=== PATIENT | male | born 1960 | race Caucasian/White ===

== ENCOUNTER 2023-03-14 01:44 | Day surgery (SDC) | payer MEDICARE, SELFPAY ==
[2023-02-28 13:25] VITALS: BMI 32.5
[2023-03-14 09:54] VITALS: BP 132/74; PULSE 73; RESP 17; TEMP 35.9; O2SAT 98; BMI 30.9
[2023-03-14] MEDS: LACTATED RINGERS 1,000 ML 150 ML IV CONT ×2 (10:03→11:18)
[2023-03-14 10:05] LABS: Glucose Point of Care 127 mg/dl (65-105)
--- NOTE | 2023-03-14 10:39 | PM.HPGS ---
History of Present Illness History of Present Illness Consent: Risks, benefits, and alternatives have been discussed and questions answered. Patient agrees to proceed with procedure. Chief complaint: positive cologuard test Narrative: Vincenzo Bonilla is a 63 year old male presents for colonoscopy because of positive Cologuard test. Patient reports his current weight appetite and bowel movements are normal. Patient denies abdominal pain. In the past he has had occasional discomfort with bleeding but none recently. Bleeding with wiping attributed to hemorrhoids. Family history noncontributory. Review of Systems Review of Systems: Review of systems noncontributory. [facility] Family History Family History (Updated 06/08/16 @ 23:19 by DOCTOR UNKNOWN) Sibling Family history of obesity Hypertension Family history of alcoholism Family history of diabetes mellitus in first degree relative Patient's brother is Mother Depression Father Hypertension Family history of diabetes mellitus in first degree relative Social History Social History Smoking packs per day: 2 Smoking cigarettes per day: 40.0 Years smoked: 30 Smoking pack-years: 60.00 Smoking status: Former smoker Tobacco type: cigarettes Alcohol intake: current Substance use type: marijuana Living arrangements: with family Spiritual care concerns: No Meds Home Medications and Allergies Home Medications Medication Instructions Recorded Confirmed Type lisinopril 20 20 tablet PO DAILY 02/28/23 03/14/23 History mg-hydrochlorothiazide 12.5 mg tablet metformin 500 mg tablet 1,000 mg PO BID 02/28/23 03/14/23 History pravastatin 40 mg tablet 40 mg PO DAILY 02/28/23 03/14/23 History Allergies Allergy/AdvReac Type Severity Reaction Status Date / Time No Known Allergies Allergy Verified 03/14/23 09:52 Vital Signs Vital Signs - 24 hr 03/14/23 09:54 Temperature 96.6 F L Pulse Rate 73 Respiratory Rate 17 Blood Pressure 132/74 Pulse Oximetry 98 Oxygen Delivery Room Air Exam Narrative: Physical exam reveals patient to be alert. Vital signs stable. HEENT exam is unremarkable. Patient is anicteric. Lungs are clear to auscultation and percussion. Heart is without murmur or extra sounds. Abdomen bowel sounds are present soft nontender with no organomegaly. Digital external rectal exam is normal. Assessment and Plan Assessment and plan (1) Positive colorectal cancer screening using Cologuard test: Code(s): R19.5 - Other fecal abnormalities Status: Acute Assessment and Plan: Patient found to have positive Cologuard test for this reason colonoscopy will be performed today. Further recommendations may be given after endoscopy.
--- NOTE | 2023-03-14 11:23 | P.PNAN_ITS ---
Anes - Initial Pre Proc Eval Procedure: Operation Date: 03/14/23 11:00 Proposed Procedures p Colonoscopy - Brian Rothman MD Date/Time: 03/14/23 11:23 Surgeon: Brian Rothman MD Pre Op Diagnosis: positive cologuard test Patient Data Age: 63 Gender: M Height: 1.83 m Weight: 103.6 kg Last Vital Signs Temp 96.6 F L 03/14/23 09:54 Pulse 73 03/14/23 09:54 Resp 17 03/14/23 09:54 BP 132/74 03/14/23 09:54 Pulse Ox 98 03/14/23 09:54 O2 Del Method Room Air 03/14/23 09:54 Allergies Allergy/AdvReac Type Severity Reaction Status Date / Time No Known Allergies Allergy Verified 03/14/23 09:52 Home Medications Medication Instructions Recorded Confirmed Type lisinopril 20 20 tablet PO DAILY 02/28/23 03/14/23 History mg-hydrochlorothiazide 12.5 mg tablet metformin 500 mg tablet 1,000 mg PO BID 02/28/23 03/14/23 History pravastatin 40 mg tablet 40 mg PO DAILY 02/28/23 03/14/23 History Laboratory Tests 03/14/23 09:59 POC Capillary Glucose 127 H mg/dl (65-105) Patient hx anesthesia problems: none Family hx anesthesia problems: none Results Review: All pre-operative results and documents have been reviewed as part of the pre- operative evaluation. [facility] Family History Family History (Updated 06/08/16 @ 23:19 by DOCTOR UNKNOWN) Sibling Family history of obesity Hypertension Family history of alcoholism Family history of diabetes mellitus in first degree relative Patient's brother is Mother Depression Father Hypertension Family history of diabetes mellitus in first degree relative Social History Social History Smoking packs per day: 2 Smoking cigarettes per day: 40.0 Years smoked: 30 Smoking pack-years: 60.00 Smoking status: Former smoker Tobacco type: cigarettes Alcohol intake: current Substance use type: marijuana Living arrangements: with family Spiritual care concerns: No Anes - Eval Final PreProcedure Day of Procedure 03/14/23 11:23 Patient weight: obese Heart: regular rate and rhythm Lungs: clear to auscultation Airway: Mallampati scale class III Neurological: alert and oriented Last oral intake: >/= 8 hours ASA classification: III Emergent: no Anesthetic plan: proceed Anesthesia type and monitoring: general GIVS and standard monitoring Results Review: All pre-operative results and documents have been reviewed as part of the pre- operative evaluation. Informed Consent: The patient's anesthetic plan and its attendant risks and benefits were discussed with the patient/family/POA. Questions were solicited and answers provided to the satisfaction of the patient/family/POA.
[2023-03-14 11:42] VITALS: BP 120/75; PULSE 68; RESP 22; O2SAT 97
[2023-03-14 11:52] VITALS: BP 127/84; PULSE 61; RESP 15; O2SAT 98
[2023-03-14 12:02] VITALS: BP 129/85; PULSE 58; RESP 14; O2SAT 98
== END 2023-03-14 12:06 | disposition home or self-care (01) ==
PROVIDERS: PCP Internal Medicine; Visit Provider Internal Medicine Gastroenterology
PROC: 0DJD8ZZ Inspection of Lower Intestinal Tract, Via Natural or Artificial Opening Endoscopic (ICD-10-PCS; CPT 45378; principal; 2023-03-14 11:00)
DX: R19.5 Other fecal abnormalities (principal); K64.8 Other hemorrhoids; Z79.84 Long term (current) use of oral hypoglycemic drugs; Z87.891 Personal history of nicotine dependence; F12.90 Cannabis use, unspecified, uncomplicated; E66.9 Obesity, unspecified; Z68.31 Body mass index [BMI] 31.0-31.9, adult
CPT/HCPCS: 45378; 82948; J2704; J7120

== ENCOUNTER 2024-07-02 17:26 | Emergency (ER) | payer MEDICARE, SELFPAY ==
[2024-07-02] VITALS (12 sets, daily range): BP systolic 109–140; BP diastolic 68–85; PULSE 83–100; RESP 13–20; TEMP 36.3–36.9; O2SAT 90–99
--- NOTE | ~2024-07-02 | CT_ITS ---
EXAMINATION: CT abdomen pelvis w con DATE: 07/02/2024 20:59 INDICATION: upper abdominal pain, hypercalcemia, abl LFTs TECHNIQUE: Computed tomography (CT) of the abdomen and pelvis was performed with 100 mL Omnipaque-350 intravenous contrast. Automated exposure control and iterative reconstruction technique were employe d. The dose-length product was 834.10 mGy-cm. COMPARISON: None. FINDINGS: Lower thorax: Innumerable bilateral pulmonary nodules, measuring up to 6 cm along the left major fiss ure. Aortic valve and coronary artery calcification. Small hiatal hernia. Patulous distal esophagus, with nodular appearing wall thickening. Enlarged periesophageal lymph node. Liver: Innumerable hypoenhancing masses measuring up to 5.8 cm in the right liver lobe. Biliary/Gallbladder: Gallbladder is normal. No bile duct dilation. Pancreas: No mass or duct dilation. Spleen: Normal. Adrenals:No mass. Kidneys: No suspicious mass, obstructing stone, or hydronephrosis. Multiple right renal cysts. Multip le subcentimeter hypodensities, too small to characterize but likely represent cysts. Irregular 11 x 14 mm calcification in the left renal pelvis with minimal pelviectasis and caliectasis. No significan t hydronephrosis. No suspicious mass. GI tract: No small or large bowel dilation. Normal appendix. Diverticulosis without diverticulitis. Mesentery/Peritoneum: Enlarged, necrotic appearing angel hepatic lymph nodes. No ascites, mass, or fr ee air. Retroperitoneum: Enlarged, necrotic appearing periaortic lymph nodes.. Atherosclerotic abdominal aort ic and/or arterial calcifications. Pelvis: Pelvic organs are within normal limits. Soft Tissues: Soft tissues and body wall unremarkable. Bones: No acute osseous finding. IMPRESSION: Multiple pulmonary nodules, measuring up to 6 mm in the left upper lobe along the major fissure. Patulous distal esophagus with nodular wall thickening. Esophageal carcinoma should be considered in the differential. Periesophageal, angel hepatic, and periaortic lymphadenopathy. Innumerable hyperenhancing hepatic masses measuring up to 5.8 cm in the right liver lobe concerning f or metastatic disease. Irregular 11 x 14 mm calcification in the left renal pelvis with minimal pelviectasis and caliectasis . Reviewed, dictated and finalized at location K. IMPRESSION: Multiple pulmonary nodules, measuring up to 6 mm in the left upper lobe along t he major fissure. Patulous distal esophagus with nodular wall thickening. Esophageal carcinoma sh ould be considered in the differential. Periesophageal, angel hepatic, and periaortic lymphadenopathy. Innumerable hyperenhancing hepatic masses measuring up to 5.8 cm in the right l iver lobe concerning for metastatic disease. Irregular 11 x 14 mm calcification in the left renal pelvis with minimal pelvie ctasis and caliectasis.
--- NOTE | ~2024-07-02 | XR_ITS ---
EXAMINATION: XR chest 2V Exam Date/Time: 07/02/2024 20:42 CDT HISTORY: SOB, hypercalcemia Comparison: None. RESULT: Lines, tubes, and devices: None. Lungs and pleura: Minimal streaky bibasilar opacities, likely representing atelectasis. Otherwise cl ear. Cardiomediastinal silhouette: Stable. Other: No acute osseous or upper abdominal finding. IMPRESSION: No acute cardiopulmonary process. Reviewed, dictated and finalized at location K.
[2024-07-02 17:49] LABS: Basophils Percent Auto 0.3 % (0.2-1.2); Eosinophils Percent Auto 0.1 % (0-4.4); Hematocrit 49.5 % (42.0-52.0); Hemoglobin 17.1 g/dL (14.0-18.0); Immature Granulocyte Absolute 0.04 K/mm3 (0.00-0.031); Immature Granulocyte Percent A 0.3 % (0-0.5); Lymphocytes Absolute Auto 2.47 K/mm3 (0.9-3.2); Lymphocytes Percent Auto 18.1 % (18.3-44.2); Mean Corpuscular HGB Conc 34.5 g/dl (32-36); Mean Corpuscular Volume 89.8 fl (80-100); Mean Platelet Volume 8.9 fl (7.4-10.4); Monocytes Absolute Auto 1.5 K/mm3 (0.1-0.6); Monocytes Percent Auto 10.8 % (2.6-8.5); Neutrophils Absolute Auto 9.6 K/mm3 (1.3-6.7); Neutrophils Percent Auto 70.4 % (45.5-73.1); Platelet Count Result 371 k/mm3 (150-375); Red Blood Count 5.51 M/mm3 (4.6-6.20); Red Cell Distribution Width 12.5 % (11.5-14.5); White Blood Count 13.6 K/mm3 (4.5-10.0)
[2024-07-02 18:35] LABS: Alanine Aminotransferase 102 U/L (6-50); Albumin Level 4.5 g/dL (3.5-5.1); Alkaline Phosphatase 135 U/L (38-126); Anion Gap 9 mmol/L (4-12); Aspartate Amino Transferase 155 U/L (17-59); Bilirubin,Total 0.6 mg/dL (0.2-1.3); Blood Urea Nitrogen 34 mg/dL (9-20); Carbon Dioxide 31 mmol/L (22-30); Chloride 91 mmol/L (98-107); Estimated CRCL calculation 59 ml/min; Estimated Glomerular Filt Rate > 60; Glucose 125 mg/dL (65-110); Lipase 49 U/L (23-300); Potassium 3.9 mmol/L (3.4-5.0); Sodium 131 mmol/L (137-145)
[2024-07-02 18:38] LABS: Calcium > 14.0 mg/dL (8.4-10.2)
--- NOTE | 2024-07-02 19:39 | ED.ABDPAIN ---
HPI - Abdominal Pain General Chief Complaint: Abdominal Pain Stated Complaint: abd pain, abnormal labs Time Seen by Provider: 07/02/24 19:34 History of Present Illness HPI narrative: 64-year-old male with a history of hypertension, hyperlipidemia presenting with abnormal outpatient labs hand abdominal pain. Patient states that he has been feeling generally weak and unwell for the last week or so. States that he has been intermittently nauseated and unable to eat because of this. Complains of persistent discomfort in his upper abdomen. He went to see his PCP today who obtained outpatient labs and his calcium came back greater than 15. He was then advised to come here for evaluation. Currently, he complains of fatigue, generalized weakness, and persistent discomfort in his upper abdomen. No chest pain or shortness of breath. No cough, fevers, chills. States he vomited several times last week but has not since though he still feels nauseous. No diarrhea or constipation. No dysuria. Related Data Home Medications Medication Instructions Recorded Confirmed lisinopril 20 20 tablet PO DAILY 02/28/23 07/08/23 mg-hydrochlorothiazide 12.5 mg tablet metformin 500 mg tablet 1,000 mg PO BID 02/28/23 07/08/23 mecobalamin (vitamin B12) 500 mcg mcg PO 06/17/23 07/08/23 chewable tablet multivitamin with minerals-folic tablet PO 06/17/23 07/08/23 acid 400 mcg-lycopene 370 mcg tablet (One-A-Day Men's 50 Plus) rosuvastatin 10 mg tablet 10 mg PO DAILY 06/17/23 07/08/23 sildenafil (pulm.hypertension) 20 See Rx Instructions PO DAILY PRN 06/17/23 07/08/23 mg tablet Allergies Allergy/AdvReac Type Severity Reaction Status Date / Time No Known Allergies Allergy Verified 07/02/24 17:30 Review of Systems Review of Systems: All systems reviewed & are unremarkable except as noted in HPI and below PMFSH Past Medical History Medical History Diabetes Hypertension Family History Family History Sibling Family history of obesity Hypertension Family history of alcoholism Family history of diabetes mellitus in first degree relative Patient's brother is Mother Depression Father Hypertension Family history of diabetes mellitus in first degree relative Social History Social History Smoking packs per day: 2 Smoking cigarettes per day: 40.0 Years smoked: 30 Smoking pack-years: 60.00 Smoking status: Former smoker Tobacco type: cigarettes Alcohol intake: current Substance use type: marijuana Lack of Transportation: No Lack of Food: Never True Current Housing: I Have Housing Concerned About Future Housing: No Difficulty Paying Gas/Electric Bills: No Difficulty Paying for Meds: No Currently Unemployed: No Education: High School Diploma/GED Difficulty w/ Childcare or Family Care: No Living arrangements: with family Spiritual care concerns: No Exam Narrative: GENERAL: Nontoxic but does appear generally weak and fatigued, very pleasant and cooperative HEAD: Normocephalic, atraumatic. EYES: PERRLA and EOMI. ENT: Mucous membranes moist. NECK: Supple. CHEST: Clear to auscultation. No respiratory distress. HEART: Regular rate and rhythm ABDOMEN: Soft, mild tenderness upper abdomen, no guarding or rebound EXTREMITIES: Normal range of motion. No edema. SKIN: Warm, dry, no rash. NEURO: No focal deficits. Alert and oriented x3. PSYCH: Normal mood and affect. Course Vital Signs Vital signs: Vital Signs Temperature 97.4 F L 07/02/24 17:28 Pulse Rate 100 07/02/24 17:28 Respiratory Rate 16 07/02/24 17:28 Blood Pressure 109/68 07/02/24 17:28 Pulse Oximetry 97 07/02/24 17:28 Oxygen Delivery Room Air 07/02/24 17:28 Temperature 98.4 F 07/02/24 23:45 Pul
--- NOTE | 2024-07-02 19:50 | ECG_ITS ---
Test Date: 2024-07-02 20:10:44 Measurements Intervals [place] Rate: 86 P: 43 MD: 164 QRS: -26 QRSD: 105 T: 31 QT: 330 QTc: 395 Interpretive Statements SINUS RHYTHM WITH OCCASIONAL VENTRICULAR PREMATURE COMPLEXES INDETERMINATE AXIS INFERIOR MYOCARDIAL INFARCTION , OLD ABNORMAL ECG No previous ECG available for comparison Electronically Signed On 07-03-2024 12:46:40 CDT by Paul Pulido M.D.
[2024-07-02] MEDS: SODIUM CHLORIDE 0.9% IV 1,000 ML 999 ML IV CONT ×2 (20:00)
[2024-07-02] MEDS: ONDANSETRON INJ 4 MG/2 ML VIAL IV PUSH (20:00)
[2024-07-02 20:05] LABS: Magnesium 2.1 mg/dL (1.6-2.3); Phosphorus 3.9 mg/dL (2.5-4.5)
[2024-07-02 20:45] LABS: Influenza A QL RT-PCR Negative (Negative); Influenza B QL RT-PCR Negative (Negative); RSV RNA, RT-PCR Negative (Negative); SARS-CoV-2 RNA PCR Negative (Negative)
[2024-07-02 20:49] LABS: Add Urine Microscopic? YES; Appearance Urine Clear (Clear); Bacteria Urine None Seen /hpf; Bilirubin Urine Negative (Negative); Blood Urine Negative (Negative); Color Urine Yellow (Yellow); Glucose Urine UA Negative (Negative); Hyaline Casts Urine Present /lpf; Ketones Urine Negative (Negative); Leukocyte Esterase Ur Negative LEU/UL (Negative); Mucus Urine Present /lpf; Need Manual Microscopic Reviewed; Nitrate Urine Negative (Negative); Non Pathogenic Casts >20; Protein Urine Trace mg/dL (Negative); RBC Urine 0-2 /hpf (0-2); Specific Grav Ur 1.019 (1.001-1.035); Squamous Epithelial Cell Urine Occasional /hpf (Few); WBC Urine 0-5 /hpf (0-3)
[2024-07-02] MEDS: SODIUM CHLORIDE 0.9% IV 1,000 ML 200 ML IV CONT (22:42)
== END 2024-07-03 00:25 | disposition short-term general hospital (02) ==
PROVIDERS: Emergency Provider Emergency Medicine; PCP Internal Medicine
DX: E83.52 Hypercalcemia (principal); C79.9 Secondary malignant neoplasm of unspecified site; Z20.822 Contact with and (suspected) exposure to COVID-19; I10 Essential (primary) hypertension; E11.9 Type 2 diabetes mellitus without complications; Z87.891 Personal history of nicotine dependence; Z79.899 Other long term (current) drug therapy; Z79.84 Long term (current) use of oral hypoglycemic drugs; R91.8 Other nonspecific abnormal finding of lung field; R93.3 Abnormal findings on diagnostic imaging of other parts of digestive tract; R16.0 Hepatomegaly, not elsewhere classified; R93.422 Abnormal radiologic findings on diagnostic imaging of left kidney; I49.3 Ventricular premature depolarization; R94.31 Abnormal electrocardiogram [ECG] [EKG]
CPT/HCPCS: 36415; 71046; 74177; 80053; 81001; 82330; 83690; 83735; 84100; 85025; 87637; 93005; 96361; 96374; 99285; J2405; J7030; Q9967

== ENCOUNTER 2024-07-23 14:08 | Outpatient (CLI) | payer MEDICARE, SELFPAY ==
[2024-07-23 14:23] LABS: Basophils Percent Auto 0.3 % (0.2-1.2); Eosinophils Percent Auto 0.1 % (0-4.4); Hematocrit 44.3 % (42.0-52.0); Hemoglobin 14.5 g/dL (14.0-18.0); Immature Granulocyte Absolute 0.09 K/mm3 (0.00-0.031); Immature Granulocyte Percent A 0.7 % (0-0.5); Lymphocytes Absolute Auto 0.99 K/mm3 (0.9-3.2); Lymphocytes Percent Auto 7.6 % (18.3-44.2); Mean Corpuscular HGB Conc 32.7 g/dl (32-36); Mean Corpuscular Hemoglobin 28.8 pg (26-34); Mean Corpuscular Volume 88.1 fl (80-100); Monocytes Absolute Auto 1.1 K/mm3 (0.1-0.6); Monocytes Percent Auto 8.7 % (2.6-8.5); Neutrophils Absolute Auto 10.8 K/mm3 (1.3-6.7); Neutrophils Percent Auto 82.6 % (45.5-73.1); Platelet Count Result 409 k/mm3 (150-375); Red Blood Count 5.03 M/mm3 (4.6-6.20); Red Cell Distribution Width 14.2 % (11.5-14.5); White Blood Count 13.1 K/mm3 (4.5-10.0)
[2024-07-23 16:36] LABS: Iron 36 ug/dL (49-181)
[2024-07-23 16:52] LABS: Percent Iron Saturation 11 % (20-50)
[2024-07-23 17:08] LABS: Alanine Aminotransferase 212 U/L (6-50); Albumin Level 4.2 g/dL (3.5-5.1); Alkaline Phosphatase 610 U/L (38-126); Anion Gap 14 mmol/L (4-12); Aspartate Amino Transferase 312 U/L (17-59); Bilirubin,Total 1.8 mg/dL (0.2-1.3); Blood Urea Nitrogen 33 mg/dL (9-20); Carbon Dioxide 26 mmol/L (22-30); Chloride 88 mmol/L (98-107); Estimated Glomerular Filt Rate > 60; Glucose 141 mg/dL (65-110); Potassium 4.5 mmol/L (3.4-5.0); Sodium 128 mmol/L (137-145)
[2024-07-23 17:39] LABS: Folic Acid 11.9 ng/mL (2.76->20); Vitamin B12 > 1000.0 pg/mL (239-931)
[2024-07-23 17:40] LABS: Calcium 16.8 mg/dL (8.4-10.2)
== END 2024-07-23 14:09 | disposition home or self-care (01) ==
LOC: ANHLAB 14:09
PROVIDERS: Visit Provider Internal Medicine Hematology & Oncology
DX: C15.5 Malignant neoplasm of lower third of esophagus (principal)
CPT/HCPCS: 36415; 80053; 82607; 82728; 82746; 83540; 83550; 85025

== ENCOUNTER 2024-07-23 17:51 | Inpatient (IN) | payer MEDICARE, SELFPAY ==
--- NOTE | ~2024-07-23 | XR_ITS ---
XR chest 2V Ordering provider: Deep Rivera MD History: 64 years Male with . weakness hx current esophagus cancer . Comparison: July 02, 2024 FINDINGS: MEDIASTINUM: The cardiac silhouette is not enlarged. LUNGS: No infiltrates, effusions or pneumothorax. Slightly prominent bronchovascular markings in the lower lobes. Minimal opacification is seen in the right and left posterior CP angle. Focal atelectasis or pneumonia is not excluded. OTHER: No free air under the diaphragm. IMPRESSION: Prominent markings in the lower lobes. Opacification the right and left posterior CP angle which may indicate atelectasis versus focal pneum onia. Clinical evaluation advised. Reviewed, dictated and finalized at location A. IMPRESSION: Prominent markings in the lower lobes. Opacification the right and left posterior CP angle which may indicate atelecta sis versus focal pneumonia. Clinical evaluation advised.
--- NOTE | ~2024-07-23 | CT_ITS ---
CT abdomen pelvis w con Ordering provider: Joseluis Perez PA-C History: 64 years Male with . epigastric tenderness . Comparison: July 02, 2024 Technique: CT abdomen and pelvis with IV and without oral contrast. Automated exposure control and it erative reconstruction technique were employed. The dose-length product was 755.91 mGy-cm. 100 mL Omn ipaque 350 was given IV. Findings: VISUALIZED LOWER CHEST: Right pleural effusion with adjacent atelectasis. 8 mm nodule is seen in the right middle lobe. Tiny nodules are seen adjacent to the right cardiac bor diana. Nodule seen in the right lower lobe measuring 8 mm. Nodule seen in the left lower lobe measuring 6 mm. Nodule seen in the lingula measuring 7 mm. Nodule is seen in the left lower lobe measuring 1.5 cm. Thickening of the wall of the distal esophagus is noted. UPPER ABDOMINAL ORGANS: Liver: Hepatomegaly. Multiple lesions in the liver which are increased compared to the previous stud y. Attenuated hepatic veins are noted. Gallbladder: Normal. Spleen: Normal. Stomach/duodenum: Normal. Pancreas: Normal. Adrenals: Lobulated LEFT ADRENAL GLAND WHICH MAY BE METASTATIC UNCHANGED FROM PREVIOUS EXAMINATION. Kidneys: Right renal cysts with the largest measuring 2.6 cm. Calcifications in the left renal pelvis most likely stone. Tiny stone in the left kidney lower pole.. PELVIC ORGANS: The bladder is underfilled with slightly thickened wall. Calcification the prostate. BOWEL AND MESENTERY: Colon: No evidence of diverticulitis.. Normal appendix. Small Bowel: Normal. No obstruction. Peritoneum/mesentery: No free air or free fluid. .. esophageal, lesser sac and angel hepatis lymphad enopathy. RETROPERITONEUM: Mild atheromatous disease of the abdominal aorta. Enlarged retroperitoneal lymphad enopathy with the largest measuring 2.1 cm.. MUSCULOSKELETAL: Superficial soft tissues: The superficial soft tissues are normal. Bones: Age appropriate degenerative changes of the spine. IMPRESSION: 1. Multiple masses in the liver which increased in size compared to previous study. 2. Thickening of the wall of the distal esophagus. 3. Right pleural effusion with adjacent atelectasis. 4. Multiple nodules in the lower lobes of the lungs. 5. Periesophageal, angel hepatis, and para-aortic lymphadenopathy. 6. Calcification in the left renal pelvis most likely a stone. Reviewed, dictated and finalized at location A. IMPRESSION: 1. Multiple masses in the liver which increased in size compared to previous s tudy. 2. Thickening of the wall of the distal esophagus. 3. Right pleural effusion with adjacent atelectasis. 4. Multiple nodules in the lower lobes of the lungs. 5. Periesophageal, angel hepatis, and para-aortic lymphadenopathy. 6. Calcification in the left renal pelvis most likely a stone.
--- NOTE | ~2024-07-23 | XR_ITS ---
EXAMINATION: XR abdomen/kub 1V DATE: 08/01/2024 13:27 INDICATION: High gastric residual volume. TECHNIQUE: A supine view of the abdomen on 2 radiographs was obtained. COMPARISON: Chest CT 07/29/2024 FINDINGS: There are no dilated loops of bowel. There is a small volume of stool in the colon. IMPRESSION: 1. Normal bowel gas pattern. Reviewed, dictated and finalized at location A.
--- NOTE | ~2024-07-23 | NM_ITS ---
EXAMINATION: NM bone scan whole body DATE: 07/30/2024 13:45 INDICATION: Hypercalcemia. TECHNIQUE: 27.0 mCi Tc-99m HDP was administered intravenously. Delayed whole-body scintigrams were o btained. COMPARISON: Chest CT 07/29/2024 FINDINGS: There is joint-centered increased activity in the sternoclavicular joints, glenohumeral destini nts, acromioclavicular joints, hip joints, and left knee, likely osteoarthritis. There is increased a ctivity in the skull. IMPRESSION: 1. No specific evidence of metastatic disease. 2. Increased activity in the skull without radiographic comparison, most likely a normal variant or P aget disease as an isolated finding. Reviewed, dictated and finalized at location A. IMPRESSION: 1. No specific evidence of metastatic disease. 2. 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
--- NOTE | ~2024-07-23 | XR_ITS ---
EXAMINATION: XR chest port-a-cath/central DATE: 07/29/2024 16:05 INDICATION: Port placement. TECHNIQUE: A single frontal view of the chest was obtained. COMPARISON: Chest 2 views 07/23/2024, CT abdomen and pelvis 07/23/2024 FINDINGS: There are airspace opacities in the lower lung zones. There are scattered small nodules in the lungs. There is a small right pleural effusion. No pneumothorax. The heart size is normal. There is a left subclavian port with tip at superior cavoatrial junction. There is deviation of the cathete r between the clavicle and first rib. IMPRESSION: 1. Port tip at superior cavoatrial junction. 2. Airspace opacities in the lower lung zones, likely atelectasis. 3. Pulmonary nodules, consistent with metastatic disease. 4. Small right pleural effusion. Reviewed, dictated and finalized at location A.
--- NOTE | ~2024-07-23 | XR_ITS ---
EXAMINATION: XR fl guide central line place DATE: 07/29/2024 14:18 INDICATION: Left-sided port catheter insertion TECHNIQUE: Single fluoroscopic image of the central chest was obtained during procedure performed by Dr. Lynn. Radiologist was not present for the imaging or procedure. The amount of fluoroscopy time us ed during this procedure was 0.9 minutes. Total DAP was 1.989 Gycm^2 COMPARISON: None. FINDINGS/IMPRESSION: Distal tip of a subclavian central venous catheter extends caudally in the super ior vena cava to the level of the superior cavoatrial junction. See procedure note for further detail . Reviewed, dictated and finalized at location B.
--- NOTE | ~2024-07-23 | CT_ITS ---
CTA chest PE protocol Ordering provider: Kandice Arce PA-C History: 64 years Male with . tachycardia . Comparison: None. Technique: CT angiogram chest was performed following timed intravenous injection of contrast. Thin s lice axial images and reformatted coronal images were obtained. Three dimensional reformatted images of the chest were also obtained using a [employer] workstation. . Automated exposure control and iterati ve reconstruction technique were employed. The dose-length product was 935.47 mGy-cm. 100 mL Omnipaqu e 350 was given IV. Findings: PULMONARY ARTERIES: No pulmonary embolus. VISUALIZED THORACIC INLET: Normal. MEDIASTINUM: Aorta/coronary arteries: Mild atheromatous disease. Heart/other: The heart is not enlarged. Lymph nodes: No mediastinal or hilar adenopathy. LUNGS: Right pleural effusion. Right basal pneumonia. Atelectasis versus pneumonia in the left lung base. No dule in the right upper lobe measuring 8 mm. Nodule in the right upper lobe medially measuring 9 mm. Small nodules in the middle lobe. The largest measures 1 cm. Nodule in the left lower lobe measuring 1.5 cm. Small nodules in the left upper lobe No pulmonary masses. No pneumothorax. VISUALIZED UPPER ABDOMEN: Minimal ascites. Multiple hypodensities in the liver suggestive of masses. Further evaluation advised. Hepatomegaly. Prominent left adrenal gland. Otherwise, the visualized upp er abdomen is normal. MUSCULOSKELETAL: Soft tissues: The superficial soft tissues are normal. Bones: Age appropriate degenerative changes of the spine. Fracture of the right radius and 12th ribs. IMPRESSION: 1. No pulmonary embolism. 2. Right pleural effusion with adjacent pneumonia. Atelectasis is not excluded. Left basilar atelect asis versus pneumonia. 3. Multiple metastatic lesions in both lungs clinical correlation advised. 4. Multiple hypodensities in the liver suggestive of masses. Further evaluation advised. 5. Hepatomegaly. 6. Minimal ascites. 7. Fracture in the right 12th rib with highly suggestive fracture in the 11th rib. Reviewed, dictated and finalized at location A. IMPRESSION: 1. No pulmonary embolism. 2. Right pleural effusion with adjacent pneumonia. Atelectasis is not excluded . Left basilar atelectasis versus pneumonia. 3. Multiple metastatic lesions in both lungs clinical correlation advised. 4. Multiple hypodensities in the liver suggestive of masses. Further evaluatio n advised. 5. Hepatomegaly. 6. Minimal ascites. 7. Fracture in the right 12th rib with highly suggestive fracture in the 11th rib.
[2024-07-23 18:00] VITALS: BP 77/52; PULSE 115; RESP 15; TEMP 36.3; O2SAT 97
--- NOTE | 2024-07-23 18:14 | ECG_ITS ---
Test Date: 2024-07-23 18:15:37 Measurements Intervals [place] Rate: 108 P: 31 VT: 161 QRS: -52 QRSD: 96 T: 20 QT: 304 QTc: 408 Interpretive Statements SINUS TACHYCARDIA WITH OCCASIONAL VENTRICULAR PREMATURE COMPLEXES DELAYED PRECORDIAL R/S TRANSITION INFERIOR INFARCT, AGE INDETERMINATE BASELINE ARTIFACT- II, III ABNORMAL ECG Compared to ECG 07/02/2024 20:10:44 HEART RATE HAS INCREASED Electronically Signed On 07-23-2024 19:23:43 CDT by Janes Segovia D.O.
--- NOTE | 2024-07-23 18:22 | ED.RECABL ---
HPI - Recheck/Abnormal Lab/Rx General Chief Complaint: Recheck/Abnormal Lab/Rx Stated Complaint: elevated calcium level Time Seen by Provider: 07/23/24 18:15 Source: patient Mode of arrival: ambulatory Limitations: no limitations History of Present Illness HPI narrative: This is a 64-year-old male with PMH of stage IV esophageal cancer who presents to the ED for evaluation of elevated serum calcium level and low blood pressure today. States that he was at his oncologist, Dr. Pelaez are who ordered the labs today. They are going to start chemo next week but no radiation. Patient reports that he has felt extremely weak and has had no appetite over the past couple of weeks. Reports that he has been able to drink a little water but not been able to the eat food. Endorses some nausea but no vomiting. He denies chest pain, shortness breath, recent fevers, chills, diarrhea, urinary symptoms, cough, back pain. Related Data Home Medications Medication Instructions Recorded Confirmed mecobalamin (vitamin B12) 500 mcg 500 mcg PO DAILY 06/17/23 07/24/24 chewable tablet hydrocodone 7.5 mg-acetaminophen 1 tablet PO TID 07/24/24 07/24/24 325 mg tablet lisinopril 20 mg tablet 20 mg PO DAILY 07/24/24 07/24/24 pantoprazole 40 mg tablet,delayed 40 mg PO DAILY 07/24/24 07/24/24 release Allergies Allergy/AdvReac Type Severity Reaction Status Date / Time No Known Allergies Allergy Verified 07/23/24 18:15 [facility] Past Medical History Medical History Diabetes Hypertension Family History Family History Sibling Family history of obesity Hypertension Family history of alcoholism Family history of diabetes mellitus in first degree relative Patient's brother is Mother Depression Father Hypertension Family history of diabetes mellitus in first degree relative Social History Social History Smoking packs per day: 2 Smoking cigarettes per day: 40.0 Years smoked: 30 Smoking pack-years: 60.00 Smoking status: Former smoker Tobacco type: cigarettes Alcohol intake: current Substance use type: marijuana Lack of Transportation: No Lack of Food: Never True Current Housing: I Have Housing Concerned About Future Housing: No Difficulty Paying Gas/Electric Bills: No Difficulty Paying for Meds: No Currently Unemployed: No Education: High School Diploma/GED Difficulty w/ Childcare or Family Care: No Living arrangements: with family Spiritual care concerns: No Exam Narrative: GENERAL: Appears chronically ill HEAD: Normocephalic, atraumatic. EYES: PERRLA and EOMI. ENT: Nares clear, no rhinorrhea or epistaxis. Mucous membranes moist. Oropharynx without tonsillar hypertrophy exudate or other lesions. NECK: Supple. No adenopathy or masses. CHEST: No respiratory distress. Clear to auscultation. No wheezes rales or rhonchi HEART: Regular rate and rhythm. No murmur heard. Normal peripheral pulses. ABDOMEN: Mild epigastric tenderness. Soft, otherwise nontender, nondistended, normal active bowel sounds. MSK: Normal range of motion. No edema. SKIN: Warm, dry, no rash. NEURO: Alert and oriented x4. No focal deficits. PSYCH: Normal mood and affect. Course Vital Signs Vital signs: Vital Signs Temperature 97.4 F L 07/23/24 18:00 Pulse Rate 115 H 07/23/24 18:00 Respiratory Rate 15 07/23/24 18:00 Blood Pressure 77/52 L 07/23/24 18:00 Pulse Oximetry 97 07/23/24 18:00 Oxygen Delivery Room Air 07/23/24 18:00 Temperature 97.4 F L 07/23/24 18:00 Pulse Rate 95 07/23/24 23:03 Respiratory Rate 14 07/23/24 23:03 Blood Pressure 102/65 07/23/24 23:03 Pulse Oximetry 93 07/23/24 23:03 Oxygen Delivery Room Air 07/23/24 18:00 MDM - Recheck/Abnormal Lab/Rx MDM Narrative Medical decision making narrative: This is a 64-year-old male who presents to the ED for chief complaint generalized weakness and nausea. Was told by oncologist that he had elevated calcium level and to come to the ER. Vitals initially show blood pressure of 77/52 with mild tachycardia. Afebrile. Exam remarkable for the above. No focal weakness or neural deficit. Mild epigastric tenderness. Lab work shows slightly elevated white count of 14.1 on CBC. CMP shows sodium of 126 and chloride of 88. Markedly high calcium of 17.0, also with an elevated lactic acid of 2.8. LFTs are elevated. EKG showing nonspecific findings but no concerning changes with the hypercalcemia. Chest x-ray: IMPRESSION: Prominent markings in the lower lobes. Opacification the right and left posterior CP angle which may indicate atelectasis versus focal pneumonia. Clinical evaluation advised.. CT abdomen pelvis with IV contrast: IMPRESSION: 1. Multiple masses in the liver which increased in size compared to previous study. 2. Thickening of the wall of the distal esophagus. 3. Right pleural effusion with adjacent atelectasis. 4. Multiple nodules in the lower lobes of the lungs. 5. Periesophageal, angel hepatis, and para-aortic lymphadenopathy. 6. Calcification in the left renal pelvis most likely a stone.. Overall symptoms and presentation consistent with hypercalcemia of malignancy with esophageal cancer. He was started on 2 L of bolus LR and continued on maintenance fluids. X-ray showing possible pneumonia which is certainly a possible complication of his presentation today, given the elevated white count, lactic acid and initial low blood pressure. His pressure and tachycardia both improved with fluid boluses. Discussed the case with Dr. Pelaez who will consult on the patient. Discussed with Dr. Og, who recommends admission to the IMU and starting on bisphosphonate therapy. I discussed the plan of admission with the patient and he is understanding and agreeable. He will be admitted in stable condition Lab Data 07/23/24 18:16 07/23/24 18:16 Labs: Lab Results 07/23/24 07/23/24 07/23/24 Range/Units 18:16 19:08 19:44 WBC 14.1 H (4.5-10.0) K/mm3 RBC 5.06 (4.6-6.20) M/mm3 Hgb 14.7 (14.0-18.0) g/dL Hct 45.0 (42.0-52.0) % MCV 88.9 (80-100) fl MCH 29.1 (26-34) pg MCHC 32.7 (32-36) g/dl RDW 14.3 (11.5-14.5) % Plt Count 394 H (150-375) k/mm3 MPV 9.1 (7.4-10.4) fl Immature Gran % (Auto) 0.5 (0-0.5) % Neut % (Auto) 84.0 H (45.5-73.1) % Lymph % (Auto) 6.8 L (18.3-44.2) % [place] % (Auto) 8.3 (2.6-8.5) % Eos % (Auto) 0.1 (0-4.4) % Baso % (Auto) 0.3 (0.2-1.2) % Lymph # (Auto) 0.96 (0.9-3.2) K/mm3 [place] # (Auto) 1.2 H (0.1-0.6) K/mm3 Eos # (Auto) 0.0 (0-0.3) K/mm3 Baso # (Auto) 0.0 (0.0-0.1) K/mm3 Abs Immat Gran (auto) 0.07 H (0.00-0.031) K/mm3 Absolute Neuts (auto) 11.9 H (1.3-6.7) K/mm3 Absolute Nucleated RBC 0.000 (0.0-0.012) K/mm3 Nucleated RBC % 0.0 (0.0-0.2) % Sodium 126 L (137-145) mmol/L Potassium 4.6 (3.4-5.0) mmol/L Chloride 88 L (98-107) mmol/L Carbon Dioxide 27 (22-30) mmol/L Anion Gap 11 (4-12) mmol/L BUN 37 H (9-20) mg/dL Creatinine 1.30 (0.7-1.3) mg/dL Estim Creat Clear Calc 55 ml/min Estimated GFR 55 L (59 - ) Glucose 137 H (65-110) mg/dL Lactic Acid (0.7-2.0) mmol/L Calcium 17.0 H* (8.4-10.2) mg/dL Ionized Calcium Rebeca Pending Magnesium 2.3 (1.6-2.3) mg/dL Total Bilirubin 2.1 H (0.2-1.3) mg/dL AST 341 H (17-59) U/L ALT 199 H (6-50) U/L Alkaline Phosphatase 612 H (38-126) U/L Total Protein 8.0 (6.3-8.2) g/dL Albumin 4.1 (3.5-5.1) g/dL Lipase 150 (23-300) U/L Urine Color Dark yellow (Yellow) Urine Appearance Cloudy H (Clear) Urine pH 6.0 (5.0-9.0) Ur Specific [place] 1.014 (1.001-1.035) Urine Protein 2+ H (Negative) mg/dL Urine Glucose (UA) Negative (Negative) mg/dL Urine Ketones Negative (Negative) mg/dL Ur Blood (Man) Negative (Negative) Urine Nitrate Negative (Negative) Urine Bilirubin 1+ H (Negative) Urine Urobilinogen 2.0 H (<2.0) mg/dL Add Ur Microanalysis Reviewed Leukocyte Esterase Rfl Trace H (Negative) LAUREN/UL Urine RBC 6-10 H (0-2) /hpf Urine WBC 0-5 (0-3) /hpf Ur Squamous Epith Cells Few (Few) /hpf Urine Bacteria None seen /hpf Urine Casts >20 /11/03 Range/Units 20:09 WBC (4.5-10.0) K/mm3 RBC (4.6-6.20) M/mm3 Hgb (14.0-18.0) g/dL Hct (42.0-52.0) % MCV (80-100) fl MCH (26-34) pg MCHC (32-36) g/dl RDW (11.5-14.5) % Plt Count (150-375) k/mm3 MPV (7.4-10.4) fl Immature Gran % (Auto) (0-0.5) % Neut % (Auto) (45.5-73.1) % Lymph % (Auto) (18.3-44.2) % [place] % (Auto) (2.6-8.5) % Eos % (Auto) (0-4.4) % Baso % (Auto) (0.2-1.2) % Lymph # (Auto) (0.9-3.2) K/mm3 [place] # (Auto) (0.1-0.6) K/mm3 Eos # (Auto) (0-0.3) K/mm3 Baso # (Auto) (0.0-0.1) K/mm3 Abs Immat Gran (auto) (0.00-0.031) K/mm3 Absolute Neuts (auto) (1.3-6.7) K/mm3 Absolute Nucleated RBC (0.0-0.012) K/mm3 Nucleated RBC % (0.0-0.2) % Sodium (137-145) mmol/L Potassium (3.4-5.0) mmol/L Chloride (98-107) mmol/L Carbon Dioxide (22-30) mmol/L Anion Gap (4-12) mmol/L BUN (9-20) mg/dL Creatinine (0.7-1.3) mg/dL Estim Creat Clear Calc ml/min Estimated GFR (59 - ) Glucose (65-110) mg/dL Lactic Acid 2.8 H (0.7-2.0) mmol/L Calcium (8.4-10.2) mg/dL Ionized Calcium Rebeca Magnesium (1.6-2.3) mg/dL Total Bilirubin (0.2-1.3) mg/dL AST (17-59) U/L ALT (6-50) U/L Alkaline Phosphatase (38-126) U/L Total Protein (6.3-8.2) g/dL Albumin (3.5-5.1) g/dL Lipase (23-300) U/L Urine Color (Yellow) Urine Appearance (Clear) Urine pH (5.0-9.0) Ur Specific [place] (1.001-1.035) Urine Protein (Negative) mg/dL Urine Glucose (UA) (Negative) mg/dL Urine Ketones (Negative) mg/dL Ur Blood (Man) (Negative) Urine Nitrate (Negative) Urine Bilirubin (Negative) Urine Urobilinogen (<2.0) mg/dL Add Ur Microanalysis Leukocyte Esterase Rfl (Negative) LAUREN/UL Urine RBC (0-2) /hpf Urine WBC (0-3) /hpf Ur Squamous Epith Cells (Few) /hpf Urine Bacteria /hpf Urine Casts ECG Data EKG #1: ECG completion date: 07/23/24 ECG completion time: 18:15 Prior ECG tracings: available for review Interpretation: Sinus tachycardia with occasional PVCs Rate 108 Normal QTC Normal QRS No acute ischemic findings No significant changes compared ECG of 07/02/2024 Discharge Plan Discharge Clinical Impression: Esophageal cancer, stage IV, Hypercalcemia, Pneumonia Patient Disposition: Still a Patient Condition: Stable
[2024-07-23 18:24] LABS: Basophils Percent Auto 0.3 % (0.2-1.2); Eosinophils Percent Auto 0.1 % (0-4.4); Hemoglobin 14.7 g/dL (14.0-18.0); Immature Granulocyte Absolute 0.07 K/mm3 (0.00-0.031); Immature Granulocyte Percent A 0.5 % (0-0.5); Lymphocytes Absolute Auto 0.96 K/mm3 (0.9-3.2); Lymphocytes Percent Auto 6.8 % (18.3-44.2); Mean Corpuscular HGB Conc 32.7 g/dl (32-36); Mean Corpuscular Hemoglobin 29.1 pg (26-34); Mean Corpuscular Volume 88.9 fl (80-100); Mean Platelet Volume 9.1 fl (7.4-10.4); Monocytes Absolute Auto 1.2 K/mm3 (0.1-0.6); Monocytes Percent Auto 8.3 % (2.6-8.5); Neutrophils Absolute Auto 11.9 K/mm3 (1.3-6.7); Platelet Count Result 394 k/mm3 (150-375); Red Blood Count 5.06 M/mm3 (4.6-6.20); Red Cell Distribution Width 14.3 % (11.5-14.5); White Blood Count 14.1 K/mm3 (4.5-10.0)
[2024-07-23] MEDS: LACTATED RINGERS 1,000 ML 999 ML IV CONT ×2 (18:32)
[2024-07-23 18:34] VITALS: BP 96/65; PULSE 96; RESP 15; O2SAT 94
[2024-07-23 18:43] LABS: Alanine Aminotransferase 199 U/L (6-50); Albumin Level 4.1 g/dL (3.5-5.1); Alkaline Phosphatase 612 U/L (38-126); Anion Gap 11 mmol/L (4-12); Aspartate Amino Transferase 341 U/L (17-59); Bilirubin,Total 2.1 mg/dL (0.2-1.3); Blood Urea Nitrogen 37 mg/dL (9-20); Carbon Dioxide 27 mmol/L (22-30); Chloride 88 mmol/L (98-107); Estimated CRCL calculation 55 ml/min; Estimated Glomerular Filt Rate 55; Glucose 137 mg/dL (65-110); Potassium 4.6 mmol/L (3.4-5.0); Sodium 126 mmol/L (137-145)
[2024-07-23 18:51] VITALS: BP 114/66; PULSE 93; RESP 16; O2SAT 94
[2024-07-23 18:52] LABS: Lipase 150 U/L (23-300); Magnesium 2.3 mg/dL (1.6-2.3)
[2024-07-23 19:05] VITALS: BP 126/67; PULSE 94; RESP 17; O2SAT 92
[2024-07-23] MEDS: HYDROmorphone HCL INJ (*CRX) 1 MG/ML SYR 0.5 MG IV PUSH (19:14)
[2024-07-23 19:41] LABS: Add Urine Microscopic? YES; Appearance Urine Cloudy (Clear); Bacteria Urine None Seen /hpf; Bilirubin Urine 1+ (Negative); Blood Urine Negative (Negative); Color Urine Dark Yellow (Yellow); Glucose Urine UA Negative (Negative); Ketones Urine Negative (Negative); Leukocyte Esterase Ur Trace LEU/UL (Negative); Need Manual Microscopic Reviewed; Nitrate Urine Negative (Negative); Non Pathogenic Casts >20; Protein Urine 2+ mg/dL (Negative); Specific Grav Ur 1.014 (1.001-1.035); Squamous Epithelial Cell Urine Few /hpf (Few); WBC Urine 0-5 /hpf (0-3)
[2024-07-23 20:34] LABS: Lactic Acid Reflex 2.8 mmol/L (0.7-2.0)
[2024-07-23 21:23] VITALS: BP 104/66; PULSE 106; RESP 15; O2SAT 92
[2024-07-23] MEDS: AZITHROMYCIN 500 MG/NS 250 ML 500 MG/250 ML BAG 250 MG IVPB (21:24)
--- NOTE | 2024-07-23 21:42 | P.HP_ITS ---
H&P: HPI History of Present Illness Date/Time: 07/23/24 21:42 Chief Complaint: generalized weakness Narrative: This is a 63-year-old male with past medical history significant for recently diagnosed stage IV esophageal CA. Patient presents to the emergency room after having routine lab work drawn showed a serum calcium of 16 and was sent to the emergency room by his oncologist repeat calcium was 17. Patient has been on a liquid diet for the last 2-3 weeks has had a 30 lb weight loss unintentional feels very weak, fatigue. Patient has been admitted for further evaluation management and treatment. XR chest 2V Ordering provider: Deep Rivera MD History: 64 years Male with . weakness hx current esophagus cancer . Comparison: July 02, 2024 FINDINGS: MEDIASTINUM: The cardiac silhouette is not enlarged. LUNGS: No infiltrates, effusions or pneumothorax. Slightly prominent bronchovascular markings in the lower lobes. Minimal opacification is seen in the right and left posterior CP angle. Focal atelectasis or pneumonia is not excluded. OTHER: No free air under the diaphragm. IMPRESSION: Prominent markings in the lower lobes. Opacification the right and left posterior CP angle which may indicate atelectasis versus focal pneumonia. Clinical evaluation advised. CT abdomen pelvis w con Ordering provider: Joseluis Perez PA-C History: 64 years Male with . epigastric tenderness . Comparison: July 02, 2024 Technique: CT abdomen and pelvis with IV and without oral contrast. Automated exposure control and iterative reconstruction technique were employed. The dose- length product was 755.91 mGy-cm. 100 mL Omnipaque 350 was given IV. Findings: VISUALIZED LOWER CHEST: Right pleural effusion with adjacent atelectasis. 8 mm nodule is seen in the right middle lobe. Tiny nodules are seen adjacent to the right cardiac border. Nodule seen in the right lower lobe measuring 8 mm. Nodule seen in the left lower lobe measuring 6 mm. Nodule seen in the lingula me asuring 7 mm. Nodule is seen in the left lower lobe measuring 1.5 cm. Thickening of the wall of the distal esophagus is noted. UPPER ABDOMINAL ORGANS: Liver: Hepatomegaly. Multiple lesions in the liver which are increased compared to the previous study. Attenuated hepatic veins are noted. Gallbladder: Normal. Spleen: Normal. Stomach/duodenum: Normal. Pancreas: Normal. Adrenals: Lobulated LEFT ADRENAL GLAND WHICH MAY BE METASTATIC UNCHANGED FROM PREVIOUS EXAMINATION. Kidneys: Right renal cysts with the largest measuring 2.6 cm. Calcifications in the left renal pelvis most likely stone. Tiny stone in the left kidney lower pole.. PELVIC ORGANS: The bladder is underfilled with slightly thickened wall. Calcification the prostate. BOWEL AND MESENTERY: Colon: No evidence of diverticulitis.. Normal appendix. Small Bowel: Normal. No obstruction. Peritoneum/mesentery: No free air or free fluid. .. esophageal, lesser sac and angel hepatis lymphadenopathy. RETROPERITONEUM: Mild atheromatous disease of the abdominal aorta. Enlarged retroperitoneal lymphadenopathy with the largest measuring 2.1 cm.. MUSCULOSKELETAL: Superficial soft tissues: The superficial soft tissues are normal. Bones: Age appropriate degenerative changes of the spine. IMPRESSION: 1. Multiple masses in the liver which increased in size compared to previous study. 2. Thickening of the wall of the distal esophagus. 3. Right pleural effusion with adjacent atelectasis. 4. Multiple nodules in the lower lobes of the lungs. 5. Periesophageal, angel hepatis, and para-aortic lymphadenopathy. 6. Calcification in the left renal pelvis most likely a stone. Review of Systems Review of Systems: weight loss, fatigue PMFSH Past Medical History Medical History Diabetes Hypertension Family History Family History (Updated 07/24/24 @ 00:41 by Jack Nguyen RN) Sibling Family history of diabetes mellitus in first degree relative Patient's brother is Family history of obesity Family history of alcoholism Hypertension Mother Depression Father Family history of diabetes mellitus in first degree relative Hypertension Cardiovascular disease Social History Social History Smoking packs per day: 2 Smoking cigarettes per day: 40.0 Years smoked: 20 Smoking pack-years: 40.00 Smoking status: Former smoker Tobacco type: cigarettes Second hand tobacco smoke exposure: No Smoking end date: 11/11/03 Alcohol intake: never Substance use: former Substance use type: marijuana Do You Feel Safe in your Home?: Yes Lack of Transportation: No Lack of Food: Never True Current Housing: I Have Housing Concerned About Future Housing: No Difficulty Paying Gas/Electric Bills: No Difficulty Paying for Meds: No Currently Unemployed: No Education: Decline to Answer Difficulty w/ Childcare or Family Care: No Living arrangements: with family Spiritual care concerns: Yes Meds Home Medications and Allergies Home Medications Medication Instructions Recorded Confirmed Type mecobalamin (vitamin B12) 500 mcg 500 mcg PO DAILY 06/17/23 07/24/24 History chewable tablet hydrocodone 7.5 mg-acetaminophen 1 tablet PO TID 07/24/24 07/24/24 History 325 mg tablet lisinopril 20 mg tablet 20 mg PO DAILY 07/24/24 07/24/24 History pantoprazole 40 mg tablet,delayed 40 mg PO DAILY 07/24/24 07/24/24 History release Allergies Allergy/AdvReac Type Severity Reaction Status Date / Time No Known Allergies Allergy Verified 07/23/24 18:15 Vital Signs Vital Signs - 24 hr 07/23/24 18:00 07/23/24 18:34 07/23/24 18:51 Temperature 97.4 F L Pulse Rate 115 H 96 93 Respiratory Rate 15 15 16 Blood Pressure 77/52 L 96/65 L 114/66 Pulse Oximetry 97 94 94 Oxygen Delivery Room Air 07/23/24 19:05 07/23/24 21:23 Temperature Pulse Rate 94 106 H Respiratory Rate 17 15 Blood Pressure 126/67 104/66 Pulse Oximetry 92 92 Oxygen Delivery Exam Narrative: lying in stretcher Const: General: no acute distress, well developed, alert, awake, ill appearing and average body habitus Nutritional Appearance: average body habitus Orientation/consciousness: patient oriented x3 HENMT: Head: normal to inspection, normocephalic and atraumatic Ears: hearing grossly normal bilaterally Face/Nose/Sinus: normal facial exam Face and sinus: normal facial exam Eyes: General: appearance normal, both eyes and all related structures Pupils: Equal, round and reactive pupils present EOM: EOMs intact bilaterally Neck: Neck: full ROM, no lymphadenopathy and no JVD Thyroid: thyroid normal Lymphatic: no lymphadenopathy noted Resp: Effort & Inspection: normal respiratory effort and able to speak in complete sentences Auscultation: clear to auscultation bilaterally Cardio: Jugular venous distension: no JVD Rate: regular rate Rhythm: regular rhythm Heart sounds: S1 normal heart sound present and S2 normal heart sound present GI: GI Palp: Yes Soft to palpation and Yes No hepatosplenomegaly present : General: Yes deferred Skin: Rashes: no rashes Wounds: no wounds Neuro: General: patient oriented x3 and CN's II-XI intact bilaterally Cranial nerves: Yes CN's II-XII intact bilaterally and Yes Equal, round and reactive pupils present Cognition (Neuro): normal cognition Speech: normal speech Gait exam (Neuro): Normal gait present Motor exam (neuro): 5/5 motor strength present throughout Extrem: General: normal to inspection, full ROM, no joint enlargement and no pedal edema H&P: Results Labs Labs: Short CBC 07/23/24 Range/Units 18:16 WBC 14.1 H (4.5-10.0) K/mm3 Hgb 14.7 (14.0-18.0) g/dL Hct 45.0 (42.0-52.0) % Plt Count 394 H (150-375) k/mm3 BMP 07/23/24 18:16 Sodium 126 L Potassium 4.6 Chloride 88 L Carbon Dioxide 27 BUN 37 H Creatinine 1.30 Glucose 137 H Calcium 17.0 H* Liver Function 07/23/24 Range/Units 18:16 Total Bilirubin 2.1 H (0.2-1.3) mg/dL AST 341 H (17-59) U/L ALT 199 H (6-50) U/L Alkaline Phosphatase 612 H (38-126) U/L Albumin 4.1 (3.5-5.1) g/dL Urine 07/23/24 Range/Units 19:08 Urine Color Dark yellow (Yellow) Urine Appearance Cloudy H (Clear) Urine pH 6.0 (5.0-9.0) Ur Specific [place] 1.014 (1.001-1.035) Urine Protein 2+ H (Negative) mg/dL Urine Glucose (UA) Negative (Negative) mg/dL Assessment and Plan Assessment and plan (1) Hypercalcemia: Code(s): E83.52 - Hypercalcemia Status: Acute (2) Pneumonia: Code(s): J18.9 - Pneumonia, unspecified organism Status: Acute (3) Esophageal cancer, stage IV: Code(s): C15.9 - Malignant neoplasm of esophagus, unspecified Status: Acute (4) Hyponatremia syndrome: Code(s): E87.1 - Hypo-osmolality and hyponatremia Status: Acute (5) UTI (urinary tract infection): Code(s): N39.0 - Urinary tract infection, site not specified Status: Acute Hospitalist MIPS Advance Care Plan I have confirmed that the patient's Advanced Care Plan is present, code status is documented, or surrogate decision maker is listed in patient medical record.: Yes Medication Reconciliation I have utilized all available resources to obtain, update and review the patients current medications (includes all prescriptions, OTC, herbals, cannabis, and nutritional supplements).: Yes
[2024-07-23] MEDS: SODIUM CHLORIDE 0.9% IV 1,000 ML 125 ML IV CONT (22:59)
[2024-07-23] MEDS: WATER IVPB (23:01)
[2024-07-23] MEDS: DEXTROSE 5% IVPB (23:01)
[2024-07-23] MEDS: LACTATED RINGERS 1,000 ML 200 ML IV CONT (23:01)
[2024-07-23] MEDS: PAMIDRONATE DISODIUM IVPB (23:01)
[2024-07-23 23:03] VITALS: BP 102/65; PULSE 95; RESP 14; O2SAT 93
[2024-07-23 23:16] LABS: Reflex Lactic Acid Yes or No Add Lactic
[2024-07-24] VITALS (16 sets, daily range): BP systolic 102–117; BP diastolic 54–64; PULSE 78–97; RESP 16–22; TEMP 36.1–36.7; O2SAT 93–96; BMI 27.2
--- NOTE | 2024-07-24 | ADMGEN ---
This patient, Vincenzo Bonilla, was admitted to IMU Room 200-01. Patient/family oriented to hospital policies and general routines including ID bracelet, bed and alarms, visiting hours, pain management, procedures, bathroom and other care routines, personal items, smoking policy, room service/diet, and visiting hours. Information on how to activate the Rapid Response Team has been discussed. Patient/Family are encouraged to report perceived risks to care and to ask questions if they do not understand what they are told or what they should do.
[2024-07-24 01:03] LABS: Lactic Acid 2.4 mmol/L (0.7-2.0)
[2024-07-24 06:26] LABS: Basophils Percent Auto 0.4 % (0.2-1.2); Eosinophils Percent Auto 0.1 % (0-4.4); Hematocrit 36.7 % (42.0-52.0); Hemoglobin 12.3 g/dL (14.0-18.0); Immature Granulocyte Absolute 0.07 K/mm3 (0.00-0.031); Immature Granulocyte Percent A 0.7 % (0-0.5); Lymphocytes Absolute Auto 1.25 K/mm3 (0.9-3.2); Lymphocytes Percent Auto 12.2 % (18.3-44.2); Mean Corpuscular HGB Conc 33.5 g/dl (32-36); Mean Corpuscular Hemoglobin 29.6 pg (26-34); Mean Corpuscular Volume 88.4 fl (80-100); Mean Platelet Volume 9.8 fl (7.4-10.4); Monocytes Absolute Auto 1.2 K/mm3 (0.1-0.6); Monocytes Percent Auto 11.3 % (2.6-8.5); Neutrophils Absolute Auto 7.7 K/mm3 (1.3-6.7); Neutrophils Percent Auto 75.3 % (45.5-73.1); Platelet Count Result 268 k/mm3 (150-375); Red Blood Count 4.15 M/mm3 (4.6-6.20); Red Cell Distribution Width 14.4 % (11.5-14.5); White Blood Count 10.2 K/mm3 (4.5-10.0)
[2024-07-24 06:58] LABS: Alanine Aminotransferase 167 U/L (6-50); Albumin Level 3.2 g/dL (3.5-5.1); Alkaline Phosphatase 470 U/L (38-126); Anion Gap 7 mmol/L (4-12); Aspartate Amino Transferase 365 U/L (17-59); Bilirubin,Total 1.7 mg/dL (0.2-1.3); Blood Urea Nitrogen 28 mg/dL (9-20); Calcium 13.6 mg/dL (8.4-10.2); Carbon Dioxide 27 mmol/L (22-30); Chloride 94 mmol/L (98-107); Estimated CRCL calculation 87 ml/min; Estimated Glomerular Filt Rate > 60; Glucose 92 mg/dL (65-110); Magnesium 1.8 mg/dL (1.6-2.3); Potassium 3.7 mmol/L (3.4-5.0); Sodium 128 mmol/L (137-145)
[2024-07-24] MEDS: SODIUM CHLORIDE 0.9% IV 1,000 ML 125 ML IV CONT ×2 (11:00→19:45)
--- NOTE | 2024-07-24 15:37 | P.PNIM_ITS ---
Progress Note: A&P Assessment and Plan (1) Hypercalcemia: Code(s): E83.52 - Hypercalcemia Status: Acute Assessment and Plan: Calcium elevated as outpatient and was 17 here. [place] related to his malignancy. No obvious bony lesions noted by imaging. Has hx of hypercalcemia with Ca >14 last month. EKG showing sinus tachycardia with occasional PVCs, delayed transition and age- indeterminate inferior infarct. Patient was given IV fluids and pamidronate. Repeat calcium is improved. Continue IV fluids and monitor calcium levels. Continue telemetry. (2) Pneumonia: Code(s): J18.9 - Pneumonia, unspecified organism Status: Acute Assessment and Plan: Chest x-ray showed prominent markings in the lower lobes. CT of the abdomen showed right pleural effusion with adjacent atelectasis and multiple lung nodules. White count elevated to 14 K. Blood cultures collected and patient was given azithromycin and Rocephin. Fell imaging studies showing or chronic findings related to his cancer than acute pneumonia. Hold on further antibiotics and monitor. (3) Hyponatremia syndrome: Code(s): E87.1 - Hypo-osmolality and hyponatremia Status: Acute Assessment and Plan: Sodium low on admission 126. Probably related to dehydration given his poor oral intake. Sodium better to 128 with IV fluids. Continue to follow. (4) Esophageal cancer, stage IV: Code(s): C15.9 - Malignant neoplasm of esophagus, unspecified Status: Acute Assessment and Plan: Patient with metastatic esophageal cancer with extensive liver involvement. LFTs are elevated related to this. Plan is for chemotherapy after port placement. Surgery recommending checking PT/PTT which will order. Will advance him to a regular diet to allow patient to choose what he thinks he can tolerate. Start PT OT. Add Colace but no overt constipation findings on imaging. Continue supplements. Schedule antiemetics to try to improve his nausea and thus oral intake. Encouraged him to be out of bed to the chair and walk in the room and in the halls. (5) UTI (urinary tract infection): Code(s): N39.0 - Urinary tract infection, site not specified Status: Acute Assessment and Plan: UA is abnormal but did not probably urine culture. Not felt to have UTI. Plan DVT prophylaxis - Lovenox Code status - full Subjective Date/time seen: 07/24/24 15:37 Interval history: 64yo male with esophageal cancer, DM and HTN here for elevated calcium levels. He feesl better. Still with chronic nausea. He does not have trouble with solid foods but states that he has nausea/vomiting with whatever he eats. He has Zofran at home but it does not help. He has cash tolerating Ensure regularly. Last BM was 'weeks ago'. Exam Narrative: AF 97.2 107/57 93 22 96% ra Gen - NARD Chest - CTA bilaterally, nml RR CV - RRR S1/S2. Tele showing occasional PVCs Abd - Soft, ND, mild lower abd tenderness. +BS Ext - No pedal edema Neuro - Alert and appropriate Psych - Nml mood and affect Skin - Warm and dry Objective Data Vital Signs Vital Signs: Vital Signs - 24 hr 07/23/24 18:00 07/23/24 18:34 07/23/24 18:51 Temperature 97.4 F L Pulse Rate 115 H 96 93 Respiratory Rate 15 15 16 Blood Pressure 77/52 L 96/65 L 114/66 Pulse Oximetry 97 94 94 Oxygen Delivery Room Air 07/23/24 19:05 07/23/24 21:23 07/23/24 23:03 Temperature Pulse Rate 94 106 H 95 Respiratory Rate 17 15 14 Blood Pressure 126/67 104/66 102/65 Pulse Oximetry 92 92 93 Oxygen Delivery 07/24/24 00:00 07/24/24 00:00 07/24/24 00:16 Temperature 97.8 F Pulse Rate 83 86 Respiratory Rate 18 Blood Pressure 110/62 Pulse Oximetry 95 Oxygen Delivery Room Air 07/24/24 04:00 07/24/24 02:00 07/24/24 04:00 Temperature 97.8 F Pulse Rate 78 81 78 Respiratory Rate 18 Blood Pressure 117/64 Pulse Oximetry 95 Oxygen Delivery 07/24/24 04:00 07/24/24 06:00 07/24/24 08:13 Temperature 97.5 F L Pulse Rate 82 90 Respiratory Rate 18 Blood Pressure 102/56 L Pulse Oximetry 95 Oxygen Delivery Room Air 07/24/24 08:00 07/24/24 08:00 07/24/24 10:00 Temperature Pulse Rate 92 91 Respiratory Rate Blood Pressure Pulse Oximetry Oxygen Delivery Room Air 07/24/24 12:00 07/24/24 11:46 07/24/24 12:00 Temperature 98.1 F Pulse Rate 82 78 Respiratory Rate 17 Blood Pressure 109/54 L Pulse Oximetry 93 Oxygen Delivery Room Air 07/24/24 14:00 07/24/24 15:21 Temperature 97.2 F L Pulse Rate 97 93 Respiratory Rate 22 H Blood Pressure 107/57 L Pulse Oximetry 96 Oxygen Delivery Intake/Output Intake/Output: Intake & Output 07/21/24 07/22/24 07/23/24 07/24/24 23:59 23:59 23:59 23:59 Intake Total 2300 3150.0 Output Total 1200 Balance 2300 1950.0 Meds/Results Medications: Active Medications Generic Name Dose Route Start Last Admin Trade Name Freq PRN Reason Stop Dose Admin Hydrocodone Bitart/Acetaminophen 1 tab 07/24/24 09:00 07/24/24 12:48 Hydrocodone/Acetaminophen (*Crx) 7.5-325 Mg Tablet PO Not Given TID CATINA Hydromorphone HCl 0.5 mg 07/23/24 21:47 Hydromorphone Hcl Inj (*Crx) 1 Mg/Ml Syr IV PUSH Q4H PRN Pain Rated 7-10 Sodium Chloride 1,000 mls @ 125 mls/hr 07/23/24 21:50 07/24/24 11:00 Normal Saline Iv IV CONT 125 mls/hr .Q8H CATINA Administration Ondansetron HCl 4 mg 07/23/24 21:47 Ondansetron Inj 4 Mg/2 Ml Vial IV PUSH Q4H PRN Nausea Radiology Results: ITS Impressions Chest X-Ray 07/23/24 19:39 IMPRESSION: Prominent markings in the lower lobes. Opacification the right and left posterior CP angle which may indicate atelectasis versus focal pneumonia. Clinical evaluation advised. Abdomen/Pelvis CT 07/23/24 20:45 IMPRESSION: 1. Multiple masses in the liver which increased in size compared to previous study. 2. Thickening of the wall of the distal esophagus. 3. Right pleural effusion with adjacent atelectasis. 4. Multiple nodules in the lower lobes of the lungs. 5. Periesophageal, nagel hepatis, and para-aortic lymphadenopathy. 6. Calcification in the left renal pelvis most likely a stone. Labs Labs: Laboratory Results - last 24 hr 07/23/24 07/23/24 07/23/24 18:16 19:08 20:09 WBC 14.1 H RBC 5.06 Hgb 14.7 Hct 45.0 MCV 88.9 MCH 29.1 MCHC 32.7 RDW 14.3 Plt Count 394 H MPV 9.1 Immature Gran % (Auto) 0.5 Neut % (Auto) 84.0 H Lymph % (Auto) 6.8 L [place] % (Auto) 8.3 Eos % (Auto) 0.1 Baso % (Auto) 0.3 Lymph # (Auto) 0.96 [place] # (Auto) 1.2 H Eos # (Auto) 0.0 Baso # (Auto) 0.0 Abs Immat Gran (auto) 0.07 H Absolute Neuts (auto) 11.9 H Absolute Nucleated RBC 0.000 Nucleated RBC % 0.0 Sodium 126 L Potassium 4.6 Chloride 88 L Carbon Dioxide 27 Anion Gap 11 BUN 37 H Creatinine 1.30 Estim Creat Clear Calc 55 Estimated GFR 55 L Glucose 137 H Lactic Acid 2.8 H Calcium 17.0 H* Magnesium 2.3 Total Bilirubin 2.1 H AST 341 H ALT 199 H Alkaline Phosphatase 612 H Total Protein 8.0 Albumin 4.1 Lipase 150 Urine Color Dark yellow Urine Appearance Cloudy H Urine pH 6.0 Ur Specific [place] 1.014 Urine Protein 2+ H Urine Glucose (UA) Negative Urine Ketones Negative Ur Blood (Man) Negative Urine Nitrate Negative Urine Bilirubin 1+ H Urine Urobilinogen 2.0 H Add Ur Microanalysis Reviewed Leukocyte Esterase Rfl Trace H Urine RBC 6-10 H Urine WBC 0-5 Ur Squamous Epith Cells Few Urine Bacteria None seen Urine Casts >20 07/24/24 07/24/24 00:33 05:22 WBC 10.2 H RBC 4.15 L Hgb 12.3 L Hct 36.7 L MCV 88.4 MCH 29.6 MCHC 33.5 RDW 14.4 Plt Count 268 MPV 9.8 Immature Gran % (Auto) 0.7 H Neut % (Auto) 75.3 H Lymph % (Auto) 12.2 L [place] % (Auto) 11.3 H Eos % (Auto) 0.1 Baso % (Auto) 0.4 Lymph # (Auto) 1.25 [place] # (Auto) 1.2 H Eos # (Auto) 0.0 Baso # (Auto) 0.0 Abs Immat Gran (auto) 0.07 H Absolute Neuts (auto) 7.7 H Absolute Nucleated RBC 0.000 Nucleated RBC % 0.0 Sodium 128 L Potassium 3.7 Chloride 94 L Carbon Dioxide 27 Anion Gap 7 BUN 28 H Creatinine 0.80 Estim Creat Clear Calc 87 Estimated GFR > 60 Glucose 92 Lactic Acid 2.4 H Calcium 13.6 H* Magnesium 1.8 Total Bilirubin 1.7 H AST 365 H ALT 167 H Alkaline Phosphatase 470 H Total Protein 7.0 Albumin 3.2 L Lipase Urine Color Urine Appearance Urine pH Ur Specific [place] Urine Protein Urine Glucose (UA) Urine Ketones Ur Blood (Man) Urine Nitrate Urine Bilirubin Urine Urobilinogen Add Ur Microanalysis Leukocyte Esterase Rfl Urine RBC Urine WBC Ur Squamous Epith Cells Urine Bacteria Urine Casts
--- NOTE | 2024-07-24 16:55 | PDONCCN ---
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 Patient CT scan showed pulmonary nodules along with lymphadenopathy and liver masses. He was seen in the office yesterday and labs showed calcium of more than 16. He was instructed to come to the ER for admission. His calcium level has come down with pamidronate and IV hydration. He remains quite tired and fatigue and not able to eat much other than and showed. He has been losing weight. Denies any other complaints. Chest x-ray showed possible pneumonia. He was started on Rocephin and azithromycin. Sodium was found to be low but improved with the IV hydration. Review of Systems - Review of Systems All systems reviewed & are unremarkable except as noted in [facility] and [facility] Medical History: Medical History (Last Reviewed 07/02/24 @ 19:41 by Loreta Isaac MD) Diabetes Hypertension Family History: Family History (Last Updated 07/24/24 @ 00:41 by Jack Nguyen RN) Sibling Family history of diabetes mellitus in first degree relative Patient's brother is Family history of obesity Family history of alcoholism Hypertension Mother Depression Father Family history of diabetes mellitus in first degree relative Hypertension Cardiovascular disease - Social History Social History: Social History (Last Reviewed 07/02/24 @ 19:41 by Loreta Isaac MD) Alcohol Use: Alcohol intake: never Substance Use: Substance use: former Substance use type: marijuana Others: Spiritual care concerns: No Living Arrangements: Living arrangements: with family Smoking Status: Smoking status: Former smoker Tobacco type: cigarettes Second hand tobacco smoke exposure: No Smoking end date: 11/11/03 Smoking Pack-years: Smoking packs per day: 2 Smoking cigarettes per day: 40.0 Years smoked: 20 Smoking pack-years: 40.00 Social Determinants of Health: Do You Feel Safe in your Home?: Yes Has the Lack of Transportation Kept You From Medical Appointments or From Getting Medications?: No Within the Past 12 Months, Were You Worried Whether Your Food Would Run Out Before You Got Money to Buy More?: Never True What is Your Housing Situation Today?: I Have Housing Are You Worried That in the Next 2 Months, You May Not Have Your Own Housing to Live In?: No Do You Have Trouble Paying Your Heating Or Electricity Bill?: No Do You Have Trouble Paying For Medicines?: No Are You Currently Unemployed and Looking for Work?: No Highest Level of Education Completed: Decline to Answer Do You Have Trouble With Childcare or the Care of a Family Member?: No Exam - Vital Signs Vital Signs - 24 hr 07/23/24 18:00 07/23/24 18:34 07/23/24 18:51 Temperature 36.3 C L Pulse Rate 115 H 96 93 Respiratory Rate 15 15 16 Blood Pressure 77/52 L 96/65 L 114/66 Pulse Oximetry 97 94 94 Oxygen Delivery Room Air 07/23/24 19:05 07/23/24 21:23 07/23/24 23:03 Temperature Pulse Rate 94 106 H 95 Respiratory Rate 17 15 14 Blood Pressure 126/67 104/66 102/65 Pulse Oximetry 92 92 93 Oxygen Delivery 07/24/24 00:00 07/24/24 00:00 07/24/24 00:16 Temperature 36.6 C Pulse Rate 83 86 Respiratory Rate 18 Blood Pressure 110/62 Pulse Oximetry 95 Oxygen Delivery Room Air 07/24/24 04:00 07/24/24 02:00 07/24/24 04:00 Temperature 36.6 C Pulse Rate 78 81 78 Respiratory Rate 18 Blood Pressure 117/64 Pulse Oximetry 95 Oxygen Delivery 07/24/24 04:00 07/24/24 06:00 07/24/24 08:13 Temperature 36.4 C L Pulse Rate 82 90 Respiratory Rate 18 Blood Pressure 102/56 L Pulse Oximetry 95 Oxygen Delivery Room Air 07/24/24 08:00 07/24/24 08:00 07/24/24 10:00 Temperature Pulse Rate 92 91 Respiratory Rate Blood Pressure Pulse Oximetry Oxygen Delivery Room Air 07/24/24 12:00 07/24/24 11:46 07/24/24 12:00 Temperature 36.7 C Pulse Rate 82 78 Respiratory Rate 17 Blood Pressure 109/54 L Pulse Oximetry 93 Oxygen Delivery Room Air 07/24/24 14:00 07/24/24 15:21 Temperature 36.2 C L Pulse Rate 97 93 Respiratory Rate 22 H Blood Pressure 107/57 L Pulse Oximetry 96 Oxygen Delivery - Exam HEENT: EOMI, PERRLA, mucous membranes moist and pink Neck: supple Lungs: clear to auscultation, normal air movement Heart: no murmurs, gallops, or rubs, regular rhythm, regular rate Abdomen: abdomen soft, non-distended, normal bowel sounds Extremities: normal pulses Integumentary: no abnormalities Neurological: normal speech Psychological: mental status NL, mood NL - Lab Results Laboratory Last Values WBC 10.2 K/mm3 (4.5-10.0) H 07/24/24 05:22 RBC 4.15 M/mm3 (4.6-6.20) L 07/24/24 05:22 Hgb 12.3 g/dL (14.0-18.0) L 07/24/24 05:22 Hct 36.7 % (42.0-52.0) L 07/24/24 05:22 MCV 88.4 fl (80-100) 07/24/24 05:22 MCH 29.6 pg (26-34) 07/24/24 05:22 MCHC 33.5 g/dl (32-36) 07/24/24 05:22 RDW 14.4 % (11.5-14.5) 07/24/24 05:22 Plt Count 268 k/mm3 (150-375) 07/24/24 05:22 MPV 9.8 fl (7.4-10.4) 07/24/24 05:22 Immature Gran % (Auto) 0.7 % (0-0.5) H 07/24/24 05:22 Neut % (Auto) 75.3 % (45.5-73.1) H 07/24/24 05:22 Lymph % (Auto) 12.2 % (18.3-44.2) L 07/24/24 05:22 [place] % (Auto) 11.3 % (2.6-8.5) H 07/24/24 05:22 Eos % (Auto) 0.1 % (0-4.4) 07/24/24 05:22 Baso % (Auto) 0.4 % (0.2-1.2) 07/24/24 05:22 Lymph # (Auto) 1.25 K/mm3 (0.9-3.2) 07/24/24 05:22 [place] # (Auto) 1.2 K/mm3 (0.1-0.6) H 07/24/24 05:22 Eos # (Auto) 0.0 K/mm3 (0-0.3) 07/24/24 05:22 Baso # (Auto) 0.0 K/mm3 (0.0-0.1) 07/24/24 05:22 Abs Immat Gran (auto) 0.07 K/mm3 (0.00-0.031) H 07/24/24 05:22 Absolute Neuts (auto) 7.7 K/mm3 (1.3-6.7) H 07/24/24 05:22 Absolute Nucleated RBC 0.000 K/mm3 (0.0-0.012) 07/24/24 05:22 Nucleated RBC % 0.0 % (0.0-0.2) 07/24/24 05:22 Sodium 128 mmol/L (137-145) L 07/24/24 05:22 Potassium 3.7 mmol/L (3.4-5.0) 07/24/24 05:22 Chloride 94 mmol/L (98-107) L 07/24/24 05:22 Carbon Dioxide 27 mmol/L (22-30) 07/24/24 05:22 Anion Gap 7 mmol/L (4-12) 07/24/24 05:22 BUN 28 mg/dL (9-20) H 07/24/24 05:22 Creatinine 0.80 mg/dL (0.7-1.3) 07/24/24 05:22 Estim Creat Clear Calc 87 ml/min 07/24/24 05:22 Estimated GFR > 60 (59-) 07/24/24 05:22 Glucose 92 mg/dL (65-110) 07/24/24 05:22 Lactic Acid 2.4 mmol/L (0.7-2.0) H 07/24/24 00:33 Calcium 13.6 mg/dL (8.4-10.2) H* 07/24/24 05:22 Magnesium 1.8 mg/dL (1.6-2.3) 07/24/24 05:22 Total Bilirubin 1.7 mg/dL (0.2-1.3) H 07/24/24 05:22 AST 365 U/L (17-59) H 07/24/24 05:22 ALT 167 U/L (6-50) H 07/24/24 05:22 Alkaline Phosphatase 470 U/L (38-126) H 07/24/24 05:22 Total Protein 7.0 g/dL (6.3-8.2) 07/24/24 05:22 Albumin 3.2 g/dL (3.5-5.1) L 07/24/24 05:22 Lipase 150 U/L (23-300) 07/23/24 18:16 Urine Color Dark yellow (Yellow) 07/23/24 19:08 Urine Appearance Cloudy (Clear) H 07/23/24 19:08 Urine pH 6.0 (5.0-9.0) 07/23/24 19:08 Ur Specific [place] 1.014 (1.001-1.035) 07/23/24 19:08 Urine Protein 2+ mg/dL (Negative) H 07/23/24 19:08 Urine Glucose (UA) Negative mg/dL (Negative) 07/23/24 19:08 Urine Ketones Negative mg/dL (Negative) 07/23/24 19:08 Ur Blood (Man) Negative (Negative) 07/23/24 19:08 Urine Nitrate Negative (Negative) 07/23/24 19:08 Urine Bilirubin 1+ (Negative) H 07/23/24 19:08 Urine Urobilinogen 2.0 mg/dL (<2.0) H 07/23/24 19:08 Add Ur Microanalysis Reviewed 07/23/24 19:08 Leukocyte Esterase Rfl Trace LAUREN/UL (Negative) H 07/23/24 19:08 Urine RBC 6-10 /hpf (0-2) H 07/23/24 19:08 Urine WBC 0-5 /hpf (0-3) 07/23/24 19:08 Ur Squamous Epith Cells Few /hpf (Few) 07/23/24 19:08 Urine Bacteria None seen /hpf 07/23/24 19:08 Urine Casts >20 07/23/24 19:08 Meds Home Medications Medication Instructions Recorded Confirmed Type mecobalamin (vitamin B12) 500 mcg 500 mcg PO DAILY 06/17/23 07/24/24 History chewable tablet hydrocodone 7.5 mg-acetaminophen 1 tablet PO HS 07/24/24 07/24/24 History 325 mg tablet pantoprazole 40 mg tablet,delayed 40 mg PO DAILY 07/24/24 07/24/24 History release Allergies Allergy/AdvReac Type Severity Reaction Status Date / Time No Known Allergies Allergy Verified 07/23/24 18:15 Results - Labs CBC & Chem 7: 07/24/24 05:22 07/24/24 05:22 Labs: Short CBC 07/23/24 07/24/24 Range/Units 18:16 05:22 WBC 14.1 H 10.2 H (4.5-10.0) K/mm3 Hgb 14.7 12.3 L (14.0-18.0) g/dL Hct 45.0 36.7 L (42.0-52.0) % Plt Count 394 H 268 (150-375) k/mm3 BMP 07/23/24 07/24/24 18:16 05:22 Sodium 126 L 128 L Potassium 4.6 3.7 Chloride 88 L 94 L Carbon Dioxide 27 27 BUN 37 H 28 H Creatinine 1.30 0.80 Glucose 137 H 92 Calcium 17.0 H* 13.6 H* Liver Function 07/23/24 07/24/24 Range/Units 18:16 05:22 Total Bilirubin 2.1 H 1.7 H (0.2-1.3) mg/dL AST 341 H 365 H (17-59) U/L ALT 199 H 167 H (6-50) U/L Alkaline Phosphatase 612 H 470 H (38-126) U/L Albumin 4.1 3.2 L (3.5-5.1) g/dL Urine 07/23/24 Range/Units 19:08 Urine Color Dark yellow (Yellow) Urine Appearance Cloudy H (Clear) Urine pH 6.0 (5.0-9.0) Ur Specific [place] 1.014 (1.001-1.035) Urine Protein 2+ H (Negative) mg/dL Urine Glucose (UA) Negative (Negative) mg/dL Assessment and Plan - Additional Plan Metastatic adenocarcinoma of esophagus status post EGD and biopsy done on July 06. HER2/liz negative. PET scan previously showed who pulmonary and hepatic metastasis. Plan is to start palliative chemotherapy with FOLFOX nivolumab as an outpatient. Patient is scheduled to have MediPort placement next week but will try to get it done while he is in the hospital. Dysphagia and weight loss. Patient is not able to eat much other than Ensure. We will ask GI consultation for PEG tube placement while he is in the hospital. Pneumonia. He is on Rocephin and azithromycin. Hypercalcemia and hyponatremia. Patient is on IV hydration and has received pamidronate. Calcium level has come down. Calcitonin can be used if calcium level remains elevated. He will follow-up in the office to initiate chemotherapy.
[2024-07-24] MEDS: PROCHLORPERAZINE MALEATE 5 MG TABLET PO (16:58)
[2024-07-24] MEDS: ACETAMINOPHEN 325 MG TABLET 650 MG PO (16:58)
[2024-07-24] MEDS: ENOXAPARIN 40 MG/0.4 ML SYRINGE SUB-Q (16:58)
[2024-07-24] MEDS: HYDROcodone/acetaminophen (*CRX) 7.5-325 MG TABLET 1 TAB PO (19:45)
[2024-07-25] VITALS (14 sets, daily range): BP systolic 111–133; BP diastolic 59–79; PULSE 85–106; RESP 16–20; TEMP 36.1–37.3; O2SAT 94–97
[2024-07-25 01:40] LABS: Vitamin D 25 Hydroxy 33.9 ng/mL
[2024-07-25] MEDS: SODIUM CHLORIDE 0.9% IV 1,000 ML 125 ML IV CONT ×3 (03:15→19:46)
[2024-07-25 04:54] LABS: Basophils Percent Auto 0.4 % (0.2-1.2); Eosinophils Absolute Auto 0.1 K/mm3 (0-0.3); Eosinophils Percent Auto 0.5 % (0-4.4); Hematocrit 37.1 % (42.0-52.0); Immature Granulocyte Absolute 0.06 K/mm3 (0.00-0.031); Immature Granulocyte Percent A 0.7 % (0-0.5); Lymphocytes Absolute Auto 0.94 K/mm3 (0.9-3.2); Lymphocytes Percent Auto 10.3 % (18.3-44.2); Mean Corpuscular HGB Conc 32.3 g/dl (32-36); Mean Corpuscular Hemoglobin 28.7 pg (26-34); Mean Corpuscular Volume 88.8 fl (80-100); Monocytes Percent Auto 10.4 % (2.6-8.5); Neutrophils Absolute Auto 7.1 K/mm3 (1.3-6.7); Neutrophils Percent Auto 77.7 % (45.5-73.1); Platelet Count Result 259 k/mm3 (150-375); Red Blood Count 4.18 M/mm3 (4.6-6.20); Red Cell Distribution Width 14.3 % (11.5-14.5); White Blood Count 9.2 K/mm3 (4.5-10.0)
[2024-07-25 05:03] LABS: INR 1.1; Prothrombin Time 15.2 Seconds (11.1-14.7)
[2024-07-25 05:04] LABS: Partial Thromboplastin Time 32.8 Seconds (22.3-36.8)
[2024-07-25 05:16] LABS: Alanine Aminotransferase 179 U/L (6-50); Albumin Level 3.2 g/dL (3.5-5.1); Alkaline Phosphatase 564 U/L (38-126); Anion Gap 8 mmol/L (4-12); Aspartate Amino Transferase 344 U/L (17-59); Bilirubin,Total 1.8 mg/dL (0.2-1.3); Blood Urea Nitrogen 15 mg/dL (9-20); Calcium 12.4 mg/dL (8.4-10.2); Carbon Dioxide 24 mmol/L (22-30); Chloride 99 mmol/L (98-107); Estimated CRCL calculation 113 ml/min; Estimated Glomerular Filt Rate > 60; Glucose 88 mg/dL (65-110); Magnesium 1.7 mg/dL (1.6-2.3); Phosphorus 1.3 mg/dL (2.5-4.5); Potassium 3.3 mmol/L (3.4-5.0); Sodium 131 mmol/L (137-145)
[2024-07-25 05:46] LABS: Parathyroid Intact < 14.5 pg/mL (14.5-75.2)
[2024-07-25] MEDS: POTASSIUM CHLORIDE 20 MEQ ER TABLET 40 MEQ PO (08:51)
[2024-07-25] MEDS: CYANOCOBALAMIN 500 MCG TABLET PO (08:52)
[2024-07-25] MEDS: POTASSIUM/PHOSPHORUS/SODIUM 1.5 GM PACKET 1 PACKET PO (08:52)
[2024-07-25] MEDS: PROCHLORPERAZINE MALEATE 5 MG TABLET PO ×3 (08:53→17:04)
[2024-07-25] MEDS: ENOXAPARIN 40 MG/0.4 ML SYRINGE SUB-Q (08:53)
[2024-07-25] MEDS: ACETAMINOPHEN 325 MG TABLET 650 MG PO ×2 (08:53→17:03)
[2024-07-25] MEDS: PANTOPRAZOLE 40 MG TABLET PO (08:54)
[2024-07-25] MEDS: MAGNESIUM SULF 2 GM/WATER 50ML 2 GM/50 ML BAG IVPB (09:49)
[2024-07-25 10:34] LABS: Ionized Calcium 8.1 mg/dL (4.7-5.5)
--- NOTE | 2024-07-25 12:09 | PC.NURSE ---
ionized calcium critical lab 8.1 called from ammunition assembly laborer, dr trejo notified at bedside. will continue to monitor at this time.
--- NOTE | 2024-07-25 13:40 | P.PNIM_ITS ---
Progress Note: A&P Assessment and Plan (1) Hypercalcemia: Code(s): E83.52 - Hypercalcemia Status: Acute Assessment and Plan: Calcium elevated as outpatient and was 17 here. [place] related to his malignancy. No obvious bony lesions noted by imaging. Has hx of hypercalcemia with Ca >14 last month. EKG showing sinus tachycardia with occasional PVCs, delayed transition and age- indeterminate inferior infarct. Patient was given IV fluids and pamidronate. Repeat calcium is improved. Continue IV fluids and monitor calcium levels. Calcitonin once. Continue telemetry. (2) Pneumonia: Code(s): J18.9 - Pneumonia, unspecified organism Status: Acute Assessment and Plan: Chest x-ray showed prominent markings in the lower lobes. CT of the abdomen showed right pleural effusion with adjacent atelectasis and multiple lung nodules. White count elevated to 14 K. Blood cultures collected and patient was given azithromycin and Rocephin. Prior imaging studies noted. [place] imaging findings related to his cancer rather than acute pneumonia. No fevers and WBC normal. Hold on further antibiotics and monitor. (3) Hyponatremia syndrome: Code(s): E87.1 - Hypo-osmolality and hyponatremia Status: Acute Assessment and Plan: Sodium low on admission 126. Probably related to dehydration given his poor oral intake. Sodium better to 131 with IV fluids. Continue to follow. (4) Esophageal cancer, stage IV: Code(s): C15.9 - Malignant neoplasm of esophagus, unspecified Status: Acute Assessment and Plan: Patient with metastatic esophageal cancer with extensive liver involvement. LFTs are elevated related to this. Plan is for paliative chemotherapy after port placement. Nausea better. Contnue scheduled compazine for now. Continue regular diet and supplements. Continue PT OT. He is up walking in the room. (5) UTI (urinary tract infection): Code(s): N39.0 - Urinary tract infection, site not specified Status: Acute Assessment and Plan: UA is abnormal but did not probably urine culture. Not felt to have UTI. No UCx collected Plan DVT prophylaxis - Lovenox Code status - full Subjective Date/time seen: 07/25/24 13:40 Interval history: 64yo male with esophageal cancer, DM and HTN here for elevated calcium levels. Nausea better. Tolerating apple sauce. Walking in the room. Feels better Exam Narrative: AF 99.2 120/63 87 20 95% ra Gen - NARD Chest - CTA bilaterally, nml RR CV - RRR S1/S2. Tele showing occasional PVCs Abd - Soft, ND, epigastric mass noted Ext - No pedal edema Psych - Nml mood and affect Skin - Warm and dry Objective Data Vital Signs Vital Signs: Vital Signs - 24 hr 07/24/24 14:00 07/24/24 15:21 07/24/24 16:00 Temperature 97.2 F L Pulse Rate 97 93 89 Respiratory Rate 22 H Blood Pressure 107/57 L Pulse Oximetry 96 Oxygen Delivery 07/24/24 16:00 07/24/24 18:00 07/24/24 20:00 Temperature 97 F L Pulse Rate 94 90 Respiratory Rate 16 Blood Pressure 107/62 Pulse Oximetry 93 Oxygen Delivery Room Air 07/24/24 20:00 07/24/24 20:00 07/24/24 22:00 Temperature Pulse Rate 91 87 Respiratory Rate Blood Pressure Pulse Oximetry Oxygen Delivery Room Air 07/24/24 23:50 07/25/24 00:00 07/25/24 00:00 Temperature 97 F L Pulse Rate 86 88 Respiratory Rate 16 Blood Pressure 111/59 L Pulse Oximetry 97 Oxygen Delivery Room Air 07/25/24 02:00 07/25/24 04:00 07/25/24 04:00 Temperature Pulse Rate 92 94 Respiratory Rate Blood Pressure Pulse Oximetry Oxygen Delivery Room Air 07/25/24 04:00 07/25/24 06:00 07/25/24 07:58 Temperature 96.9 F L 97.7 F Pulse Rate 90 89 101 H Respiratory Rate 16 Blood Pressure 122/65 122/68 Pulse Oximetry 94 94 Oxygen Delivery 07/25/24 08:00 07/25/24 08:00 07/25/24 10:00 Temperature Pulse Rate 103 H 101 H 93 Respiratory Rate 16 Blood Pressure Pulse Oximetry 94 Oxygen Delivery Room Air 07/25/24 12:01 07/25/24 12:00 07/25/24 12:00 Temperature 99.2 F Pulse Rate 101 H 106 H Respiratory Rate 20 Blood Pressure 120/63 Pulse Oximetry 95 Oxygen Delivery Room Air 07/25/24 12:00 07/25/24 13:37 Temperature Pulse Rate 106 H 87 Respiratory Rate 20 Blood Pressure Pulse Oximetry 95 Oxygen Delivery Room Air Intake/Output Intake/Output: Intake & Output 07/22/24 07/23/24 07/24/24 07/25/24 23:59 23:59 23:59 23:59 Intake Total 2300 5085.0 2474.5 Output Total 2200 2700 Balance 2300 2885.0 -225.5 Meds/Results Medications: Active Medications Generic Name Dose Route Start Last Admin Trade Name Freq PRN Reason Stop Dose Admin Acetaminophen 650 mg 07/24/24 16:38 07/25/24 08:53 Acetaminophen 325 Mg Tablet PO 650 mg Q6H PRN Administration Mild Pain (1-3) or Fever Hydrocodone Bitart/Acetaminophen 1 tab 07/24/24 21:00 07/24/24 19:45 Hydrocodone/Acetaminophen (*Crx) 7.5-325 Mg Tablet PO 1 tab HS [facility] Administration Cyanocobalamin 500 mcg 07/25/24 09:00 07/25/24 08:52 Cyanocobalamin 500 Mcg Tablet PO 500 mcg QAM [facility] Administration Docusate Sodium 100 mg 07/24/24 21:00 07/25/24 09:01 Docusate Sodium 100 Mg Capsule PO Not Given Q12HR [facility] Enoxaparin Sodium 40 mg 07/25/24 09:00 07/25/24 08:53 Enoxaparin 40 Mg/0.4 Ml Syringe SUB-Q 40 mg DAILY [facility] Administration Hydromorphone HCl 0.5 mg 07/23/24 21:47 Hydromorphone Hcl Inj (*Crx) 1 Mg/Ml Syr IV PUSH Q4H PRN Pain Rated 7-10 Sodium Chloride 1,000 mls @ 125 mls/hr 07/23/24 21:50 07/25/24 12:35 Normal Saline Iv IV CONT 125 mls/hr .Q8H [facility] Administration Ondansetron HCl 4 mg 07/23/24 21:47 Ondansetron Inj 4 Mg/2 Ml Vial IV PUSH Q4H PRN Nausea Pantoprazole Sodium 40 mg 07/25/24 09:00 07/25/24 08:54 Pantoprazole 40 Mg Tablet PO 40 mg DAILY [facility] Administration Prochlorperazine Maleate 5 mg 07/24/24 17:00 07/25/24 12:35 Prochlorperazine Maleate 5 Mg Tablet PO 5 mg TID [facility] Administration Radiology Results: ITS Impressions Chest X-Ray 07/23/24 19:39 IMPRESSION: Prominent markings in the lower lobes. Opacification the right and left posterior CP angle which may indicate atelect asis versus focal pneumonia. Clinical evaluation advised. Abdomen/Pelvis CT 07/23/24 20:45 IMPRESSION: 1. Multiple masses in the liver which increased in size compared to previous study. 2. Thickening of the wall of the distal esophagus. 3. Right pleural effusion with adjacent atelectasis. 4. Multiple nodules in the lower lobes of the lungs. 5. Periesophageal, angel hepatis, and para-aortic lymphadenopathy. 6. Calcification in the left renal pelvis most likely a stone. Labs Labs: Laboratory Results - last 24 hr 07/23/24 07/24/24 07/25/24 19:44 00:30 04:45 WBC 9.2 RBC 4.18 L Hgb 12.0 L Hct 37.1 L MCV 88.8 MCH 28.7 MCHC 32.3 RDW 14.3 Plt Count 259 MPV 9.0 Immature Gran % (Auto) 0.7 H Neut % (Auto) 77.7 H Lymph % (Auto) 10.3 L [place] % (Auto) 10.4 H Eos % (Auto) 0.5 Baso % (Auto) 0.4 Lymph # (Auto) 0.94 [place] # (Auto) 1.0 H Eos # (Auto) 0.1 Baso # (Auto) 0.0 Abs Immat Gran (auto) 0.06 H Absolute Neuts (auto) 7.1 H Absolute Nucleated RBC 0.000 Nucleated RBC % 0.0 PT 15.2 H INR 1.1 APTT 32.8 Sodium 131 L Potassium 3.3 L Chloride 99 Carbon Dioxide 24 Anion Gap 8 BUN 15 D Creatinine 0.60 L Estim Creat Clear Calc 113 Estimated GFR > 60 Glucose 88 Calcium 12.4 H* Ionized Calcium Rebeca 8.1 H* Phosphorus 1.3 L Magnesium 1.7 Total Bilirubin 1.8 H AST 344 H ALT 179 H Alkaline Phosphatase 564 H Total Protein 7.0 Albumin 3.2 L Vitamin D 25-Hydroxy 33.9 TSH (Reflex) 2.590 PTH Intact < 14.5 L
--- NOTE | 2024-07-25 13:50 | PC.NURSE ---
reviewed and approved documentation Emilia Wade [facility]
--- NOTE | 2024-07-25 14:52 | P.CONGI_ITS ---
Assessment and Plan Assessment and plan (1) Esophageal cancer, stage IV: Code(s): C15.9 - Malignant neoplasm of esophagus, unspecified Status: Acute Assessment and Plan: advanced esophageal cancer with partial obstruction PEG placement Saturday he also will get port-a-cath soon then chemotherapy as outpatient oncology on board (2) Dysphagia: Code(s): R13.10 - Dysphagia, unspecified Status: Acute Assessment and Plan: due to cancer peg saturday (3) Hypercalcemia: Code(s): E83.52 - Hypercalcemia Status: Acute Assessment and Plan: on treatment (4) Malnutrition: Code(s): E46 - Unspecified protein-calorie malnutrition Status: Acute Assessment and Plan: needs more nutrition, peg soon (5) Weight loss: Code(s): R63.4 - Abnormal weight loss Status: Acute GI Consult Note Consult date/time: 07/25/24 14:52 Reason for consult: dysphagia, weight loss, esophageal cancer HPI: Vincenzo Bonilla is a 64 year old male with 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 Patient CT scan showed pulmonary nodules along with lymphadenopathy and liver masses. He was seen by oncologist and labs revealed hypercalcemia, also has been hard time eating for 3-4 weeks with nausea and emesis, also losing weight. He was admitted, started on treatment with pamidronate and IV hydration then calcium improved. He still is fatigue and oncologist recommending PEG tube placement, he has not started c hemotherapy yet. Review of Systems Constitutional: Constitutional: Reports fatigue, Reports weakness and Reports weight loss Eyes: Eyes: Denies blurry vision ENT: Reports Normal hearing present Cardiovascular: Cardiovascular: Denies chest pain Respiratory: Respiratory: Denies cough Gastrointestinal: Gastrointestinal: Reports nausea and Reports vomiting Genitourinary: Genitourinary: Denies urinary frequency Musculoskeletal: Musculoskeletal: Denies stiffness Integumentary/Breasts: Skin/Breast: Denies rash Neurologic: Denies confusion Psychiatric: Psychiatric: Denies behavioral changes [facility] Past Medical History Medical History (Updated 07/25/24 @ 14:54 by Miguel Diaz MD) Diabetes Dysphagia Hypertension Malnutrition Weight loss Family History Family History (Updated 07/24/24 @ 00:41 by Jack Nguyen RN) Sibling Family history of diabetes mellitus in first degree relative Patient's brother is Family history of obesity Family history of alcoholism Hypertension Mother Depression Father Family history of diabetes mellitus in first degree relative Hypertension Cardiovascular disease Social History Social History Smoking packs per day: 2 Smoking cigarettes per day: 40.0 Years smoked: 20 Smoking pack-years: 40.00 Smoking status: Former smoker Tobacco type: cigarettes Second hand tobacco smoke exposure: No Smoking end date: 11/11/03 Alcohol intake: never Substance use: former Substance use type: marijuana Do You Feel Safe in your Home?: Yes Lack of Transportation: No Lack of Food: Never True Current Housing: I Have Housing Concerned About Future Housing: No Difficulty Paying Gas/Electric Bills: No Difficulty Paying for Meds: No Currently Unemployed: No Education: Decline to Answer Difficulty w/ Childcare or Family Care: No Living arrangements: with family Spiritual care concerns: No Meds Home Medications and Allergies Home Medications Medication Instructions Recorded Confirmed Type mecobalamin (vitamin B12) 500 mcg 500 mcg PO DAILY 06/17/23 07/24/24 History chewable tablet hydrocodone 7.5 mg-acetaminophen 1 tablet PO HS 07/24/24 07/24/24 History 325 mg tablet pantoprazole 40 mg tablet,delayed 40 mg PO DAILY 07/24/24 07/24/24 History release Allergies Allergy/AdvReac Type Severity Reaction Status Date / Time No Known Allergies Allergy Verified 07/23/24 18:15 Vital Signs Vital Signs - 24 hr 07/24/24 15:21 07/24/24 16:00 07/24/24 16:00 Temperature 97.2 F L Pulse Rate 93 89 Respiratory Rate 22 H Blood Pressure 107/57 L Pulse Oximetry 96 Oxygen Delivery Room Air 07/24/24 18:00 07/24/24 20:00 07/24/24 20:00 Temperature 97 F L Pulse Rate 94 90 Respiratory Rate 16 Blood Pressure 107/62 Pulse Oximetry 93 Oxygen Delivery Room Air 07/24/24 20:00 07/24/24 22:00 07/24/24 23:50 Temperature Pulse Rate 91 87 Respiratory Rate Blood Pressure Pulse Oximetry Oxygen Delivery Room Air 07/25/24 00:00 07/25/24 00:00 07/25/24 02:00 Temperature 97 F L Pulse Rate 86 88 92 Respiratory Rate 16 Blood Pressure 111/59 L Pulse Oximetry 97 Oxygen Delivery 07/25/24 04:00 07/25/24 04:00 07/25/24 04:00 Temperature 96.9 F L Pulse Rate 94 90 Respiratory Rate 16 Blood Pressure 122/65 Pulse Oximetry 94 Oxygen Delivery Room Air 07/25/24 06:00 07/25/24 07:58 07/25/24 08:00 Temperature 97.7 F Pulse Rate 89 101 H 103 H Respiratory Rate Blood Pressure 122/68 Pulse Oximetry 94 Oxygen Delivery 07/25/24 08:00 07/25/24 10:00 07/25/24 12:01 Temperature Pulse Rate 101 H 93 Respiratory Rate 16 Blood Pressure Pulse Oximetry 94 Oxygen Delivery Room Air Room Air 07/25/24 12:00 07/25/24 12:00 07/25/24 12:00 Temperature 99.2 F Pulse Rate 101 H 106 H 106 H Respiratory Rate 20 20 Blood Pressure 120/63 Pulse Oximetry 95 95 Oxygen Delivery Room Air 07/25/24 13:37 Temperature Pulse Rate 87 Respiratory Rate Blood Pressure Pulse Oximetry Oxygen Delivery Exam Const: General: comfortable and no acute distress HENMT: Face/Nose/Sinus: Normal nares present Eyes: General: appearance normal, both eyes and all related structures Neck: Neck: supple Resp: Auscultation: clear to auscultation bilaterally Cardio: Rate: regular rate Rhythm: regular rhythm GI: Inspection: non-distended GI Palp: Yes Soft to palpation and No Tenderness to palpation present (GI) Auscultation: normal bowel sounds Skin: General skin exam: normal color Neuro: Speech: normal speech Motor exam (neuro): 5/5 motor strength present throughout Extrem: General: normal to inspection Psych: Mental Status: mental status grossly normal Results Labs 07/25/24 04:45 07/25/24 04:45 Labs: Short CBC 07/25/24 Range/Units 04:45 WBC 9.2 (4.5-10.0) K/mm3 Hgb 12.0 L (14.0-18.0) g/dL Hct 37.1 L (42.0-52.0) % Plt Count 259 (150-375) k/mm3 BMP 07/25/24 04:45 Sodium 131 L Potassium 3.3 L Chloride 99 Carbon Dioxide 24 BUN 15 D Creatinine 0.60 L Glucose 88 Calcium 12.4 H* Liver Function 07/25/24 Range/Units 04:45 Total Bilirubin 1.8 H (0.2-1.3) mg/dL AST 344 H (17-59) U/L ALT 179 H (6-50) U/L Alkaline Phosphatase 564 H (38-126) U/L Albumin 3.2 L (3.5-5.1) g/dL
[2024-07-25] MEDS: CALCITONIN SALMON INJ 400 UNITS/2 ML VIAL 100 UNITS SUB-Q (14:58)
[2024-07-25] MEDS: HYDROcodone/acetaminophen (*CRX) 7.5-325 MG TABLET 1 TAB PO (19:46)
[2024-07-25 23:40] LABS: Glucose Point of Care 105 mg/dl (65-105)
[2024-07-26] MEDS: HYDROmorphone HCL INJ (*CRX) 1 MG/ML SYR 0.5 MG IV PUSH ×4 (02:57→19:59)
[2024-07-26 04:00] VITALS: BP 128/80; PULSE 82; RESP 18; TEMP 36.9; O2SAT 95
[2024-07-26] MEDS: SODIUM CHLORIDE 0.9% IV 1,000 ML 125 ML IV CONT (05:39)
[2024-07-26 05:46] LABS: Glucose Point of Care 83 mg/dl (65-105)
[2024-07-26 05:47] LABS: Basophils Percent Auto 0.4 % (0.2-1.2); Eosinophils Absolute Auto 0.1 K/mm3 (0-0.3); Hematocrit 36.9 % (42.0-52.0); Hemoglobin 11.9 g/dL (14.0-18.0); Immature Granulocyte Absolute 0.06 K/mm3 (0.00-0.031); Immature Granulocyte Percent A 0.7 % (0-0.5); Lymphocytes Absolute Auto 1.09 K/mm3 (0.9-3.2); Mean Corpuscular HGB Conc 32.2 g/dl (32-36); Mean Corpuscular Hemoglobin 29.4 pg (26-34); Mean Corpuscular Volume 91.1 fl (80-100); Mean Platelet Volume 9.1 fl (7.4-10.4); Monocytes Absolute Auto 0.9 K/mm3 (0.1-0.6); Monocytes Percent Auto 9.8 % (2.6-8.5); Neutrophils Absolute Auto 6.9 K/mm3 (1.3-6.7); Neutrophils Percent Auto 76.1 % (45.5-73.1); Platelet Count Result 237 k/mm3 (150-375); Red Blood Count 4.05 M/mm3 (4.6-6.20); Red Cell Distribution Width 14.7 % (11.5-14.5); White Blood Count 9.1 K/mm3 (4.5-10.0)
[2024-07-26 05:59] LABS: Alanine Aminotransferase 171 U/L (6-50); Albumin Level 3.1 g/dL (3.5-5.1); Alkaline Phosphatase 510 U/L (38-126); Anion Gap 9 mmol/L (4-12); Aspartate Amino Transferase 243 U/L (17-59); Bilirubin,Total 1.7 mg/dL (0.2-1.3); Blood Urea Nitrogen 10 mg/dL (9-20); Calcium 10.6 mg/dL (8.4-10.2); Carbon Dioxide 19 mmol/L (22-30); Chloride 102 mmol/L (98-107); Estimated CRCL calculation 133 ml/min; Estimated Glomerular Filt Rate > 60; Glucose 84 mg/dL (65-110); Phosphorus 1.4 mg/dL (2.5-4.5); Potassium 3.7 mmol/L (3.4-5.0); Sodium 130 mmol/L (137-145)
[2024-07-26 08:00] VITALS: BP 128/76; PULSE 100; RESP 20; TEMP 36.5; O2SAT 93
[2024-07-26] MEDS: DOCUSATE SODIUM 100 MG CAPSULE PO (08:13)
[2024-07-26] MEDS: POTASSIUM/PHOSPHORUS/SODIUM 1.5 GM PACKET 1 PACKET PO ×3 (08:13→15:37)
[2024-07-26] MEDS: CYANOCOBALAMIN 500 MCG TABLET PO (08:13)
[2024-07-26] MEDS: PROCHLORPERAZINE MALEATE 5 MG TABLET PO ×3 (08:13→17:23)
[2024-07-26] MEDS: PANTOPRAZOLE 40 MG TABLET PO (08:13)
[2024-07-26] MEDS: ENOXAPARIN 40 MG/0.4 ML SYRINGE SUB-Q (08:13)
--- NOTE | 2024-07-26 11:23 | PM.CNGS ---
Assessment and Plan Assessment and plan (1) Esophageal cancer, stage IV: Code(s): C15.9 - Malignant neoplasm of esophagus, unspecified Status: Acute Assessment and Plan: Patient needs Portacath placement to start palliative chemotherapy. He is already scheduled for this Saturday. There will be no time to move procedure up any sooner, and he doesn't need to stay in hospital just to have this done. OK to discharge from surgical standpoint and can return for elective outpatient procedure on Saturday. If he remains here for other medical reasons, will proceed with Port placement as scheduled Saturday if medically stable. History of Present Illness Consult details Consult date: 07/26/24 Reason for consult: other (Portacath placement) Requesting physician: Cruz Rawls MD Narrative: Patient not seen, but chart reviewed. No formal consult necessary. [facility] Past Medical History Medical History (Updated 07/25/24 @ 14:54 by Miguel Diaz MD) Diabetes Dysphagia Hypertension Malnutrition Weight loss Family History Family History (Updated 07/24/24 @ 00:41 by Jack Nguyen RN) Sibling Family history of diabetes mellitus in first degree relative Patient's brother is Family history of obesity Family history of alcoholism Hypertension Mother Depression Father Family history of diabetes mellitus in first degree relative Hypertension Cardiovascular disease Social History Social History Smoking packs per day: 2 Smoking cigarettes per day: 40.0 Years smoked: 20 Smoking pack-years: 40.00 Smoking status: Former smoker Tobacco type: cigarettes Second hand tobacco smoke exposure: No Smoking end date: 11/11/03 Alcohol intake: never Substance use: former Substance use type: marijuana Do You Feel Safe in your Home?: Yes Lack of Transportation: No Lack of Food: Never True Current Housing: I Have Housing Concerned About Future Housing: No Difficulty Paying Gas/Electric Bills: No Difficulty Paying for Meds: No Currently Unemployed: No Education: Decline to Answer Difficulty w/ Childcare or Family Care: No Living arrangements: with family Spiritual care concerns: No Meds Home Medications and Allergies Home Medications Medication Instructions Recorded Confirmed Type mecobalamin (vitamin B12) 500 mcg 500 mcg PO DAILY 06/17/23 07/24/24 History chewable tablet hydrocodone 7.5 mg-acetaminophen 1 tablet PO HS 07/24/24 07/24/24 History 325 mg tablet pantoprazole 40 mg tablet,delayed 40 mg PO DAILY 07/24/24 07/24/24 History release Allergies Allergy/AdvReac Type Severity Reaction Status Date / Time No Known Allergies Allergy Verified 07/23/24 18:15 Vital Signs Vital Signs - 24 hr 07/25/24 12:01 07/25/24 12:00 07/25/24 12:00 Temperature 99.2 F Pulse Rate 101 H 106 H Respiratory Rate 20 Blood Pressure 120/63 Pulse Oximetry 95 Oxygen Delivery Room Air 07/25/24 12:00 07/25/24 13:37 07/25/24 15:23 Temperature Pulse Rate 106 H 87 Respiratory Rate 20 Blood Pressure Pulse Oximetry 95 Oxygen Delivery Room Air Room Air 07/25/24 15:40 07/25/24 16:00 07/25/24 16:00 Temperature 97.9 F Pulse Rate 102 H 103 H 102 H Respiratory Rate 16 16 Blood Pressure 133/76 Pulse Oximetry 95 95 Oxygen Delivery Room Air 07/25/24 18:00 07/25/24 17:55 07/25/24 20:00 Temperature 99.1 F Pulse Rate 102 H 102 H Respiratory Rate 20 Blood Pressure 123/79 Pulse Oximetry 95 Oxygen Delivery Room Air 07/25/24 20:00 07/25/24 23:49 07/26/24 04:00 Temperature 98.2 F 98.4 F Pulse Rate 85 82 Respiratory Rate 18 18 Blood Pressure 112/74 128/80 Pulse Oximetry 96 95 Oxygen Delivery Room Air 07/26/24 08:00 Temperature 97.7 F Pulse Rate 100 Respiratory Rate 20 Blood Pressure 128/76 Pulse Oximetry 93 Oxygen Delivery Results Labs 07/26/24 05:18 07/26/24 05:18 Labs: Abnormal lab results 07/23/24 07/26/24 Range/Units 19:44 05:18 RBC 4.05 L (4.6-6.20) M/mm3 Hgb 11.9 L (14.0-18.0) g/dL Hct 36.9 L (42.0-52.0) % RDW 14.7 H (11.5-14.5) % Immature Gran % (Auto) 0.7 H (0-0.5) % Neut % (Auto) 76.1 H (45.5-73.1) % Lymph % (Auto) 12.0 L (18.3-44.2) % [place]pherson % (Auto) 9.8 H (2.6-8.5) % [place] # (Auto) 0.9 H (0.1-0.6) K/mm3 Abs Immat Gran (auto) 0.06 H (0.00-0.031) K/mm3 Absolute Neuts (auto) 6.9 H (1.3-6.7) K/mm3 Sodium 130 L (137-145) mmol/L Carbon Dioxide 19 L (22-30) mmol/L Creatinine 0.50 L (0.7-1.3) mg/dL Calcium 10.6 H (8.4-10.2) mg/dL Ionized Calcium Rebeca 8.1 H* (4.7-5.5) mg/dL Phosphorus 1.4 L (2.5-4.5) mg/dL Total Bilirubin 1.7 H (0.2-1.3) mg/dL AST 243 H (17-59) U/L ALT 171 H (6-50) U/L Alkaline Phosphatase 510 H (38-126) U/L Albumin 3.1 L (3.5-5.1) g/dL Diabetes panel 07/26/24 Range/Units 05:18 Sodium 130 L (137-145) mmol/L Potassium 3.7 (3.4-5.0) mmol/L Chloride 102 (98-107) mmol/L Carbon Dioxide 19 L (22-30) mmol/L BUN 10 D (9-20) mg/dL Creatinine 0.50 L (0.7-1.3) mg/dL Glucose 84 (65-110) mg/dL Calcium 10.6 H (8.4-10.2) mg/dL AST 243 H (17-59) U/L ALT 171 H (6-50) U/L Alkaline Phosphatase 510 H (38-126) U/L Total Protein 7.0 (6.3-8.2) g/dL Albumin 3.1 L (3.5-5.1) g/dL Calcium panel 07/23/24 07/26/24 Range/Units 19:44 05:18 Calcium 10.6 H (8.4-10.2) mg/dL Ionized Calcium Rebeca 8.1 H* (4.7-5.5) mg/dL Phosphorus 1.4 L (2.5-4.5) mg/dL Albumin 3.1 L (3.5-5.1) g/dL Pituitary panel 07/26/24 Range/Units 05:18 Sodium 130 L (137-145) mmol/L Potassium 3.7 (3.4-5.0) mmol/L Chloride 102 (98-107) mmol/L Carbon Dioxide 19 L (22-30) mmol/L BUN 10 D (9-20) mg/dL Creatinine 0.50 L (0.7-1.3) mg/dL Glucose 84 (65-110) mg/dL Calcium 10.6 H (8.4-10.2) mg/dL Adrenal panel 07/26/24 Range/Units 05:18 Sodium 130 L (137-145) mmol/L Potassium 3.7 (3.4-5.0) mmol/L Chloride 102 (98-107) mmol/L Carbon Dioxide 19 L (22-30) mmol/L BUN 10 D (9-20) mg/dL Creatinine 0.50 L (0.7-1.3) mg/dL Glucose 84 (65-110) mg/dL Calcium 10.6 H (8.4-10.2) mg/dL Total Bilirubin 1.7 H (0.2-1.3) mg/dL AST 243 H (17-59) U/L ALT 171 H (6-50) U/L Alkaline Phosphatase 510 H (38-126) U/L Total Protein 7.0 (6.3-8.2) g/dL Albumin 3.1 L (3.5-5.1) g/dL All other labs normal.
--- NOTE | 2024-07-26 11:34 | PM.IMPN ---
Progress Note: A&P Assessment and Plan (1) Hypercalcemia: Code(s): E83.52 - Hypercalcemia Status: Acute Assessment and Plan: Calcium elevated as outpatient and was 17 here. [place] related to his malignancy. No obvious bony lesions noted by imaging. Has hx of hypercalcemia with Ca >14 last month. EKG showing sinus tachycardia with occasional PVCs, delayed transition and age-indeterminate inferior infarct. Patient was given IV fluids and pamidronate. Calcitonin once. Repeat calcium is improved. Monitor calcium levels. Stop IV fluids. (2) Pneumonia: Code(s): J18.9 - Pneumonia, unspecified organism Status: Acute Assessment and Plan: Chest x-ray showed prominent markings in the lower lobes. CT of the abdomen showed right pleural effusion with adjacent atelectasis and multiple lung nodules. White count elevated to 14 K. Blood cultures collected and patient was given azithromycin and Rocephin. Prior imaging studies noted. [place] imaging findings related to his cancer rather than acute pneumonia. No fevers and WBC normal. [place] PNA unlikely. Hold on further antibiotics and monitor. (3) Hyponatremia syndrome: Code(s): E87.1 - Hypo-osmolality and hyponatremia Status: Acute Assessment and Plan: Sodium low on admission 126. Probably related to dehydration given his poor oral intake. Sodium better to 130 with IV fluids. Continue to follow. (4) Esophageal cancer, stage IV: Code(s): C15.9 - Malignant neoplasm of esophagus, unspecified Status: Acute Assessment and Plan: Patient with metastatic esophageal cancer with extensive liver involvement. LFTs are elevated related to this. Plan is for palliative chemotherapy after port placement. Nausea better. Continue scheduled compazine for now. Continue regular diet and supplements. Plan for GTube tomorrow. Not able to have Port placed tomorrow but scheduled for later this week. Continue PT OT. He is up walking in the room. (5) UTI (urinary tract infection): Code(s): N39.0 - Urinary tract infection, site not specified Status: Acute Assessment and Plan: UA is abnormal but did not probably urine culture. Not felt to have UTI. No UCx collected UTI ruled out Plan DVT prophylaxis - Lovenox Code status - full Subjective Date/time seen: 07/26/24 11:34 Interval history: 64yo male with esophageal cancer, DM and HTN here for elevated calcium levels. Complains of right flank pain this morning. Nausea better. Tolerating some semi-solid foods but has taste disturbance. Likes apple sauce. Exam Narrative: AF 97.7 28/ 100 20 93% ra Gen - NARD Chest - CTA bilaterally, nml RR CV - RRR S1/S2 Abd - Soft, mild right flank pain. +BS. no guarding Ext - No pedal edema Psych - Nml mood and affect Skin - Warm and dry Objective Data Vital Signs Vital Signs: Vital Signs - 24 hr 07/25/24 12:01 07/25/24 12:00 07/25/24 12:00 Temperature 99.2 F Pulse Rate 101 H 106 H Respiratory Rate 20 Blood Pressure 120/63 Pulse Oximetry 95 Oxygen Delivery Room Air 07/25/24 12:00 07/25/24 13:37 07/25/24 15:23 Temperature Pulse Rate 106 H 87 Respiratory Rate 20 Blood Pressure Pulse Oximetry 95 Oxygen Delivery Room Air Room Air 07/25/24 15:40 07/25/24 16:00 07/25/24 16:00 Temperature 97.9 F Pulse Rate 102 H 103 H 102 H Respiratory Rate 16 16 Blood Pressure 133/76 Pulse Oximetry 95 95 Oxygen Delivery Room Air 07/25/24 18:00 07/25/24 17:55 07/25/24 20:00 Temperature 99.1 F Pulse Rate 102 H 102 H Respiratory Rate 20 Blood Pressure 123/79 Pulse Oximetry 95 Oxygen Delivery Room Air 07/25/24 20:00 07/25/24 23:49 07/26/24 04:00 Temperature 98.2 F 98.4 F Pulse Rate 85 82 Respiratory Rate 18 18 Blood Pressure 112/74 128/80 Pulse Oximetry 96 95 Oxygen Delivery Room Air 07/26/24 08:00 Temperature 97.7 F Pulse Rate 100 Respiratory Rate 20 Blood Pressure 128/76 Pulse Oximetry 93 Oxygen Delivery Intake/Output Intake/Output: Intake & Output 07/23/24 07/24/24 07/25/24 07/26/24 23:59 23:59 23:59 23:59 Intake Total 2300 5085.0 3612.4 1540 Output Total 2200 4650 1700 Balance 2300 2885.0 -1037.6 -160 Meds/Results Medications: Active Medications Generic Name Dose Route Start Last Admin Trade Name Freq PRN Reason Stop Dose Admin Acetaminophen 650 mg 07/24/24 16:38 07/25/24 17:03 Acetaminophen 325 Mg Tablet PO 650 mg Q6H PRN Administration Mild Pain (1-3) or Fever Hydrocodone Bitart/Acetaminophen 1 tab 07/24/24 21:00 07/25/24 19:46 Hydrocodone/Acetaminophen (*Crx) 7.5-325 Mg Tablet PO 1 tab HS CATINA Administration Cyanocobalamin 500 mcg 07/25/24 09:00 07/26/24 08:13 Cyanocobalamin 500 Mcg Tablet PO 500 mcg QAM CATINA Administration Docusate Sodium 100 mg 07/24/24 21:00 07/26/24 08:13 Docusate Sodium 100 Mg Capsule PO 100 mg Q12HR CATINA Administration Enoxaparin Sodium 40 mg 07/25/24 09:00 07/26/24 08:13 Enoxaparin 40 Mg/0.4 Ml Syringe SUB-Q 40 mg DAILY CATINA Administration Hydromorphone HCl 0.5 mg 07/23/24 21:47 07/26/24 08:06 Hydromorphone Hcl Inj (*Crx) 1 Mg/Ml Syr IV PUSH 0.5 mg Q4H PRN Administration Pain Rated 7-10 Sodium Chloride 1,000 mls @ 125 mls/hr 07/23/24 21:50 07/26/24 05:39 Normal Saline Iv IV CONT 125 mls/hr .Q8H CATINA Administration Ondansetron HCl 4 mg 07/23/24 21:47 Ondansetron Inj 4 Mg/2 Ml Vial IV PUSH Q4H PRN Nausea Pantoprazole Sodium 40 mg 07/25/24 09:00 07/26/24 08:13 Pantoprazole 40 Mg Tablet PO 40 mg DAILY CATINA Administration Potassium Phos/Sodium Phos 1 packet 07/26/24 07:15 07/26/24 08:13 Potassium/Phosphorus/Sodium 1.5 Gm Packet PO 07/26/24 15:16 1 packet Q4H CATINA Administration Prochlorperazine Maleate 5 mg 07/24/24 17:00 07/26/24 08:13 Prochlorperazine Maleate 5 Mg Tablet PO 5 mg TID CATINA Administration Radiology Results: ITS Impressions Chest X-Ray 07/23/24 19:39 IMPRESSION: Prominent markings in the lower lobes. Opacification the right and left posterior CP angle which may indicate atelectasis versus focal pneumonia. Clinical evaluation advised. Abdomen/Pelvis CT 07/23/24 20:45 IMPRESSION: 1. Multiple masses in the liver which increased in size compared to previous study. 2. Thickening of the wall of the distal esophagus. 3. Right pleural effusion with adjacent atelectasis. 4. Multiple nodules in the lower lobes of the lungs. 5. Periesophageal, angel hepatis, and para-aortic lymphadenopathy. 6. Calcification in the left renal pelvis most likely a stone. Labs Labs: Laboratory Results - last 24 hr 07/23/24 07/25/24 07/26/24 19:44 23:36 05:18 WBC 9.1 RBC 4.05 L Hgb 11.9 L Hct 36.9 L MCV 91.1 MCH 29.4 MCHC 32.2 RDW 14.7 H Plt Count 237 MPV 9.1 Immature Gran % (Auto) 0.7 H Neut % (Auto) 76.1 H Lymph % (Auto) 12.0 L [place] % (Auto) 9.8 H Eos % (Auto) 1.0 Baso % (Auto) 0.4 Lymph # (Auto) 1.09 [place] # (Auto) 0.9 H Eos # (Auto) 0.1 Baso # (Auto) 0.0 Abs Immat Gran (auto) 0.06 H Absolute Neuts (auto) 6.9 H Absolute Nucleated RBC 0.000 Nucleated RBC % 0.0 Sodium 130 L Potassium 3.7 Chloride 102 Carbon Dioxide 19 L Anion Gap 9 BUN 10 D Creatinine 0.50 L Estim Creat Clear Calc 133 Estimated GFR > 60 Glucose 84 POC Capillary Glucose 105 Calcium 10.6 H Ionized Calcium Rebeca 8.1 H* Phosphorus 1.4 L Magnesium 2.0 Total Bilirubin 1.7 H AST 243 H ALT 171 H Alkaline Phosphatase 510 H Total Protein 7.0 Albumin 3.1 L 07/26/24 05:44 WBC RBC Hgb Hct MCV MCH MCHC RDW Plt Count MPV Immature Gran % (Auto) Neut % (Auto) Lymph % (Auto) [place] % (Auto) Eos % (Auto) Baso % (Auto) Lymph # (Auto) [place] # (Auto) Eos # (Auto) Baso # (Auto) Abs Immat Gran (auto) Absolute Neuts (auto) Absolute Nucleated RBC Nucleated RBC % Sodium Potassium Chloride Carbon Dioxide Anion Gap BUN Creatinine Estim Creat Clear Calc Estimated GFR Glucose POC Capillary Glucose 83 Calcium Ionized Calcium Rebeca Phosphorus Magnesium Total Bilirubin AST ALT Alkaline Phosphatase Total Protein Albumin
--- NOTE | 2024-07-26 11:39 | WPDGIPROGNO ---
Progress Note: A&P Assessment and Plan (1) Dysphagia: Code(s): R13.10 - Dysphagia, unspecified Status: Acute Assessment and Plan: peg placement tomorrow, he has difficulty swallowing (2) Esophageal cancer, stage IV: Code(s): C15.9 - Malignant neoplasm of esophagus, unspecified Status: Acute Assessment and Plan: oncology is planning to start palliative treatment soon (3) Metastasis to liver: Code(s): C78.7 - Secondary malignant neoplasm of liver and intrahepatic bile duct Status: Acute Assessment and Plan: metastatic esophageal cancer involving liver and lungs, this can explain also elevated liver enzymes (4) Malnutrition: Code(s): E46 - Unspecified protein-calorie malnutrition Status: Acute Assessment and Plan: will give more nutrition using peg tube (5) Weight loss: Code(s): R63.4 - Abnormal weight loss Status: Acute (6) Hypercalcemia: Code(s): E83.52 - Hypercalcemia Status: Acute Assessment and Plan: on treatment (7) Elevated liver enzymes: Code(s): R74.8 - Abnormal levels of other serum enzymes Status: Acute Subjective Date/time seen: 07/26/24 11:39 Interval history: no changes Review of Systems Review of Systems: All systems reviewed & are unremarkable except as noted in HPI and below Exam Const: General: comfortable and no acute distress HENMT: Face/Nose/Sinus: Normal nares present Eyes: General: appearance normal, both eyes and all related structures Neck: Neck: supple Resp: Auscultation: clear to auscultation bilaterally Cardio: Rate: regular rate Rhythm: regular rhythm GI: Inspection: non-distended GI Palp: Yes Soft to palpation and No Tenderness to palpation present (GI) Auscultation: normal bowel sounds Skin: General skin exam: normal color Neuro: Speech: normal speech Motor exam (neuro): 5/5 motor strength present throughout Extrem: General: normal to inspection Psych: Mental Status: mental status grossly normal Objective Data Vital Signs Vital Signs: Vital Signs - 24 hr 07/25/24 12:01 07/25/24 12:00 07/25/24 12:00 Temperature 99.2 F Pulse Rate 101 H 106 H Respiratory Rate 20 Blood Pressure 120/63 Pulse Oximetry 95 Oxygen Delivery Room Air 07/25/24 12:00 07/25/24 13:37 07/25/24 15:23 Temperature Pulse Rate 106 H 87 Respiratory Rate 20 Blood Pressure Pulse Oximetry 95 Oxygen Delivery Room Air Room Air 07/25/24 15:40 07/25/24 16:00 07/25/24 16:00 Temperature 97.9 F Pulse Rate 102 H 103 H 102 H Respiratory Rate 16 16 Blood Pressure 133/76 Pulse Oximetry 95 95 Oxygen Delivery Room Air 07/25/24 18:00 07/25/24 17:55 07/25/24 20:00 Temperature 99.1 F Pulse Rate 102 H 102 H Respiratory Rate 20 Blood Pressure 123/79 Pulse Oximetry 95 Oxygen Delivery Room Air 07/25/24 20:00 07/25/24 23:49 07/26/24 04:00 Temperature 98.2 F 98.4 F Pulse Rate 85 82 Respiratory Rate 18 18 Blood Pressure 112/74 128/80 Pulse Oximetry 96 95 Oxygen Delivery Room Air 07/26/24 08:00 07/26/24 08:15 Temperature 97.7 F Pulse Rate 100 Respiratory Rate 20 Blood Pressure 128/76 Pulse Oximetry 93 Oxygen Delivery Room Air Intake/Output Intake/Output: Intake & Output 07/23/24 07/24/24 07/25/24 07/26/24 23:59 23:59 23:59 23:59 Intake Total 2300 5085.0 3612.4 1540 Output Total 2200 4650 1700 Balance 2300 2885.0 -1037.6 -160 Meds/Results Medications: Active Medications Generic Name Dose Route Start Last Admin Trade Name Ulissesq PRN Reason Stop Dose Admin Acetaminophen 650 mg 07/24/24 16:38 07/25/24 17:03 Acetaminophen 325 Mg Tablet PO 650 mg Q6H PRN Administration Mild Pain (1-3) or Fever Hydrocodone Bitart/Acetaminophen 1 tab 07/24/24 21:00 07/25/24 19:46 Hydrocodone/Acetaminophen (*Crx) 7.5-325 Mg Tablet PO 1 tab HS CATINA Administration Cyanocobalamin 500 mcg 07/25/24 09:00 07/26/24 08:13 Cyanocobalamin 500 Mcg Tablet PO 500 mcg QAM CATINA Administration Docusate Sodium 100 mg 07/24/24 21:00 07/26/24 08:13 Docusate Sodium 100 Mg Capsule PO 100 mg Q12HR CATINA Administration Enoxaparin Sodium 40 mg 07/25/24 09:00 07/26/24 08:13 Enoxaparin 40 Mg/0.4 Ml Syringe SUB-Q 40 mg DAILY CATINA Administration Hydromorphone HCl 0.5 mg 07/23/24 21:47 07/26/24 08:06 Hydromorphone Hcl Inj (*Crx) 1 Mg/Ml Syr IV PUSH 0.5 mg Q4H PRN Administration Pain Rated 7-10 Sodium Chloride 1,000 mls @ 125 mls/hr 07/23/24 21:50 07/26/24 05:39 Normal Saline Iv IV CONT 125 mls/hr .Q8H CATINA Administration Cefazolin Sodium 1 gm in 50 mls @ 100 mls/hr 07/27/24 11:30 Ancef 1 Gm/Ns 50 Ml IVPB 07/27/24 11:59 ONCE ONE Ondansetron HCl 4 mg 07/23/24 21:47 Ondansetron Inj 4 Mg/2 Ml Vial IV PUSH Q4H PRN Nausea Pantoprazole Sodium 40 mg 07/25/24 09:00 07/26/24 08:13 Pantoprazole 40 Mg Tablet PO 40 mg DAILY CATINA Administration Potassium Phos/Sodium Phos 1 packet 07/26/24 07:15 07/26/24 08:13 Potassium/Phosphorus/Sodium 1.5 Gm Packet PO 07/26/24 15:16 1 packet Q4H CATINA Administration Prochlorperazine Maleate 5 mg 07/24/24 17:00 07/26/24 08:13 Prochlorperazine Maleate 5 Mg Tablet PO 5 mg TID CATINA Administration Radiology Results: ITS Impressions Chest X-Ray 07/23/24 19:39 IMPRESSION: Prominent markings in the lower lobes. Opacification the right and left posterior CP angle which may indicate atelectasis versus focal pneumonia. Clinical evaluation advised. Abdomen/Pelvis CT 07/23/24 20:45 IMPRESSION: 1. Multiple masses in the liver which increased in size compared to previous study. 2. Thickening of the wall of the distal esophagus. 3. Right pleural effusion with adjacent atelectasis. 4. Multiple nodules in the lower lobes of the lungs. 5. Periesophageal, angel hepatis, and para-aortic lymphadenopathy. 6. Calcification in the left renal pelvis most likely a stone. Labs Labs: Laboratory Results - last 24 hr 07/23/24 07/25/24 07/26/24 19:44 23:36 05:18 WBC 9.1 RBC 4.05 L Hgb 11.9 L Hct 36.9 L MCV 91.1 MCH 29.4 MCHC 32.2 RDW 14.7 H Plt Count 237 MPV 9.1 Immature Gran % (Auto) 0.7 H Neut % (Auto) 76.1 H Lymph % (Auto) 12.0 L [place] % (Auto) 9.8 H Eos % (Auto) 1.0 Baso % (Auto) 0.4 Lymph # (Auto) 1.09 [place] # (Auto) 0.9 H Eos # (Auto) 0.1 Baso # (Auto) 0.0 Abs Immat Gran (auto) 0.06 H Absolute Neuts (auto) 6.9 H Absolute Nucleated RBC 0.000 Nucleated RBC % 0.0 Sodium 130 L Potassium 3.7 Chloride 102 Carbon Dioxide 19 L Anion Gap 9 BUN 10 D Creatinine 0.50 L Estim Creat Clear Calc 133 Estimated GFR > 60 Glucose 84 POC Capillary Glucose 105 Calcium 10.6 H Ionized Calcium Rebeca 8.1 H* Phosphorus 1.4 L Magnesium 2.0 Total Bilirubin 1.7 H AST 243 H ALT 171 H Alkaline Phosphatase 510 H Total Protein 7.0 Albumin 3.1 L 07/26/24 05:44 WBC RBC Hgb Hct MCV MCH MCHC RDW Plt Count MPV Immature Gran % (Auto) Neut % (Auto) Lymph % (Auto) [place] % (Auto) Eos % (Auto) Baso % (Auto) Lymph # (Auto) [place] # (Auto) Eos # (Auto) Baso # (Auto) Abs Immat Gran (auto) Absolute Neuts (auto) Absolute Nucleated RBC Nucleated RBC % Sodium Potassium Chloride Carbon Dioxide Anion Gap BUN Creatinine Estim Creat Clear Calc Estimated GFR Glucose POC Capillary Glucose 83 Calcium Ionized Calcium Rebeca Phosphorus Magnesium Total Bilirubin AST ALT Alkaline Phosphatase Total Protein Albumin
[2024-07-26 12:00] VITALS: BP 126/80; PULSE 94; RESP 20; TEMP 36.7; O2SAT 97
[2024-07-26 12:09] LABS: Glucose Point of Care 96 mg/dl (65-105)
[2024-07-26 16:00] VITALS: BP 117/79; PULSE 97; RESP 18; TEMP 36.8; O2SAT 95
[2024-07-26 18:20] LABS: Glucose Point of Care 138 mg/dl (65-105)
[2024-07-26 20:00] VITALS: BP 130/79; PULSE 112; RESP 16; TEMP 36.1; O2SAT 94
[2024-07-26] MEDS: HYDROcodone/acetaminophen (*CRX) 7.5-325 MG TABLET 1 TAB PO (20:04)
[2024-07-27] VITALS (8 sets, daily range): BP systolic 106–155; BP diastolic 71–84; PULSE 91–116; RESP 15–20; TEMP 36.1–36.7; O2SAT 94–97
[2024-07-27 05:53] LABS: Albumin Level 3.3 g/dL (3.5-5.1); Anion Gap 9 mmol/L (4-12); Blood Urea Nitrogen 8 mg/dL (9-20); Calcium 11.9 mg/dL (8.4-10.2); Carbon Dioxide 20 mmol/L (22-30); Chloride 100 mmol/L (98-107); Estimated CRCL calculation 133 ml/min; Estimated Glomerular Filt Rate > 60; Glucose 106 mg/dL (65-110); Phosphorus 1.7 mg/dL (2.5-4.5); Potassium 3.6 mmol/L (3.4-5.0); Sodium 129 mmol/L (137-145)
[2024-07-27] MEDS: HYDROmorphone HCL INJ (*CRX) 1 MG/ML SYR 0.5 MG IV PUSH ×4 (06:23→20:50)
[2024-07-27 08:09] LABS: Glucose Point of Care 115 mg/dl (65-105)
[2024-07-27] MEDS: ceFAZolin 1 GM/NS 50 ML 1 GM/50 ML BAG IVPB (08:12)
--- NOTE | 2024-07-27 08:19 | PC.NURSE ---
Patient off floor by stretcher to GI for procedure at 0800.
--- NOTE | 2024-07-27 08:20 | SUR.PREOP ---
Dr. Marcos notified of patients tachycardia, HR 110's. No new orders received.
--- NOTE | 2024-07-27 08:21 | WPDANESEPPF ---
Anes - Initial Pre Proc Eval Procedure: Operation Date: 07/27/24 16:00 Proposed Procedures s Percutaneous Endoscopic Gastrostomy - Miguel Diaz MD p Esophagogastroduodenoscopy - Miguel Diaz MD Date/Time: 07/27/24 08:21 Surgeon: Zuly Og MD Pre Op Diagnosis: Hypercalcemia, Pneumonia Patient Data Age: 64 Gender: M Height: 1.83 m Weight: 91.1 kg Last Vital Signs Temp 97 F L 07/27/24 08:17 Pulse 116 H 07/27/24 08:17 Resp 18 07/27/24 08:17 BP 124/81 07/27/24 08:17 Pulse Ox 94 07/27/24 08:17 O2 Del Method Room Air 07/27/24 08:17 Allergies Allergy/AdvReac Type Severity Reaction Status Date / Time No Known Allergies Allergy Verified 07/27/24 08:15 Home Medications Medication Instructions Recorded Confirmed Type mecobalamin (vitamin B12) 500 mcg 500 mcg PO DAILY 06/17/23 07/27/24 History chewable tablet hydrocodone 7.5 mg-acetaminophen 1 tablet PO HS 07/24/24 07/27/24 History 325 mg tablet pantoprazole 40 mg tablet,delayed 40 mg PO DAILY 07/24/24 07/27/24 History release Laboratory Tests 07/26/24 07/26/24 07/27/24 12:05 18:07 05:18 Sodium 129 L mmol/L (137-145) Potassium 3.6 mmol/L (3.4-5.0) Chloride 100 mmol/L (98-107) Carbon Dioxide 20 L mmol/L (22-30) Anion Gap 9 mmol/L (4-12) BUN 8 L mg/dL (9-20) Creatinine 0.50 L mg/dL (0.7-1.3) Estim Creat Clear Calc 133 ml/min Estimated GFR > 60 (59 - ) Glucose 106 mg/dL (65-110) POC Capillary Glucose 96 mg/dl 138 H mg/dl (65-105) (65-105) Calcium 11.9 H mg/dL (8.4-10.2) Phosphorus 1.7 L mg/dL (2.5-4.5) Albumin 3.3 L g/dL (3.5-5.1) 07/27/24 08:06 Sodium Potassium Chloride Carbon Dioxide Anion Gap BUN Creatinine Estim Creat Clear Calc Estimated GFR Glucose POC Capillary Glucose 115 H mg/dl (65-105) Calcium Phosphorus Albumin Patient hx anesthesia problems: none Family hx anesthesia problems: none Results Review: All pre-operative results and documents have been reviewed as part of the pre-operative evaluation. [facility] Past Medical History Medical History Diabetes Dysphagia Elevated liver enzymes Hypertension Malnutrition Metastasis to liver Weight loss Family History Family History Sibling Family history of diabetes mellitus in first degree relative Patient's brother is Family history of obesity Family history of alcoholism Hypertension Mother Depression Father Family history of diabetes mellitus in first degree relative Hypertension Cardiovascular disease Social History Social History Smoking packs per day: 2 Smoking cigarettes per day: 40.0 Years smoked: 20 Smoking pack-years: 40.00 Smoking status: Former smoker Tobacco type: cigarettes Second hand tobacco smoke exposure: No Smoking end date: 11/11/03 Alcohol intake: never Substance use: former Substance use type: marijuana Do You Feel Safe in your Home?: Yes Lack of Transportation: No Lack of Food: Never True Current Housing: I Have Housing Concerned About Future Housing: No Difficulty Paying Gas/Electric Bills: No Difficulty Paying for Meds: No Currently Unemployed: No Education: Decline to Answer Difficulty w/ Childcare or Family Care: No Living arrangements: with family Spiritual care concerns: No Anes - Eval Final PreProcedure Day of Procedure 07/27/24 08:21 Patient weight: overweight Heart: regular rate and rhythm Lungs: clear to auscultation Airway: Mallampati scale class II and special considerations (Missing tooth on top right. ) Neurological: alert and oriented Last oral intake: >/= 8 hours ASA classification: III Emergent: no Anesthetic plan: proceed Anesthesia type and monitoring: general GIVS and standard monitoring Results Review: All pre-operative results and documents have been reviewed as part of the pre-operative evaluation. Esophageal cancer, now w mets to liver and lungs. Informed Consent: The patient's anesthetic plan and its attendant risks and benefits were discussed with the patient/family/POA. Questions were solicited and answers provided to the satisfaction of the patient/family/POA.
[2024-07-27] MEDS: LACTATED RINGERS 1,000 ML 150 ML IV CONT (08:57)
--- NOTE | 2024-07-27 09:42 | SUR.OPER ---
PEG tube placement unsuccessful
--- NOTE | 2024-07-27 10:23 | PCOTNOTE ---
Per RN, Patient just returned to the floor from having an attempted procedure that was not successful. Patient is still medicated and sleeping, try back this afternoon.
--- NOTE | 2024-07-27 10:57 | PCNFU ---
Nutrition Follow-Up Complete: Severe protein calorie malnutrition related to chronic esophageal cancer as evidenced by weight loss 13%/1 month; PO intake <75% needs >1 month. PO intake as tolerated - NPO today Meet estimated nutrition needs - Not progressing; NPO Goal: Pt current nutrition is NPO for procedure. Nutrition recommendation: PEG placement as able. Tube feeding recommendations when PEG is placed: Jevity 1.5 @(continuous) 60 ml/h OR BOLUS 330 ml QID. Total 1980 kcal, 84 g protein, 1003 ml free water. Flush 200 ml water QID/Q6 hours. Will need to obtain phosphorus and mag labs to monitor refeeding syndrome, start TF @ 30 ml/h; 200-300 ml thiamine, B complex BID to prevent refeeding syndrome/Wernickes. Last recorded weight is 91.1 kg. Bowel Motility: No BM recorded Labs Reviewed: Alb 3.3, Na 129, Cre 0.5, Ton 11.9 Meds Noted: Colace, Lovenox, diluadid, Zofran, protnix, compazine Skin: No skin issues Additional Notes: PEG was not able to be placed today as scheduled. Unsure when it will be done surgically. Discussed with RN. If not able to be done today, will need PO diet. Monitoring intakes, weights, labs, supplement tolerance, plan of care Follow up in 3 days
[2024-07-27] MEDS: POTASSIUM/PHOSPHORUS/SODIUM 1.5 GM PACKET 1 PACKET PO ×2 (11:33→20:45)
[2024-07-27] MEDS: PROCHLORPERAZINE MALEATE 5 MG TABLET PO ×2 (11:34→16:50)
[2024-07-27] MEDS: DOCUSATE SODIUM 100 MG CAPSULE PO (11:35)
[2024-07-27] MEDS: PANTOPRAZOLE 40 MG TABLET PO (11:35)
[2024-07-27] MEDS: CYANOCOBALAMIN 500 MCG TABLET PO (11:35)
[2024-07-27] MEDS: SODIUM CHLORIDE 0.9% IV 1,000 ML 100 ML IV CONT ×2 (11:53→20:45)
[2024-07-27] MEDS: CALCITONIN SALMON INJ 400 UNITS/2 ML VIAL 100 UNITS SUB-Q (11:54)
[2024-07-27 12:18] LABS: Glucose Point of Care 111 mg/dl (65-105)
--- NOTE | 2024-07-27 12:18 | PC.NURSE ---
Received patient back to room 340 at 1030 from recovery. AM medications administered at 1100.
--- NOTE | 2024-07-27 12:47 | CONS_ITS ---
This report was moved to the correct visit on 07/30/2024. The original report was signed by Elaina Sharp MD on 07/27/24 1247. Assessment and Plan Assessment and plan (1) Esophageal cancer, stage IV: Code(s): C15.9 - Malignant neoplasm of esophagus, unspecified Status: Acute Assessment and Plan: Patient is already set up to have port placement by Dr. Lynn on Saturday, after discussion with Dr. Lynn and anesthesia, the decision has been made to add open G-tube on at that time, patient okay to have clears and will be NPO at midnight on Saturday prior to procedure History of Present Illness Consult details Consult date: 07/27/24 Reason for consult: other (G tube) Requesting physician: Miguel Diaz MD Narrative: The patient is a 64-year-old male that has been recently diagnosed with metastatic esophageal cancer. The patient reports that he has severe dysphagia and is really only able to tolerate clears at this point. The patient went for a PEG tube placement today with Dr. Ruiz, however, no clear window for safe placement was noted. General surgery is now consulted for placement of open G- tube. The patient denies any upper abdominal surgery in the past and reports only a remote history of a umbilical hernia repair. Review of Systems Review of Systems: All systems reviewed & are unremarkable except as noted in HPI and below PMFSH Past Medical History Medical History Diabetes Dysphagia Elevated liver enzymes Hypertension Malnutrition Metastasis to liver Weight loss Family History Family History Sibling Family history of diabetes mellitus in first degree relative Patient's brother is Family history of obesity Family history of alcoholism Hypertension Mother Depression Father Family history of diabetes mellitus in first degree relative Hypertension Cardiovascular disease Social History Social History Smoking packs per day: 2 Smoking cigarettes per day: 40.0 Years smoked: 20 Smoking pack-years: 40.00 Smoking status: Former smoker Tobacco type: cigarettes Second hand tobacco smoke exposure: No Smoking end date: 11/11/03 Alcohol intake: never Substance use: former Substance use type: marijuana Do You Feel Safe in your Home?: Yes Lack of Transportation: No Lack of Food: Never True Current Housing: I Have Housing Concerned About Future Housing: No Difficulty Paying Gas/Electric Bills: No Difficulty Paying for Meds: No Currently Unemployed: No Education: Decline to Answer Difficulty w/ Childcare or Family Care: No Living arrangements: with family Spiritual care concerns: No Meds Home Medications and Allergies Home Medications Medication Instructions Recorded Confirmed Type mecobalamin (vitamin B12) 500 mcg 500 mcg PO DAILY 06/17/23 07/27/24 History chewable tablet hydrocodone 7.5 mg-acetaminophen 1 tablet PO HS 07/24/24 07/27/24 History 325 mg tablet pantoprazole 40 mg tablet,delayed 40 mg PO DAILY 07/24/24 07/27/24 History release Allergies Allergy/AdvReac Type Severity Reaction Status Date / Time No Known Allergies Allergy Verified 07/27/24 08:15 Exam Const: General: cooperative, comfortable, no acute distress, ill appearing and obese HENMT: Head: normal to inspection, normocephalic and atraumatic Eyes: General: appearance normal, both eyes and all related structures Neck: Neck: normal visual inspection, full ROM and no lymphadenopathy Resp: Auscultation: clear to auscultation bilaterally Cardio: Rate: regular rate Rhythm: regular rhythm GI: Inspection: normal to inspection and non-distended GI Palp: No abdominal tenderness and Yes Soft to palpation Skin: General skin exam: normal color and no rashes or lesions noted Neuro: General: patient oriented x3 and CN's II-XI intact bilaterally Extrem: General: normal to inspection and full ROM Results Labs Labs: All other labs normal. This report may have been done utilizing a voice recognition system. Attempts have been made to correct errors. However, there may be uncorrected grammatical, spelling, and recognition errors present. Report Initialized date/time: Elaina Sharp MD 07/27/24 / 1246 Electronically signed by: Elaina Sharp MD 07/27/241246 [facility]
--- NOTE | 2024-07-27 14:08 | P.CDI_ITS ---
CDI Query Clarification Request BMI: 27.2 Nutritional Diagnostic Statement: Please refer to the comprehensive nutrition assessment for further information. If you agree with diagnosis of Severe protein calorie malnutrition related to chronic esophageal cancer as evidenced by weight loss 13%/1 month; PO intake <75% needs >1 month. Please specify severity if known: * Mild * Moderate * Severe * Other/Unknown
--- NOTE | 2024-07-27 14:12 | PCOTNOTE ---
Patient declined this afternoon, I'm not up for it, I just received pain medications.
--- NOTE | 2024-07-27 16:06 | P.PNIM_ITS ---
Progress Note: A&P Assessment and Plan (1) Hypercalcemia: Code(s): E83.52 - Hypercalcemia Status: Acute Assessment and Plan: Calcium elevated as outpatient and was 17 here. [place] related to his malignancy. No obvious bony lesions noted by imaging. Has hx of hypercalcemia with Ca >14 last month. EKG showing sinus tachycardia with occasional PVCs, delayed transition and age- indeterminate inferior infarct. Patient was given IV fluids and pamidronate. Calcitonin once. Repeat calcium was improved but higher today. Repeat calcitonin and resume IV fluids. Monitor calcium levels. (2) Pneumonia: Code(s): J18.9 - Pneumonia, unspecified organism Status: Acute Assessment and Plan: Chest x-ray showed prominent markings in the lower lobes. CT of the abdomen showed right pleural effusion with adjacent atelectasis and multiple lung nodules. White count elevated to 14 K. Blood cultures collected and patient was given azithromycin and Rocephin. Prior imaging studies noted. [place] imaging findings related to his cancer rather than acute pneumonia. No fevers and WBC normal. [place] PNA unlikely. Hold on further antibiotics and monitor. (3) Hyponatremia syndrome: Code(s): E87.1 - Hypo-osmolality and hyponatremia Status: Acute Assessment and Plan: Sodium low on admission 126. Probably related to dehydration given his poor oral intake. Sodium better to 130 with IV fluids. Sodium down to 129 today of fluids. Continue to follow. (4) Esophageal cancer, stage IV: Code(s): C15.9 - Malignant neoplasm of esophagus, unspecified Status: Acute Assessment and Plan: Patient with metastatic esophageal cancer with extensive liver involvement. LFTs are elevated related to this. Plan is for palliative chemotherapy after port placement. Nausea better. Continue scheduled compazine for now. Continue regular diet and supplements. Unable to place GTube so plan is for Port placement and Surgical GTube on Saturday Continue PT OT. He is up walking in the room. (5) Severe protein-calorie malnutrition: Code(s): E43 - Unspecified severe protein-calorie malnutrition Status: Acute Assessment and Plan: Patient with severe protein calorie malnutrition related to chronic esophageal cancer as evidenced by weight loss of 13% in the past month and poor p.o. intake of less than 75% needs greater than a month. Dietitian following. Continue supplements. Plan for PEG tube for nutritional support. (6) UTI (urinary tract infection): Code(s): N39.0 - Urinary tract infection, site not specified Status: Acute Assessment and Plan: UA is abnormal but did not probably urine culture. Not felt to have UTI. No UCx collected UTI ruled out Plan DVT prophylaxis - Lovenox Code status - full Subjective Date/time seen: 07/27/24 16:06 Interval history: 64yo male with esophageal cancer, DM and HTN here for elevated calcium levels. Unable to place PEG due to size of liver. Patietn feels well. No problems overnight. Mild abdominal pain. Exam Narrative: AF 97.0 122/73 108 16 94% ra Gen - NARD Chest - CTA bilaterally, nml RR CV - RRR S1/S2 Abd - Soft, epigastric/liver mass, +BS Ext - No pedal edema Psych - Nml mood and affect Skin - Warm and dry Objective Data Vital Signs Vital Signs: Vital Signs - 24 hr 07/26/24 20:00 07/27/24 05:35 07/27/24 00:45 Temperature 97.0 F L 97.2 F L 97.3 F L Pulse Rate 112 H 94 97 Respiratory Rate 16 18 18 Blood Pressure 130/79 155/84 H 142/77 H Pulse Oximetry 94 96 96 Oxygen Delivery 07/27/24 08:17 07/27/24 09:41 07/27/24 09:51 Temperature 97 F L Pulse Rate 116 H 96 97 Respiratory Rate 18 15 16 Blood Pressure 124/81 106/71 117/72 Pulse Oximetry 94 97 96 Oxygen Delivery Room Air Room Air Room Air 07/27/24 10:01 07/27/24 12:26 Temperature 97.0 F L Pulse Rate 97 108 H Respiratory Rate 15 16 Blood Pressure 117/75 122/73 Pulse Oximetry 95 94 Oxygen Delivery Room Air Intake/Output Intake/Output: Intake & Output 07/24/24 07/25/24 07/26/24 07/27/24 23:59 23:59 23:59 23:59 Intake Total 5085.0 3612.4 1960 1000 Output Total 2200 4650 2400 2600 Balance 2885.0 -1037.6 -440 -1600 Meds/Results Medications: Active Medications Generic Name Dose Route Start Last Admin Trade Name Freq PRN Reason Stop Dose Admin Acetaminophen 650 mg 07/24/24 16:38 07/25/24 17:03 Acetaminophen 325 Mg Tablet PO 650 mg Q6H PRN Administration Mild Pain (1-3) or Fever Hydrocodone Bitart/Acetaminophen 1 tab 07/24/24 21:00 07/26/24 20:04 Hydrocodone/Acetaminophen (*Crx) 7.5-325 Mg Tablet PO 1 tab HS CATINA Administration Calcitonin [place] 100 units 07/27/24 09:00 07/27/24 11:54 Calcitonin [place] Inj 400 Units/2 Ml Vial SUB-Q 100 units DAILY CATINA Administration Cyanocobalamin 500 mcg 07/25/24 09:00 07/27/24 11:35 Cyanocobalamin 500 Mcg Tablet PO 500 mcg QAM CATINA Administration Docusate Sodium 100 mg 07/24/24 21:00 07/27/24 11:35 Docusate Sodium 100 Mg Capsule PO 100 mg Q12HR CATINA Administration Enoxaparin Sodium 40 mg 07/25/24 09:00 07/26/24 08:13 Enoxaparin 40 Mg/0.4 Ml Syringe SUB-Q 40 mg DAILY CATINA Administration Hydromorphone HCl 0.5 mg 07/23/24 21:47 07/27/24 11:36 Hydromorphone Hcl Inj (*Crx) 1 Mg/Ml Syr IV PUSH 0.5 mg Q4H PRN Administration Pain Rated 7-10 Sodium Chloride 1,000 mls @ 100 mls/hr 07/27/24 07:30 07/27/24 11:53 Normal Saline Iv IV CONT 100 mls/hr .Q10H CATINA Administration Miscellaneous Information 1 each 07/27/24 00:01 07/27/24 15:35 Na-Phos K Packet Q6hr. Should This Have A Set # Of Doses? Currently Open Ended Order XX 08/26/24 00:00 Not Given CLARIFY CATINA Ondansetron HCl 4 mg 07/23/24 21:47 Ondansetron Inj 4 Mg/2 Ml Vial IV PUSH Q4H PRN Nausea Pantoprazole Sodium 40 mg 07/25/24 09:00 07/27/24 11:35 Pantoprazole 40 Mg Tablet PO 40 mg DAILY CATINA Administration Polyethylene Glycol 17 gm 07/27/24 09:00 07/27/24 11:36 Polyethylene Glycol 3350 17 Gm Powd.Pack PO Not Given QAM CATINA Potassium Phos/Sodium Phos 1 packet 07/27/24 07:30 07/27/24 15:35 Potassium/Phosphorus/Sodium 1.5 Gm Packet PO Not Given Q6H CATINA Prochlorperazine Maleate 5 mg 07/24/24 17:00 07/27/24 15:35 Prochlorperazine Maleate 5 Mg Tablet PO Not Given TID [facility] Radiology Results: ITS Impressions Chest X-Ray 07/23/24 19:39 IMPRESSION: Prominent markings in the lower lobes. Opacification the right and left posterior CP angle which may indicate atelectasis versus focal pneumonia. Clinical evaluation advised. Abdomen/Pelvis CT 07/23/24 20:45 IMPRESSION: 1. Multiple masses in the liver which increased in size compared to previous study. 2. Thickening of the wall of the distal esophagus. 3. Right pleural effusion with adjacent atelectasis. 4. Multiple nodules in the lower lobes of the lungs. 5. Periesophageal, angel hepatis, and para-aortic lymphadenopathy. 6. Calcification in the left renal pelvis most likely a stone. Labs Labs: Laboratory Results - last 24 hr 07/26/24 07/27/24 07/27/24 18:07 05:18 08:06 Sodium 129 L Potassium 3.6 Chloride 100 Carbon Dioxide 20 L Anion Gap 9 BUN 8 L Creatinine 0.50 L Estim Creat Clear Calc 133 Estimated GFR > 60 Glucose 106 POC Capillary Glucose 138 H 115 H Calcium 11.9 H Phosphorus 1.7 L Albumin 3.3 L 07/27/24 12:13 Sodium Potassium Chloride Carbon Dioxide Anion Gap BUN Creatinine Estim Creat Clear Calc Estimated GFR Glucose POC Capillary Glucose 111 H Calcium Phosphorus Albumin
[2024-07-27] MEDS: HYDROcodone/acetaminophen (*CRX) 7.5-325 MG TABLET 1 TAB PO (20:45)
[2024-07-28] VITALS: BP 122/74; PULSE 83; RESP 16; TEMP 36.2; O2SAT 95
[2024-07-28 00:44] LABS: Glucose Point of Care 104 mg/dl (65-105)
[2024-07-28 04:38] VITALS: BP 134/72; PULSE 92; RESP 18; TEMP 36.5; O2SAT 94
[2024-07-28] MEDS: SODIUM CHLORIDE 0.9% IV 1,000 ML 100 ML IV CONT ×3 (04:46→20:10)
[2024-07-28] MEDS: HYDROmorphone HCL INJ (*CRX) 1 MG/ML SYR 0.5 MG IV PUSH ×4 (04:47→18:56)
[2024-07-28 06:08] LABS: Albumin Level 3.1 g/dL (3.5-5.1); Anion Gap 10 mmol/L (4-12); Blood Urea Nitrogen 10 mg/dL (9-20); Calcium 11.3 mg/dL (8.4-10.2); Carbon Dioxide 19 mmol/L (22-30); Chloride 100 mmol/L (98-107); Estimated CRCL calculation 133 ml/min; Estimated Glomerular Filt Rate > 60; Glucose 102 mg/dL (65-110); Phosphorus 1.4 mg/dL (2.5-4.5); Potassium 3.6 mmol/L (3.4-5.0); Sodium 129 mmol/L (137-145)
[2024-07-28] MEDS: CYANOCOBALAMIN 500 MCG TABLET PO (09:37)
[2024-07-28] MEDS: DOCUSATE SODIUM 100 MG CAPSULE PO ×2 (09:37→20:08)
[2024-07-28] MEDS: POTASSIUM/PHOSPHORUS/SODIUM 1.5 GM PACKET 1 PACKET PO ×3 (09:37→18:55)
[2024-07-28] MEDS: PANTOPRAZOLE 40 MG TABLET PO (09:37)
[2024-07-28] MEDS: PROCHLORPERAZINE MALEATE 5 MG TABLET PO ×2 (09:38→17:19)
[2024-07-28 09:40] VITALS: O2SAT 96
[2024-07-28] MEDS: polyethylene glycoL 3350 17 GM POWD.PACK PO (09:40)
[2024-07-28 13:03] LABS: Angiotensin Converting Enzyme <5 U/L (9-67)
--- NOTE | 2024-07-28 13:52 | P.PNIM_ITS ---
Progress Note: A&P Assessment and Plan (1) Hypercalcemia: Code(s): E83.52 - Hypercalcemia Status: Acute Assessment and Plan: Calcium elevated as outpatient and was 17 here. [place] related to his malignancy. No obvious bony lesions noted by imaging. Has hx of hypercalcemia with Ca >14 last month. EKG showing sinus tachycardia with occasional PVCs, delayed transition and age- indeterminate inferior infarct. Patient was given IV fluids and pamidronate. Calcitonin. Repeat calcium stable. IV fluids resumed. Check bone scan. Lasix if calcium does not improve. Phos still low. Continue to replace. Monitor calcium levels. Decreased scheduled Compazine (2) Pneumonia: Code(s): J18.9 - Pneumonia, unspecified organism Status: Acute Assessment and Plan: Chest x-ray showed prominent markings in the lower lobes. CT of the abdomen showed right pleural effusion with adjacent atelectasis and multiple lung nodules. White count was elevated to 14 K. Blood cultures collected and patient was given azithromycin and Rocephin. Prior imaging studies noted. [place] imaging findings related to his cancer rather than acute pneumonia. No fevers and WBC normal now. [place] PNA unlikely. Hold on further antibiotics and monitor. (3) Hyponatremia syndrome: Code(s): E87.1 - Hypo-osmolality and hyponatremia Status: Acute Assessment and Plan: Sodium low on admission 126. Probably related to dehydration given his poor oral intake. Sodium 129 today. Continue IV fluids Continue to follow. (4) Esophageal cancer, stage IV: Code(s): C15.9 - Malignant neoplasm of esophagus, unspecified Status: Acute Assessment and Plan: Patient with metastatic esophageal cancer with extensive liver involvement. LFTs are elevated related to this. Plan is for palliative chemotherapy after port placement. Nausea better. Continue scheduled compazine for now. Continue regular diet and supplements. Unable to place GTube so plan is for Port placement and Surgical GTube tomorrow Continue PT OT. He is up walking in the room. (5) Severe protein-calorie malnutrition: Code(s): E43 - Unspecified severe protein-calorie malnutrition Status: Acute Assessment and Plan: Patient with severe protein calorie malnutrition related to chronic esophageal cancer as evidenced by weight loss of 13% in the past month and poor p.o. intake of less than 75% needs greater than a month. Dietitian following. Continue supplements. Plan for PEG tube for nutritional support. (6) UTI (urinary tract infection): Code(s): N39.0 - Urinary tract infection, site not specified Status: Acute Assessment and Plan: UA is abnormal but did not probably urine culture. Not felt to have UTI. No UCx collected UTI ruled out Plan DVT prophylaxis - Lovenox Code status - full Subjective Date/time seen: 07/28/24 13:52 Interval history: 64yo male with esophageal cancer, DM and HTN here for elevated calcium levels. walking in room with cane with therapy. +ROBLES. No Cp or SOB. Still having abd pain. nausea better and tolerating ensure and apple sauce. no desire to try anything else. No BM. Exam Narrative: AF 97.7 134/72 92 18 94% ra Gen - NARD Chest - decreased BS in the right base o/w clear. CV - RRR S1/S2 Abd - Soft, epigastric/liver mass, +BS Ext - trace pedal edema Psych - Nml mood and affect Skin - Warm and dry Objective Data Vital Signs Vital Signs: Vital Signs - 24 hr 07/27/24 19:58 07/27/24 20:00 07/28/24 00:00 Temperature 98.1 F 97.1 F L Pulse Rate 91 83 Respiratory Rate 20 16 Blood Pressure 132/73 122/74 Pulse Oximetry 95 95 Oxygen Delivery Room Air 07/28/24 04:38 Temperature 97.7 F Pulse Rate 92 Respiratory Rate 18 Blood Pressure 134/72 Pulse Oximetry 94 Oxygen Delivery Intake/Output Intake/Output: Intake & Output 07/25/24 07/26/24 07/27/24 07/28/24 23:59 23:59 23:59 23:59 Intake Total 3612.4 1960 2666.7 1531.7 Output Total 4650 2400 4010 1500 Balance -1037.6 -440 -1343.3 31.7 Meds/Results Medications: Active Medications Generic Name Dose Route Start Last Admin Trade Name Freq PRN Reason Stop Dose Admin Acetaminophen 650 mg 07/24/24 16:38 07/25/24 17:03 Acetaminophen 325 Mg Tablet PO 650 mg Q6H PRN Administration Mild Pain (1-3) or Fever Hydrocodone Bitart/Acetaminophen 1 tab 07/24/24 21:00 07/27/24 20:45 Hydrocodone/Acetaminophen (*Crx) 7.5-325 Mg Tablet PO 1 tab HS CATINA Administration Cyanocobalamin 500 mcg 07/25/24 09:00 07/28/24 09:37 Cyanocobalamin 500 Mcg Tablet PO 500 mcg QAM CATINA Administration Docusate Sodium 100 mg 07/24/24 21:00 07/28/24 09:37 Docusate Sodium 100 Mg Capsule PO 100 mg Q12HR CATINA Administration Enoxaparin Sodium 40 mg 07/25/24 09:00 07/28/24 09:44 Enoxaparin 40 Mg/0.4 Ml Syringe SUB-Q Not Given DAILY CATINA Hydromorphone HCl 0.5 mg 07/23/24 21:47 07/28/24 10:53 Hydromorphone Hcl Inj (*Crx) 1 Mg/Ml Syr IV PUSH 0.5 mg Q4H PRN Administration Pain Rated 7-10 Sodium Chloride 1,000 mls @ 100 mls/hr 07/27/24 07:30 07/28/24 04:46 Normal Saline Iv IV CONT 100 mls/hr .Q10H CATINA Administration Miscellaneous Information 1 each 07/27/24 00:01 07/27/24 15:35 Na-Phos K Packet Q6hr. Should This Have A Set # Of Doses? Currently Open Ended Order XX 08/26/24 00:00 Not Given CLARIFY CATINA Ondansetron HCl 4 mg 07/23/24 21:47 Ondansetron Inj 4 Mg/2 Ml Vial IV PUSH Q4H PRN Nausea Pantoprazole Sodium 40 mg 07/25/24 09:00 07/28/24 09:37 Pantoprazole 40 Mg Tablet PO 40 mg DAILY CATINA Administration Polyethylene Glycol 17 gm 07/27/24 09:00 07/28/24 09:40 Polyethylene Glycol 3350 17 Gm Powd.Pack PO 17 gm QAM CATINA Administration Potassium Phos/Sodium Phos 1 packet 07/27/24 07:30 07/28/24 09:37 Potassium/Phosphorus/Sodium 1.5 Gm Packet PO 1 packet Q6H CATINA Administration Prochlorperazine Maleate 5 mg 07/28/24 09:00 07/28/24 09:38 Prochlorperazine Maleate 5 Mg Tablet PO 5 mg BID CATINA Administration Radiology Results: ITS Impressions Chest X-Ray 07/23/24 19:39 IMPRESSION: Prominent markings in the lower lobes. Opacification the right and left posterior CP angle which may indicate atelectasis versus focal pneumonia. Clinical evaluation advised. Abdomen/Pelvis CT 07/23/24 20:45 IMPRESSION: 1. Multiple masses in the liver which increased in size compared to previous study. 2. Thickening of the wall of the distal esophagus. 3. Right pleural effusion with adjacent atelectasis. 4. Multiple nodules in the lower lobes of the lungs. 5. Periesophageal, angel hepatis, and para-aortic lymphadenopathy. 6. Calcification in the left renal pelvis most likely a stone. Labs Labs: Laboratory Results - last 24 hr 07/25/24 07/28/24 07/28/24 04:45 00:36 05:14 Sodium 129 L Potassium 3.6 Chloride 100 Carbon Dioxide 19 L Anion Gap 10 BUN 10 Creatinine 0.50 L Estim Creat Clear Calc 133 Estimated GFR > 60 Glucose 102 POC Capillary Glucose 104 Calcium 11.3 H Phosphorus 1.4 L Albumin 3.1 L Angiotensin Convert Enz <5 L
--- NOTE | 2024-07-28 13:56 | WPDGIPROGNO ---
Progress Note: A&P Assessment and Plan (1) Dysphagia: Code(s): R13.10 - Dysphagia, unspecified Status: Acute Assessment and Plan: surgery will place PEG tomorrow with IV access so he can start chemotherapy egd yesterday with known esophageal cancer, unable to get safe window in abdomen to proceed with peg (2) Esophageal cancer, stage IV: Code(s): C15.9 - Malignant neoplasm of esophagus, unspecified Status: Acute Assessment and Plan: oncology is planning to start palliative treatment soon (3) Metastasis to liver: Code(s): C78.7 - Secondary malignant neoplasm of liver and intrahepatic bile duct Status: Acute Assessment and Plan: metastatic esophageal cancer involving liver and lungs, this can explain also elevated liver enzymes exam noted enlarge liver (4) Malnutrition: Code(s): E46 - Unspecified protein-calorie malnutrition Status: Acute Assessment and Plan: will give more nutrition once peg tube is placed (5) Weight loss: Code(s): R63.4 - Abnormal weight loss Status: Acute (6) Hypercalcemia: Code(s): E83.52 - Hypercalcemia Status: Acute Assessment and Plan: on treatment (7) Elevated liver enzymes: Code(s): R74.8 - Abnormal levels of other serum enzymes Status: Acute Subjective Date/time seen: 07/28/24 13:56 Interval history: no changes, unable to place PEG endoscopically because enlarged liver Review of Systems Review of Systems: All systems reviewed & are unremarkable except as noted in HPI and below Exam Const: General: cooperative, comfortable, no acute distress, ill appearing and obese HENMT: Head: normal to inspection, normocephalic and atraumatic Eyes: General: appearance normal, both eyes and all related structures Neck: Neck: normal visual inspection, full ROM and no lymphadenopathy Resp: Auscultation: clear to auscultation bilaterally Cardio: Rate: regular rate Rhythm: regular rhythm GI: Inspection: normal to inspection and non-distended GI Palp: No abdominal tenderness and Yes Soft to palpation Auscultation: normal bowel sounds Other: hepatomegaly Skin: General skin exam: normal color and no rashes or lesions noted Neuro: General: patient oriented x3 and CN's II-XI intact bilaterally Extrem: General: normal to inspection Psych: Mental Status: mental status grossly normal Objective Data Vital Signs Vital Signs: Vital Signs - 24 hr 07/27/24 19:58 07/27/24 20:00 07/28/24 00:00 Temperature 98.1 F 97.1 F L Pulse Rate 91 83 Respiratory Rate 20 16 Blood Pressure 132/73 122/74 Pulse Oximetry 95 95 Oxygen Delivery Room Air 07/28/24 04:38 Temperature 97.7 F Pulse Rate 92 Respiratory Rate 18 Blood Pressure 134/72 Pulse Oximetry 94 Oxygen Delivery Intake/Output Intake/Output: Intake & Output 07/25/24 07/26/24 07/27/24 07/28/24 23:59 23:59 23:59 23:59 Intake Total 3612.4 1960 2666.7 1531.7 Output Total 4650 2400 4010 1500 Balance -1037.6 -440 -1343.3 31.7 Meds/Results Medications: Active Medications Generic Name Dose Route Start Last Admin Trade Name Freq PRN Reason Stop Dose Admin Acetaminophen 650 mg 07/24/24 16:38 07/25/24 17:03 Acetaminophen 325 Mg Tablet PO 650 mg Q6H PRN Administration Mild Pain (1-3) or Fever Hydrocodone Bitart/Acetaminophen 1 tab 07/24/24 21:00 07/27/24 20:45 Hydrocodone/Acetaminophen (*Crx) 7.5-325 Mg Tablet PO 1 tab HS CATINA Administration Cyanocobalamin 500 mcg 07/25/24 09:00 07/28/24 09:37 Cyanocobalamin 500 Mcg Tablet PO 500 mcg QAM CATINA Administration Docusate Sodium 100 mg 07/24/24 21:00 07/28/24 09:37 Docusate Sodium 100 Mg Capsule PO 100 mg Q12HR CATINA Administration Enoxaparin Sodium 40 mg 07/25/24 09:00 07/28/24 09:44 Enoxaparin 40 Mg/0.4 Ml Syringe SUB-Q Not Given DAILY CATINA Hydromorphone HCl 0.5 mg 07/23/24 21:47 07/28/24 10:53 Hydromorphone Hcl Inj (*Crx) 1 Mg/Ml Syr IV PUSH 0.5 mg Q4H PRN Administration Pain Rated 7-10 Sodium Chloride 1,000 mls @ 100 mls/hr 07/27/24 07:30 07/28/24 04:46 Normal Saline Iv IV CONT 100 mls/hr .Q10H CATINA Administration Miscellaneous Information 1 each 07/27/24 00:01 07/27/24 15:35 Na-Phos K Packet Q6hr. Should This Have A Set # Of Doses? Currently Open Ended Order XX 08/26/24 00:00 Not Given CLARIFY CATINA Ondansetron HCl 4 mg 07/23/24 21:47 Ondansetron Inj 4 Mg/2 Ml Vial IV PUSH Q4H PRN Nausea Pantoprazole Sodium 40 mg 07/25/24 09:00 07/28/24 09:37 Pantoprazole 40 Mg Tablet PO 40 mg DAILY CATINA Administration Polyethylene Glycol 17 gm 07/27/24 09:00 07/28/24 09:40 Polyethylene Glycol 3350 17 Gm Powd.Pack PO 17 gm QAM CATINA Administration Potassium Phos/Sodium Phos 1 packet 07/27/24 07:30 07/28/24 09:37 Potassium/Phosphorus/Sodium 1.5 Gm Packet PO 1 packet Q6H CATINA Administration Prochlorperazine Maleate 5 mg 07/28/24 09:00 07/28/24 09:38 Prochlorperazine Maleate 5 Mg Tablet PO 5 mg BID CATINA Administration Radiology Results: ITS Impressions Chest X-Ray 07/23/24 19:39 IMPRESSION: Prominent markings in the lower lobes. Opacification the right and left posterior CP angle which may indicate atelectasis versus focal pneumonia. Clinical evaluation advised. Abdomen/Pelvis CT 07/23/24 20:45 IMPRESSION: 1. Multiple masses in the liver which increased in size compared to previous study. 2. Thickening of the wall of the distal esophagus. 3. Right pleural effusion with adjacent atelectasis. 4. Multiple nodules in the lower lobes of the lungs. 5. Periesophageal, angel hepatis, and para-aortic lymphadenopathy. 6. Calcification in the left renal pelvis most likely a stone. Labs Labs: Laboratory Results - last 24 hr 07/25/24 07/28/24 07/28/24 04:45 00:36 05:14 Sodium 129 L Potassium 3.6 Chloride 100 Carbon Dioxide 19 L Anion Gap 10 BUN 10 Creatinine 0.50 L Estim Creat Clear Calc 133 Estimated GFR > 60 Glucose 102 POC Capillary Glucose 104 Calcium 11.3 H Phosphorus 1.4 L Albumin 3.1 L Angiotensin Convert Enz <5 L
[2024-07-28 14:36] VITALS: BP 148/83; PULSE 101; RESP 18; TEMP 36.1; O2SAT 96
[2024-07-28] MEDS: HYDROcodone/acetaminophen (*CRX) 7.5-325 MG TABLET 1 TAB PO (20:08)
[2024-07-28 21:33] VITALS: BP 140/75; PULSE 99; RESP 18; TEMP 36.2; O2SAT 94
[2024-07-29] VITALS (18 sets, daily range): BP systolic 76–156; BP diastolic 50–98; PULSE 57–140; RESP 14–23; TEMP 36.1–36.5; O2SAT 92–99
[2024-07-29] MEDS: HYDROmorphone HCL INJ (*CRX) 1 MG/ML SYR 0.5 MG IV PUSH ×2 (01:44→06:31)
[2024-07-29 01:54] LABS: Glucose Point of Care 102 mg/dl (65-105)
[2024-07-29] MEDS: SODIUM CHLORIDE 0.9% IV 1,000 ML 100 ML IV CONT (08:10)
--- NOTE | 2024-07-29 08:13 | P.PNAN_ITS ---
Anes - Eval Pre Procedure Procedure: Operation Date: 07/27/24 16:00 Proposed Procedures s Percutaneous Endoscopic Gastrostomy - Miguel Diaz MD p Esophagogastroduodenoscopy - Miguel Diaz MD Operation Date: 07/29/24 13:00 Proposed Procedures p Insertion Elena Cath - James Lynn MD s Open G-Tube Insertion - James Lynn MD Date/Time: 07/29/24 08:13 Preop Diagnosis: Stage 4 esophageal cancer Pre Op Diagnosis: Hypercalcemia, Pneumonia Patient Data Age: 64 Gender: M Height: 1.83 m Weight: 92.2 kg Last Vital Signs Temp 97.7 F 07/29/24 04:06 Pulse 104 H 07/29/24 04:06 Resp 20 07/29/24 04:06 BP 141/77 H 07/29/24 04:06 Pulse Ox 94 07/29/24 04:06 O2 Del Method Room Air 07/28/24 20:00 Allergies Allergy/AdvReac Type Severity Reaction Status Date / Time No Known Allergies Allergy Verified 07/27/24 08:15 Home Medications Medication Instructions Recorded Confirmed Type mecobalamin (vitamin B12) 500 mcg 500 mcg PO DAILY 06/17/23 07/27/24 History chewable tablet hydrocodone 7.5 mg-acetaminophen 1 tablet PO HS 07/24/24 07/27/24 History 325 mg tablet pantoprazole 40 mg tablet,delayed 40 mg PO DAILY 07/24/24 07/27/24 History release Laboratory Tests 07/25/24 07/29/24 07/29/24 04:45 01:49 07:04 Sodium Pending Potassium Pending Chloride Pending Carbon Dioxide Pending Anion Gap Pending BUN Pending Creatinine Pending Estim Creat Clear Calc Pending Estimated GFR Pending Glucose Pending POC Capillary Glucose 102 mg/dl (65-105) Calcium Pending Phosphorus Pending Albumin Pending Angiotensin Convert Enz <5 L U/L (9-67) Patient hx anesthesia problems: none Family hx anesthesia problems: none Results Review: All pre-operative results and documents have been reviewed as part of the pre- operative evaluation. [facility] Past Medical History Medical History Diabetes Dysphagia Elevated liver enzymes Esophageal cancer, stage IV GERD (gastroesophageal reflux disease) History of smoking Hypercalcemia Hyperlipidemia Hypertension Malnutrition Marijuana use Metastasis to liver Overweight (BMI 25.0-29.9) Weight loss Family History Family History Sibling Family history of diabetes mellitus in first degree relative Patient's brother is Family history of obesity Family history of alcoholism Hypertension Mother Depression Father Family history of diabetes mellitus in first degree relative Hypertension Cardiovascular disease Social History Social History Smoking packs per day: 2 Smoking cigarettes per day: 40.0 Years smoked: 20 Smoking pack-years: 40.00 Smoking status: Former smoker Tobacco type: cigarettes Second hand tobacco smoke exposure: No Smoking end date: 11/11/03 Alcohol intake: never Substance use: former Substance use type: marijuana Do You Feel Safe in your Home?: Yes Lack of Transportation: No Lack of Food: Never True Current Housing: I Have Housing Concerned About Future Housing: No Difficulty Paying Gas/Electric Bills: No Difficulty Paying for Meds: No Currently Unemployed: No Education: Decline to Answer Difficulty w/ Childcare or Family Care: No Living arrangements: with family Spiritual care concerns: No Comments ST with PVC's Exam Day of Procedure 07/29/24 08:13
[2024-07-29 08:20] LABS: Albumin Level 3.3 g/dL (3.5-5.1); Anion Gap 16 mmol/L (4-12); Blood Urea Nitrogen 8 mg/dL (9-20); Calcium 12.2 mg/dL (8.4-10.2); Carbon Dioxide 19 mmol/L (22-30); Chloride 94 mmol/L (98-107); Estimated CRCL calculation 133 ml/min; Estimated Glomerular Filt Rate > 60; Glucose 104 mg/dL (65-110); Phosphorus 1.7 mg/dL (2.5-4.5); Potassium 3.8 mmol/L (3.4-5.0); Sodium 129 mmol/L (137-145)
[2024-07-29 08:41] LABS: Glucose Point of Care 105 mg/dl (65-105)
--- NOTE | 2024-07-29 11:45 | P.CONNP_ITS ---
Assessment and Plan Assessment and plan (1) Hypercalcemia: Code(s): E83.52 - Hypercalcemia Status: Acute Assessment and Plan: * quite elevated on admission at 17 * calcium elevated on outpatient labs as well (June 2024) * s/p IV pamidronate * ongoing IVFs as well * will add SQ calcitonin (~ 4units/kg) x 6 doses * follow-up on bone scan * consider IV lasix (forced diuresis) if calcium worsens * follow repeat calcium levels (2) Hyponatremia: Code(s): E87.1 - Hypo-osmolality and hyponatremia Status: Acute Assessment and Plan: * improvement noted since admission * suspect due to hypovolemia given improvement with normal saline IVFs * however, could be partly related to his known malignancy/cancer * check TSH and cortisol * follow repeat sodium levels (3) Esophageal cancer: Code(s): C15.9 - Malignant neoplasm of esophagus, unspecified Status: Acute Assessment and Plan: * metastatic with extensive liver lesions * Port placement today for initiation of palliative chemotherapy (4) Severe protein-calorie malnutrition: Code(s): E43 - Unspecified severe protein-calorie malnutrition Status: Acute Assessment and Plan: * as noted by weight loss and and diminished oral intake * noted plans for G-tube placement along with Port today I will continue to follow the patient with you while he remains hospitalized and make further recommendations as deemed necessary. Thank you for allowing me to participate in the care of this patient. History of Present Illness Reason for Consult Consult date: 07/29/24 Reason for consult: Other (Hypercalcemia) Chief Complaint Chief complaint: Hypercalcemia, Pneumonia History of Present Illness Narrative: The patient is a 64-year-old male with an extensive past medical history as outlined below who presented to [facility] Emergency room at the past of his oncologist due to abnormal blood work and hypotension. The patient saw his oncologist on the day of admission and had blood work done on that office visit. These blood test demonstrated severe hypercalcemia and was also noted that his blood pressure was on the lower side on that office visit. The patient is due to start chemotherapy next week but in the interim, has felt extremely weak in association with poor oral intake for last few weeks if not longer. Given his known esophageal cancer, is extremely difficult for him to eat or drink liquids in general. He denied any other subjective symptoms with regard to chest pain, shortness of breath, fevers, chills, vomiting, diarrhea, diaphoresis, dizziness, lightheadedness. Workup and evaluation in the emergency room was significant for hypotension with a systolic BP in the high 70s in association with mild tachycardia but he was afebrile. routine blood work demonstrated an elevated white blood cell count of 14.1 and his chemistry was significant for a sodium of 126, and a calcium of 17 with a mildly elevated lactic acid level of 2.8. His liver function tests were elevated as well. His EKG did not show any concerning changes in association with his hypercalcemia. His chest x-ray showed a possible pneumonia and a subsequent CT scan of the abdomen pelvis was significant for multiple liver masses the for increase in size in comparison to his previous study, right pleural effusion, multiple lower lung nodules, and calcification in the left renal pelvis consistent with a possible stone. given these laboratory abnormalities and imaging findings, he received aggressive IV fluid resuscitation with improvement in his blood pressure and was continued on maintenance IV fluids. After appropriate cultures were obtained, he was started on antibiotic therapy for his presumed pneumonia and was subsequently admitted to the hospital for further evaluation and therapy. Since his admission, and with current interventions, his blood pressure has improved and his calcium level is doing better. He did receive a dose of IV pamidronate as well. Renal consultation was requested due to his hypercalcemia. As already mentioned, his calcium level seems to be improving but in the last 24-48 hours, his been fluctuating more. He still has poor oral intake in general and he is tentatively going to the OR this afternoon for placement of a Port-A-Cath as well as a G-tube for palliative chemotherapy and nutritional support, respectively. He still reports generalized fatigue but feels somewhat better in comparison to when he presented to the hospital initially. Currently, at the time my visit, he appears to be in no acute distress. Review of Systems Review of Systems: As per HPI. [facility] Past Medical History Medical History Diabetes Dysphagia Elevated liver enzymes Esophageal cancer, stage IV GERD (gastroesophageal reflux disease) History of smoking Hypercalcemia Hyperlipidemia Hypertension Malnutrition Marijuana use Metastasis to liver Overweight (BMI 25.0-29.9) Weight loss Family History Family History Sibling Family history of diabetes mellitus in first degree relative Patient's brother is Family history of obesity Family history of alcoholism Hypertension Mother Depression Father Family history of diabetes mellitus in first degree relative Hypertension Cardiovascular disease Social History Social History Smoking packs per day: 2 Smoking cigarettes per day: 40.0 Years smoked: 20 Smoking pack-years: 40.00 Smoking status: Former smoker Tobacco type: cigarettes Second hand tobacco smoke exposure: No Smoking end date: 11/11/03 Alcohol intake: never Substance use: former Substance use type: marijuana Do You Feel Safe in your Home?: Yes Lack of Transportation: No Lack of Food: Never True Current Housing: I Have Housing Concerned About Future Housing: No Difficulty Paying Gas/Electric Bills: No Difficulty Paying for Meds: No Currently Unemployed: No Education: Decline to Answer Difficulty w/ Childcare or Family Care: No Living arrangements: with family Spiritual care concerns: No Meds Home Medications and Allergies Home Medications Medication Instructions Recorded Confirmed Type mecobalamin (vitamin B12) 500 mcg 500 mcg PO DAILY 06/17/23 07/27/24 History chewable tablet hydrocodone 7.5 mg-acetaminophen 1 tablet PO HS 07/24/24 07/27/24 History 325 mg tablet pantoprazole 40 mg tablet,delayed 40 mg PO DAILY 07/24/24 07/27/24 History release Allergies Allergy/AdvReac Type Severity Reaction Status Date / Time No Known Allergies Allergy Verified 07/29/24 12:48 Vital Signs Vital Signs Temp Pulse Resp BP Pulse Ox O2 Del Method 07/29/24 12:30 97.7 F 57 L 14 128/85 99 Room Air 07/29/24 10:40 97.0 F L 111 H 16 133/79 94 07/29/24 09:00 92 Room Air 07/29/24 04:06 97.7 F 104 H 20 141/77 H 94 07/29/24 00:00 97.6 F 86 18 156/74 H 94 07/28/24 20:00 Room Air 07/28/24 21:33 97.2 F L 99 18 140/75 94 Exam Narrative: GENERAL APPEARANCE: mildly ill appearing male in no acute distress HEENT: normocephalic, atraumatic, normal conjunctiva and sclera, nares patient NECK: no lymphadenopathy, thyromegaly, or JVD MOUTH: normal lips, teeth, and gums CARDIOVASCULAR: RRR, normal S1 and S2, no rub RESPIRATORY: clear to auscultation bilaterally ABDOMEN: soft, mild TTP lower abdomen, nondistended, positive bowel sounds present EXTREMITIES: no evidence of cyanosis, clubbing, or edema NEUROLOGICAL: alert and oriented x 3; CN II - XII intact bilaterally; no focal deficits noted Results Lab Results 07/31/24 05:31 07/31/24 05:31 Lab results: Most recent lab results Calcium 12.2 mg/dL (8.4-10.2) H* 07/29/24 07:04 Phosphorus 1.7 mg/dL (2.5-4.5) L 07/29/24 07:04 Magnesium 2.0 mg/dL (1.6-2.3) 07/26/24 05:18
--- NOTE | 2024-07-29 11:49 | PC.NURSE ---
Patient transferred to surgery via stretcher
[2024-07-29] MEDS: LACTATED RINGERS 1,000 ML 30 ML IV CONT ×2 (12:30→15:53)
[2024-07-29 12:33] LABS: Glucose Point of Care 115 mg/dl (65-105)
[2024-07-29 12:58] LABS: Vitamin D 1,25 (OH)2 Total 29 pg/mL (18-72); Vitamin D2 1,25 (OH)2 <8 pg/mL; Vitamin D3 1,25 (OH)2 29 pg/mL
--- NOTE | 2024-07-29 13:15 | WPDANESEPPF ---
Anes - Initial Pre Proc Eval Procedure: Operation Date: 07/27/24 16:00 Proposed Procedures s Percutaneous Endoscopic Gastrostomy - Miugel Diaz MD p Esophagogastroduodenoscopy - Miguel Diaz MD Operation Date: 07/29/24 13:00 Proposed Procedures p Insertion Elena Cath - James Lynn MD s Open G-Tube Insertion - James Lynn MD Date/Time: 07/29/24 13:15 Surgeon: Zuly gO MD Pre Op Diagnosis: Hypercalcemia, Pneumonia Patient Data Age: 64 Gender: M Height: 1.83 m Weight: 92.2 kg Last Vital Signs Temp 36.5 C 07/29/24 12:30 Pulse 57 L 07/29/24 12:30 Resp 14 07/29/24 12:30 BP 128/85 07/29/24 12:30 Pulse Ox 99 07/29/24 12:30 O2 Del Method Room Air 07/29/24 12:30 Allergies Allergy/AdvReac Type Severity Reaction Status Date / Time No Known Allergies Allergy Verified 07/29/24 12:48 Home Medications Medication Instructions Recorded Confirmed Type mecobalamin (vitamin B12) 500 mcg 500 mcg PO DAILY 06/17/23 07/27/24 History chewable tablet hydrocodone 7.5 mg-acetaminophen 1 tablet PO HS 07/24/24 07/27/24 History 325 mg tablet pantoprazole 40 mg tablet,delayed 40 mg PO DAILY 07/24/24 07/27/24 History release Laboratory Tests 07/25/24 07/29/24 07/29/24 04:45 01:49 07:04 Sodium 129 L mmol/L (137-145) Potassium 3.8 mmol/L (3.4-5.0) Chloride 94 L mmol/L (98-107) Carbon Dioxide 19 L mmol/L (22-30) Anion Gap 16 H mmol/L (4-12) BUN 8 L mg/dL (9-20) Creatinine 0.50 L mg/dL (0.7-1.3) Estim Creat Clear Calc 133 ml/min Estimated GFR > 60 (59 - ) Glucose 104 mg/dL (65-110) POC Capillary Glucose 102 mg/dl (65-105) Calcium 12.2 H* mg/dL (8.4-10.2) Phosphorus 1.7 L mg/dL (2.5-4.5) Albumin 3.3 L g/dL (3.5-5.1) Vit D 1,25-Dihyd Total 29 pg/mL (18-72) 1,25 Dihydroxy Vit D2 <8 pg/mL 1,25 Dihydroxy Vit D3 29 pg/mL 07/29/24 07/29/24 08:39 12:30 Sodium Potassium Chloride Carbon Dioxide Anion Gap BUN Creatinine Estim Creat Clear Calc Estimated GFR Glucose POC Capillary Glucose 105 mg/dl 115 H mg/dl (65-105) (65-105) Calcium Phosphorus Albumin Vit D 1,25-Dihyd Total 1,25 Dihydroxy Vit D2 1,25 Dihydroxy Vit D3 Patient hx anesthesia problems: none Family hx anesthesia problems: none Results Review: All pre-operative results and documents have been reviewed as part of the pre-operative evaluation. [facility] Past Medical History Medical History Diabetes Dysphagia Elevated liver enzymes Esophageal cancer, stage IV GERD (gastroesophageal reflux disease) History of smoking Hypercalcemia Hyperlipidemia Hypertension Malnutrition Marijuana use Metastasis to liver Overweight (BMI 25.0-29.9) Weight loss Family History Family History Sibling Family history of diabetes mellitus in first degree relative Patient's brother is Family history of obesity Family history of alcoholism Hypertension Mother Depression Father Family history of diabetes mellitus in first degree relative Hypertension Cardiovascular disease Social History Social History Smoking packs per day: 2 Smoking cigarettes per day: 40.0 Years smoked: 20 Smoking pack-years: 40.00 Smoking status: Former smoker Tobacco type: cigarettes Second hand tobacco smoke exposure: No Smoking end date: 11/11/03 Alcohol intake: never Substance use: former Substance use type: marijuana Do You Feel Safe in your Home?: Yes Lack of Transportation: No Lack of Food: Never True Current Housing: I Have Housing Concerned About Future Housing: No Difficulty Paying Gas/Electric Bills: No Difficulty Paying for Meds: No Currently Unemployed: No Education: Decline to Answer Difficulty w/ Childcare or Family Care: No Living arrangements: with family Spiritual care concerns: No Anes - Eval Final PreProcedure Day of Procedure 07/29/24 13:15 Patient weight: overweight Heart: regular rate and rhythm Lungs: decreased breath sounds Airway: Mallampati scale class II Neurological: alert and oriented Last oral intake: >/= 8 hours ASA classification: IV Emergent: no Anesthetic plan: proceed Anesthesia type and monitoring: general ETT and standard monitoring Results Review: All pre-operative results and documents have been reviewed as part of the pre-operative evaluation. Informed Consent: The patient's anesthetic plan and its attendant risks and benefits were discussed with the patient/family/POA. Questions were solicited and answers provided to the satisfaction of the patient/family/POA.
[2024-07-29] MEDS: ceFAZolin 2 GM/D5W 50 ML 2 GM/50 ML BAG IVPB (13:34)
[2024-07-29] MEDS: BUPIVACAINE/EPINEPHRINE 0.5% 10 ML VIAL 40 ML INFILTRATE (14:22)
--- NOTE | 2024-07-29 14:23 | PCDIET ---
Addendum entered by Joellen Christianosn RD, ROLANDON 07/29/24 14:35: TUBE FEEDING RECOMMENDATIONS: Jevity 1.5 @(continuous) 60 ml/h OR BOLUS 330 ml QID. Total 1980 kcal, 84 g protein, 1003 ml free water. Flush 200 ml water QID/Q6 hours. Will need to obtain phosphorus and mag labs to monitor FOR refeeding syndrome, start TF @ 30 ml/h; 200-300 ml thiamine, B complex BID to prevent refeeding syndrome/Wernickes.Start tube feeding at 20 ml/h for 24 hours to monitor for refeeding syndrome. Original Note: TUBE FEEDING RECOMMENDATIONS: Jevity 1.5 @(continuous) 60 ml/h OR BOLUS 330 ml QID. Total 1980 kcal, 84 g protein, 1003 ml free water. Flush 200 ml water QID/Q6 hours. Will need to obtain phosphorus and mag labs to monitor FOR refeeding syndrome, start TF @ 30 ml/h; 200-300 ml thiamine, B complex BID to prevent refeeding syndrome/Wernickes.
--- NOTE | 2024-07-29 15:45 | P.OP_ITS ---
Procedure Note - Detailed Date of Procedure 07/29/24 Pre-op Diagnosis Esophageal cancer, inadequate venous access, unable to eat Post-op Diagnosis Same Procedure Performed Placement left subclavian vortex Port-A-Cath under fluoroscopy, placement gastrostomy tube Surgeon James Lynn MD Survey Project Manager Karthik ALVARADO Anesthesia General and Local Indications Patient has been evaluated and found to have metastatic esophageal cancer with hepatomegaly due to extensive liver metastases. He had attempts at placing a PEG tube but, due to the large size the liver, this was not able to be placed. He is taken to surgery now for placement of a Port-A-Cath for chemotherapy as well as placement of an open gastrostomy feeding tube. Findings Port-A-Cath positioned at the cavoatrial junction via the left subclavian vein. Hepatomegaly made the gastrostomy tube placement more difficult as the enlarged lateral segment of the left lobe of the liver required the tube to be placed lateral to the liver and just below the left costal margin. A larger incision was required as well. Description of Procedure Patient was taken to surgery and induced into general anesthesia. The left chest and the entire abdomen were prepped and draped. We started 1st with the Port-A-Cath. The proposed incision was marked on the skin in the left subclavian position. Local was infiltrated into the skin and the subcutaneous. Incision was made and dissection was carried down through the subcutaneous and through the pectoralis major fascia. The fascia was divided and a subfascial pocket was created. Cautery was used for hemostasis. I then cannulated the left subclavian vein with a single puncture. A guidewire passed readily into the superior vena cava. Its position was documented by C-arm fluoroscopy. I then used fluoroscopy to measure the length of the Port-A-Cath that would be needed. It was cut to the appropriate length. An introducer and sheath were then passed over the guidewire and, under fluoroscopy, passed well into the innominate vein. The guidewire and introducer were then removed. The Port-A-Cath was passed through the sheath. Its position was checked with fluoroscopy. It appeared to be the appropriate length. We then removed the sheath. Port-A-Cath was placed in the pocket. I used a Phillips needle and heparin and checked the Port-A-Cath several times. It aspirated blood easily and flushed well with heparin. I then sutured the Port-A-Cath in place with 2-0 silk suture. I checked it again and again it easily aspirated blood and flushed. I flushed it finally with heparin. The pocket was then closed with bidirectional running 2-0 Vicryl. The skin was closed with running 4-0 Monocryl skin suture. The wound was dressed with Exofin surgical adhesive. We then turned our attention to the placement of the gastrostomy tube. A left-sided transverse upper abdominal incision was planned. This was marked on the skin. Local was infiltrated into the skin and the deeper subcutaneous tissues. Incision was made and dissection was carried down through the subcutaneous tissue. Cautery was used for hemostasis. We then divided the anterior rectus fascia along the length of the wound. The rectus muscle itself was elevated on a clamp. The muscle fibers were divided transversely along the length of the wound. There was no bleeding. We then divided the posterior rectus fascia and gained access to the abdominal cavity. With the hand in the abdomen I was able to feel the lateral segment of the left lobe of the liver. It was very enlarged. I was also able to palpate and grasped the stomach. There was an area in the antrum of the stomach where we could bring the stomach down to the wound and still have space just below the costal margin to bring out the gastrostomy tube. I used the LigaSure and divided some of the short gastrics along the greater curvature of the stomach leading into the lesser sac. Then with some gentle traction on the stomach, I was able to expose the anterior surface of the distal half of the stomach. I used 2-0 silk and placed concentric pursestring sutures on the stomach. I then used a 16 [employer] [place] [employer] gastrostomy tube with a 5 cc balloon. I made a small incision in the skin just above the incision made previously. I then passed a fine-tipped clamp through the abdominal wall and out the skin incision. The gastrostomy tube was then brought through this incision and through the abdominal wall. I checked the balloon with saline and it distended easily and fully with 5 cc of saline. With the balloon distended, I tied the initial pursestring suture. I then dunked the G-tube into the stomach and tied the outer pursestring suture. This had the desired effect of dunking the gastrotomy site. I then used this same pursestring suture of 2-0 silk and sutured the back of the stomach to the anterior abdominal wall cephalad to the gastrostomy tube. I then used for more 2-0 silks and sutured the stomach to the anterior abdominal wall circumferentially. We pulled the gastrostomy tube up snug to the anterior abdominal wall. All looked good. I then closed the posterior rectus fascia with bidirectional running 3-0 Vicryl suture. I closed the anterior rectus fascia with bidirectional running 0 PDS suture. I then pulled the gastrostomy tube and used 0 silk ties to secure it to the appliance surrounding the tube. Two of these 0 silk ties were placed. Placing gentle traction on the gastrostomy tube, it did not move and appeared to be at the appropriate tension on the abdominal wall. All the ports were capped on the did gastrostomy tube. We finished closing the abdominal incision with interrupted 3-0 Vicryl sutures to close Justice's fascia. 4-0 Vicryl subcuticular skin sutures were then used to loosely approximate the skin. Finally a running 4-0 Monocryl skin suture was used to close the skin. The wound was dressed with Exofin surgical adhesive. A gauze bandage and Medipore tape were placed around the G-tube. Patient was then awakened and taken to recovery in good condition. Sponge and needle counts were correct x2. Implants Sixteen [employer] [place] [employer] gastrostomy tube with 5 cc balloon Estimated Blood Loss -5 Urine Output 400 Drains Yes (Gastrostomy tube) Packing No Pathology None sent Complications None Condition Stable Disposition PACU [facility] Billing Surgery - Charge Forward: Surgery Billing (Placement left subclavian vortex Port-A-Cath under fluoroscopy, placement gastrostomy tube)
[2024-07-29] MEDS: fentaNYL CITRATE INJ (*CRX) 100 MCG/2 ML VIAL 25 MCG IV PUSH ×4 (16:17→16:44)
[2024-07-29 16:18] LABS: Glucose Point of Care 123 mg/dl (65-105)
--- NOTE | 2024-07-29 17:40 | PM.IMPN ---
Progress Note: A&P Assessment and Plan (1) Hypercalcemia: Code(s): E83.52 - Hypercalcemia Status: Acute Assessment and Plan: Calcium elevated as outpatient and was 17 here. [place] related to his malignancy. No obvious bony lesions noted by imaging. Has hx of hypercalcemia with Ca >14 last month. EKG showing sinus tachycardia with occasional PVCs, delayed transition and age-indeterminate inferior infarct. Patient was given IV fluids and pamidronate Calcium level elevated at 12.2 today Nephrology consult given for evaluation and further treatment recommendations Nephrology started patient calcitonin 4 units/kg subQ bid Monitor calcium levels. Decreased scheduled Compazine (2) Pneumonia: Code(s): J18.9 - Pneumonia, unspecified organism Status: Acute Assessment and Plan: Chest x-ray showed prominent markings in the lower lobes. CT of the abdomen showed right pleural effusion with adjacent atelectasis and multiple lung nodules. White count was elevated to 14 K. Blood cultures collected and patient was given azithromycin and Rocephin. Prior imaging studies noted. [place] imaging findings related to his cancer rather than acute pneumonia. No fevers and WBC normal now. [place] PNA unlikely. Hold on further antibiotics and monitor. (3) Hyponatremia syndrome: Code(s): E87.1 - Hypo-osmolality and hyponatremia Status: Acute Assessment and Plan: Sodium low on admission 126. Probably related to dehydration given his poor oral intake. Sodium still low at 129 today. Continue IV fluids Follow-up nephrology for further treatment recommendations (4) Esophageal cancer, stage IV: Code(s): C15.9 - Malignant neoplasm of esophagus, unspecified Status: Acute Assessment and Plan: Patient with metastatic esophageal cancer with extensive liver involvement. LFTs are elevated related to this. Plan is for palliative chemotherapy after port placement. Nausea better. Continue scheduled compazine for now. Continue regular diet and supplements. Unable to place GTube so plan is for Port placement and Surgical GTube today Continue PT OT Needs close follow-up with Hematology-Oncology as an outpatient (5) Severe protein-calorie malnutrition: Code(s): E43 - Unspecified severe protein-calorie malnutrition Status: Acute Assessment and Plan: Patient with severe protein calorie malnutrition related to chronic esophageal cancer as evidenced by weight loss of 13% in the past month and poor p.o. intake of less than 75% needs greater than a month. Dietitian following. Continue supplements. Plan for PEG tube for nutritional support. (6) UTI (urinary tract infection): Code(s): N39.0 - Urinary tract infection, site not specified Status: Acute Assessment and Plan: UA is abnormal but did not probably urine culture. Not felt to have UTI. No UCx collected UTI ruled out (7) Hypophosphatemia: Code(s): E83.39 - Other disorders of phosphorus metabolism Status: Acute Assessment and Plan: Phosphate level still low at 1.7 IV potassium phosphate supplementation given Repeat phosphate level in am Plan DVT prophylaxis - Lovenox Code status - full ? Patient seen and examined at bedside during my morning rounds ? Collaborated with patient's nurse at the bedside in detail and addressed all concerns ? Labs, electrolytes, radiology, investigations and test results reviewed ? Consult/Nursing/Ancilliary notes on the chart reviewed and appreciated ? Spoke with patient/family at the bedside and answered all the questions that they had Repeat labs in a.m. Electrolyte replacement as per protocol. Patient will be monitored very closely on the floor. Further recommendations as per the hospital course. Time Spent With Patient Time with patient: 15 - 25 minutes Subjective Date/time seen: 07/29/24 17:40 Interval history: 64yo male with esophageal cancer, DM and HTN here for elevated calcium levels. Patient seen and evaluated bedside. Currently NPO except ice chips. Calcium level is 12.2 and so I spoke with coffin maker in detailed and ordered nephrology consult. Patient undergoing left subclavian Port-A-Cath and PEG tube today. Review of Systems Review of Systems: Patient complains of weight loss and fatigue. 14 systems were reviewed with pertinent positives and negatives per HPI. Except as documented in the HPI/progress notes, all other systems were reviewed and are negative. Exam Narrative: Gen - NARD Chest - decreased BS in the right base o/w clear. CV - RRR S1/S2 Abd - Soft, epigastric/liver mass, +BS Ext - trace pedal edema Psych - Nml mood and affect Skin - Warm and dry Objective Data Vital Signs Vital Signs: Vital Signs - 24 hr 07/28/24 21:33 07/28/24 20:00 07/29/24 00:00 Temperature 36.2 C L 36.4 C Pulse Rate 99 86 Respiratory Rate 18 18 Blood Pressure 140/75 156/74 H Pulse Oximetry 94 94 Oxygen Delivery Room Air Oxygen Flow Rate 07/29/24 04:06 07/29/24 09:00 07/29/24 10:40 Temperature 36.5 C 36.1 C L Pulse Rate 104 H 111 H Respiratory Rate 20 16 Blood Pressure 141/77 H 133/79 Pulse Oximetry 94 92 94 Oxygen Delivery Room Air Oxygen Flow Rate 07/29/24 12:30 07/29/24 15:53 07/29/24 16:10 Temperature 36.5 C 36.4 C Pulse Rate 57 L 72 94 Respiratory Rate 14 16 23 H Blood Pressure 128/85 76/50 L 112/73 Pulse Oximetry 99 94 95 Oxygen Delivery Room Air Simple Face Mask Simple Face Mask Oxygen Flow Rate 8 8 07/29/24 16:25 07/29/24 16:40 07/29/24 16:55 Temperature Pulse Rate 103 H 110 H 115 H Respiratory Rate 18 16 18 Blood Pressure 137/82 140/81 137/83 Pulse Oximetry 92 93 93 Oxygen Delivery Nasal Cannula Nasal Cannula Nasal Cannula Oxygen Flow Rate 3 3 3 07/29/24 17:13 07/29/24 17:28 Temperature 36.2 C L 36.2 C L Pulse Rate 119 H 132 H Respiratory Rate 16 20 Blood Pressure 140/77 129/77 Pulse Oximetry 94 92 Oxygen Delivery Oxygen Flow Rate Intake/Output Intake/Output: Intake & Output 07/26/24 07/27/24 07/28/24 07/29/24 23:59 23:59 23:59 23:59 Intake Total 1960 2666.7 3671.7 1750 Output Total 2400 4010 1900 1850 Balance -440 -1343.3 1771.7 -100 Meds/Results Medications: Active Medications Generic Name Dose Route Start Last Admin Trade Name Freq PRN Reason Stop Dose Admin Acetaminophen 500 mg 07/29/24 17:03 Acetaminophen 500 Mg Tablet PO Q6H PRN Pain Rated 1-3 Hydrocodone Bitart/Acetaminophen 1 tab 07/24/24 21:00 07/28/24 20:08 Hydrocodone/Acetaminophen (*Crx) 7.5-325 Mg Tablet PO 1 tab HS [facility] Administration Calcitonin [place] 360 units 07/29/24 21:00 Calcitonin [place] Inj 400 Units/2 Ml Vial SUB-Q 08/01/24 09:01 Q12HR [facility] Cyanocobalamin 500 mcg 07/25/24 09:00 07/29/24 09:28 Cyanocobalamin 500 Mcg Tablet PO Not Given QAM [facility] Docusate Sodium 100 mg 07/24/24 21:00 07/29/24 09:28 Docusate Sodium 100 Mg Capsule PO Not Given Q12HR [facility] Enoxaparin Sodium 40 mg 07/25/24 09:00 07/28/24 09:44 Enoxaparin 40 Mg/0.4 Ml Syringe SUB-Q Not Given DAILY [facility] Hydromorphone HCl 1 mg 07/29/24 17:03 Hydromorphone Hcl Inj (*Crx) 1 Mg/Ml Syr IV PUSH Q2H PRN Breakthrough Pain Rated 7-10 or NPO Hydromorphone HCl 0.5 mg 07/29/24 17:03 Hydromorphone Hcl Inj (*Crx) 1 Mg/Ml Syr IV PUSH Q2H PRN Breakthrough Pain Rated 4-6 or NPO Sodium Chloride 1,000 mls @ 100 mls/hr 07/27/24 07:30 07/29/24 08:10 Normal Saline Iv IV CONT 100 mls/hr .Q10H [facility] Administration Ibuprofen 800 mg in 200 mls @ 400 mls/hr 07/29/24 17:03 Caldolor 800 Mg/200 Ml IVPB Q6H PRN Breakthrough Pain Rated 1-3 or NPO Naloxone HCl 0.1 mg 07/29/24 17:03 Naloxone Hcl 0.4 Mg/Ml Vial IV PUSH Q2M PRN Opiate Reversal Ondansetron HCl 4 mg 07/23/24 21:47 Ondansetron Inj 4 Mg/2 Ml Vial IV PUSH Q4H PRN Nausea Oxycodone/Acetaminophen 1 tablet 07/29/24 17:03 Oxycodone/Acetaminophen (*Crx) 5-325 Mg Tablet PO Q4H PRN Pain Rated 4-6 Oxycodone/Acetaminophen 1 tab 07/29/24 17:03 Oxycodone/Acetaminophen (*Crx) 10-325 Mg Tablet PO Q6H PRN Pain Rated 7-10 Pantoprazole Sodium 40 mg 07/25/24 09:00 07/29/24 09:28 Pantoprazole 40 Mg Tablet PO Not Given DAILY [facility] Polyethylene Glycol 17 gm 07/27/24 09:00 07/29/24 09:29 Polyethylene Glycol 3350 17 Gm Powd.Pack PO Not Given QAM [facility] Potassium Phos/Sodium Phos 1 packet 07/27/24 07:30 07/29/24 17:16 Potassium/Phosphorus/Sodium 1.5 Gm Packet PO Not Given Q6H [facility] Prochlorperazine Maleate 5 mg 07/28/24 09:00 07/29/24 17:16 Prochlorperazine Maleate 5 Mg Tablet PO Not Given BID [facility] Radiology Results: ITS Impressions Abdomen/Pelvis CT 07/23/24 20:45 IMPRESSION: 1. Multiple masses in the liver which increased in size compared to previous study. 2. Thickening of the wall of the distal esophagus. 3. Right pleural effusion with adjacent atelectasis. 4. Multiple nodules in the lower lobes of the lungs. 5. Periesophageal, angel hepatis, and para-aortic lymphadenopathy. 6. Calcification in the left renal pelvis most likely a stone. Chest X-Ray 07/29/24 16:10 IMPRESSION: 1. Port tip at superior cavoatrial junction. 2. Airspace opacities in the lower lung zones, likely atelectasis. 3. Pulmonary nodules, consistent with metastatic disease. 4. Small right pleural effusion. Labs Labs: Laboratory Results - last 24 hr 07/25/24 07/29/24 07/29/24 04:45 01:49 07:04 Sodium 129 L Potassium 3.8 Chloride 94 L Carbon Dioxide 19 L Anion Gap 16 H BUN 8 L Creatinine 0.50 L Estim Creat Clear Calc 133 Estimated GFR > 60 Glucose 104 POC Capillary Glucose 102 Calcium 12.2 H* Phosphorus 1.7 L Albumin 3.3 L Vit D 1,25-Dihyd Total 29 1,25 Dihydroxy Vit D2 <8 1,25 Dihydroxy Vit D3 29 07/29/24 07/29/24 07/29/24 08:39 12:30 16:14 Sodium Potassium Chloride Carbon Dioxide Anion Gap BUN Creatinine Estim Creat Clear Calc Estimated GFR Glucose POC Capillary Glucose 105 115 H 123 H Calcium Phosphorus Albumin Vit D 1,25-Dihyd Total 1,25 Dihydroxy Vit D2 1,25 Dihydroxy Vit D3 Quality VTE Prophylaxis VTE prophylaxis: mechanical ordered and pharmacologic ordered Hospitalist MIPS Advance Care Plan I have confirmed that the patient's Advanced Care Plan is present, code status is documented, or surrogate decision maker is listed in patient medical record.: Yes Medication Reconciliation I have utilized all available resources to obtain, update and review the patients current medications (includes all prescriptions, OTC, herbals, cannabis, and nutritional supplements).: Yes
[2024-07-29] MEDS: HYDROmorphone HCL INJ (*CRX) 1 MG/ML SYR IV PUSH ×2 (18:38→22:15)
[2024-07-29] MEDS: POTASSIUM PHOS,M-BASIC-D-BASIC 20 MMOL in SODIUM CHLORIDE 0.9% IV 250 ML 64.17 MMOL IVPB (18:38)
--- NOTE | 2024-07-29 20:41 | ECG_ITS ---
Test Date: 2024-07-29 19:57:27 Measurements Intervals [place] Rate: 131 P: 40 RI: 153 QRS: 98 QRSD: 94 T: 22 QT: 399 QTc: 589 Interpretive Statements SINUS TACHYCARDIA WITH OCCASIONAL VENTRICULAR PREMATURE COMPLEXES DELAYED PRECORDIAL R/S TRANSITION INFERIOR INFARCT, AGE INDETERMINATE ABNORMAL ECG Compared to ECG 07/23/2024 18:15:37 HEART RATE HAS INCREASED Electronically Signed On 07-30-2024 05:33:25 CDT by Janes Segovia D.O.
[2024-07-29] MEDS: HYDROcodone/acetaminophen (*CRX) 7.5-325 MG TABLET 1 TAB PO (20:46)
[2024-07-29] MEDS: DOCUSATE SODIUM 100 MG CAPSULE PO (20:46)
[2024-07-29] MEDS: POTASSIUM/PHOSPHORUS/SODIUM 1.5 GM PACKET 1 PACKET PO (20:46)
[2024-07-29] MEDS: CALCITONIN SALMON INJ 400 UNITS/2 ML VIAL 360 UNITS SUB-Q (20:47)
--- NOTE | 2024-07-29 23:21 | PM.EVENT ---
Event Note Event Note Event Note: I received a call from the patient's nurse at around 19:00 with an update. He has been in a sinus tachycardia with rates up into the 130s to 140s since about 17:00. The patient is really asymptomatic with that and denies chest pain, pleuritic pain, and palpitations. He is on 3 L nasal cannula post procedure today but denies shortness of breath. Stat EKG showed sinus tachycardia with S1 Q3 T3 and a stat chest CTA was ordered. That was negative for pulmonary embolism but did show a right pleural effusion with adjacent pneumonia and left basilar atelectasis versus pneumonia. He has been started on azithromycin and ceftriaxone. Encourage incentive spirometry. Sputum culture ordered. Check COVID/flu and MRSA screening. Labs are pending. Monitor on telemetry.
[2024-07-29 23:51] LABS: Alanine Aminotransferase 166 U/L (6-50); Albumin Level 3.2 g/dL (3.5-5.1); Alkaline Phosphatase 544 U/L (38-126); Anion Gap 13 mmol/L (4-12); Aspartate Amino Transferase 325 U/L (17-59); Bilirubin,Total 2.4 mg/dL (0.2-1.3); Blood Urea Nitrogen 12 mg/dL (9-20); Calcium 12.4 mg/dL (8.4-10.2); Carbon Dioxide 17 mmol/L (22-30); Chloride 102 mmol/L (98-107); Estimated CRCL calculation 113 ml/min; Estimated Glomerular Filt Rate > 60; Glucose 139 mg/dL (65-110); Magnesium 1.9 mg/dL (1.6-2.3); Potassium 4.6 mmol/L (3.4-5.0); Sodium 132 mmol/L (137-145)
[2024-07-30] VITALS (14 sets, daily range): BP systolic 111–139; BP diastolic 73–82; PULSE 101–123; RESP 18–20; TEMP 36.2–36.8; O2SAT 93–96
[2024-07-30] LABS: NT Pro B Type Natriuretic Pept 191 pg/mL (19.9-100); Troponin I 0.026 ng/mL (0.000-0.034)
[2024-07-30] MEDS: AZITHROMYCIN 500 MG/NS 250 ML 500 MG/250 ML BAG 250 MG IVPB ×2 (00:01→22:50)
[2024-07-30] MEDS: SODIUM CHLORIDE 0.9% IV 1,000 ML 100 ML IV CONT ×2 (00:01→10:03)
[2024-07-30 00:02] LABS: Basophils Absolute Auto 0.1 K/mm3 (0.0-0.1); Basophils Percent Auto 0.3 % (0.2-1.2); Eosinophils Percent Auto 0.1 % (0-4.4); Hematocrit 38.1 % (42.0-52.0); Hemoglobin 12.4 g/dL (14.0-18.0); Immature Granulocyte Absolute 0.11 K/mm3 (0.00-0.031); Immature Granulocyte Percent A 0.7 % (0-0.5); Lymphocytes Absolute Auto 0.81 K/mm3 (0.9-3.2); Lymphocytes Percent Auto 4.8 % (18.3-44.2); Mean Corpuscular HGB Conc 32.5 g/dl (32-36); Mean Corpuscular Hemoglobin 28.8 pg (26-34); Mean Corpuscular Volume 88.6 fl (80-100); Mean Platelet Volume 9.9 fl (7.4-10.4); Monocytes Absolute Auto 1.2 K/mm3 (0.1-0.6); Monocytes Percent Auto 7.2 % (2.6-8.5); Neutrophils Absolute Auto 14.6 K/mm3 (1.3-6.7); Neutrophils Percent Auto 86.9 % (45.5-73.1); Platelet Count Result 265 k/mm3 (150-375); Red Cell Distribution Width 15.3 % (11.5-14.5); White Blood Count 16.8 K/mm3 (4.5-10.0)
[2024-07-30 00:14] LABS: Lactic Acid Reflex 3.4 mmol/L (0.7-2.0)
[2024-07-30 00:24] LABS: Influenza A QL RT-PCR Negative (Negative); Influenza B QL RT-PCR Negative (Negative); RSV RNA, RT-PCR Negative (Negative); SARS-CoV-2 RNA PCR Negative (Negative)
[2024-07-30 00:46] LABS: Thyroid Stimulating Hormone Reflex 0.859 uIU/mL (0.465-4.68)
[2024-07-30 00:58] LABS: MRSA (PCR) NOT DETECTED (NOT DETECTE)
[2024-07-30] MEDS: POTASSIUM/PHOSPHORUS/SODIUM 1.5 GM PACKET 1 PACKET PO ×4 (01:47→18:39)
[2024-07-30 03:01] LABS: Reflex Lactic Acid Yes or No Add Lactic
[2024-07-30] MEDS: HYDROmorphone HCL INJ (*CRX) 1 MG/ML SYR IV PUSH ×4 (03:48→21:52)
[2024-07-30 04:25] LABS: Lactic Acid 3.2 mmol/L (0.7-2.0)
[2024-07-30 07:18] LABS: Glucose Point of Care 126 mg/dl (65-105)
[2024-07-30 07:26] LABS: Basophils Absolute Auto 0.1 K/mm3 (0.0-0.1); Basophils Percent Auto 0.3 % (0.2-1.2); Eosinophils Percent Auto 0.1 % (0-4.4); Hematocrit 37.4 % (42.0-52.0); Hemoglobin 11.7 g/dL (14.0-18.0); Immature Granulocyte Absolute 0.13 K/mm3 (0.00-0.031); Immature Granulocyte Percent A 0.8 % (0-0.5); Lymphocytes Percent Auto 6.6 % (18.3-44.2); Mean Corpuscular HGB Conc 31.3 g/dl (32-36); Mean Corpuscular Hemoglobin 27.9 pg (26-34); Mean Corpuscular Volume 89.3 fl (80-100); Mean Platelet Volume 9.9 fl (7.4-10.4); Monocytes Absolute Auto 1.4 K/mm3 (0.1-0.6); Monocytes Percent Auto 8.4 % (2.6-8.5); Neutrophils Percent Auto 83.8 % (45.5-73.1); Platelet Count Result 275 k/mm3 (150-375); Red Blood Count 4.19 M/mm3 (4.6-6.20); Red Cell Distribution Width 15.5 % (11.5-14.5); White Blood Count 16.7 K/mm3 (4.5-10.0)
[2024-07-30 07:33] LABS: Alanine Aminotransferase 165 U/L (6-50); Albumin Level 3.2 g/dL (3.5-5.1); Alkaline Phosphatase 493 U/L (38-126); Anion Gap 8 mmol/L (4-12); Aspartate Amino Transferase 325 U/L (17-59); Bilirubin,Total 2.1 mg/dL (0.2-1.3); Blood Urea Nitrogen 15 mg/dL (9-20); Calcium 11.7 mg/dL (8.4-10.2); Carbon Dioxide 20 mmol/L (22-30); Chloride 102 mmol/L (98-107); Estimated CRCL calculation 98 ml/min; Estimated Glomerular Filt Rate > 60; Glucose 132 mg/dL (65-110); Potassium 4.3 mmol/L (3.4-5.0); Sodium 130 mmol/L (137-145)
[2024-07-30] MEDS: PANTOPRAZOLE 40 MG TABLET PO (09:06)
[2024-07-30] MEDS: DOCUSATE SODIUM 100 MG CAPSULE PO ×2 (09:06→20:43)
[2024-07-30] MEDS: CYANOCOBALAMIN 500 MCG TABLET PO (09:06)
[2024-07-30] MEDS: PROCHLORPERAZINE MALEATE 5 MG TABLET PO ×2 (09:06→17:49)
[2024-07-30] MEDS: polyethylene glycoL 3350 17 GM POWD.PACK PO (09:06)
[2024-07-30] MEDS: ENOXAPARIN 40 MG/0.4 ML SYRINGE SUB-Q (09:07)
[2024-07-30] MEDS: CALCITONIN SALMON INJ 400 UNITS/2 ML VIAL 360 UNITS SUB-Q ×2 (09:07→20:44)
[2024-07-30] MEDS: HYDROmorphone HCL INJ (*CRX) 1 MG/ML SYR 0.5 MG IV PUSH (09:08)
[2024-07-30] MEDS: POTASSIUM PHOS,M-BASIC-D-BASIC 40 MMOL in SODIUM CHLORIDE 0.9% IV 250 ML 43.89 MMOL IVPB (10:38)
--- NOTE | 2024-07-30 11:00 | PCPTNOTE ---
Patient refused treatment this session due to abdominal pain at 06/20.
--- NOTE | 2024-07-30 12:28 | P.PNNP_ITS ---
Progress Note: A&P Assessment and Plan (1) Hypercalcemia: Code(s): E83.52 - Hypercalcemia Status: Acute Assessment and Plan: * slow/steady improvement * quite elevated on admission at 17 * calcium elevated on outpatient labs as well (June 2024) * s/p IV pamidronate and IVFs * SQ calcitonin (~ 4units/kg) initiated for a total of 6 doses * follow-up on bone scan * PTHrp pending; PTH and Vitamin D results noted * consider IV lasix (forced diuresis) if calcium worsens * follow repeat calcium levels (2) Hyponatremia: Code(s): E87.1 - Hypo-osmolality and hyponatremia Status: Acute Assessment and Plan: * improvement noted since admission * suspect due to hypovolemia given improvement with normal saline IVFs * however, could be partly related to his known malignancy/cancer * follow repeat sodium levels (3) Esophageal cancer: Code(s): C15.9 - Malignant neoplasm of esophagus, unspecified Status: Acute Assessment and Plan: * metastatic with extensive liver lesions * s/p Port placement for initiation of palliative chemotherapy (4) Severe protein-calorie malnutrition: Code(s): E43 - Unspecified severe protein-calorie malnutrition Status: Acute Assessment and Plan: * as noted by weight loss and and diminished oral intake * s/p G-tube placement for nutritional support Will continue to follow. Subjective Date/time seen: 07/30/24 12:28 Interval history: Follow-up for hypercalcemia. S/P Port-A-Cath and G-tube placement yesterday afternoon -- tolerated both procedure reasonably well; post procedure tachycardia last night and subsequent chest CT was negative for PE; calcium a bit better since starting calcitonin; working with therapy at the time of my visit; still feels a bit weak/fatigues but no apparent distress. Exam Narrative: General: frail appearing male in NAD Heart: normal S1 and S2; no rub Lungs: decreased at right base but otherwise clear Abdomen: soft, nontender, nondistended, positive bowel sounds Extremities: no cyanosis or clubbing; trace edema Skin: warm and dry Objective Data Vital Signs Vital Signs: Vital Signs Temp Pulse Resp BP Pulse Ox O2 Del Method O2 Flow Rate 07/30/24 11:30 97.2 F L 118 H 20 139/74 93 07/30/24 08:00 119 H 18 93 Nasal Cannula 3 07/30/24 10:24 97.5 F L 119 H 20 134/80 93 07/30/24 04:00 113 H 07/30/24 04:02 97.7 F 115 H 18 123/73 94 07/30/24 00:29 97.8 F 122 H 18 121/78 94 07/30/24 00:00 123 H 07/29/24 21:38 133 H 07/29/24 20:00 94 Nasal Cannula 3 07/29/24 20:47 140 H 07/29/24 20:33 97.6 F 140 H 20 146/98 H 94 07/29/24 18:58 97.3 F L 140 H 16 136/82 94 Intake/Output Intake/Output: Intake & Output 07/27/24 07/28/24 07/29/24 07/30/24 23:59 23:59 23:59 23:59 Intake Total 2666.7 3671.7 3036.6667 1360 Output Total 4010 1900 3250 1950 Balance -1343.3 1771.7 -213.3333 -590 Meds/Results Medications: Active Medications Generic Name Dose Route Start Last Admin Trade Name Freq PRN Reason Stop Dose Admin Acetaminophen 500 mg 07/29/24 17:03 Acetaminophen 500 Mg Tablet PO Q6H PRN Pain Rated 1-3 Hydrocodone Bitart/Acetaminophen 1 tab 07/24/24 21:00 07/29/24 20:46 Hydrocodone/Acetaminophen (*Crx) 7.5-325 Mg Tablet PO 1 tab HS CATINA Administration Calcitonin [place] 360 units 07/29/24 21:00 07/30/24 09:07 Calcitonin [place] Inj 400 Units/2 Ml Vial SUB-Q 08/01/24 09:01 360 units Q12HR CATINA Administration Cyanocobalamin 500 mcg 07/25/24 09:00 07/30/24 09:06 Cyanocobalamin 500 Mcg Tablet PO 500 mcg QAM CATINA Administration Docusate Sodium 100 mg 07/24/24 21:00 07/30/24 09:06 Docusate Sodium 100 Mg Capsule PO 100 mg Q12HR CATINA Administration Enoxaparin Sodium 40 mg 07/25/24 09:00 07/30/24 09:07 Enoxaparin 40 Mg/0.4 Ml Syringe SUB-Q 40 mg DAILY CATINA Administration Hydromorphone HCl 1 mg 09/18/24 17:03 07/30/24 17:47 Hydromorphone Hcl Inj (*Crx) 1 Mg/Ml Syr IV PUSH 1 mg Q2H PRN Administration Breakthrough Pain Rated 7-10 or NPO Hydromorphone HCl 0.5 mg 07/29/24 17:03 07/30/24 09:08 Hydromorphone Hcl Inj (*Crx) 1 Mg/Ml Syr IV PUSH 0.5 mg Q2H PRN Administration Breakthrough Pain Rated 4-6 or NPO Sodium Chloride 1,000 mls @ 100 mls/hr 07/27/24 07:30 07/30/24 17:45 Normal Saline Iv IV CONT Not Given .Q10H CATINA Ibuprofen 800 mg in 200 mls @ 400 mls/hr 07/29/24 17:03 Caldolor 800 Mg/200 Ml IVPB Q6H PRN Breakthrough Pain Rated 1-3 or NPO Ceftriaxone Sodium 1 gm in 50 mls @ 100 mls/hr 07/29/24 23:00 07/30/24 00:31 Rocephin 1 Gm/Ns 50 Ml IVPB Infused Q24H CATINA Infusion Azithromycin 500 mg in 250 mls @ 250 mls/hr 07/29/24 23:00 07/30/24 01:01 Zithromax IVPB Infused Q24H CATINA Infusion Naloxone HCl 0.1 mg 07/29/24 17:03 Naloxone Hcl 0.4 Mg/Ml Vial IV PUSH Q2M PRN Opiate Reversal Ondansetron HCl 4 mg 07/23/24 21:47 Ondansetron Inj 4 Mg/2 Ml Vial IV PUSH Q4H PRN Nausea Oxycodone/Acetaminophen 1 tablet 07/29/24 17:03 Oxycodone/Acetaminophen (*Crx) 5-325 Mg Tablet PO Q4H PRN Pain Rated 4-6 Oxycodone/Acetaminophen 1 tab 07/29/24 17:03 Oxycodone/Acetaminophen (*Crx) 10-325 Mg Tablet PO Q6H PRN Pain Rated 7-10 Pantoprazole Sodium 40 mg 07/25/24 09:00 07/30/24 09:06 Pantoprazole 40 Mg Tablet PO 40 mg DAILY CATINA Administration Polyethylene Glycol 17 gm 07/27/24 09:00 07/30/24 09:06 Polyethylene Glycol 3350 17 Gm Powd.Pack PO 17 gm QAM CATINA Administration Potassium Phos/Sodium Phos 1 packet 07/27/24 07:30 07/30/24 18:39 Potassium/Phosphorus/Sodium 1.5 Gm Packet PO 1 packet Q6H CATINA Administration Prochlorperazine Maleate 5 mg 07/28/24 09:00 07/30/24 17:49 Prochlorperazine Maleate 5 Mg Tablet PO 5 mg BID CATINA Administration Radiology Results: ITS Impressions Abdomen/Pelvis CT 07/23/24 20:45 IMPRESSION: 1. Multiple masses in the liver which increased in size compared to previous study. 2. Thickening of the wall of the distal esophagus. 3. Right pleural effusion with adjacent atelectasis. 4. Multiple nodules in the lower lobes of the lungs. 5. Periesophageal, angel hepatis, and para-aortic lymphadenopathy. 6. Calcification in the left renal pelvis most likely a stone. Chest X-Ray 07/29/24 16:10 IMPRESSION: 1. Port tip at superior cavoatrial junction. 2. Airspace opacities in the lower lung zones, likely atelectasis. 3. Pulmonary nodules, consistent with metastatic disease. 4. Small right pleural effusion. Chest CTA 07/29/24 22:57 IMPRESSION: 1. No pulmonary embolism. 2. Right pleural effusion with adjacent pneumonia. Atelectasis is not excluded. Left basilar atelectasis versus pneumonia. 3. Multiple metastatic lesions in both lungs clinical correlation advised. 4. Multiple hypodensities in the liver suggestive of masses. Further evaluation advised. 5. Hepatomegaly. 6. Minimal ascites. 7. Fracture in the right 12th rib with highly suggestive fracture in the 11th rib. Bone Scan Nuclear Medicine 07/30/24 14:05 IMPRESSION: 1. No specific evidence of metastatic disease. 2. 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 Labs Labs: Laboratory Tests 07/30/24 06:25 07/30/24 06:25 Calcium 11.7 H Phosphorus 2.0 L Magnesium 2.0 Total Bilirubin 2.1 H AST 325 H ALT 165 H Alkaline Phosphatase 493 H Total Protein 7.0 Albumin 3.2 L Microbiology 07/29/24 23:56 Blood Blood Culture - Preliminary 07/29/24 23:41 Blood Blood Culture - Preliminary
--- NOTE | 2024-07-30 12:35 | P.PNAN_ITS ---
Anes - Prog Note Post-Op Date/Time: 07/30/24 12:35 Cardiovascular status: normal Respiratory status: normal Airway patency: baseline Mental status: baseline Post-Op hydration status: normal Vital Signs: Last Vital Signs Temp 36.4 C L 07/30/24 10:24 Pulse 119 H 07/30/24 10:24 Resp 20 07/30/24 10:24 BP 134/80 07/30/24 10:24 Pulse Ox 93 07/30/24 10:24 O2 Del Method Nasal Cannula 07/30/24 08:00 O2 Flow Rate 3 07/30/24 08:00 Pain Score (VAS): 0 I/O: Intake & Output 07/29/24 07/30/24 07/30/24 23:59 07:59 15:59 Intake Total 1586.6667 360 1000 Output Total 1700 1150 Balance -113.3333 -790 1000 Laboratory Tests 07/30/24 06:25 07/30/24 06:25 07/25/24 07/29/24 07/29/24 04:45 16:14 23:27 WBC 16.8 H RBC 4.30 L Hgb 12.4 L Hct 38.1 L MCV 88.6 MCH 28.8 MCHC 32.5 RDW 15.3 H Plt Count 265 MPV 9.9 Immature Gran % (Auto) 0.7 H Neut % (Auto) 86.9 H Lymph % (Auto) 4.8 L [place] % (Auto) 7.2 Eos % (Auto) 0.1 Baso % (Auto) 0.3 Lymph # (Auto) 0.81 L [place] # (Auto) 1.2 H Eos # (Auto) 0.0 Baso # (Auto) 0.1 Abs Immat Gran (auto) 0.11 H Absolute Neuts (auto) 14.6 H Absolute Nucleated RBC 0.000 Nucleated RBC % 0.0 Sodium 132 L Potassium 4.6 Chloride 102 Carbon Dioxide 17 L Anion Gap 13 H BUN 12 Creatinine 0.60 L Estim Creat Clear Calc 113 Estimated GFR > 60 Glucose 139 H POC Capillary Glucose 123 H Lactic Acid Calcium 12.4 H* Phosphorus Magnesium 1.9 Total Bilirubin 2.4 H AST 325 H ALT 166 H Alkaline Phosphatase 544 H Troponin I 0.026 NT-Pro-B Natriuret Pep 191 H Total Protein 7.0 Albumin 3.2 L Vit D 1,25-Dihyd Total 29 1,25 Dihydroxy Vit D2 <8 1,25 Dihydroxy Vit D3 29 TSH (Reflex) Nasal MRSA (PCR) Influenza A (RT-PCR) Influenza B (RT-PCR) RSV (RT-PCR) SARS-CoV-2 RNA (RT-PCR) 07/29/24 07/29/24 07/30/24 23:39 23:41 03:19 WBC RBC Hgb Hct MCV MCH MCHC RDW Plt Count MPV Immature Gran % (Auto) Neut % (Auto) Lymph % (Auto) [place] % (Auto) Eos % (Auto) Baso % (Auto) Lymph # (Auto) [place] # (Auto) Eos # (Auto) Baso # (Auto) Abs Immat Gran (auto) Absolute Neuts (auto) Absolute Nucleated RBC Nucleated RBC % Sodium Potassium Chloride Carbon Dioxide Anion Gap BUN Creatinine Estim Creat Clear Calc Estimated GFR Glucose POC Capillary Glucose Lactic Acid 3.4 H 3.2 H Calcium Phosphorus Magnesium Total Bilirubin AST ALT Alkaline Phosphatase Troponin I NT-Pro-B Natriuret Pep Total Protein Albumin Vit D 1,25-Dihyd Total 1,25 Dihydroxy Vit D2 1,25 Dihydroxy Vit D3 TSH (Reflex) 0.859 Nasal MRSA (PCR) Not detected Influenza A (RT-PCR) Negative Influenza B (RT-PCR) Negative RSV (RT-PCR) Negative SARS-CoV-2 RNA (RT-PCR) Negative 07/30/24 07/30/24 06:25 07:14 WBC 16.7 H RBC 4.19 L Hgb 11.7 L Hct 37.4 L MCV 89.3 MCH 27.9 MCHC 31.3 L RDW 15.5 H Plt Count 275 MPV 9.9 Immature Gran % (Auto) 0.8 H Neut % (Auto) 83.8 H Lymph % (Auto) 6.6 L [place] % (Auto) 8.4 Eos % (Auto) 0.1 Baso % (Auto) 0.3 Lymph # (Auto) 1.10 [place] # (Auto) 1.4 H Eos # (Auto) 0.0 Baso # (Auto) 0.1 Abs Immat Gran (auto) 0.13 H Absolute Neuts (auto) 14.0 H Absolute Nucleated RBC 0.000 Nucleated RBC % 0.0 Sodium 130 L Potassium 4.3 Chloride 102 Carbon Dioxide 20 L Anion Gap 8 BUN 15 Creatinine 0.70 Estim Creat Clear Calc 98 Estimated GFR > 60 Glucose 132 H POC Capillary Glucose 126 H Lactic Acid Calcium 11.7 H Phosphorus 2.0 L Magnesium 2.0 Total Bilirubin 2.1 H AST 325 H ALT 165 H Alkaline Phosphatase 493 H Troponin I NT-Pro-B Natriuret Pep Total Protein 7.0 Albumin 3.2 L Vit D 1,25-Dihyd Total 1,25 Dihydroxy Vit D2 1,25 Dihydroxy Vit D3 TSH (Reflex) Nasal MRSA (PCR) Influenza A (RT-PCR) Influenza B (RT-PCR) RSV (RT-PCR) SARS-CoV-2 RNA (RT-PCR) Post-procedural complaints: none Patient Feedback: Patient satisfied with anesthetic care.
[2024-07-30 12:40] LABS: Glucose Point of Care 152 mg/dl (65-105)
--- NOTE | 2024-07-30 14:09 | PM.PNGS ---
Progress Note: A&P Assessment and Plan (1) Esophageal cancer, stage IV: Code(s): C15.9 - Malignant neoplasm of esophagus, unspecified Status: Acute Assessment and Plan: Port placement yesterday and incision looks good. No acute issues. (2) Dysphagia: Code(s): R13.10 - Dysphagia, unspecified Status: Acute Assessment and Plan: Postop day 1 following open gastrostomy tube placement. Continue 30 cc NS flushes every 4 hours. Will start continuous normal saline through the Gtube at 30 cc/hr today. We will plan to start tube feedings tomorrow if he is tolerating this well. (3) Metastasis to liver: Code(s): C78.7 - Secondary malignant neoplasm of liver and intrahepatic bile duct Status: Acute Subjective Subjective Date/Time Seen: 07/30/24 14:09 Post Op day: 1 (Placement left subclavian vortex Port-A-Cath under fluoroscopy, placement gastrostomy tube) Interval history: Patient reports some mild incisional soreness at his LUQ incision and gastrostomy site. No other specific complaints at this time. He was found to be tachycardic postoperatively and was evaluated by the Hospitalist last night. His heart rate was as high as 140's, EKG showed sinus tachycardia. He had a CTA chest that was negative for PE. He was put on telemetry on the medical floor and monitored. He denies chest pain, shortness of breath, or any other complaints. Heart rate now down to the 110's. Exam Const: General: comfortable and no acute distress Chest: Other: Left chest port-a-cath with incision dry and intact GI: Inspection: non-distended, incision (dry and glue intact) and other (gastrostomy tube clamped) GI Palp: Yes Soft to palpation, Yes Tenderness to palpation present (GI) (tenderness in the LUQ near his incision), No Guarding due to palpation present (GI) and No Rebound tenderness present Auscultation: normal bowel sounds Objective Data Vital Signs Vital Signs: Vital Signs - 24 hr 07/29/24 15:53 07/29/24 16:10 07/29/24 16:25 Temperature 97.6 F Pulse Rate 72 94 103 H Respiratory Rate 16 23 H 18 Blood Pressure 76/50 L 112/73 137/82 Pulse Oximetry 94 95 92 Oxygen Delivery Simple Face Mask Simple Face Mask Nasal Cannula Oxygen Flow Rate 8 8 3 07/29/24 16:40 07/29/24 16:55 07/29/24 17:13 Temperature 97.2 F L Pulse Rate 110 H 115 H 119 H Respiratory Rate 16 18 16 Blood Pressure 140/81 137/83 140/77 Pulse Oximetry 93 93 94 Oxygen Delivery Nasal Cannula Nasal Cannula Oxygen Flow Rate 3 3 07/29/24 17:28 07/29/24 17:58 07/29/24 18:58 Temperature 97.1 F L 97.5 F L 97.3 F L Pulse Rate 132 H 132 H 140 H Respiratory Rate 20 16 16 Blood Pressure 129/77 144/83 H 136/82 Pulse Oximetry 92 93 94 Oxygen Delivery Oxygen Flow Rate 07/29/24 20:33 07/29/24 20:47 07/29/24 20:00 Temperature 97.6 F Pulse Rate 140 H 140 H Respiratory Rate 20 Blood Pressure 146/98 H Pulse Oximetry 94 94 Oxygen Delivery Nasal Cannula Oxygen Flow Rate 3 07/29/24 21:38 07/30/24 00:00 07/30/24 00:29 Temperature 97.8 F Pulse Rate 133 H 123 H 122 H Respiratory Rate 18 Blood Pressure 121/78 Pulse Oximetry 94 Oxygen Delivery Oxygen Flow Rate 07/30/24 04:02 07/30/24 04:00 07/30/24 10:24 Temperature 97.7 F 97.5 F L Pulse Rate 115 H 113 H 119 H Respiratory Rate 18 20 Blood Pressure 123/73 134/80 Pulse Oximetry 94 93 Oxygen Delivery Oxygen Flow Rate 07/30/24 08:00 Temperature Pulse Rate 119 H Respiratory Rate 18 Blood Pressure Pulse Oximetry 93 Oxygen Delivery Nasal Cannula Oxygen Flow Rate 3 Intake/Output Intake/Output: Intake & Output 07/27/24 07/28/24 07/29/24 07/30/24 23:59 23:59 23:59 23:59 Intake Total 2666.7 3671.7 3036.6667 1360 Output Total 4010 1900 3250 1150 Balance -1343.3 1771.7 -213.3333 210 Meds/Results Medications: Active Medications Generic Name Dose Route Start Last Admin Trade Name Freq PRN Reason Stop Dose Admin Acetaminophen 500 mg 07/29/24 17:03 Acetaminophen 500 Mg Tablet PO Q6H PRN Pain Rated 1-3 Hydrocodone Bitart/Acetaminophen 1 tab 07/24/24 21:00 07/29/24 20:46 Hydrocodone/Acetaminophen (*Crx) 7.5-325 Mg Tablet PO 1 tab HS CATINA Administration Calcitonin [place] 360 units 07/29/24 21:00 07/30/24 09:07 Calcitonin [place] Inj 400 Units/2 Ml Vial SUB-Q 08/01/24 09:01 360 units Q12HR CATINA Administration Cyanocobalamin 500 mcg 07/25/24 09:00 07/30/24 09:06 Cyanocobalamin 500 Mcg Tablet PO 500 mcg QAM CATINA Administration Docusate Sodium 100 mg 07/24/24 21:00 07/30/24 09:06 Docusate Sodium 100 Mg Capsule PO 100 mg Q12HR CATINA Administration Enoxaparin Sodium 40 mg 07/25/24 09:00 07/30/24 09:07 Enoxaparin 40 Mg/0.4 Ml Syringe SUB-Q 40 mg DAILY CATINA Administration Hydromorphone HCl 1 mg 07/29/24 17:03 07/30/24 13:39 Hydromorphone Hcl Inj (*Crx) 1 Mg/Ml Syr IV PUSH 1 mg Q2H PRN Administration Breakthrough Pain Rated 7-10 or NPO Hydromorphone HCl 0.5 mg 07/29/24 17:03 07/30/24 09:08 Hydromorphone Hcl Inj (*Crx) 1 Mg/Ml Syr IV PUSH 0.5 mg Q2H PRN Administration Breakthrough Pain Rated 4-6 or NPO Sodium Chloride 1,000 mls @ 100 mls/hr 07/27/24 07:30 07/30/24 10:03 Normal Saline Iv IV CONT 100 mls/hr .Q10H CATINA Administration Ibuprofen 800 mg in 200 mls @ 400 mls/hr 07/29/24 17:03 Caldolor 800 Mg/200 Ml IVPB Q6H PRN Breakthrough Pain Rated 1-3 or NPO Ceftriaxone Sodium 1 gm in 50 mls @ 100 mls/hr 07/29/24 23:00 07/30/24 00:31 Rocephin 1 Gm/Ns 50 Ml IVPB Infused Q24H [facility]INA Infusion Azithromycin 500 mg in 250 mls @ 250 mls/hr 07/29/24 23:00 07/30/24 01:01 Zithromax IVPB Infused Q24H CATINA Infusion Potassium Phosphate 40 mmol/ 263.3333 mls @ 43.889 mls/hr 07/30/24 10:00 07/30/24 10:38 Sodium Chloride IVPB 07/30/24 15:59 43.89 mls/hr ONCE ONE Administration Naloxone HCl 0.1 mg 07/29/24 17:03 Naloxone Hcl 0.4 Mg/Ml Vial IV PUSH Q2M PRN Opiate Reversal Ondansetron HCl 4 mg 07/23/24 21:47 Ondansetron Inj 4 Mg/2 Ml Vial IV PUSH Q4H PRN Nausea Oxycodone/Acetaminophen 1 tablet 07/29/24 17:03 Oxycodone/Acetaminophen (*Crx) 5-325 Mg Tablet PO Q4H PRN Pain Rated 4-6 Oxycodone/Acetaminophen 1 tab 07/29/24 17:03 Oxycodone/Acetaminophen (*Crx) 10-325 Mg Tablet PO Q6H PRN Pain Rated 7-10 Pantoprazole Sodium 40 mg 07/25/24 09:00 07/30/24 09:06 Pantoprazole 40 Mg Tablet PO 40 mg DAILY CATINA Administration Polyethylene Glycol 17 gm 07/27/24 09:00 07/30/24 09:06 Polyethylene Glycol 3350 17 Gm Powd.Pack PO 17 gm QAM CATINA Administration Potassium Phos/Sodium Phos 1 packet 07/27/24 07:30 07/30/24 13:39 Potassium/Phosphorus/Sodium 1.5 Gm Packet PO 1 packet Q6H CATINA Administration Prochlorperazine Maleate 5 mg 07/28/24 09:00 07/30/24 09:06 Prochlorperazine Maleate 5 Mg Tablet PO 5 mg BID CATINA Administration Radiology Results: ITS Impressions Abdomen/Pelvis CT 07/23/24 20:45 IMPRESSION: 1. Multiple masses in the liver which increased in size compared to previous study. 2. Thickening of the wall of the distal esophagus. 3. Right pleural effusion with adjacent atelectasis. 4. Multiple nodules in the lower lobes of the lungs. 5. Periesophageal, angel hepatis, and para-aortic lymphadenopathy. 6. Calcification in the left renal pelvis most likely a stone. Chest X-Ray 07/29/24 16:10 IMPRESSION: 1. Port tip at superior cavoatrial junction. 2. Airspace opacities in the lower lung zones, likely atelectasis. 3. Pulmonary nodules, consistent with metastatic disease. 4. Small right pleural effusion. Chest CTA 07/29/24 22:57 IMPRESSION: 1. No pulmonary embolism. 2. Right pleural effusion with adjacent pneumonia. Atelectasis is not excluded. Left basilar atelectasis versus pneumonia. 3. Multiple metastatic lesions in both lungs clinical correlation advised. 4. Multiple hypodensities in the liver suggestive of masses. Further evaluation advised. 5. Hepatomegaly. 6. Minimal ascites. 7. Fracture in the right 12th rib with highly suggestive fracture in the 11th rib. Labs Labs: Laboratory Results - last 24 hr 07/29/24 07/29/24 07/29/24 16:14 23:27 23:39 WBC 16.8 H RBC 4.30 L Hgb 12.4 L Hct 38.1 L MCV 88.6 MCH 28.8 MCHC 32.5 RDW 15.3 H Plt Count 265 MPV 9.9 Immature Gran % (Auto) 0.7 H Neut % (Auto) 86.9 H Lymph % (Auto) 4.8 L [place] % (Auto) 7.2 Eos % (Auto) 0.1 Baso % (Auto) 0.3 Lymph # (Auto) 0.81 L [place] # (Auto) 1.2 H Eos # (Auto) 0.0 Baso # (Auto) 0.1 Abs Immat Gran (auto) 0.11 H Absolute Neuts (auto) 14.6 H Absolute Nucleated RBC 0.000 Nucleated RBC % 0.0 Sodium 132 L Potassium 4.6 Chloride 102 Carbon Dioxide 17 L Anion Gap 13 H BUN 12 Creatinine 0.60 L Estim Creat Clear Calc 113 Estimated GFR > 60 Glucose 139 H POC Capillary Glucose 123 H Lactic Acid Calcium 12.4 H* Phosphorus Magnesium 1.9 Total Bilirubin 2.4 H AST 325 H ALT 166 H Alkaline Phosphatase 544 H Troponin I 0.026 NT-Pro-B Natriuret Pep 191 H Total Protein 7.0 Albumin 3.2 L TSH (Reflex) Nasal MRSA (PCR) Not detected Influenza A (RT-PCR) Negative Influenza B (RT-PCR) Negative RSV (RT-PCR) Negative SARS-CoV-2 RNA (RT-PCR) Negative 09/18/24 09/19/24 09/19/24 23:41 03:19 06:25 WBC 16.7 H RBC 4.19 L Hgb 11.7 L Hct 37.4 L MCV 89.3 MCH 27.9 MCHC 31.3 L RDW 15.5 H Plt Count 275 MPV 9.9 Immature Gran % (Auto) 0.8 H Neut % (Auto) 83.8 H Lymph % (Auto) 6.6 L [place] % (Auto) 8.4 Eos % (Auto) 0.1 Baso % (Auto) 0.3 Lymph # (Auto) 1.10 [place] # (Auto) 1.4 H Eos # (Auto) 0.0 Baso # (Auto) 0.1 Abs Immat Gran (auto) 0.13 H Absolute Neuts (auto) 14.0 H Absolute Nucleated RBC 0.000 Nucleated RBC % 0.0 Sodium 130 L Potassium 4.3 Chloride 102 Carbon Dioxide 20 L Anion Gap 8 BUN 15 Creatinine 0.70 Estim Creat Clear Calc 98 Estimated GFR > 60 Glucose 132 H POC Capillary Glucose Lactic Acid 3.4 H 3.2 H Calcium 11.7 H Phosphorus 2.0 L Magnesium 2.0 Total Bilirubin 2.1 H AST 325 H ALT 165 H Alkaline Phosphatase 493 H Troponin I NT-Pro-B Natriuret Pep Total Protein 7.0 Albumin 3.2 L TSH (Reflex) 0.859 Nasal MRSA (PCR) Influenza A (RT-PCR) Influenza B (RT-PCR) RSV (RT-PCR) SARS-CoV-2 RNA (RT-PCR) 07/30/24 07/30/24 07:14 12:38 WBC RBC Hgb Hct MCV MCH MCHC RDW Plt Count MPV Immature Gran % (Auto) Neut % (Auto) Lymph % (Auto) [place] % (Auto) Eos % (Auto) Baso % (Auto) Lymph # (Auto) [place] # (Auto) Eos # (Auto) Baso # (Auto) Abs Immat Gran (auto) Absolute Neuts (auto) Absolute Nucleated RBC Nucleated RBC % Sodium Potassium Chloride Carbon Dioxide Anion Gap BUN Creatinine Estim Creat Clear Calc Estimated GFR Glucose POC Capillary Glucose 126 H 152 H Lactic Acid Calcium Phosphorus Magnesium Total Bilirubin AST ALT Alkaline Phosphatase Troponin I NT-Pro-B Natriuret Pep Total Protein Albumin TSH (Reflex) Nasal MRSA (PCR) Influenza A (RT-PCR) Influenza B (RT-PCR) RSV (RT-PCR) SARS-CoV-2 RNA (RT-PCR)
--- NOTE | 2024-07-30 17:20 | PM.IMPN ---
Progress Note: A&P Assessment and Plan (1) Hypercalcemia: Code(s): E83.52 - Hypercalcemia Status: Acute Assessment and Plan: Calcium elevated as outpatient and was 17 here. [place] related to his malignancy. No obvious bony lesions noted by imaging. Has hx of hypercalcemia with Ca >14 last month. EKG showing sinus tachycardia with occasional PVCs, delayed transition and age-indeterminate inferior infarct. Patient was given IV fluids and pamidronate Nephrology consult given for evaluation and further treatment recommendations Nephrology started patient calcitonin 4 units/kg subQ bid Monitor calcium levels. Decreased scheduled Compazine Calcium level decreased 12.2 -> 11.7 since yesterday (2) Pneumonia: Code(s): J18.9 - Pneumonia, unspecified organism Status: Acute Assessment and Plan: Chest x-ray showed prominent markings in the lower lobes. CT of the abdomen showed right pleural effusion with adjacent atelectasis and multiple lung nodules. White count was elevated to 14 K. Blood cultures collected and patient was given azithromycin and Rocephin. Prior imaging studies noted. [place] imaging findings related to his cancer rather than acute pneumonia. Antibiotics held as patient had no fevers and WBC was normal 07/29/2024: Patient restarted on IV antibiotics in the form of IV Rocephin and Zithromax as WBC count is elevated at 16.7 (3) Hyponatremia syndrome: Code(s): E87.1 - Hypo-osmolality and hyponatremia Status: Acute Assessment and Plan: Sodium low on admission 126. Probably related to dehydration given his poor oral intake. Continue IV fluids Follow-up nephrology for further treatment recommendations Serum sodium level 130 today (4) Esophageal cancer, stage IV: Code(s): C15.9 - Malignant neoplasm of esophagus, unspecified Status: Acute Assessment and Plan: Patient with metastatic esophageal cancer with extensive liver involvement. LFTs are elevated related to this. Plan is for palliative chemotherapy after port placement. Nausea better. Continue scheduled compazine for now. Continue regular diet and supplements. 07/29/2024: Patient underwent Port placement and Surgical GTube Continue PT OT Needs close follow-up with Hematology-Oncology as an outpatient (5) Severe protein-calorie malnutrition: Code(s): E43 - Unspecified severe protein-calorie malnutrition Status: Acute Assessment and Plan: Patient with severe protein calorie malnutrition related to chronic esophageal cancer as evidenced by weight loss of 13% in the past month and poor p.o. intake of less than 75% needs greater than a month. Dietitian following. Continue supplements Initiate PEG tube feedings and advance to goal as per dietary recommendations (6) UTI (urinary tract infection): Code(s): N39.0 - Urinary tract infection, site not specified Status: Acute Assessment and Plan: UA is abnormal but did not probably urine culture. Not felt to have UTI. No UCx collected UTI ruled out (7) Hypophosphatemia: Code(s): E83.39 - Other disorders of phosphorus metabolism Status: Acute Assessment and Plan: Phosphate level still low at 2 IV potassium phosphate supplementation given Continue with oral phosphate replacement Repeat phosphate level in am (8) Lactic acidosis: Code(s): E87.20 - Acidosis, unspecified Status: Acute Assessment and Plan: Likely due to pneumonia, metastatic cancer, sickness and hypercalcemia Lactic acid level is still elevated at 3.2 Restarted patient on IV antibiotics Gentle IV hydration ordered with normal saline at 75 cc/hour for 1000cc Strict input and output monitoring Monitor renal functions closely Repeat lactic acid level in am Plan Disposition - PT recommending home health care. Patient feeling very weak and tired. Consider repeat PT evaluation after patient gets nutrition via PEG tube. May need long-term facility placement if unable to ambulate safely. DVT prophylaxis - Lovenox Code status - full ? Patient seen and examined at bedside during my morning rounds ? Collaborated with patient's nurse at the bedside in detail and addressed all concerns ? Labs, electrolytes, radiology, investigations and test results reviewed ? Consult/Nursing/Ancilliary notes on the chart reviewed and appreciated ? Spoke with patient/family at the bedside and answered all the questions that they had Repeat labs in a.m. Electrolyte replacement as per protocol. Patient will be monitored very closely on the floor. Further recommendations as per the hospital course. I am signing off. Patient's medical care will be taken over by my covering hospitalist provider in am. Subjective Date/time seen: 07/30/24 17:20 Interval history: 64yo male with esophageal cancer, DM and HTN here for elevated calcium levels. Patient lying in bed during my morning rounds. Feels very weak and tired. He has difficulty getting out of bed. Calcium level is slowly down trending. Patient had PEG Tube and Port-A-Cath placed yesterday. He is being started on PEG tube feedings. Review of Systems Review of Systems: Patient complains of weight loss and fatigue. 14 systems were reviewed with pertinent positives and negatives per HPI. Except as documented in the HPI/progress notes, all other systems were reviewed and are negative. Exam Narrative: Gen - NARD Chest - decreased BS in the right base o/w clear. CV - RRR S1/S2 Abd - Soft, epigastric/liver mass, +BS Ext - trace pedal edema Psych - Nml mood and affect Skin - Warm and dry Objective Data Vital Signs Vital Signs: Vital Signs - 24 hr 07/29/24 17:28 07/29/24 17:58 07/29/24 18:58 Temperature 36.2 C L 36.4 C L 36.3 C L Pulse Rate 132 H 132 H 140 H Respiratory Rate 20 16 16 Blood Pressure 129/77 144/83 H 136/82 Pulse Oximetry 92 93 94 Oxygen Delivery Oxygen Flow Rate 07/29/24 20:33 07/29/24 20:47 07/29/24 20:00 Temperature 36.4 C Pulse Rate 140 H 140 H Respiratory Rate 20 Blood Pressure 146/98 H Pulse Oximetry 94 94 Oxygen Delivery Nasal Cannula Oxygen Flow Rate 3 07/29/24 21:38 07/30/24 00:00 07/30/24 00:29 Temperature 36.6 C Pulse Rate 133 H 123 H 122 H Respiratory Rate 18 Blood Pressure 121/78 Pulse Oximetry 94 Oxygen Delivery Oxygen Flow Rate 07/30/24 04:02 07/30/24 04:00 07/30/24 10:24 Temperature 36.5 C 36.4 C L Pulse Rate 115 H 113 H 119 H Respiratory Rate 18 20 Blood Pressure 123/73 134/80 Pulse Oximetry 94 93 Oxygen Delivery Oxygen Flow Rate 07/30/24 08:00 07/30/24 15:30 07/30/24 08:00 Temperature 36.2 C L Pulse Rate 119 H 118 H 114 H Respiratory Rate 18 20 Blood Pressure 139/74 Pulse Oximetry 93 93 Oxygen Delivery Nasal Cannula Oxygen Flow Rate 3 07/30/24 12:00 07/30/24 16:00 Temperature Pulse Rate 118 H 118 H Respiratory Rate Blood Pressure Pulse Oximetry Oxygen Delivery Oxygen Flow Rate Intake/Output Intake/Output: Intake & Output 07/27/24 07/28/24 07/29/24 07/30/24 23:59 23:59 23:59 23:59 Intake Total 2666.7 3671.7 3036.6667 1360 Output Total 4012 1900 3250 1150 Balance -1343.3 1771.7 -213.3333 210 Meds/Results Medications: Active Medications Generic Name Dose Route Start Last Admin Trade Name Freq PRN Reason Stop Dose Admin Acetaminophen 500 mg 07/29/24 17:03 Acetaminophen 500 Mg Tablet PO Q6H PRN Pain Rated 1-3 Hydrocodone Bitart/Acetaminophen 1 tab 07/24/24 21:00 07/29/24 20:46 Hydrocodone/Acetaminophen (*Crx) 7.5-325 Mg Tablet PO 1 tab HS CATINA Administration Calcitonin [place] 360 units 07/29/24 21:00 07/30/24 09:07 Calcitonin [place] Inj 400 Units/2 Ml Vial SUB-Q 08/01/24 09:01 360 units Q12HR [facility] Administration Cyanocobalamin 500 mcg 07/25/24 09:00 07/30/24 09:06 Cyanocobalamin 500 Mcg Tablet PO 500 mcg QAM [facility] Administration Docusate Sodium 100 mg 07/24/24 21:00 07/30/24 09:06 Docusate Sodium 100 Mg Capsule PO 100 mg Q12HR [facility] Administration Enoxaparin Sodium 40 mg 07/25/24 09:00 07/30/24 09:07 Enoxaparin 40 Mg/0.4 Ml Syringe SUB-Q 40 mg DAILY [facility] Administration Hydromorphone HCl 1 mg 07/29/24 17:03 07/30/24 13:39 Hydromorphone Hcl Inj (*Crx) 1 Mg/Ml Syr IV PUSH 1 mg Q2H PRN Administration Breakthrough Pain Rated 7-10 or NPO Hydromorphone HCl 0.5 mg 07/29/24 17:03 07/30/24 09:08 Hydromorphone Hcl Inj (*Crx) 1 Mg/Ml Syr IV PUSH 0.5 mg Q2H PRN Administration Breakthrough Pain Rated 4-6 or NPO Sodium Chloride 1,000 mls @ 100 mls/hr 07/27/24 07:30 07/30/24 10:03 Normal Saline Iv IV CONT 100 mls/hr .Q10H [facility] Administration Ibuprofen 800 mg in 200 mls @ 400 mls/hr 07/29/24 17:03 Caldolor 800 Mg/200 Ml IVPB Q6H PRN Breakthrough Pain Rated 1-3 or NPO Ceftriaxone Sodium 1 gm in 50 mls @ 100 mls/hr 07/29/24 23:00 07/30/24 00:31 Rocephin 1 Gm/Ns 50 Ml IVPB Infused Q24H [facility] Infusion Azithromycin 500 mg in 250 mls @ 250 mls/hr 07/29/24 23:00 07/30/24 01:01 Zithromax IVPB Infused Q24H [facility] Infusion Naloxone HCl 0.1 mg 07/29/24 17:03 Naloxone Hcl 0.4 Mg/Ml Vial IV PUSH Q2M PRN Opiate Reversal Ondansetron HCl 4 mg 07/23/24 21:47 Ondansetron Inj 4 Mg/2 Ml Vial IV PUSH Q4H PRN Nausea Oxycodone/Acetaminophen 1 tablet 07/29/24 17:03 Oxycodone/Acetaminophen (*Crx) 5-325 Mg Tablet PO Q4H PRN Pain Rated 4-6 Oxycodone/Acetaminophen 1 tab 07/29/24 17:03 Oxycodone/Acetaminophen (*Crx) 10-325 Mg Tablet PO Q6H PRN Pain Rated 7-10 Pantoprazole Sodium 40 mg 07/25/24 09:00 07/30/24 09:06 Pantoprazole 40 Mg Tablet PO 40 mg DAILY [facility] Administration Polyethylene Glycol 17 gm 07/27/24 09:00 07/30/24 09:06 Polyethylene Glycol 3350 17 Gm Powd.Pack PO 17 gm QAM [facility] Administration Potassium Phos/Sodium Phos 1 packet 07/27/24 07:30 07/30/24 13:39 Potassium/Phosphorus/Sodium 1.5 Gm Packet PO 1 packet Q6H [facility] Administration Prochlorperazine Maleate 5 mg 07/28/24 09:00 07/30/24 09:06 Prochlorperazine Maleate 5 Mg Tablet PO 5 mg BID [facility] Administration Radiology Results: ITS Impressions Abdomen/Pelvis CT 07/23/24 20:45 IMPRESSION: 1. Multiple masses in the liver which increased in size compared to previous study. 2. Thickening of the wall of the distal esophagus. 3. Right pleural effusion with adjacent atelectasis. 4. Multiple nodules in the lower lobes of the lungs. 5. Periesophageal, angel hepatis, and para-aortic lymphadenopathy. 6. Calcification in the left renal pelvis most likely a stone. Chest X-Ray 07/29/24 16:10 IMPRESSION: 1. Port tip at superior cavoatrial junction. 2. Airspace opacities in the lower lung zones, likely atelectasis. 3. Pulmonary nodules, consistent with metastatic disease. 4. Small right pleural effusion. Chest CTA 07/29/24 22:57 IMPRESSION: 1. No pulmonary embolism. 2. Right pleural effusion with adjacent pneumonia. Atelectasis is not excluded. Left basilar atelectasis versus pneumonia. 3. Multiple metastatic lesions in both lungs clinical correlation advised. 4. Multiple hypodensities in the liver suggestive of masses. Further evaluation advised. 5. Hepatomegaly. 6. Minimal ascites. 7. Fracture in the right 12th rib with highly suggestive fracture in the 11th rib. Bone Scan Nuclear Medicine 07/30/24 14:05 IMPRESSION: 1. No specific evidence of metastatic disease. 2. 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 Labs Labs: Laboratory Results - last 24 hr 07/29/24 07/29/24 07/29/24 23:27 23:39 23:41 WBC 16.8 H RBC 4.30 L Hgb 12.4 L Hct 38.1 L MCV 88.6 MCH 28.8 MCHC 32.5 RDW 15.3 H Plt Count 265 MPV 9.9 Immature Gran % (Auto) 0.7 H Neut % (Auto) 86.9 H Lymph % (Auto) 4.8 L [place] % (Auto) 7.2 Eos % (Auto) 0.1 Baso % (Auto) 0.3 Lymph # (Auto) 0.81 L [place] # (Auto) 1.2 H Eos # (Auto) 0.0 Baso # (Auto) 0.1 Abs Immat Gran (auto) 0.11 H Absolute Neuts (auto) 14.6 H Absolute Nucleated RBC 0.000 Nucleated RBC % 0.0 Sodium 132 L Potassium 4.6 Chloride 102 Carbon Dioxide 17 L Anion Gap 13 H BUN 12 Creatinine 0.60 L Estim Creat Clear Calc 113 Estimated GFR > 60 Glucose 139 H POC Capillary Glucose Lactic Acid 3.4 H Calcium 12.4 H* Phosphorus Magnesium 1.9 Total Bilirubin 2.4 H AST 325 H ALT 166 H Alkaline Phosphatase 544 H Troponin I 0.026 NT-Pro-B Natriuret Pep 191 H Total Protein 7.0 Albumin 3.2 L TSH (Reflex) 0.859 Nasal MRSA (PCR) Not detected Influenza A (RT-PCR) Negative Influenza B (RT-PCR) Negative RSV (RT-PCR) Negative SARS-CoV-2 RNA (RT-PCR) Negative 07/30/24 07/30/24 07/30/24 03:19 06:25 07:14 WBC 16.7 H RBC 4.19 L Hgb 11.7 L Hct 37.4 L MCV 89.3 MCH 27.9 MCHC 31.3 L RDW 15.5 H Plt Count 275 MPV 9.9 Immature Gran % (Auto) 0.8 H Neut % (Auto) 83.8 H Lymph % (Auto) 6.6 L [place] % (Auto) 8.4 Eos % (Auto) 0.1 Baso % (Auto) 0.3 Lymph # (Auto) 1.10 [place] # (Auto) 1.4 H Eos # (Auto) 0.0 Baso # (Auto) 0.1 Abs Immat Gran (auto) 0.13 H Absolute Neuts (auto) 14.0 H Absolute Nucleated RBC 0.000 Nucleated RBC % 0.0 Sodium 130 L Potassium 4.3 Chloride 102 Carbon Dioxide 20 L Anion Gap 8 BUN 15 Creatinine 0.70 Estim Creat Clear Calc 98 Estimated GFR > 60 Glucose 132 H POC Capillary Glucose 126 H Lactic Acid 3.2 H Calcium 11.7 H Phosphorus 2.0 L Magnesium 2.0 Total Bilirubin 2.1 H AST 325 H ALT 165 H Alkaline Phosphatase 493 H Troponin I NT-Pro-B Natriuret Pep Total Protein 7.0 Albumin 3.2 L TSH (Reflex) Nasal MRSA (PCR) Influenza A (RT-PCR) Influenza B (RT-PCR) RSV (RT-PCR) SARS-CoV-2 RNA (RT-PCR) 07/30/24 12:38 WBC RBC Hgb Hct MCV MCH MCHC RDW Plt Count MPV Immature Gran % (Auto) Neut % (Auto) Lymph % (Auto) [place] % (Auto) Eos % (Auto) Baso % (Auto) Lymph # (Auto) [place] # (Auto) Eos # (Auto) Baso # (Auto) Abs Immat Gran (auto) Absolute Neuts (auto) Absolute Nucleated RBC Nucleated RBC % Sodium Potassium Chloride Carbon Dioxide Anion Gap BUN Creatinine Estim Creat Clear Calc Estimated GFR Glucose POC Capillary Glucose 152 H Lactic Acid Calcium Phosphorus Magnesium Total Bilirubin AST ALT Alkaline Phosphatase Troponin I NT-Pro-B Natriuret Pep Total Protein Albumin TSH (Reflex) Nasal MRSA (PCR) Influenza A (RT-PCR) Influenza B (RT-PCR) RSV (RT-PCR) SARS-CoV-2 RNA (RT-PCR) Quality VTE Prophylaxis VTE prophylaxis: mechanical ordered and pharmacologic ordered
[2024-07-30] MEDS: NACL 0.9% IRRIGATION POUR BOTTLE 500 ML (17:45)
[2024-07-30 18:43] LABS: Glucose Point of Care 134 mg/dl (65-105)
[2024-07-30] MEDS: HYDROcodone/acetaminophen (*CRX) 7.5-325 MG TABLET 1 TAB PO (20:43)
[2024-07-30 23:47] LABS: Glucose Point of Care 130 mg/dl (65-105)
[2024-07-31] VITALS (11 sets, daily range): BP systolic 120–136; BP diastolic 76–80; PULSE 72–105; RESP 18–22; TEMP 36.3–36.7; O2SAT 94–97
[2024-07-31] MEDS: POTASSIUM/PHOSPHORUS/SODIUM 1.5 GM PACKET 1 PACKET PO ×4 (01:46→19:35)
[2024-07-31] MEDS: SODIUM CHLORIDE 0.9% IV 1,000 ML 100 ML IV CONT (01:46)
[2024-07-31] MEDS: IBUPROFEN IV 800 MG/200 ML 800 MG/200 ML BAG 400 MG IVPB (01:50)
[2024-07-31 05:40] LABS: Basophils Percent Auto 0.2 % (0.2-1.2); Eosinophils Percent Auto 0.1 % (0-4.4); Hematocrit 33.9 % (42.0-52.0); Immature Granulocyte Absolute 0.21 K/mm3 (0.00-0.031); Immature Granulocyte Percent A 1.3 % (0-0.5); Lymphocytes Absolute Auto 1.36 K/mm3 (0.9-3.2); Lymphocytes Percent Auto 8.5 % (18.3-44.2); Mean Corpuscular HGB Conc 32.4 g/dl (32-36); Mean Corpuscular Hemoglobin 28.7 pg (26-34); Mean Corpuscular Volume 88.5 fl (80-100); Mean Platelet Volume 9.4 fl (7.4-10.4); Monocytes Absolute Auto 1.4 K/mm3 (0.1-0.6); Monocytes Percent Auto 8.4 % (2.6-8.5); Neutrophils Absolute Auto 13.1 K/mm3 (1.3-6.7); Neutrophils Percent Auto 81.5 % (45.5-73.1); Platelet Count Result 247 k/mm3 (150-375); Red Blood Count 3.83 M/mm3 (4.6-6.20); Red Cell Distribution Width 15.5 % (11.5-14.5); White Blood Count 16.1 K/mm3 (4.5-10.0)
[2024-07-31 05:50] LABS: Alanine Aminotransferase 156 U/L (6-50); Alkaline Phosphatase 454 U/L (38-126); Anion Gap 9 mmol/L (4-12); Aspartate Amino Transferase 339 U/L (17-59); Bilirubin,Total 2.2 mg/dL (0.2-1.3); Blood Urea Nitrogen 18 mg/dL (9-20); Calcium 11.4 mg/dL (8.4-10.2); Carbon Dioxide 22 mmol/L (22-30); Chloride 103 mmol/L (98-107); Estimated CRCL calculation 113 ml/min; Estimated Glomerular Filt Rate > 60; Glucose 106 mg/dL (65-110); Lactic Acid Reflex 2.5 mmol/L (0.7-2.0); Phosphorus 2.3 mg/dL (2.5-4.5); Sodium 134 mmol/L (137-145)
[2024-07-31] MEDS: HYDROmorphone HCL INJ (*CRX) 1 MG/ML SYR IV PUSH (06:19)
[2024-07-31 08:37] LABS: Reflex Lactic Acid Yes or No Add Lactic
[2024-07-31] MEDS: CALCITONIN SALMON INJ 400 UNITS/2 ML VIAL 360 UNITS SUB-Q ×2 (09:17→21:01)
[2024-07-31] MEDS: oxyCODONE/ACETAMINOPHEN (*CRX) 5-325 MG TABLET 1 TABLET PO ×2 (09:17→16:55)
[2024-07-31] MEDS: CYANOCOBALAMIN 500 MCG TABLET PO (09:18)
[2024-07-31] MEDS: ENOXAPARIN 40 MG/0.4 ML SYRINGE SUB-Q (09:18)
[2024-07-31] MEDS: PROCHLORPERAZINE MALEATE 5 MG TABLET PO ×2 (09:18→16:56)
[2024-07-31] MEDS: PANTOPRAZOLE 40 MG TABLET PO (09:18)
[2024-07-31 09:23] LABS: Lactic Acid 2.1 mmol/L (0.7-2.0)
--- NOTE | 2024-07-31 09:48 | P.PNNP_ITS ---
Progress Note: A&P Assessment and Plan (1) Hypercalcemia: Code(s): E83.52 - Hypercalcemia Status: Acute Assessment and Plan: * slow/steady improvement * quite elevated on admission at 17 * calcium elevated on outpatient labs as well (June 2024) * s/p IV pamidronate and IVFs * SQ calcitonin (~ 4units/kg) initiated for a total of 6 doses (last dose will tomorrow morning) * Bone scan results reviewed * PTHrp pending; PTH and Vitamin D results noted * consider IV lasix (forced diuresis) if calcium worsens * follow repeat calcium levels (2) Hyponatremia: Code(s): E87.1 - Hypo-osmolality and hyponatremia Status: Acute Assessment and Plan: * improvement noted since admission * suspect due to hypovolemia given improvement with normal saline IVFs * however, could be partly related to his known malignancy/cancer * follow repeat sodium levels (3) Esophageal cancer: Code(s): C15.9 - Malignant neoplasm of esophagus, unspecified Status: Acute Assessment and Plan: * metastatic with extensive liver lesions * s/p Port placement for initiation of palliative chemotherapy (4) Severe protein-calorie malnutrition: Code(s): E43 - Unspecified severe protein-calorie malnutrition Status: Acute Assessment and Plan: * as noted by weight loss and and diminished oral intake * s/p G-tube placement for nutritional support Will continue to follow. Subjective Date/time seen: 07/31/24 09:48 Interval history: Follow-up for hypercalcemia. Calcium continues to slowly improve with current therapy/interventions; still has complaining of some on/off abdominal pain and chest wall soreness due to recent operative procedures; asking me if it is okay for him to eat; no apparent distress noted; no issues/events overnight or earlier this morning; working with therapy as tolerated. Exam Narrative: General: frail appearing male in NAD Heart: normal S1 and S2; no rub Lungs: decreased at right base but otherwise clear Abdomen: soft, nontender, nondistended, positive bowel sounds Extremities: no cyanosis or clubbing; trace edema Skin: warm and intact Objective Data Vital Signs Vital Signs: Vital Signs Temp Pulse Resp BP Pulse Ox O2 Del Method O2 Flow Rate 07/31/24 08:00 95 Nasal Cannula 3 07/31/24 04:00 98.0 F 102 H 22 H 121/80 95 07/31/24 04:00 100 07/31/24 00:00 104 H 07/30/24 23:50 98.2 F 101 H 18 132/82 96 07/30/24 20:28 97.5 F L 116 H 20 111/75 94 07/30/24 20:00 116 H 07/30/24 19:46 93 Nasal Cannula 3 07/30/24 18:45 98.2 F 119 H 19 126/79 93 Intake/Output Intake/Output: Intake & Output 07/28/24 07/29/24 07/30/24 07/31/24 23:59 23:59 23:59 23:59 Intake Total 3671.7 3036.6609 2664 2651 Output Total 1900 3250 1950 800 Balance 1771.7 -213.3333 710 1858 Meds/Results Medications: Active Medications Generic Name Dose Route Start Last Admin Trade Name Freq PRN Reason Stop Dose Admin Acetaminophen 500 mg 07/29/24 17:03 Acetaminophen 500 Mg Tablet PO Q6H PRN Pain Rated 1-3 Hydrocodone Bitart/Acetaminophen 1 tab 07/24/24 21:00 07/30/24 20:43 Hydrocodone/Acetaminophen (*Crx) 7.5-325 Mg Tablet PO 1 tab HS [facility] Administration Calcitonin [place] 360 units 07/29/24 21:00 07/31/24 09:17 Calcitonin [place] Inj 400 Units/2 Ml Vial SUB-Q 08/01/24 09:01 360 units Q12HR [facility] Administration Cyanocobalamin 500 mcg 07/25/24 09:00 07/31/24 09:18 Cyanocobalamin 500 Mcg Tablet PO 500 mcg QAM [facility] Administration Docusate Sodium 100 mg 07/24/24 21:00 07/31/24 12:23 Docusate Sodium 100 Mg Capsule PO 100 mg Q12HR [facility] Administration Enoxaparin Sodium 40 mg 07/25/24 09:00 07/31/24 09:18 Enoxaparin 40 Mg/0.4 Ml Syringe SUB-Q 40 mg DAILY [facility] Administration Hydromorphone HCl 1 mg 07/29/24 17:03 07/31/24 06:19 Hydromorphone Hcl Inj (*Crx) 1 Mg/Ml Syr IV PUSH 1 mg Q2H PRN Administration Breakthrough Pain Rated 7-10 or NPO Hydromorphone HCl 0.5 mg 07/29/24 17:03 07/30/24 09:08 Hydromorphone Hcl Inj (*Crx) 1 Mg/Ml Syr IV PUSH 0.5 mg Q2H PRN Administration Breakthrough Pain Rated 4-6 or NPO Ibuprofen 800 mg in 200 mls @ 400 mls/hr 07/29/24 17:03 07/31/24 02:20 Caldolor 800 Mg/200 Ml IVPB Infused Q6H PRN Infusion Breakthrough Pain Rated 1-3 or NPO Ceftriaxone Sodium 1 gm in 50 mls @ 100 mls/hr 07/29/24 23:00 07/30/24 22:26 Rocephin 1 Gm/Ns 50 Ml IVPB Infused Q24H [facility] Infusion Azithromycin 500 mg in 250 mls @ 250 mls/hr 07/29/24 23:00 07/30/24 23:50 Zithromax IVPB Infused Q24H [facility] Infusion Metoprolol Tartrate 12.5 mg 07/31/24 14:50 Metoprolol Tartrate 12.5 Mg Tablet PO Q12HR [facility] Naloxone HCl 0.1 mg 07/29/24 17:03 Naloxone Hcl 0.4 Mg/Ml Vial IV PUSH Q2M PRN Opiate Reversal Ondansetron HCl 4 mg 07/23/24 21:47 Ondansetron Inj 4 Mg/2 Ml Vial IV PUSH Q4H PRN Nausea Oxycodone/Acetaminophen 1 tablet 07/29/24 17:03 07/31/24 09:17 Oxycodone/Acetaminophen (*Crx) 5-325 Mg Tablet PO 1 tablet Q4H PRN Administration Pain Rated 4-6 Oxycodone/Acetaminophen 1 tab 07/29/24 17:03 Oxycodone/Acetaminophen (*Crx) 10-325 Mg Tablet PO Q6H PRN Pain Rated 7-10 Pantoprazole Sodium 40 mg 07/25/24 09:00 07/31/24 09:18 Pantoprazole 40 Mg Tablet PO 40 mg DAILY [facility] Administration Polyethylene Glycol 17 gm 07/27/24 09:00 07/31/24 12:24 Polyethylene Glycol 3350 17 Gm Powd.Pack PO 17 gm QAM [facility] Administration Potassium Phos/Sodium Phos 1 packet 07/27/24 07:30 07/31/24 12:22 Potassium/Phosphorus/Sodium 1.5 Gm Packet PO 1 packet Q6H [facility] Administration Prochlorperazine Maleate 5 mg 07/28/24 09:00 07/31/24 09:18 Prochlorperazine Maleate 5 Mg Tablet PO 5 mg BID [facility] Administration Thiamine HCl 100 mg 07/31/24 17:00 Thiamine Hcl 200 Mg/2 Ml Vial IV PUSH BID [facility] Vitamin B Complex 1 cap 07/31/24 17:00 Vitamin B Complex Capsule PO BID [facility] Radiology Results: ITS Impressions Abdomen/Pelvis CT 07/23/24 20:45 IMPRESSION: 1. Multiple masses in the liver which increased in size compared to previous study. 2. Thickening of the wall of the distal esophagus. 3. Right pleural effusion with adjacent atelectasis. 4. Multiple nodules in the lower lobes of the lungs. 5. Periesophageal, angel hepatis, and para-aortic lymphadenopathy. 6. Calcification in the left renal pelvis most likely a stone. Chest X-Ray 07/29/24 16:10 IMPRESSION: 1. Port tip at superior cavoatrial junction. 2. Airspace opacities in the lower lung zones, likely atelectasis. 3. Pulmonary nodules, consistent with metastatic disease. 4. Small right pleural effusion. Chest CTA 07/29/24 22:57 IMPRESSION: 1. No pulmonary embolism. 2. Right pleural effusion with adjacent pneumonia. Atelectasis is not excluded. Left basilar atelectasis versus pneumonia. 3. Multiple metastatic lesions in both lungs clinical correlation advised. 4. Multiple hypodensities in the liver suggestive of masses. Further evaluation advised. 5. Hepatomegaly. 6. Minimal ascites. 7. Fracture in the right 12th rib with highly suggestive fracture in the 11th rib. Bone Scan Nuclear Medicine 07/30/24 14:05 IMPRESSION: 1. No specific evidence of metastatic disease. 2. 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 Labs Labs: Laboratory Tests 07/31/24 05:31 07/31/24 05:31 Lactic Acid 2.5 H Calcium 11.4 H Phosphorus 2.3 L Magnesium 2.0 Total Bilirubin 2.2 H AST 339 H ALT 156 H Alkaline Phosphatase 454 H Total Protein 7.0 Albumin 3.0 L Microbiology 07/29/24 23:56 Blood Blood Culture - Preliminary 07/29/24 23:41 Blood Blood Culture - Preliminary
--- NOTE | 2024-07-31 10:05 | P.PNGS_ITS ---
Progress Note: A&P Assessment and Plan (1) Esophageal cancer, stage IV: Code(s): C15.9 - Malignant neoplasm of esophagus, unspecified Status: Chronic Assessment and Plan: Port-A-Cath in place, okay to use if necessary during hospitalization. Will be receiving chemotherapy. (2) Dysphagia: Qualifiers: Dysphagia type: unspecified Qualified Code(s): R13.10 - Dysphagia, unspecified Code(s): R13.10 - Dysphagia, unspecified Status: Acute Assessment and Plan: Patient unable to take in adequate nutrition due to esophageal cancer. Will start G-tube feedings today. (3) Severe protein-calorie malnutrition: Code(s): E43 - Unspecified severe protein-calorie malnutrition Status: Acute Assessment and Plan: Patient request being able to eat. This is fine as far as I am concerned. I will start him on full liquids and Ensure Clear which he requested. I will also go ahead and start his tube feedings today as per the dietitian recommendations. Subjective Subjective Date/Time Seen: 07/31/24 10:05 Post Op day: 2 Patient reports: no new complaints, pain is less, no bowel movement and afebrile Exam Const: General: tired appearing Orientation/consciousness: No confusion Chest: Chest palpation & inspection: abnormal inspection of the chest (Port-A-Cath in good position, incision looks good too) GI: Inspection: non-distended, incision (Clean and dry, healing well) and other (Tolerated normal saline per G-tube well) GI Palp: Yes Soft to palpation and Yes Tenderness to palpation present (GI) (Mostly around incision) Objective Data Vital Signs Vital Signs: Vital Signs - 24 hr 07/30/24 10:24 07/30/24 15:30 07/30/24 12:00 Temperature 36.4 C L 36.2 C L Pulse Rate 119 H 118 H 118 H Respiratory Rate 20 20 Blood Pressure 134/80 139/74 Pulse Oximetry 93 93 Oxygen Delivery Oxygen Flow Rate 07/30/24 16:00 07/30/24 18:45 07/30/24 19:46 Temperature 36.8 C Pulse Rate 118 H 119 H Respiratory Rate 19 Blood Pressure 126/79 Pulse Oximetry 93 93 Oxygen Delivery Nasal Cannula Oxygen Flow Rate 3 07/30/24 20:00 07/30/24 20:28 07/30/24 23:50 Temperature 36.4 C L 36.8 C Pulse Rate 116 H 116 H 101 H Respiratory Rate 20 18 Blood Pressure 111/75 132/82 Pulse Oximetry 94 96 Oxygen Delivery Oxygen Flow Rate 07/31/24 00:00 07/31/24 04:00 07/31/24 04:00 Temperature 36.7 C Pulse Rate 104 H 100 102 H Respiratory Rate 22 H Blood Pressure 121/80 Pulse Oximetry 95 Oxygen Delivery Oxygen Flow Rate Intake/Output Intake/Output: Intake & Output 07/28/24 07/29/24 07/30/24 07/31/24 23:59 23:59 23:59 23:59 Intake Total 3671.7 3036.6667 2660 728 Output Total 1900 3250 1950 800 Balance 1771.7 -213.3333 710 -72 Meds/Results Medications: Active Medications Generic Name Dose Route Start Last Admin Trade Name Freq PRN Reason Stop Dose Admin Acetaminophen 500 mg 07/29/24 17:03 Acetaminophen 500 Mg Tablet PO Q6H PRN Pain Rated 1-3 Hydrocodone Bitart/Acetaminophen 1 tab 07/24/24 21:00 07/30/24 20:43 Hydrocodone/Acetaminophen (*Crx) 7.5-325 Mg Tablet PO 1 tab HS CATINA Administration Calcitonin [place] 360 units 07/29/24 21:00 07/31/24 09:17 Calcitonin [place] Inj 400 Units/2 Ml Vial SUB-Q 08/01/24 09:01 360 units Q12HR CATINA Administration Cyanocobalamin 500 mcg 07/25/24 09:00 07/31/24 09:18 Cyanocobalamin 500 Mcg Tablet PO 500 mcg QAM [facility]INA Administration Docusate Sodium 100 mg 07/24/24 21:00 07/31/24 09:19 Docusate Sodium 100 Mg Capsule PO Not Given Q12HR [facility]INA Enoxaparin Sodium 40 mg 07/25/24 09:00 07/31/24 09:18 Enoxaparin 40 Mg/0.4 Ml Syringe SUB-Q 40 mg DAILY CATINA Administration Hydromorphone HCl 1 mg 07/29/24 17:03 07/31/24 06:19 Hydromorphone Hcl Inj (*Crx) 1 Mg/Ml Syr IV PUSH 1 mg Q2H PRN Administration Breakthrough Pain Rated 7-10 or NPO Hydromorphone HCl 0.5 mg 07/29/24 17:03 07/30/24 09:08 Hydromorphone Hcl Inj (*Crx) 1 Mg/Ml Syr IV PUSH 0.5 mg Q2H PRN Administration Breakthrough Pain Rated 4-6 or NPO Sodium Chloride 1,000 mls @ 100 mls/hr 07/27/24 07:30 07/31/24 01:46 Normal Saline Iv IV CONT 100 mls/hr .Q10H [facility]INA Administration Ibuprofen 800 mg in 200 mls @ 400 mls/hr 07/29/24 17:03 07/31/24 02:20 Caldolor 800 Mg/200 Ml IVPB Infused Q6H PRN Infusion Breakthrough Pain Rated 1-3 or NPO Ceftriaxone Sodium 1 gm in 50 mls @ 100 mls/hr 07/29/24 23:00 07/30/24 22:26 Rocephin 1 Gm/Ns 50 Ml IVPB Infused Q24H [facility]INA Infusion Azithromycin 500 mg in 250 mls @ 250 mls/hr 07/29/24 23:00 07/30/24 23:50 Zithromax IVPB Infused Q24H [facility] Infusion Naloxone HCl 0.1 mg 07/29/24 17:03 Naloxone Hcl 0.4 Mg/Ml Vial IV PUSH Q2M PRN Opiate Reversal Ondansetron HCl 4 mg 07/23/24 21:47 Ondansetron Inj 4 Mg/2 Ml Vial IV PUSH Q4H PRN Nausea Oxycodone/Acetaminophen 1 tablet 07/29/24 17:03 07/31/24 09:17 Oxycodone/Acetaminophen (*Crx) 5-325 Mg Tablet PO 1 tablet Q4H PRN Administration Pain Rated 4-6 Oxycodone/Acetaminophen 1 tab 07/29/24 17:03 Oxycodone/Acetaminophen (*Crx) 10-325 Mg Tablet PO Q6H PRN Pain Rated 7-10 Pantoprazole Sodium 40 mg 07/25/24 09:00 07/31/24 09:18 Pantoprazole 40 Mg Tablet PO 40 mg DAILY CATINA Administration Polyethylene Glycol 17 gm 07/27/24 09:00 07/31/24 09:18 Polyethylene Glycol 3350 17 Gm Powd.Pack PO Not Given QAM [facility]INA Potassium Phos/Sodium Phos 1 packet 07/27/24 07:30 07/31/24 06:19 Potassium/Phosphorus/Sodium 1.5 Gm Packet PO 1 packet Q6H [facility]INA Administration Prochlorperazine Maleate 5 mg 07/28/24 09:00 07/31/24 09:18 Prochlorperazine Maleate 5 Mg Tablet PO 5 mg BID CATINA Administration Radiology Results: ITS Impressions Abdomen/Pelvis CT 07/23/24 20:45 IMPRESSION: 1. Multiple masses in the liver which increased in size compared to previous s tudy. 2. Thickening of the wall of the distal esophagus. 3. Right pleural effusion with adjacent atelectasis. 4. Multiple nodules in the lower lobes of the lungs. 5. Periesophageal, angel hepatis, and para-aortic lymphadenopathy. 6. Calcification in the left renal pelvis most likely a stone. Chest X-Ray 07/29/24 16:10 IMPRESSION: 1. Port tip at superior cavoatrial junction. 2. Airspace opacities in the lower lung zones, likely atelectasis. 3. Pulmonary nodules, consistent with metastatic disease. 4. Small right pleural effusion. Chest CTA 07/29/24 22:57 IMPRESSION: 1. No pulmonary embolism. 2. Right pleural effusion with adjacent pneumonia. Atelectasis is not excluded. Left basilar atelectasis versus pneumonia. 3. Multiple metastatic lesions in both lungs clinical correlation advised. 4. Multiple hypodensities in the liver suggestive of masses. Further evaluation advised. 5. Hepatomegaly. 6. Minimal ascites. 7. Fracture in the right 12th rib with highly suggestive fracture in the 11th rib. Bone Scan Nuclear Medicine 07/30/24 14:05 IMPRESSION: 1. No specific evidence of metastatic disease. 2. 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 Labs Labs: Laboratory Results - last 24 hr 07/30/24 07/30/24 07/30/24 12:38 18:39 23:37 WBC RBC Hgb Hct MCV MCH MCHC RDW Plt Count MPV Immature Gran % (Auto) Neut % (Auto) Lymph % (Auto) [place] % (Auto) Eos % (Auto) Baso % (Auto) Lymph # (Auto) [place] # (Auto) Eos # (Auto) Baso # (Auto) Abs Immat Gran (auto) Absolute Neuts (auto) Absolute Nucleated RBC Nucleated RBC % Sodium Potassium Chloride Carbon Dioxide Anion Gap BUN Creatinine Estim Creat Clear Calc Estimated GFR Glucose POC Capillary Glucose 152 H 134 H 130 H Lactic Acid Calcium Phosphorus Magnesium Total Bilirubin AST ALT Alkaline Phosphatase Total Protein Albumin 07/31/24 07/31/24 05:31 09:09 WBC 16.1 H RBC 3.83 L Hgb 11.0 L Hct 33.9 L MCV 88.5 MCH 28.7 MCHC 32.4 RDW 15.5 H Plt Count 247 MPV 9.4 Immature Gran % (Auto) 1.3 H Neut % (Auto) 81.5 H Lymph % (Auto) 8.5 L [place] % (Auto) 8.4 Eos % (Auto) 0.1 Baso % (Auto) 0.2 Lymph # (Auto) 1.36 [place] # (Auto) 1.4 H Eos # (Auto) 0.0 Baso # (Auto) 0.0 Abs Immat Gran (auto) 0.21 H Absolute Neuts (auto) 13.1 H Absolute Nucleated RBC 0.000 Nucleated RBC % 0.0 Sodium 134 L Potassium 4.0 Chloride 103 Carbon Dioxide 22 Anion Gap 9 BUN 18 Creatinine 0.60 L Estim Creat Clear Calc 113 Estimated GFR > 60 Glucose 106 POC Capillary Glucose Lactic Acid 2.5 H 2.1 H Calcium 11.4 H Phosphorus 2.3 L Magnesium 2.0 Total Bilirubin 2.2 H AST 339 H ALT 156 H Alkaline Phosphatase 454 H Total Protein 7.0 Albumin 3.0 L
--- NOTE | 2024-07-31 10:53 | PCNFU ---
Nutrition Follow-Up Complete: Severe protein calorie malnutrition related to chronic esophageal cancer as evidenced by weight loss 13%/1 month; PO intake <75% needs >1 month. PO intake as tolerated goal: Meet estimated nutrition needs Patient is progressing towards goal. Pt current nutrition is Regular with Ensure Clear TID with G tube feedings of [place] 1.5 at 20 ml/hr. Last recorded weight is 95.5 kg, up from 91 kg on admit. Bowel Motility: No BM reported Labs Reviewed: Na 134, Alb 3.0,Hct 33.9,Hgb 11.0, PO4 2.3 Meds Noted: Protonix, Thiamine, B complex, Rocephin. Skin: WNL Additional Notes: Patient had G tube placed 07/30 for supplemental nutrition. Tube feedings to start today of [place]ev[place] 1.5 at 20 ml/hr. Recommend leaving tube feedings at 20 ml/hr to monitor for refeeding syndrome. Check Electrolytes on 08/01. Thiamine and B complex added today. Recommend 08/01 advancing tube feedings of [place] 1.5 to goal by 10 ml q 4 hours to goal rate of 60 ml/hr. Bolus tube feedings recommendations: 330 ml QID. Total 1980 kcal, 84 g protein, 1003 ml free water. Flush 200 ml water QID/Q6 hours. Diet orders for regular diet have been added with ensure clear TID for additional 240 kcal and 8 gm protein. Monitoring intakes, weights, labs, supplement tolerance, plan of care Follow up in 3 days
[2024-07-31 12:18] LABS: Glucose Point of Care 132 mg/dl (65-105)
[2024-07-31] MEDS: DOCUSATE SODIUM 100 MG CAPSULE PO ×2 (12:23→21:00)
[2024-07-31] MEDS: polyethylene glycoL 3350 17 GM POWD.PACK PO (12:24)
--- NOTE | 2024-07-31 14:33 | PM.IMPN ---
Progress Note: A&P Assessment and Plan (1) Hypercalcemia: Code(s): E83.52 - Hypercalcemia Status: Acute Assessment and Plan: Calcium elevated as outpatient and was 17 here. [place] related to his malignancy. No obvious bony lesions noted by imaging. Has hx of hypercalcemia with Ca >14 last month. EKG showing sinus tachycardia with occasional PVCs, delayed transition and age-indeterminate inferior infarct. intermittent NSVT Patient was given IV fluids and pamidronate Nephrology consult given for evaluation and further treatment recommendations Nephrology started patient calcitonin 4 units/kg subQ bid Monitor calcium levels. Decreased scheduled Compazine Calcium level continues to decline PTH is low PTH RP pending vitamin-D normal at 33.9 bone scan with no specific evidence of metastatic disease. Increased activity in the skull without radiographic comparison (2) Pneumonia: Code(s): J18.9 - Pneumonia, unspecified organism Status: Acute Assessment and Plan: Chest x-ray showed prominent markings in the lower lobes. CT of the abdomen showed right pleural effusion with adjacent atelectasis and multiple lung nodules. White count was elevated to 14 K. Blood cultures collected and patient was given azithromycin and Rocephin. Prior imaging studies noted. [place] imaging findings related to his cancer rather than acute pneumonia. Antibiotics held as patient had no fevers and WBC was normal 07/29/2024: Patient restarted on IV antibiotics in the form of IV Rocephin and Zithromax as WBC count is elevated at 16.7 CTA: Right pleural effusion with adjacent pneumonia left basilar atelectasis versus pneumonia. Multiple metastatic lesions the both lungs multiple hypodensities in the liver suggestive of masses minimal ascites. Fracture in right 12th rib with highly suggestive fracture in 11th rib (3) Hyponatremia syndrome: Code(s): E87.1 - Hypo-osmolality and hyponatremia Status: Acute Assessment and Plan: Sodium low on admission 126. Probably related to dehydration given his poor oral intake. Continue IV fluids Follow-up nephrology for further treatment recommendations (4) Esophageal cancer, stage IV: Code(s): C15.9 - Malignant neoplasm of esophagus, unspecified Status: Chronic Assessment and Plan: Patient with metastatic esophageal cancer with extensive liver involvement. LFTs are elevated related to this. also has lung nodules periesophageal, angel hepatis, para-aortic lymphadenopathy periesophageal Plan is for palliative chemotherapy he is status post port placement Status post G-tube placement Follow-up with Heme-Onc as an outpatient basis (5) Severe protein-calorie malnutrition: Code(s): E43 - Unspecified severe protein-calorie malnutrition Status: Acute Assessment and Plan: Patient with severe protein calorie malnutrition related to chronic esophageal cancer as evidenced by weight loss of 13% in the past month and poor p.o. intake of less than 75% needs greater than a month. Dietitian following. Continue supplements Initiate PEG tube feedings and advance to goal as per dietary recommendations Start tube feed today (6) UTI (urinary tract infection): Code(s): N39.0 - Urinary tract infection, site not specified Status: Acute Assessment and Plan: UA is abnormal but did not probably urine culture. Not felt to have UTI. No UCx collected UTI ruled out (7) Hypophosphatemia: Code(s): E83.39 - Other disorders of phosphorus metabolism Status: Acute Assessment and Plan: replace and monitor (8) Lactic acidosis: Code(s): E87.20 - Acidosis, unspecified Status: Acute Assessment and Plan: Likely due to pneumonia, metastatic cancer, sickness and hypercalcemia Lactic acid level is still elevated mild Plan Disposition - PT recommending home health care. Patient feeling very weak and tired. Consider repeat PT evaluation after patient gets nutrition via PEG tube. May need half-way facility placement if unable to ambulate safely. NSVT: Add beta-amber DVT prophylaxis - Lovenox Code status - full Subjective Date/time seen: 07/31/24 14:33 Interval history: No overnight events. Complains of abdominal discomfort. Not eating much. Discussed with the dietitian. G-tube in place. Review of Systems Review of Systems: All systems reviewed & are unremarkable except as noted in HPI and below Exam Narrative: Gen - NARD Chest - decreased BS in the right base o/w clear. CV - RRR S1/S2 Abd - Soft, G-tube in place, +BS Ext - trace pedal edema Psych - Nml mood and affect Skin - Warm and dry Objective Data Vital Signs Vital Signs: Vital Signs - 24 hr 07/30/24 15:30 07/30/24 16:00 07/30/24 18:45 Temperature 97.2 F L 98.2 F Pulse Rate 118 H 118 H 119 H Respiratory Rate 20 19 Blood Pressure 139/74 126/79 Pulse Oximetry 93 93 Oxygen Delivery Oxygen Flow Rate 07/30/24 19:46 07/30/24 20:00 07/30/24 20:28 Temperature 97.5 F L Pulse Rate 116 H 116 H Respiratory Rate 20 Blood Pressure 111/75 Pulse Oximetry 93 94 Oxygen Delivery Nasal Cannula Oxygen Flow Rate 3 07/30/24 23:50 07/31/24 00:00 07/31/24 04:00 Temperature 98.2 F Pulse Rate 101 H 104 H 100 Respiratory Rate 18 Blood Pressure 132/82 Pulse Oximetry 96 Oxygen Delivery Oxygen Flow Rate 07/31/24 04:00 07/31/24 08:00 07/31/24 12:21 Temperature 98.0 F Pulse Rate 102 H 103 H Respiratory Rate 22 H Blood Pressure 121/80 Pulse Oximetry 95 95 94 Oxygen Delivery Nasal Cannula Oxygen Flow Rate 3 Intake/Output Intake/Output: Intake & Output 07/28/24 07/29/24 07/30/24 07/31/24 23:59 23:59 23:59 23:59 Intake Total 3671.7 3036.6667 2660 2658 Output Total 1900 3250 1950 800 Balance 1771.7 -213.3333 710 1858 Meds/Results Medications: Active Medications Generic Name Dose Route Start Last Admin Trade Name Freq PRN Reason Stop Dose Admin Acetaminophen 500 mg 07/29/24 17:03 Acetaminophen 500 Mg Tablet PO Q6H PRN Pain Rated 1-3 Hydrocodone Bitart/Acetaminophen 1 tab 07/24/24 21:00 07/30/24 20:43 Hydrocodone/Acetaminophen (*Crx) 7.5-325 Mg Tablet PO 1 tab HS [facility]INA Administration Calcitonin [place] 360 units 07/29/24 21:00 07/31/24 09:17 Calcitonin [place] Inj 400 Units/2 Ml Vial SUB-Q 08/01/24 09:01 360 units Q12HR [facility]INA Administration Cyanocobalamin 500 mcg 07/25/24 09:00 07/31/24 09:18 Cyanocobalamin 500 Mcg Tablet PO 500 mcg QAM [facility]INA Administration Docusate Sodium 100 mg 07/24/24 21:00 07/31/24 12:23 Docusate Sodium 100 Mg Capsule PO 100 mg Q12HR [facility]INA Administration Enoxaparin Sodium 40 mg 07/25/24 09:00 07/31/24 09:18 Enoxaparin 40 Mg/0.4 Ml Syringe SUB-Q 40 mg DAILY [facility]INA Administration Hydromorphone HCl 1 mg 07/29/24 17:03 07/31/24 06:19 Hydromorphone Hcl Inj (*Crx) 1 Mg/Ml Syr IV PUSH 1 mg Q2H PRN Administration Breakthrough Pain Rated 7-10 or NPO Hydromorphone HCl 0.5 mg 07/29/24 17:03 07/30/24 09:08 Hydromorphone Hcl Inj (*Crx) 1 Mg/Ml Syr IV PUSH 0.5 mg Q2H PRN Administration Breakthrough Pain Rated 4-6 or NPO Sodium Chloride 1,000 mls @ 100 mls/hr 07/27/24 07:30 07/31/24 12:26 Normal Saline Iv IV CONT Infused .Q10H [facility] Infusion Ibuprofen 800 mg in 200 mls @ 400 mls/hr 07/29/24 17:03 07/31/24 02:20 Caldolor 800 Mg/200 Ml IVPB Infused Q6H PRN Infusion Breakthrough Pain Rated 1-3 or NPO Ceftriaxone Sodium 1 gm in 50 mls @ 100 mls/hr 07/29/24 23:00 07/30/24 22:26 Rocephin 1 Gm/Ns 50 Ml IVPB Infused Q24H [facility] Infusion Azithromycin 500 mg in 250 mls @ 250 mls/hr 07/29/24 23:00 07/30/24 23:50 Zithromax IVPB Infused Q24H [facility] Infusion Naloxone HCl 0.1 mg 07/29/24 17:03 Naloxone Hcl 0.4 Mg/Ml Vial IV PUSH Q2M PRN Opiate Reversal Ondansetron HCl 4 mg 07/23/24 21:47 Ondansetron Inj 4 Mg/2 Ml Vial IV PUSH Q4H PRN Nausea Oxycodone/Acetaminophen 1 tablet 07/29/24 17:03 07/31/24 09:17 Oxycodone/Acetaminophen (*Crx) 5-325 Mg Tablet PO 1 tablet Q4H PRN Administration Pain Rated 4-6 Oxycodone/Acetaminophen 1 tab 07/29/24 17:03 Oxycodone/Acetaminophen (*Crx) 10-325 Mg Tablet PO Q6H PRN Pain Rated 7-10 Pantoprazole Sodium 40 mg 07/25/24 09:00 07/31/24 09:18 Pantoprazole 40 Mg Tablet PO 40 mg DAILY CATINA Administration Polyethylene Glycol 17 gm 07/27/24 09:00 07/31/24 12:24 Polyethylene Glycol 3350 17 Gm Powd.Pack PO 17 gm QAM [facility] Administration Potassium Phos/Sodium Phos 1 packet 07/27/24 07:30 07/31/24 12:22 Potassium/Phosphorus/Sodium 1.5 Gm Packet PO 1 packet Q6H [facility] Administration Prochlorperazine Maleate 5 mg 07/28/24 09:00 07/31/24 09:18 Prochlorperazine Maleate 5 Mg Tablet PO 5 mg BID CATINA Administration Thiamine HCl 100 mg 07/31/24 17:00 Thiamine Hcl 200 Mg/2 Ml Vial IV PUSH BID CATINA Vitamin B Complex 1 cap 07/31/24 17:00 Vitamin B Complex Capsule PO BID CATINA Radiology Results: ITS Impressions Abdomen/Pelvis CT 07/23/24 20:45 IMPRESSION: 1. Multiple masses in the liver which increased in size compared to previous study. 2. Thickening of the wall of the distal esophagus. 3. Right pleural effusion with adjacent atelectasis. 4. Multiple nodules in the lower lobes of the lungs. 5. Periesophageal, angel hepatis, and para-aortic lymphadenopathy. 6. Calcification in the left renal pelvis most likely a stone. Chest X-Ray 07/29/24 16:10 IMPRESSION: 1. Port tip at superior cavoatrial junction. 2. Airspace opacities in the lower lung zones, likely atelectasis. 3. Pulmonary nodules, consistent with metastatic disease. 4. Small right pleural effusion. Chest CTA 07/29/24 22:57 IMPRESSION: 1. No pulmonary embolism. 2. Right pleural effusion with adjacent pneumonia. Atelectasis is not excluded. Left basilar atelectasis versus pneumonia. 3. Multiple metastatic lesions in both lungs clinical correlation advised. 4. Multiple hypodensities in the liver suggestive of masses. Further evaluation advised. 5. Hepatomegaly. 6. Minimal ascites. 7. Fracture in the right 12th rib with highly suggestive fracture in the 11th rib. Bone Scan Nuclear Medicine 07/30/24 14:05 IMPRESSION: 1. No specific evidence of metastatic disease. 2. 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 Labs Labs: Laboratory Results - last 24 hr 07/30/24 07/30/24 07/31/24 18:39 23:37 05:31 WBC 16.1 H RBC 3.83 L Hgb 11.0 L Hct 33.9 L MCV 88.5 MCH 28.7 MCHC 32.4 RDW 15.5 H Plt Count 247 MPV 9.4 Immature Gran % (Auto) 1.3 H Neut % (Auto) 81.5 H Lymph % (Auto) 8.[address] [place] % (Auto) 8.4 Eos % (Auto) 0.1 Baso % (Auto) 0.2 Lymph # (Auto) 1.36 [place] # (Auto) 1.4 H Eos # (Auto) 0.0 Baso # (Auto) 0.0 Abs Immat Gran (auto) 0.21 H Absolute Neuts (auto) 13.1 H Absolute Nucleated RBC 0.000 Nucleated RBC % 0.0 Sodium 134 L Potassium 4.0 Chloride 103 Carbon Dioxide 22 Anion Gap 9 BUN 18 Creatinine 0.60 L Estim Creat Clear Calc 113 Estimated GFR > 60 Glucose 106 POC Capillary Glucose 134 H 130 H Lactic Acid 2.5 H Calcium 11.4 H Phosphorus 2.3 L Magnesium 2.0 Total Bilirubin 2.2 H AST 339 H ALT 156 H Alkaline Phosphatase 454 H Total Protein 7.0 Albumin 3.0 L 07/31/24 07/31/24 09:09 12:15 WBC RBC Hgb Hct MCV MCH MCHC RDW Plt Count MPV Immature Gran % (Auto) Neut % (Auto) Lymph % (Auto) [place] % (Auto) Eos % (Auto) Baso % (Auto) Lymph # (Auto) [place] # (Auto) Eos # (Auto) Baso # (Auto) Abs Immat Gran (auto) Absolute Neuts (auto) Absolute Nucleated RBC Nucleated RBC % Sodium Potassium Chloride Carbon Dioxide Anion Gap BUN Creatinine Estim Creat Clear Calc Estimated GFR Glucose POC Capillary Glucose 132 H Lactic Acid 2.1 H Calcium Phosphorus Magnesium Total Bilirubin AST ALT Alkaline Phosphatase Total Protein Albumin
[2024-07-31] MEDS: VITAMIN B COMPLEX CAPSULE 1 CAP PO (16:55)
[2024-07-31] MEDS: THIAMINE HCL 200 MG/2 ML VIAL 100 MG IV PUSH (16:56)
[2024-07-31] MEDS: METOPROLOL TARTRATE 12.5 MG TABLET PO ×2 (16:57→21:00)
[2024-07-31 19:17] LABS: Glucose Point of Care 114 mg/dl (65-105)
[2024-07-31] MEDS: HYDROmorphone HCL INJ (*CRX) 1 MG/ML SYR 0.5 MG IV PUSH (19:34)
[2024-07-31] MEDS: HYDROcodone/acetaminophen (*CRX) 7.5-325 MG TABLET 1 TAB PO (21:59)
[2024-07-31] MEDS: AZITHROMYCIN 500 MG/NS 250 ML 500 MG/250 ML BAG 250 MG IVPB (23:55)
[2024-08-01] VITALS (12 sets, daily range): BP systolic 120–143; BP diastolic 67–83; PULSE 89–121; RESP 18–20; TEMP 36.1–36.6; O2SAT 94–96
[2024-08-01 00:15] LABS: Glucose Point of Care 122 mg/dl (65-105)
[2024-08-01] MEDS: POTASSIUM/PHOSPHORUS/SODIUM 1.5 GM PACKET 1 PACKET PO ×4 (01:05→18:23)
[2024-08-01 05:51] LABS: Basophils Percent Auto 0.1 % (0.2-1.2); Eosinophils Percent Auto 0.3 % (0-4.4); Hematocrit 33.5 % (42.0-52.0); Hemoglobin 10.7 g/dL (14.0-18.0); Immature Granulocyte Absolute 0.24 K/mm3 (0.00-0.031); Immature Granulocyte Percent A 1.7 % (0-0.5); Lymphocytes Absolute Auto 1.35 K/mm3 (0.9-3.2); Lymphocytes Percent Auto 9.6 % (18.3-44.2); Mean Corpuscular HGB Conc 31.9 g/dl (32-36); Mean Corpuscular Hemoglobin 28.8 pg (26-34); Mean Corpuscular Volume 90.1 fl (80-100); Mean Platelet Volume 9.6 fl (7.4-10.4); Monocytes Absolute Auto 1.1 K/mm3 (0.1-0.6); Monocytes Percent Auto 8.1 % (2.6-8.5); Neutrophils Absolute Auto 11.3 K/mm3 (1.3-6.7); Neutrophils Percent Auto 80.2 % (45.5-73.1); Platelet Count Result 246 k/mm3 (150-375); Red Blood Count 3.72 M/mm3 (4.6-6.20); Red Cell Distribution Width 15.7 % (11.5-14.5); White Blood Count 14.1 K/mm3 (4.5-10.0)
[2024-08-01 06:30] LABS: Alanine Aminotransferase 155 U/L (6-50); Alkaline Phosphatase 495 U/L (38-126); Anion Gap 9 mmol/L (4-12); Aspartate Amino Transferase 325 U/L (17-59); Bilirubin,Total 2.7 mg/dL (0.2-1.3); Blood Urea Nitrogen 13 mg/dL (9-20); Calcium 12.8 mg/dL (8.4-10.2); Carbon Dioxide 21 mmol/L (22-30); Chloride 101 mmol/L (98-107); Estimated CRCL calculation 133 ml/min; Estimated Glomerular Filt Rate > 60; Glucose 106 mg/dL (65-110); Phosphorus 2.6 mg/dL (2.5-4.5); Potassium 3.6 mmol/L (3.4-5.0); Sodium 131 mmol/L (137-145)
[2024-08-01] MEDS: oxyCODONE/ACETAMINOPHEN (*CRX) 5-325 MG TABLET 1 TABLET PO ×3 (08:01→18:23)
[2024-08-01] MEDS: METOPROLOL TARTRATE 12.5 MG TABLET PO (08:03)
[2024-08-01] MEDS: VITAMIN B COMPLEX CAPSULE 1 CAP PO ×2 (08:03→18:24)
[2024-08-01] MEDS: PANTOPRAZOLE 40 MG TABLET PO (08:03)
[2024-08-01] MEDS: PROCHLORPERAZINE MALEATE 5 MG TABLET PO (08:03)
[2024-08-01] MEDS: DOCUSATE SODIUM 100 MG CAPSULE PO (08:03)
[2024-08-01] MEDS: CYANOCOBALAMIN 500 MCG TABLET PO (08:03)
[2024-08-01] MEDS: polyethylene glycoL 3350 17 GM POWD.PACK PO (08:04)
[2024-08-01] MEDS: THIAMINE HCL 200 MG/2 ML VIAL 100 MG IV PUSH ×2 (08:04→18:24)
[2024-08-01] MEDS: CALCITONIN SALMON INJ 400 UNITS/2 ML VIAL 360 UNITS SUB-Q (08:05)
[2024-08-01] MEDS: ENOXAPARIN 40 MG/0.4 ML SYRINGE SUB-Q (08:05)
--- NOTE | 2024-08-01 08:59 | PM.IMPN ---
Progress Note: A&P Assessment and Plan (1) Hypercalcemia: Code(s): E83.52 - Hypercalcemia Status: Acute Assessment and Plan: Calcium elevated as outpatient and was 17 here. [place] related to his malignancy. No obvious bony lesions noted by imaging. Has hx of hypercalcemia with Ca >14 last month. EKG showing sinus tachycardia with occasional PVCs, delayed transition and age-indeterminate inferior infarct. intermittent NSVT Patient was given IV fluids and pamidronate Nephrology consult given for evaluation and further treatment recommendations Nephrology started patient calcitonin 4 units/kg subQ bid Monitor calcium levels. Decreased scheduled Compazine Calcium level continues to decline PTH is low PTH RP pending vitamin-D normal at 33.9 bone scan with no specific evidence of metastatic disease. Increased activity in the skull without radiographic comparison (2) Pneumonia: Code(s): J18.9 - Pneumonia, unspecified organism Status: Acute Assessment and Plan: Chest x-ray showed prominent markings in the lower lobes. CT of the abdomen showed right pleural effusion with adjacent atelectasis and multiple lung nodules. White count was elevated to 14 K. Blood cultures collected and patient was given azithromycin and Rocephin. Prior imaging studies noted. [place] imaging findings related to his cancer rather than acute pneumonia. Antibiotics held as patient had no fevers and WBC was normal 07/29/2024: Patient restarted on IV antibiotics in the form of IV Rocephin and Zithromax. WBC count is elevated at 16.7 which continues to trend down CTA: Right pleural effusion with adjacent pneumonia left basilar atelectasis versus pneumonia. Multiple metastatic lesions the both lungs multiple hypodensities in the liver suggestive of masses minimal ascites. Fracture in right 12th rib with highly suggestive fracture in 11th rib (3) Hyponatremia syndrome: Code(s): E87.1 - Hypo-osmolality and hyponatremia Status: Acute Assessment and Plan: Sodium low on admission 126. Probably related to dehydration given his poor oral intake. Continue IV fluids Follow-up nephrology for further treatment recommendations (4) Esophageal cancer, stage IV: Code(s): C15.9 - Malignant neoplasm of esophagus, unspecified Status: Chronic Assessment and Plan: Patient with metastatic esophageal cancer with extensive liver involvement. LFTs are elevated related to this. also has lung nodules periesophageal, angel hepatis, para-aortic lymphadenopathy periesophageal Plan is for palliative chemotherapy he is status post port placement Status post G-tube placement Follow-up with Heme-Onc as an outpatient basis (5) Severe protein-calorie malnutrition: Code(s): E43 - Unspecified severe protein-calorie malnutrition Status: Acute Assessment and Plan: Patient with severe protein calorie malnutrition related to chronic esophageal cancer as evidenced by weight loss of 13% in the past month and poor p.o. intake of less than 75% needs greater than a month. Dietitian following. Continue supplements Initiate PEG tube feedings and advance to goal as per dietary recommendations However residual is high Add Reglan check x-ray abdomen (6) UTI (urinary tract infection): Code(s): N39.0 - Urinary tract infection, site not specified Status: Acute Assessment and Plan: UA is abnormal but did not probably urine culture. Not felt to have UTI. No UCx collected UTI ruled out (7) Hypophosphatemia: Code(s): E83.39 - Other disorders of phosphorus metabolism Status: Acute Assessment and Plan: replace and monitor (8) Lactic acidosis: Code(s): E87.20 - Acidosis, unspecified Status: Acute Assessment and Plan: Likely due to pneumonia, metastatic cancer, sickness and hypercalcemia Lactic acid level is still elevated mild likely related underlying metastatic cancer Plan Disposition - PT recommending home health care. Patient feeling very weak and tired. Consider repeat PT evaluation after patient gets nutrition via PEG tube. May need custodial facility placement if unable to ambulate safely. NSVT: Add beta-amber DVT prophylaxis - Lovenox Code status - full Subjective Date/time seen: 08/01/24 09:00 Interval history: Feeling tired abdomen is sore no nausea vomiting. Residual has been high Review of Systems Review of Systems: All systems reviewed & are unremarkable except as noted in HPI and below Exam Narrative: Gen - NARD Chest - decreased BS in the right base o/w clear. CV - RRR S1/S2 Abd - Soft, G-tube in place, +BS Ext - trace pedal edema Psych - Nml mood and affect Skin - Warm and dry Objective Data Vital Signs Vital Signs: Vital Signs - 24 hr 07/31/24 12:21 07/31/24 14:00 07/31/24 16:57 Temperature 97.4 F L Pulse Rate 103 H 72 102 H Respiratory Rate 18 Blood Pressure 136/79 Pulse Oximetry 94 97 Oxygen Delivery Oxygen Flow Rate Fraction of Inspired Oxygen 07/31/24 12:00 07/31/24 16:00 07/31/24 21:00 Temperature Pulse Rate 105 H 100 75 Respiratory Rate Blood Pressure Pulse Oximetry Oxygen Delivery Oxygen Flow Rate Fraction of Inspired Oxygen 07/31/24 21:47 07/31/24 20:00 08/01/24 00:00 Temperature 97.7 F Pulse Rate 94 98 94 Respiratory Rate 18 Blood Pressure 120/76 Pulse Oximetry 97 Oxygen Delivery Oxygen Flow Rate Fraction of Inspired Oxygen 08/01/24 04:00 08/01/24 06:00 08/01/24 08:03 Temperature 96.9 F L Pulse Rate 89 92 102 H Respiratory Rate 18 Blood Pressure 128/67 Pulse Oximetry 94 Oxygen Delivery Oxygen Flow Rate Fraction of Inspired Oxygen 08/01/24 08:59 Temperature Pulse Rate Respiratory Rate Blood Pressure Pulse Oximetry 94 Oxygen Delivery Nasal Cannula Oxygen Flow Rate 3 Fraction of Inspired Oxygen 32 Intake/Output Intake/Output: Intake & Output 07/29/24 07/30/24 07/31/24 08/01/24 23:59 23:59 23:59 23:59 Intake Total 3036.6667 2660 2708 878 Output Total 3250 1950 1550 Balance -213.3333 710 1158 878 Meds/Results Medications: Active Medications Generic Name Dose Route Start Last Admin Trade Name Freq PRN Reason Stop Dose Admin Acetaminophen 500 mg 07/29/24 17:03 Acetaminophen 500 Mg Tablet PO Q6H PRN Pain Rated 1-3 Hydrocodone Bitart/Acetaminophen 1 tab 07/24/24 21:00 07/31/24 21:59 Hydrocodone/Acetaminophen (*Crx) 7.5-325 Mg Tablet PO 1 tab HS CATINA Administration Calcitonin [place] 360 units 07/29/24 21:00 08/01/24 08:05 Calcitonin [place] Inj 400 Units/2 Ml Vial SUB-Q 08/01/24 09:01 360 units Q12HR [facility] Administration Cyanocobalamin 500 mcg 07/25/24 09:00 08/01/24 08:03 Cyanocobalamin 500 Mcg Tablet PO 500 mcg QAM [facility] Administration Docusate Sodium 100 mg 07/24/24 21:00 08/01/24 08:03 Docusate Sodium 100 Mg Capsule PO 100 mg Q12HR CATNIA Administration Enoxaparin Sodium 40 mg 07/25/24 09:00 08/01/24 08:05 Enoxaparin 40 Mg/0.4 Ml Syringe SUB-Q 40 mg DAILY [facility]INA Administration Hydromorphone HCl 1 mg 07/29/24 17:03 07/31/24 06:19 Hydromorphone Hcl Inj (*Crx) 1 Mg/Ml Syr IV PUSH 1 mg Q2H PRN Administration Breakthrough Pain Rated 7-10 or NPO Hydromorphone HCl 0.5 mg 07/29/24 17:03 07/31/24 19:34 Hydromorphone Hcl Inj (*Crx) 1 Mg/Ml Syr IV PUSH 0.5 mg Q2H PRN Administration Breakthrough Pain Rated 4-6 or NPO Ibuprofen 800 mg in 200 mls @ 400 mls/hr 07/29/24 17:03 07/31/24 02:20 Caldolor 800 Mg/200 Ml IVPB Infused Q6H PRN Infusion Breakthrough Pain Rated 1-3 or NPO Ceftriaxone Sodium 1 gm in 50 mls @ 100 mls/hr 07/29/24 23:00 07/31/24 23:46 Rocephin 1 Gm/Ns 50 Ml IVPB Infused Q24H [facility] Infusion Azithromycin 500 mg in 250 mls @ 250 mls/hr 07/29/24 23:00 08/01/24 00:55 Zithromax IVPB Infused Q24H [facility] Infusion Metoprolol Tartrate 12.5 mg 07/31/24 14:50 08/01/24 08:03 Metoprolol Tartrate 12.5 Mg Tablet PO 12.5 mg Q12HR [facility] Administration Naloxone HCl 0.1 mg 07/29/24 17:03 Naloxone Hcl 0.4 Mg/Ml Vial IV PUSH Q2M PRN Opiate Reversal Ondansetron HCl 4 mg 07/23/24 21:47 Ondansetron Inj 4 Mg/2 Ml Vial IV PUSH Q4H PRN Nausea Oxycodone/Acetaminophen 1 tablet 07/29/24 17:03 08/01/24 08:01 Oxycodone/Acetaminophen (*Crx) 5-325 Mg Tablet PO 1 tablet Q4H PRN Administration Pain Rated 4-6 Oxycodone/Acetaminophen 1 tab 07/29/24 17:03 Oxycodone/Acetaminophen (*Crx) 10-325 Mg Tablet PO Q6H PRN Pain Rated 7-10 Pantoprazole Sodium 40 mg 07/25/24 09:00 08/01/24 08:03 Pantoprazole 40 Mg Tablet PO 40 mg DAILY [facility] Administration Polyethylene Glycol 17 gm 07/27/24 09:00 08/01/24 08:04 Polyethylene Glycol 3350 17 Gm Powd.Pack PO 17 gm QAM [facility] Administration Potassium Phos/Sodium Phos 1 packet 07/27/24 07:30 08/01/24 08:03 Potassium/Phosphorus/Sodium 1.5 Gm Packet PO 1 packet Q6H [facility] Administration Prochlorperazine Maleate 5 mg 07/28/24 09:00 08/01/24 08:03 Prochlorperazine Maleate 5 Mg Tablet PO 5 mg BID [facility] Administration Thiamine HCl 100 mg 07/31/24 17:00 08/01/24 08:04 Thiamine Hcl 200 Mg/2 Ml Vial IV PUSH 100 mg BID [facility] Administration Vitamin B Complex 1 cap 07/31/24 17:00 08/01/24 08:03 Vitamin B Complex Capsule PO 1 cap BID [facility] Administration Radiology Results: ITS Impressions Abdomen/Pelvis CT 07/23/24 20:45 IMPRESSION: 1. Multiple masses in the liver which increased in size compared to previous study. 2. Thickening of the wall of the distal esophagus. 3. Right pleural effusion with adjacent atelectasis. 4. Multiple nodules in the lower lobes of the lungs. 5. Periesophageal, angel hepatis, and para-aortic lymphadenopathy. 6. Calcification in the left renal pelvis most likely a stone. Chest X-Ray 07/29/24 16:10 IMPRESSION: 1. Port tip at superior cavoatrial junction. 2. Airspace opacities in the lower lung zones, likely atelectasis. 3. Pulmonary nodules, consistent with metastatic disease. 4. Small right pleural effusion. Chest CTA 07/29/24 22:57 IMPRESSION: 1. No pulmonary embolism. 2. Right pleural effusion with adjacent pneumonia. Atelectasis is not excluded. Left basilar atelectasis versus pneumonia. 3. Multiple metastatic lesions in both lungs clinical correlation advised. 4. Multiple hypodensities in the liver suggestive of masses. Further evaluation advised. 5. Hepatomegaly. 6. Minimal ascites. 7. Fracture in the right 12th rib with highly suggestive fracture in the 11th rib. Bone Scan Nuclear Medicine 07/30/24 14:05 IMPRESSION: 1. No specific evidence of metastatic disease. 2. 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 Labs Labs: Laboratory Results - last 24 hr 07/31/24 07/31/24 07/31/24 09:09 12:15 19:14 WBC RBC Hgb Hct MCV MCH MCHC RDW Plt Count MPV Immature Gran % (Auto) Neut % (Auto) Lymph % (Auto) [place] % (Auto) Eos % (Auto) Baso % (Auto) Lymph # (Auto) [place] # (Auto) Eos # (Auto) Baso # (Auto) Abs Immat Gran (auto) Absolute Neuts (auto) Absolute Nucleated RBC Nucleated RBC % Sodium Potassium Chloride Carbon Dioxide Anion Gap BUN Creatinine Estim Creat Clear Calc Estimated GFR Glucose POC Capillary Glucose 132 H 114 H Lactic Acid 2.1 H Calcium Phosphorus Magnesium Total Bilirubin AST ALT Alkaline Phosphatase Total Protein Albumin Random Cortisol 08/01/24 08/01/24 08/01/24 00:12 05:14 05:15 WBC 14.1 H RBC 3.72 L Hgb 10.7 L Hct 33.5 L MCV 90.1 MCH 28.8 MCHC 31.9 L RDW 15.7 H Plt Count 246 MPV 9.6 Immature Gran % (Auto) 1.7 H Neut % (Auto) 80.2 H Lymph % (Auto) 9.6 L [place] % (Auto) 8.1 Eos % (Auto) 0.3 Baso % (Auto) 0.1 L Lymph # (Auto) 1.35 [place] # (Auto) 1.1 H Eos # (Auto) 0.0 Baso # (Auto) 0.0 Abs Immat Gran (auto) 0.24 H Absolute Neuts (auto) 11.3 H Absolute Nucleated RBC 0.000 Nucleated RBC % 0.0 Sodium 131 L Potassium 3.6 Chloride 101 Carbon Dioxide 21 L Anion Gap 9 BUN 13 D Creatinine 0.50 L Estim Creat Clear Calc 133 Estimated GFR > 60 Glucose 106 POC Capillary Glucose 122 H Lactic Acid Calcium 12.8 H* Phosphorus 2.6 Magnesium 2.0 Total Bilirubin 2.7 H AST 325 H ALT 155 H Alkaline Phosphatase 495 H Total Protein 6.0 L Albumin 3.0 L Random Cortisol 44.50
[2024-08-01 12:32] LABS: Glucose Point of Care 167 mg/dl (65-105)
--- NOTE | 2024-08-01 13:28 | P.PNNP_ITS ---
Progress Note: A&P Assessment and Plan (1) Hypercalcemia: Code(s): E83.52 - Hypercalcemia Status: Acute Assessment and Plan: * slow/steady improvement * quite elevated on admission at 17 * calcium elevated on outpatient labs as well (June 2024) * Bone scan results showed no metastatic disease, possible localize Paget's disease in the skull? * PTHrp pending; PTH appropriately low and 25+1, 25 Vitamin D results all okay * s/p IV pamidronate and IVFs * SQ calcitonin (~ 4units/kg) initiated for a total of 6 doses (last dose will tomorrow morning) * calcium level actually ovidio from yesterday. * Will proceed with IV Lasix plus IV fluid try to flush out the calcium * check another calcium in the morning (2) Hyponatremia: Code(s): E87.1 - Hypo-osmolality and hyponatremia Status: Acute Assessment and Plan: * improvement noted since admission * suspect due to hypovolemia given improvement with normal saline IVFs * however, could be partly related to his known malignancy/cancer * the fluids plus Lasix will help this as well. (3) Esophageal cancer: Code(s): C15.9 - Malignant neoplasm of esophagus, unspecified Status: Acute Assessment and Plan: * metastatic with extensive liver lesions * s/p Port placement for initiation of palliative chemotherapy (4) Severe protein-calorie malnutrition: Code(s): E43 - Unspecified severe protein-calorie malnutrition Status: Acute Assessment and Plan: * as noted by weight loss and and diminished oral intake * s/p G-tube placement for nutritional support Subjective Date/time seen: 08/01/24 13:28 Interval history: patient is alert. He feels blah. No shortness of breath eating okay no constipation Exam Narrative: General: frail appearing male in NAD Heart: normal S1 and S2; no rub or gallop Lungs: decreased at right base but otherwise clear Abdomen: soft, nontender, nondistended, positive bowel sounds Extremities: no cyanosis or clubbing; trace edema Skin: no rash Objective Data Vital Signs Vital Signs: Vital Signs - 24 hr 07/31/24 14:00 07/31/24 16:57 07/31/24 16:00 Temperature 97.4 F L Pulse Rate 72 102 H 100 Respiratory Rate 18 Blood Pressure 136/79 Pulse Oximetry 97 Oxygen Delivery Oxygen Flow Rate Fraction of Inspired Oxygen 07/31/24 21:00 07/31/24 21:47 07/31/24 20:00 Temperature 97.7 F Pulse Rate 75 94 98 Respiratory Rate 18 Blood Pressure 120/76 Pulse Oximetry 97 Oxygen Delivery Oxygen Flow Rate Fraction of Inspired Oxygen 08/01/24 00:00 08/01/24 04:00 08/01/24 06:00 Temperature 96.9 F L Pulse Rate 94 89 92 Respiratory Rate 18 Blood Pressure 128/67 Pulse Oximetry 94 Oxygen Delivery Oxygen Flow Rate Fraction of Inspired Oxygen 08/01/24 08:03 08/01/24 08:59 08/01/24 08:00 Temperature Pulse Rate 102 H Respiratory Rate Blood Pressure Pulse Oximetry 94 94 Oxygen Delivery Nasal Cannula Nasal Cannula Oxygen Flow Rate 3 3 Fraction of Inspired Oxygen 32 Intake/Output Intake/Output: Intake & Output 07/29/24 07/30/24 07/31/24 08/01/24 23:59 23:59 23:59 23:59 Intake Total 3036.6667 2660 2708 1358 Output Total 3250 1950 1550 1600 Balance -213.3333 710 1158 -242 Meds/Results Medications: Active Medications Generic Name Dose Route Start Last Admin Trade Name Freq PRN Reason Stop Dose Admin Acetaminophen 500 mg 07/29/24 17:03 Acetaminophen 500 Mg Tablet PO Q6H PRN Pain Rated 1-3 Hydrocodone Bitart/Acetaminophen 1 tab 07/24/24 21:00 07/31/24 21:59 Hydrocodone/Acetaminophen (*Crx) 7.5-325 Mg Tablet PO 1 tab HS [facility] Administration Cyanocobalamin 500 mcg 07/25/24 09:00 08/01/24 08:03 Cyanocobalamin 500 Mcg Tablet PO 500 mcg QAM [facility] Administration Docusate Sodium 100 mg 07/24/24 21:00 08/01/24 08:03 Docusate Sodium 100 Mg Capsule PO 100 mg Q12HR [facility] Administration Enoxaparin Sodium 40 mg 07/25/24 09:00 08/01/24 08:05 Enoxaparin 40 Mg/0.4 Ml Syringe SUB-Q 40 mg DAILY [facility] Administration Hydromorphone HCl 1 mg 07/29/24 17:03 07/31/24 06:19 Hydromorphone Hcl Inj (*Crx) 1 Mg/Ml Syr IV PUSH 1 mg Q2H PRN Administration Breakthrough Pain Rated 7-10 or NPO Hydromorphone HCl 0.5 mg 07/29/24 17:03 07/31/24 19:34 Hydromorphone Hcl Inj (*Crx) 1 Mg/Ml Syr IV PUSH 0.5 mg Q2H PRN Administration Breakthrough Pain Rated 4-6 or NPO Ibuprofen 800 mg in 200 mls @ 400 mls/hr 07/29/24 17:03 07/31/24 02:20 Caldolor 800 Mg/200 Ml IVPB Infused Q6H PRN Infusion Breakthrough Pain Rated 1-3 or NPO Ceftriaxone Sodium 1 gm in 50 mls @ 100 mls/hr 07/29/24 23:00 07/31/24 23:46 Rocephin 1 Gm/Ns 50 Ml IVPB Infused Q24H [facility] Infusion Azithromycin 500 mg in 250 mls @ 250 mls/hr 07/29/24 23:00 08/01/24 00:55 Zithromax IVPB Infused Q24H [facility] Infusion Metoclopramide HCl 5 mg 08/01/24 18:00 Metoclopramide Hcl 5 Mg Tablet PO Q6HR [facility] Metoprolol Tartrate 25 mg 08/01/24 21:00 Metoprolol Tartrate 25 Mg Tablet PO Q12HR [facility] Miscellaneous Information 1 each 08/01/24 00:01 Concurrent Use Of Metoclopramide And Prochlorperazine Is Contraindicated. Concurrent Use M XX 08/31/24 00:00 CLARIFY [facility]INA Naloxone HCl 0.1 mg 07/29/24 17:03 Naloxone Hcl 0.4 Mg/Ml Vial IV PUSH Q2M PRN Opiate Reversal Ondansetron HCl 4 mg 07/23/24 21:47 Ondansetron Inj 4 Mg/2 Ml Vial IV PUSH Q4H PRN Nausea Oxycodone/Acetaminophen 1 tablet 07/29/24 17:03 08/01/24 12:08 Oxycodone/Acetaminophen (*Crx) 5-325 Mg Tablet PO 1 tablet Q4H PRN Administration Pain Rated 4-6 Oxycodone/Acetaminophen 1 tab 07/29/24 17:03 Oxycodone/Acetaminophen (*Crx) 10-325 Mg Tablet PO Q6H PRN Pain Rated 7-10 Pantoprazole Sodium 40 mg 07/25/24 09:00 08/01/24 08:03 Pantoprazole 40 Mg Tablet PO 40 mg DAILY [facility] Administration Polyethylene Glycol 17 gm 07/27/24 09:00 08/01/24 08:04 Polyethylene Glycol 3350 17 Gm Powd.Pack PO 17 gm QAM [facility] Administration Potassium Phos/Sodium Phos 1 packet 08/01/24 12:00 08/01/24 12:06 Potassium/Phosphorus/Sodium 1.5 Gm Packet PO 1 packet Q6H [facility] Administration Prochlorperazine Maleate 5 mg 08/01/24 13:10 Prochlorperazine Maleate 5 Mg Tablet PO BID PRN Nausea And Vomiting Thiamine HCl 100 mg 07/31/24 17:00 08/01/24 08:04 Thiamine Hcl 200 Mg/2 Ml Vial IV PUSH 100 mg BID CATINA Administration Vitamin B Complex 1 cap 07/31/24 17:00 08/01/24 08:03 Vitamin B Complex Capsule PO 1 cap BID CATINA Administration Radiology Results: ITS Impressions Abdomen/Pelvis CT 07/23/24 20:45 IMPRESSION: 1. Multiple masses in the liver which increased in size compared to previous study. 2. Thickening of the wall of the distal esophagus. 3. Right pleural effusion with adjacent atelectasis. 4. Multiple nodules in the lower lobes of the lungs. 5. Periesophageal, angel hepatis, and para-aortic lymphadenopathy. 6. Calcification in the left renal pelvis most likely a stone. Chest X-Ray 07/29/24 16:10 IMPRESSION: 1. Port tip at superior cavoatrial junction. 2. Airspace opacities in the lower lung zones, likely atelectasis. 3. Pulmonary nodules, consistent with metastatic disease. 4. Small right pleural effusion. Chest CTA 07/29/24 22:57 IMPRESSION: 1. No pulmonary embolism. 2. Right pleural effusion with adjacent pneumonia. Atelectasis is not excluded. Left basilar atelectasis versus pneumonia. 3. Multiple metastatic lesions in both lungs clinical correlation advised. 4. Multiple hypodensities in the liver suggestive of masses. Further evaluation advised. 5. Hepatomegaly. 6. Minimal ascites. 7. Fracture in the right 12th rib with highly suggestive fracture in the 11th rib. Bone Scan Nuclear Medicine 07/30/24 14:05 IMPRESSION: 1. No specific evidence of metastatic disease. 2. 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 Labs Labs: Laboratory Results - last 24 hr 07/31/24 08/01/24 08/01/24 19:14 00:12 05:14 WBC 14.1 H RBC 3.72 L Hgb 10.7 L Hct 33.5 L MCV 90.1 MCH 28.8 MCHC 31.9 L RDW 15.7 H Plt Count 246 MPV 9.6 Immature Gran % (Auto) 1.7 H Neut % (Auto) 80.2 H Lymph % (Auto) 9.6 L [place] % (Auto) 8.1 Eos % (Auto) 0.3 Baso % (Auto) 0.1 L Lymph # (Auto) 1.35 [place] # (Auto) 1.1 H Eos # (Auto) 0.0 Baso # (Auto) 0.0 Abs Immat Gran (auto) 0.24 H Absolute Neuts (auto) 11.3 H Absolute Nucleated RBC 0.000 Nucleated RBC % 0.0 Sodium 131 L Potassium 3.6 Chloride 101 Carbon Dioxide 21 L Anion Gap 9 BUN 13 D Creatinine 0.50 L Estim Creat Clear Calc 133 Estimated GFR > 60 Glucose 106 POC Capillary Glucose 114 H 122 H Calcium 12.8 H* Phosphorus 2.6 Magnesium 2.0 Total Bilirubin 2.7 H AST 325 H ALT 155 H Alkaline Phosphatase 495 H Total Protein 6.0 L Albumin 3.0 L Random Cortisol 08/01/24 08/01/24 05:15 12:29 WBC RBC Hgb Hct MCV MCH MCHC RDW Plt Count MPV Immature Gran % (Auto) Neut % (Auto) Lymph % (Auto) [place] % (Auto) Eos % (Auto) Baso % (Auto) Lymph # (Auto) [place] # (Auto) Eos # (Auto) Baso # (Auto) Abs Immat Gran (auto) Absolute Neuts (auto) Absolute Nucleated RBC Nucleated RBC % Sodium Potassium Chloride Carbon Dioxide Anion Gap BUN Creatinine Estim Creat Clear Calc Estimated GFR Glucose POC Capillary Glucose 167 H Calcium Phosphorus Magnesium Total Bilirubin AST ALT Alkaline Phosphatase Total Protein Albumin Random Cortisol 44.50
[2024-08-01] MEDS: SODIUM CHLORIDE 0.9% IV 1,000 ML 75 ML IV CONT (15:38)
[2024-08-01 18:07] LABS: Glucose Point of Care 121 mg/dl (65-105)
[2024-08-01] MEDS: METOCLOPRAMIDE HCL 5 MG TABLET PO (18:24)
[2024-08-01] MEDS: FUROSEMIDE INJ 40 MG/4 ML VIAL 20 MG IV PUSH (18:24)
[2024-08-01] MEDS: METOPROLOL TARTRATE 25 MG TABLET PO (20:08)
[2024-08-01] MEDS: HYDROcodone/acetaminophen (*CRX) 7.5-325 MG TABLET 1 TAB PO (21:20)
--- NOTE | 2024-08-01 21:47 | PC.NURSE ---
Radiotelegraph Operator was doing evening assessment and patient requested to change code status to DNR. Radiotelegraph Operator educated and confirmed patient understood DNR status. Patient verbally stated he understood and wanted to move forward with change. Code status change was confirmed with second witness, Susana Ackerman Rn
--- NOTE | 2024-08-01 21:50 | PC.NURSE ---
Wildlife Refuge Manager spoke with hospitalist,Zuly Og by phone regarding patients code status change to DNR. Wildlife Refuge Manager informed Dr Og that patient was considering comfort care only and ask if she wanted to speak with patient at bedside. At this time Dr ask to continue conversation with patient as to his decision and how we would proceed. The patient expressed to lyric writer that if there was a change in his condition overnight he did not wish to be transferred off the med surg unit for higher level of care.
[2024-08-01 23:17] LABS: Glucose Point of Care 127 mg/dl (65-105)
[2024-08-02] VITALS (7 sets, daily range): BP systolic 108–116; BP diastolic 68–76; PULSE 97–128; RESP 18–21; TEMP 35.9–36.6; O2SAT 93–95
[2024-08-02] MEDS: AZITHROMYCIN 500 MG/NS 250 ML 500 MG/250 ML BAG 250 MG IVPB
[2024-08-02] MEDS: METOCLOPRAMIDE HCL 5 MG TABLET PO ×2 (00:01→05:14)
[2024-08-02] MEDS: POTASSIUM/PHOSPHORUS/SODIUM 1.5 GM PACKET 1 PACKET PO ×2 (00:01→05:14)
[2024-08-02 04:40] LABS: Glucose Point of Care 105 mg/dl (65-105)
[2024-08-02] MEDS: SODIUM CHLORIDE 0.9% IV 1,000 ML 75 ML IV CONT (05:16)
[2024-08-02 05:31] LABS: Basophils Percent Auto 0.2 % (0.2-1.2); Eosinophils Percent Auto 0.1 % (0-4.4); Immature Granulocyte Absolute 0.26 K/mm3 (0.00-0.031); Immature Granulocyte Percent A 1.7 % (0-0.5); Lymphocytes Absolute Auto 1.29 K/mm3 (0.9-3.2); Lymphocytes Percent Auto 8.3 % (18.3-44.2); Mean Corpuscular HGB Conc 32.4 g/dl (32-36); Mean Corpuscular Hemoglobin 28.1 pg (26-34); Mean Platelet Volume 9.3 fl (7.4-10.4); Monocytes Absolute Auto 1.1 K/mm3 (0.1-0.6); Monocytes Percent Auto 7.3 % (2.6-8.5); Neutrophils Absolute Auto 12.8 K/mm3 (1.3-6.7); Neutrophils Percent Auto 82.4 % (45.5-73.1); Nucleated Red Blood Cells Perc 0.1 % (0.0-0.2); Platelet Count Result 232 k/mm3 (150-375); Red Blood Count 3.91 M/mm3 (4.6-6.20); Red Cell Distribution Width 15.6 % (11.5-14.5); White Blood Count 15.6 K/mm3 (4.5-10.0)
[2024-08-02 05:55] LABS: Alanine Aminotransferase 184 U/L (6-50); Alkaline Phosphatase 543 U/L (38-126); Anion Gap 10 mmol/L (4-12); Aspartate Amino Transferase 442 U/L (17-59); Blood Urea Nitrogen 13 mg/dL (9-20); Calcium 13.8 mg/dL (8.4-10.2); Carbon Dioxide 23 mmol/L (22-30); Chloride 98 mmol/L (98-107); Estimated CRCL calculation 113 ml/min; Estimated Glomerular Filt Rate > 60; Glucose 106 mg/dL (65-110); Magnesium 1.9 mg/dL (1.6-2.3); Phosphorus 2.7 mg/dL (2.5-4.5); Potassium 3.2 mmol/L (3.4-5.0); Sodium 131 mmol/L (137-145)
--- NOTE | 2024-08-02 06:03 | PC.NURSE ---
Patient has expressed this am that he would like to be comfort care and did not want any additional measures to correct any abnormal heart rate or rhythm at this time. Dr Og was notified at 0600 of patients condition and request. A second witness, Susana Ackerman RN confirmed patients request at bedside. Patient request to speak a hospice consult for he and family today.
[2024-08-02] MEDS: HYDROmorphone HCL INJ (*CRX) 1 MG/ML SYR IV PUSH ×2 (06:13→08:48)
--- NOTE | 2024-08-02 08:35 | P.PNNP_ITS ---
Progress Note: A&P Assessment and Plan (1) Hypercalcemia: Code(s): E83.52 - Hypercalcemia Status: Acute Assessment and Plan: * slow/steady improvement * quite elevated on admission at 17 * calcium elevated on outpatient labs as well (June 2024) * Bone scan results showed no metastatic disease, possible localize Paget's disease in the skull? * PTHrp pending; PTH appropriately low and 25+1, 25 Vitamin D results all okay * s/p IV pamidronate and IVFs * SQ calcitonin (~ 4units/kg) initiated for a total of 6 doses (last dose will tomorrow morning) * calcium level ovidio again from yesterday. * the calcium is high in spite of pamidronate and calcitonin. * The next step would be did denosumab however the patient has decided against further treatment. If he changes his mind the dose would be 120mg subcutane ously. * discussed with patient and nursing. (2) Hyponatremia: Code(s): E87.1 - Hypo-osmolality and hyponatremia Status: Acute Assessment and Plan: * Sodium wondering in the low 130s. * Most likely related to the cancer (3) Esophageal cancer: Code(s): C15.9 - Malignant neoplasm of esophagus, unspecified Status: Acute Assessment and Plan: * metastatic with extensive liver lesions * s/p Port placement for initiation of palliative chemotherapy (4) Severe protein-calorie malnutrition: Code(s): E43 - Unspecified severe protein-calorie malnutrition Status: Acute Assessment and Plan: * as noted by weight loss and and diminished oral intake * s/p G-tube placement for nutritional support Subjective Date/time seen: 08/02/24 08:35 Interval history: Patient is weak and tired. He has decided not to seek any more active treatment. We discussed that we could try denosumab for his calcium as the level has risen and this might make him feel that but he does not want to go through this I talked with nursing who has been talking with the patient and the family and hospice has been consulted. Exam Narrative: General: frail appearing male in NAD Heart: normal S1 and S2; no rub or gallop Lungs: decreased BS at right base Abdomen: soft, nontender, nondistended, positive bowel sounds Extremities: no cyanosis or clubbing; trace edema Skin: no rash Or subcu nodule Objective Data Vital Signs Vital Signs: Vital Signs - 24 hr 08/01/24 08:59 08/01/24 14:00 08/01/24 12:00 Temperature 97.9 F Pulse Rate 110 H 118 H Respiratory Rate 18 Blood Pressure 120/69 Pulse Oximetry 94 96 Oxygen Delivery Nasal Cannula Oxygen Flow Rate 3 Fraction of Inspired Oxygen 32 08/01/24 16:00 08/01/24 20:08 08/01/24 20:11 Temperature 97.5 F L Pulse Rate 110 H 121 H 120 H Respiratory Rate 20 Blood Pressure 143/83 H Pulse Oximetry 95 Oxygen Delivery Oxygen Flow Rate Fraction of Inspired Oxygen 08/01/24 20:00 08/02/24 00:00 08/02/24 04:00 Temperature Pulse Rate 121 H 105 H 103 H Respiratory Rate Blood Pressure Pulse Oximetry Oxygen Delivery Oxygen Flow Rate Fraction of Inspired Oxygen 08/02/24 06:00 Temperature 96.7 F L Pulse Rate 103 H Respiratory Rate 18 Blood Pressure 108/72 Pulse Oximetry 95 Oxygen Delivery Oxygen Flow Rate Fraction of Inspired Oxygen Intake/Output Intake/Output: Intake & Output 07/30/24 07/31/24 08/01/24 08/02/24 23:59 23:59 23:59 23:59 Intake Total 2660 2708 1892 1894 Output Total 1950 1550 1950 Balance 710 1158 -58 1894 Meds/Results Medications: Active Medications Generic Name Dose Route Start Last Admin Trade Name Freq PRN Reason Stop Dose Admin Acetaminophen 500 mg 07/29/24 17:03 Acetaminophen 500 Mg Tablet PO Q6H PRN Pain Rated 1-3 Hydrocodone Bitart/Acetaminophen 1 tab 07/24/24 21:00 08/01/24 21:20 Hydrocodone/Acetaminophen (*Crx) 7.5-325 Mg Tablet PO 1 tab HS CATINA Administration Cyanocobalamin 500 mcg 07/25/24 09:00 08/01/24 08:03 Cyanocobalamin 500 Mcg Tablet PO 500 mcg QAM [facility] Administration Docusate Sodium 100 mg 07/24/24 21:00 08/01/24 20:09 Docusate Sodium 100 Mg Capsule PO Not Given Q12HR [facility] Enoxaparin Sodium 40 mg 07/25/24 09:00 08/01/24 08:05 Enoxaparin 40 Mg/0.4 Ml Syringe SUB-Q 40 mg DAILY CATINA Administration Furosemide 20 mg 08/01/24 17:00 08/01/24 18:24 Furosemide Inj 40 Mg/4 Ml Vial IV PUSH 20 mg BID CATINA Administration Hydromorphone HCl 1 mg 07/29/24 17:03 08/02/24 06:13 Hydromorphone Hcl Inj (*Crx) 1 Mg/Ml Syr IV PUSH 1 mg Q2H PRN Administration Breakthrough Pain Rated 7-10 or NPO Hydromorphone HCl 0.5 mg 07/29/24 17:03 07/31/24 19:34 Hydromorphone Hcl Inj (*Crx) 1 Mg/Ml Syr IV PUSH 0.5 mg Q2H PRN Administration Breakthrough Pain Rated 4-6 or NPO Ibuprofen 800 mg in 200 mls @ 400 mls/hr 07/29/24 17:03 07/31/24 02:20 Caldolor 800 Mg/200 Ml IVPB Infused Q6H PRN Infusion Breakthrough Pain Rated 1-3 or NPO Ceftriaxone Sodium 1 gm in 50 mls @ 100 mls/hr 07/29/24 23:00 08/01/24 23:36 Rocephin 1 Gm/Ns 50 Ml IVPB Infused Q24H [facility] Infusion Azithromycin 500 mg in 250 mls @ 250 mls/hr 07/29/24 23:00 08/02/24 01:00 Zithromax IVPB Infused Q24H [facility] Infusion Sodium Chloride 1,000 mls @ 75 mls/hr 08/01/24 13:35 08/02/24 05:16 Normal Saline Iv IV CONT 75 mls/hr .[id number] [facility]INA Administration Metoclopramide HCl 5 mg 08/01/24 18:00 08/02/24 05:14 Metoclopramide Hcl 5 Mg Tablet PO 5 mg Q6HR [facility] Administration Metoprolol Tartrate 25 mg 08/01/24 21:00 08/01/24 20:08 Metoprolol Tartrate 25 Mg Tablet PO 25 mg Q12HR [facility] Administration Naloxone HCl 0.1 mg 07/29/24 17:03 Naloxone Hcl 0.4 Mg/Ml Vial IV PUSH Q2M PRN Opiate Reversal Ondansetron HCl 4 mg 07/23/24 21:47 Ondansetron Inj 4 Mg/2 Ml Vial IV PUSH Q4H PRN Nausea Oxycodone/Acetaminophen 1 tablet 07/29/24 17:03 08/01/24 18:23 Oxycodone/Acetaminophen (*Crx) 5-325 Mg Tablet PO 1 tablet Q4H PRN Administration Pain Rated 4-6 Oxycodone/Acetaminophen 1 tab 07/29/24 17:03 Oxycodone/Acetaminophen (*Crx) 10-325 Mg Tablet PO Q6H PRN Pain Rated 7-10 Pantoprazole Sodium 40 mg 07/25/24 09:00 08/01/24 08:03 Pantoprazole 40 Mg Tablet PO 40 mg DAILY [facility]INA Administration Polyethylene Glycol 17 gm 07/27/24 09:00 08/01/24 08:04 Polyethylene Glycol 3350 17 Gm Powd.Pack PO 17 gm QAM [facility] Administration Potassium Phos/Sodium Phos 1 packet 08/01/24 12:00 08/02/24 05:14 Potassium/Phosphorus/Sodium 1.5 Gm Packet PO 1 packet Q6H [facility] Administration Prochlorperazine Maleate 5 mg 08/01/24 13:10 Prochlorperazine Maleate 5 Mg Tablet PO BID PRN Nausea And Vomiting Thiamine HCl 100 mg 07/31/24 17:00 08/01/24 18:24 Thiamine Hcl 200 Mg/2 Ml Vial IV PUSH 100 mg BID [facility]INA Administration Vitamin B Complex 1 cap 07/31/24 17:00 08/01/24 18:24 Vitamin B Complex Capsule PO 1 cap BID CATINA Administration Radiology Results: ITS Impressions Abdomen/Pelvis CT 07/23/24 20:45 IMPRESSION: 1. Multiple masses in the liver which increased in size compared to previous study. 2. Thickening of the wall of the distal esophagus. 3. Right pleural effusion with adjacent atelectasis. 4. Multiple nodules in the lower lobes of the lungs. 5. Periesophageal, angel hepatis, and para-aortic lymphadenopathy. 6. Calcification in the left renal pelvis most likely a stone. Chest X-Ray 07/29/24 16:10 IMPRESSION: 1. Port tip at superior cavoatrial junction. 2. Airspace opacities in the lower lung zones, likely atelectasis. 3. Pulmonary nodules, consistent with metastatic disease. 4. Small right pleural effusion. Chest CTA 07/29/24 22:57 IMPRESSION: 1. No pulmonary embolism. 2. Right pleural effusion with adjacent pneumonia. Atelectasis is not excluded. Left basilar atelectasis versus pneumonia. 3. Multiple metastatic lesions in both lungs clinical correlation advised. 4. Multiple hypodensities in the liver suggestive of masses. Further evaluation advised. 5. Hepatomegaly. 6. Minimal ascites. 7. Fracture in the right 12th rib with highly suggestive fracture in the 11th rib. Bone Scan Nuclear Medicine 07/30/24 14:05 IMPRESSION: 1. No specific evidence of metastatic disease. 2. 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 Abdomen X-Ray 08/01/24 13:30 IMPRESSION: 1. Normal bowel gas pattern. Labs Labs: Laboratory Results - last 24 hr 08/01/24 08/01/24 08/01/24 12:29 18:04 23:15 WBC RBC Hgb Hct MCV MCH MCHC RDW Plt Count MPV Immature Gran % (Auto) Neut % (Auto) Lymph % (Auto) [place] % (Auto) Eos % (Auto) Baso % (Auto) Lymph # (Auto) [place] # (Auto) Eos # (Auto) Baso # (Auto) Abs Immat Gran (auto) Absolute Neuts (auto) Absolute Nucleated RBC Nucleated RBC % Sodium Potassium Chloride Carbon Dioxide Anion Gap BUN Creatinine Estim Creat Clear Calc Estimated GFR Glucose POC Capillary Glucose 167 H 121 H 127 H Calcium Phosphorus Magnesium Total Bilirubin AST ALT Alkaline Phosphatase Total Protein Albumin 08/02/24 08/02/24 04:32 05:14 WBC 15.6 H RBC 3.91 L Hgb 11.0 L Hct 34.0 L MCV 87.0 MCH 28.1 MCHC 32.4 RDW 15.6 H Plt Count 232 MPV 9.3 Immature Gran % (Auto) 1.7 H Neut % (Auto) 82.4 H Lymph % (Auto) 8.3 L [place] % (Auto) 7.3 Eos % (Auto) 0.1 Baso % (Auto) 0.2 Lymph # (Auto) 1.29 [place] # (Auto) 1.1 H Eos # (Auto) 0.0 Baso # (Auto) 0.0 Abs Immat Gran (auto) 0.26 H Absolute Neuts (auto) 12.8 H Absolute Nucleated RBC 0.020 H Nucleated RBC % 0.1 Sodium 131 L Potassium 3.2 L Chloride 98 Carbon Dioxide 23 Anion Gap 10 BUN 13 Creatinine 0.60 L Estim Creat Clear Calc 113 Estimated GFR > 60 Glucose 106 POC Capillary Glucose 105 Calcium 13.8 H* Phosphorus 2.7 Magnesium 1.9 Total Bilirubin 3.0 H AST 442 H ALT 184 H Alkaline Phosphatase 543 H Total Protein 6.0 L Albumin 3.0 L
--- NOTE | 2024-08-02 09:16 | WPDPN ---
Progress Note: A&P Assessment and Plan (1) Esophageal cancer: Code(s): C15.9 - Malignant neoplasm of esophagus, unspecified Status: Acute Assessment and Plan: Patient has unresectable disease with extensive metastatic spread to his liver. He was initially seen by Oncology and apparently at that time patient wanted to try chemotherapy. A angel catheter and feeding gastrostomy tube was placed by Dr. Lynn. Since that time the patient has now decided that he wants to go to hospice. Case management is working on placement for home hospice versus inpatient hospice. (2) Metastasis to liver: Code(s): C78.7 - Secondary malignant neoplasm of liver and intrahepatic bile duct Status: Acute Assessment and Plan: Extensive liver Mets with terminal prognosis. Patient has decided to now go to hospice instead of taking chemotherapy treatments. (3) Malnutrition: Code(s): E46 - Unspecified protein-calorie malnutrition Status: Acute Assessment and Plan: Patient is tolerating tube feeds at20cc an hour. Recommend increasing as per dietitian recommendations to goal rate. However given the patient's decision for hospice, if he does not tolerate increasing his tube feeding rate then I would not force the tube feeds. Subjective Date/time seen: 08/02/24 09:16 Interval history: Patient is sleeping this morning resting in bed. Nurses not report any acute changes. He is on tube feeds and tolerating a rate of 20cc an hour. He is seen by Nephrology and they recommended treatment for his hypercalcemia. However at the present time the patient has decided that he wants to be hospice status and so no treatment to lower calcium levels is anticipated. Case management is working on home hospice or inpatient hospice. Exam GI: Other: G-tube in place. Incision intact without any bleeding or drainage. Port site incision redness or drainage. Objective Data Vital Signs Vital Signs: Vital Signs - 24 hr 08/01/24 14:00 08/01/24 12:00 08/01/24 16:00 Temperature 36.6 C Pulse Rate 110 H 118 H 110 H Respiratory Rate 18 Blood Pressure 120/69 Pulse Oximetry 96 Oxygen Delivery Oxygen Flow Rate Fraction of Inspired Oxygen 08/01/24 20:08 08/01/24 20:11 08/01/24 20:00 Temperature 36.4 C L Pulse Rate 121 H 120 H 121 H Respiratory Rate 20 Blood Pressure 143/83 H Pulse Oximetry 95 Oxygen Delivery Oxygen Flow Rate Fraction of Inspired Oxygen 08/02/24 00:00 08/02/24 04:00 08/02/24 06:00 Temperature 35.9 C L Pulse Rate 105 H 103 H 103 H Respiratory Rate 18 Blood Pressure 108/72 Pulse Oximetry 95 Oxygen Delivery Oxygen Flow Rate Fraction of Inspired Oxygen 08/02/24 08:00 Temperature Pulse Rate 103 H Respiratory Rate 18 Blood Pressure Pulse Oximetry 95 Oxygen Delivery Nasal Cannula Oxygen Flow Rate 3 Fraction of Inspired Oxygen 32 Intake/Output Intake/Output: Intake & Output 07/30/24 07/31/24 08/01/24 08/02/24 23:59 23:59 23:59 23:59 Intake Total 2660 2708 1892 1894 Output Total 1950 1550 1950 Balance 710 1158 -58 1894 Meds/Results Medications: Active Medications Generic Name Dose Route Start Last Admin Trade Name Freq PRN Reason Stop Dose Admin Acetaminophen 500 mg 07/29/24 17:03 Acetaminophen 500 Mg Tablet PO Q6H PRN Pain Rated 1-3 Hydrocodone Bitart/Acetaminophen 1 tab 07/24/24 21:00 08/01/24 21:20 Hydrocodone/Acetaminophen (*Crx) 7.5-325 Mg Tablet PO 1 tab HS [facility]INA Administration Cyanocobalamin 500 mcg 07/25/24 09:00 08/01/24 08:03 Cyanocobalamin 500 Mcg Tablet PO 500 mcg QAM [facility] Administration Docusate Sodium 100 mg 07/24/24 21:00 08/01/24 20:09 Docusate Sodium 100 Mg Capsule PO Not Given Q12HR [facility] Enoxaparin Sodium 40 mg 07/25/24 09:00 08/01/24 08:05 Enoxaparin 40 Mg/0.4 Ml Syringe SUB-Q 40 mg DAILY [facility] Administration Furosemide 20 mg 08/01/24 17:00 08/01/24 18:24 Furosemide Inj 40 Mg/4 Ml Vial IV PUSH 20 mg BID [facility] Administration Hydromorphone HCl 1 mg 07/29/24 17:03 08/02/24 08:48 Hydromorphone Hcl Inj (*Crx) 1 Mg/Ml Syr IV PUSH 1 mg Q2H PRN Administration Breakthrough Pain Rated 7-10 or NPO Hydromorphone HCl 0.5 mg 07/29/24 17:03 07/31/24 19:34 Hydromorphone Hcl Inj (*Crx) 1 Mg/Ml Syr IV PUSH 0.5 mg Q2H PRN Administration Breakthrough Pain Rated 4-6 or NPO Ibuprofen 800 mg in 200 mls @ 400 mls/hr 07/29/24 17:03 07/31/24 02:20 Caldolor 800 Mg/200 Ml IVPB Infused Q6H PRN Infusion Breakthrough Pain Rated 1-3 or NPO Ceftriaxone Sodium 1 gm in 50 mls @ 100 mls/hr 07/29/24 23:00 08/01/24 23:36 Rocephin 1 Gm/Ns 50 Ml IVPB Infused Q24H [facility] Infusion Azithromycin 500 mg in 250 mls @ 250 mls/hr 07/29/24 23:00 08/02/24 01:00 Zithromax IVPB Infused Q24H [facility] Infusion Sodium Chloride 1,000 mls @ 75 mls/hr 08/01/24 13:35 08/02/24 05:16 Normal Saline Iv IV CONT 75 mls/hr .[id number] [facility] Administration Metoclopramide HCl 5 mg 08/01/24 18:00 08/02/24 05:14 Metoclopramide Hcl 5 Mg Tablet PO 5 mg Q6HR [facility] Administration Metoprolol Tartrate 25 mg 08/01/24 21:00 08/01/24 20:08 Metoprolol Tartrate 25 Mg Tablet PO 25 mg Q12HR [facility] Administration Naloxone HCl 0.1 mg 07/29/24 17:03 Naloxone Hcl 0.4 Mg/Ml Vial IV PUSH Q2M PRN Opiate Reversal Ondansetron HCl 4 mg 07/23/24 21:47 Ondansetron Inj 4 Mg/2 Ml Vial IV PUSH Q4H PRN Nausea Oxycodone/Acetaminophen 1 tablet 07/29/24 17:03 08/01/24 18:23 Oxycodone/Acetaminophen (*Crx) 5-325 Mg Tablet PO 1 tablet Q4H PRN Administration Pain Rated 4-6 Oxycodone/Acetaminophen 1 tab 07/29/24 17:03 Oxycodone/Acetaminophen (*Crx) 10-325 Mg Tablet PO Q6H PRN Pain Rated 7-10 Pantoprazole Sodium 40 mg 07/25/24 09:00 08/01/24 08:03 Pantoprazole 40 Mg Tablet PO 40 mg DAILY [facility] Administration Polyethylene Glycol 17 gm 07/27/24 09:00 08/01/24 08:04 Polyethylene Glycol 3350 17 Gm Powd.Pack PO 17 gm QAM [facility]INA Administration Potassium Chloride 40 meq 08/02/24 09:15 Potassium Chloride 20 Meq Er Tablet PO 08/02/24 09:16 ONCE ONE Potassium Phos/Sodium Phos 1 packet 08/01/24 12:00 08/02/24 05:14 Potassium/Phosphorus/Sodium 1.5 Gm Packet PO 1 packet Q6H [facility] Administration Prochlorperazine Maleate 5 mg 08/01/24 13:10 Prochlorperazine Maleate 5 Mg Tablet PO BID PRN Nausea And Vomiting Thiamine HCl 100 mg 07/31/24 17:00 08/01/24 18:24 Thiamine Hcl 200 Mg/2 Ml Vial IV PUSH 100 mg BID [facility]INA Administration Vitamin B Complex 1 cap 07/31/24 17:00 08/01/24 18:24 Vitamin B Complex Capsule PO 1 cap BID CATINA Administration Radiology Results: ITS Impressions Abdomen/Pelvis CT 07/23/24 20:45 IMPRESSION: 1. Multiple masses in the liver which increased in size compared to previous study. 2. Thickening of the wall of the distal esophagus. 3. Right pleural effusion with adjacent atelectasis. 4. Multiple nodules in the lower lobes of the lungs. 5. Periesophageal, angel hepatis, and para-aortic lymphadenopathy. 6. Calcification in the left renal pelvis most likely a stone. Chest X-Ray 07/29/24 16:10 IMPRESSION: 1. Port tip at superior cavoatrial junction. 2. Airspace opacities in the lower lung zones, likely atelectasis. 3. Pulmonary nodules, consistent with metastatic disease. 4. Small right pleural effusion. Chest CTA 07/29/24 22:57 IMPRESSION: 1. No pulmonary embolism. 2. Right pleural effusion with adjacent pneumonia. Atelectasis is not excluded. Left basilar atelectasis versus pneumonia. 3. Multiple metastatic lesions in both lungs clinical correlation advised. 4. Multiple hypodensities in the liver suggestive of masses. Further evaluation advised. 5. Hepatomegaly. 6. Minimal ascites. 7. Fracture in the right 12th rib with highly suggestive fracture in the 11th rib. Bone Scan Nuclear Medicine 07/30/24 14:05 IMPRESSION: 1. No specific evidence of metastatic disease. 2. 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 Abdomen X-Ray 08/01/24 13:30 IMPRESSION: 1. Normal bowel gas pattern. Labs Labs: Laboratory Results - last 24 hr 08/01/24 08/01/24 08/01/24 12:29 18:04 23:15 WBC RBC Hgb Hct MCV MCH MCHC RDW Plt Count MPV Immature Gran % (Auto) Neut % (Auto) Lymph % (Auto) [place] % (Auto) Eos % (Auto) Baso % (Auto) Lymph # (Auto) [place] # (Auto) Eos # (Auto) Baso # (Auto) Abs Immat Gran (auto) Absolute Neuts (auto) Absolute Nucleated RBC Nucleated RBC % Sodium Potassium Chloride Carbon Dioxide Anion Gap BUN Creatinine Estim Creat Clear Calc Estimated GFR Glucose POC Capillary Glucose 167 H 121 H 127 H Calcium Phosphorus Magnesium Total Bilirubin AST ALT Alkaline Phosphatase Total Protein Albumin 08/02/24 08/02/24 04:32 05:14 WBC 15.6 H RBC 3.91 L Hgb 11.0 L Hct 34.0 L MCV 87.0 MCH 28.1 MCHC 32.4 RDW 15.6 H Plt Count 232 MPV 9.3 Immature Gran % (Auto) 1.7 H Neut % (Auto) 82.4 H Lymph % (Auto) 8.3 L [place] % (Auto) 7.3 Eos % (Auto) 0.1 Baso % (Auto) 0.2 Lymph # (Auto) 1.29 [place] # (Auto) 1.1 H Eos # (Auto) 0.0 Baso # (Auto) 0.0 Abs Immat Gran (auto) 0.26 H Absolute Neuts (auto) 12.8 H Absolute Nucleated RBC 0.020 H Nucleated RBC % 0.1 Sodium 131 L Potassium 3.2 L Chloride 98 Carbon Dioxide 23 Anion Gap 10 BUN 13 Creatinine 0.60 L Estim Creat Clear Calc 113 Estimated GFR > 60 Glucose 106 POC Capillary Glucose 105 Calcium 13.8 H* Phosphorus 2.7 Magnesium 1.9 Total Bilirubin 3.0 H AST 442 H ALT 184 H Alkaline Phosphatase 543 H Total Protein 6.0 L Albumin 3.0 L
--- NOTE | 2024-08-02 10:51 | PC.NURSE ---
Pt refusing medication. MD aware.
--- NOTE | 2024-08-02 11:50 | PM.IMPN ---
Progress Note: A&P Assessment and Plan (1) Hypercalcemia: Code(s): E83.52 - Hypercalcemia Status: Acute Assessment and Plan: Calcium elevated as outpatient and was 17 here. [place] related to his malignancy. No obvious bony lesions noted by imaging. Has hx of hypercalcemia with Ca >14 last month. EKG showing sinus tachycardia with occasional PVCs, delayed transition and age-indeterminate inferior infarct. intermittent NSVT Patient was given IV fluids and pamidronate Nephrology consult given for evaluation and further treatment recommendations Nephrology started patient calcitonin 4 units/kg subQ bid Monitor calcium levels. Decreased scheduled Compazine Calcium level continues to increase on IV fluid and pamidronate and calcitonin PTH is low PTH RP pending vitamin-D normal at 33.9 bone scan with no specific evidence of metastatic disease. Increased activity in the skull without radiographic comparison (2) Pneumonia: Code(s): J18.9 - Pneumonia, unspecified organism Status: Acute Assessment and Plan: Chest x-ray showed prominent markings in the lower lobes. CT of the abdomen showed right pleural effusion with adjacent atelectasis and multiple lung nodules. White count was elevated to 14 K. Blood cultures collected and patient was given azithromycin and Rocephin. Prior imaging studies noted. [place] imaging findings related to his cancer rather than acute pneumonia. Antibiotics held as patient had no fevers and WBC was normal 07/29/2024: Patient restarted on IV antibiotics in the form of IV Rocephin and Zithromax. WBC count is elevated at 16.7 which continues to trend down CTA: Right pleural effusion with adjacent pneumonia left basilar atelectasis versus pneumonia. Multiple metastatic lesions the both lungs multiple hypodensities in the liver suggestive of masses minimal ascites. Fracture in right 12th rib with highly suggestive fracture in 11th rib (3) Hyponatremia syndrome: Code(s): E87.1 - Hypo-osmolality and hyponatremia Status: Acute Assessment and Plan: Sodium low on admission 126. Probably related to dehydration given his poor oral intake. Continue IV fluids Follow-up nephrology for further treatment recommendations (4) Esophageal cancer, stage IV: Code(s): C15.9 - Malignant neoplasm of esophagus, unspecified Status: Chronic Assessment and Plan: Patient with metastatic esophageal cancer with extensive liver involvement. LFTs are elevated related to this. also has lung nodules periesophageal, angel hepatis, para-aortic lymphadenopathy periesophageal Plan is for palliative chemotherapy he is status post port placement Status post G-tube placement Follow-up with Heme-Onc as an outpatient basis (5) Severe protein-calorie malnutrition: Code(s): E43 - Unspecified severe protein-calorie malnutrition Status: Acute Assessment and Plan: Patient with severe protein calorie malnutrition related to chronic esophageal cancer as evidenced by weight loss of 13% in the past month and poor p.o. intake of less than 75% needs greater than a month. Dietitian following. Continue supplements Initiate PEG tube feedings and advance to goal as per dietary recommendations However residual is high Add Reglan x-ray abdomen with nonspecific bowel side does Now transitioning to hospice care (6) UTI (urinary tract infection): Code(s): N39.0 - Urinary tract infection, site not specified Status: Acute Assessment and Plan: UA is abnormal but did not probably urine culture. Not felt to have UTI. No UCx collected UTI ruled out (7) Hypophosphatemia: Code(s): E83.39 - Other disorders of phosphorus metabolism Status: Acute Assessment and Plan: replace and monitor (8) Lactic acidosis: Code(s): E87.20 - Acidosis, unspecified Status: Acute Assessment and Plan: Likely due to pneumonia, metastatic cancer, sickness and hypercalcemia Lactic acid level is still elevated mild likely related underlying metastatic cancer Plan Disposition - PT recommending home health care. Patient feeling very weak and tired. Now Transitioning to hospice care. NSVT: Add beta-amber DVT prophylaxis - Lovenox Code status - full Subjective Date/time seen: 08/02/24 11:50 Interval history: Patient feels tired. Wants to transition to hospice care. Did not tolerate tube feeding had multiple bowel movements overnight. Review of Systems Review of Systems: All systems reviewed & are unremarkable except as noted in HPI and below Exam Narrative: Gen - NARD Chest - decreased BS in the right base o/w clear. CV - RRR S1/S2 Abd - Soft, G-tube in place, +BS Ext - trace pedal edema Psych - Nml mood and affect Skin - Warm and dry Objective Data Vital Signs Vital Signs: Vital Signs - 24 hr 08/01/24 14:00 08/01/24 12:00 08/01/24 16:00 Temperature 97.9 F Pulse Rate 110 H 118 H 110 H Respiratory Rate 18 Blood Pressure 120/69 Pulse Oximetry 96 Oxygen Delivery Oxygen Flow Rate Fraction of Inspired Oxygen 08/01/24 20:08 08/01/24 20:11 08/01/24 20:00 Temperature 97.5 F L Pulse Rate 121 H 120 H 121 H Respiratory Rate 20 Blood Pressure 143/83 H Pulse Oximetry 95 Oxygen Delivery Oxygen Flow Rate Fraction of Inspired Oxygen 08/02/24 00:00 08/02/24 04:00 08/02/24 06:00 Temperature 96.7 F L Pulse Rate 105 H 103 H 103 H Respiratory Rate 18 Blood Pressure 108/72 Pulse Oximetry 95 Oxygen Delivery Oxygen Flow Rate Fraction of Inspired Oxygen 08/02/24 08:00 08/02/24 09:41 Temperature Pulse Rate 103 H Respiratory Rate 18 Blood Pressure Pulse Oximetry 95 94 Oxygen Delivery Nasal Cannula Nasal Cannula Oxygen Flow Rate 3 3 Fraction of Inspired Oxygen 32 32 Intake/Output Intake/Output: Intake & Output 07/30/24 07/31/24 08/01/24 08/02/24 23:59 23:59 23:59 23:59 Intake Total 2660 2708 1892 1894 Output Total 1950 1550 1950 Balance 710 1158 -58 1894 Meds/Results Medications: Active Medications Generic Name Dose Route Start Last Admin Trade Name Freq PRN Reason Stop Dose Admin Acetaminophen 500 mg 07/29/24 17:03 Acetaminophen 500 Mg Tablet PO Q6H PRN Pain Rated 1-3 Hydrocodone Bitart/Acetaminophen 1 tab 07/24/24 21:00 08/01/24 21:20 Hydrocodone/Acetaminophen (*Crx) 7.5-325 Mg Tablet PO 1 tab HS CATINA Administration Cyanocobalamin 500 mcg 07/25/24 09:00 08/01/24 08:03 Cyanocobalamin 500 Mcg Tablet PO 500 mcg QAM CATINA Administration Docusate Sodium 100 mg 07/24/24 21:00 08/01/24 20:09 Docusate Sodium 100 Mg Capsule PO Not Given Q12HR CATINA Enoxaparin Sodium 40 mg 07/25/24 09:00 08/01/24 08:05 Enoxaparin 40 Mg/0.4 Ml Syringe SUB-Q 40 mg DAILY CATINA Administration Furosemide 20 mg 08/01/24 17:00 08/01/24 18:24 Furosemide Inj 40 Mg/4 Ml Vial IV PUSH 20 mg BID CATINA Administration Hydromorphone HCl 1 mg 07/29/24 17:03 08/02/24 08:48 Hydromorphone Hcl Inj (*Crx) 1 Mg/Ml Syr IV PUSH 1 mg Q2H PRN Administration Breakthrough Pain Rated 7-10 or NPO Hydromorphone HCl 0.5 mg 07/29/24 17:03 07/31/24 19:34 Hydromorphone Hcl Inj (*Crx) 1 Mg/Ml Syr IV PUSH 0.5 mg Q2H PRN Administration Breakthrough Pain Rated 4-6 or NPO Ibuprofen 800 mg in 200 mls @ 400 mls/hr 07/29/24 17:03 07/31/24 02:20 Caldolor 800 Mg/200 Ml IVPB Infused Q6H PRN Infusion Breakthrough Pain Rated 1-3 or NPO Ceftriaxone Sodium 1 gm in 50 mls @ 100 mls/hr 07/29/24 23:00 08/01/24 23:36 Rocephin 1 Gm/Ns 50 Ml IVPB Infused Q24H CATINA Infusion Azithromycin 500 mg in 250 mls @ 250 mls/hr 07/29/24 23:00 08/02/24 01:00 Zithromax IVPB Infused Q24H CATINA Infusion Metoclopramide HCl 5 mg 08/01/24 18:00 08/02/24 05:14 Metoclopramide Hcl 5 Mg Tablet PO 5 mg Q6HR [facility] Administration Metoprolol Tartrate 25 mg 08/01/24 21:00 08/01/24 20:08 Metoprolol Tartrate 25 Mg Tablet PO 25 mg Q12HR [facility] Administration Naloxone HCl 0.1 mg 07/29/24 17:03 Naloxone Hcl 0.4 Mg/Ml Vial IV PUSH Q2M PRN Opiate Reversal Ondansetron HCl 4 mg 07/23/24 21:47 Ondansetron Inj 4 Mg/2 Ml Vial IV PUSH Q4H PRN Nausea Oxycodone/Acetaminophen 1 tablet 07/29/24 17:03 08/01/24 18:23 Oxycodone/Acetaminophen (*Crx) 5-325 Mg Tablet PO 1 tablet Q4H PRN Administration Pain Rated 4-6 Oxycodone/Acetaminophen 1 tab 07/29/24 17:03 Oxycodone/Acetaminophen (*Crx) 10-325 Mg Tablet PO Q6H PRN Pain Rated 7-10 Pantoprazole Sodium 40 mg 07/25/24 09:00 08/01/24 08:03 Pantoprazole 40 Mg Tablet PO 40 mg DAILY CATINA Administration Polyethylene Glycol 17 gm 07/27/24 09:00 08/01/24 08:04 Polyethylene Glycol 3350 17 Gm Powd.Pack PO 17 gm QAM CAT[facility] Administration Potassium Phos/Sodium Phos 1 packet 08/01/24 12:00 08/02/24 05:14 Potassium/Phosphorus/Sodium 1.5 Gm Packet PO 1 packet Q6H [facility] Administration Prochlorperazine Maleate 5 mg 08/01/24 13:10 Prochlorperazine Maleate 5 Mg Tablet PO BID PRN Nausea And Vomiting Thiamine HCl 100 mg 07/31/24 17:00 08/01/24 18:24 Thiamine Hcl 200 Mg/2 Ml Vial IV PUSH 100 mg BID [facility] Administration Vitamin B Complex 1 cap 07/31/24 17:00 08/01/24 18:24 Vitamin B Complex Capsule PO 1 cap BID [facility] Administration Radiology Results: ITS Impressions Abdomen/Pelvis CT 07/23/24 20:45 IMPRESSION: 1. Multiple masses in the liver which increased in size compared to previous study. 2. Thickening of the wall of the distal esophagus. 3. Right pleural effusion with adjacent atelectasis. 4. Multiple nodules in the lower lobes of the lungs. 5. Periesophageal, angel hepatis, and para-aortic lymphadenopathy. 6. Calcification in the left renal pelvis most likely a stone. Chest X-Ray 07/29/24 16:10 IMPRESSION: 1. Port tip at superior cavoatrial junction. 2. Airspace opacities in the lower lung zones, likely atelectasis. 3. Pulmonary nodules, consistent with metastatic disease. 4. Small right pleural effusion. Chest CTA 07/29/24 22:57 IMPRESSION: 1. No pulmonary embolism. 2. Right pleural effusion with adjacent pneumonia. Atelectasis is not excluded. Left basilar atelectasis versus pneumonia. 3. Multiple metastatic lesions in both lungs clinical correlation advised. 4. Multiple hypodensities in the liver suggestive of masses. Further evaluation advised. 5. Hepatomegaly. 6. Minimal ascites. 7. Fracture in the right 12th rib with highly suggestive fracture in the 11th rib. Bone Scan Nuclear Medicine 07/30/24 14:05 IMPRESSION: 1. No specific evidence of metastatic disease. 2. 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 Abdomen X-Ray 08/01/24 13:30 IMPRESSION: 1. Normal bowel gas pattern. Labs Labs: Laboratory Results - last 24 hr 08/01/24 08/01/24 08/01/24 12:29 18:04 23:15 WBC RBC Hgb Hct MCV MCH MCHC RDW Plt Count MPV Immature Gran % (Auto) Neut % (Auto) Lymph % (Auto) [place] % (Auto) Eos % (Auto) Baso % (Auto) Lymph # (Auto) [place] # (Auto) Eos # (Auto) Baso # (Auto) Abs Immat Gran (auto) Absolute Neuts (auto) Absolute Nucleated RBC Nucleated RBC % Sodium Potassium Chloride Carbon Dioxide Anion Gap BUN Creatinine Estim Creat Clear Calc Estimated GFR Glucose POC Capillary Glucose 167 H 121 H 127 H Calcium Phosphorus Magnesium Total Bilirubin AST ALT Alkaline Phosphatase Total Protein Albumin 08/02/24 08/02/24 04:32 05:14 WBC 15.6 H RBC 3.91 L Hgb 11.0 L Hct 34.0 L MCV 87.0 MCH 28.1 MCHC 32.4 RDW 15.6 H Plt Count 232 MPV 9.3 Immature Gran % (Auto) 1.7 H Neut % (Auto) 82.4 H Lymph % (Auto) 8.3 L [place] % (Auto) 7.3 Eos % (Auto) 0.1 Baso % (Auto) 0.2 Lymph # (Auto) 1.29 [place] # (Auto) 1.1 H Eos # (Auto) 0.0 Baso # (Auto) 0.0 Abs Immat Gran (auto) 0.26 H Absolute Neuts (auto) 12.8 H Absolute Nucleated RBC 0.020 H Nucleated RBC % 0.1 Sodium 131 L Potassium 3.2 L Chloride 98 Carbon Dioxide 23 Anion Gap 10 BUN 13 Creatinine 0.60 L Estim Creat Clear Calc 113 Estimated GFR > 60 Glucose 106 POC Capillary Glucose 105 Calcium 13.8 H* Phosphorus 2.7 Magnesium 1.9 Total Bilirubin 3.0 H AST 442 H ALT 184 H Alkaline Phosphatase 543 H Total Protein 6.0 L Albumin 3.0 L
[2024-08-02 11:56] LABS: Glucose Point of Care 108 mg/dl (65-105)
--- NOTE | 2024-08-02 12:51 | PCOTNOTE ---
Attempted to see patient this pm. RN advised You can check in on him. He is going hospice, but you can see what he wants to do. He is going home. Upon entering patient's room, he was sleeping soundly at this time and did not disturb for this reason.
--- NOTE | 2024-08-02 13:26 | PC.NURSE ---
Pt refusing afternoon medication.
--- NOTE | 2024-08-02 17:05 | PC.NURSE ---
Pt refusing his evening meds.
[2024-08-02] MEDS: HYDROcodone/acetaminophen (*CRX) 7.5-325 MG TABLET 1 TAB PO (20:29)
--- NOTE | 2024-08-02 22:02 | PC.NURSE ---
Patient refuses all medications other than pain medication at this time.
[2024-08-03] MEDS: HYDROmorphone HCL INJ (*CRX) 1 MG/ML SYR IV PUSH (03:30)
--- NOTE | 2024-08-03 05:32 | PC.NURSE ---
Patient refused morning vital signs
--- NOTE | 2024-08-03 08:47 | PC.NURSE ---
Patient is very lethargic, sleeping, unarousable. During wound assessment, wound care team rolled patient and patient did not wake up, patient unable to take medications at this time.
[2024-08-03 08:54] VITALS: O2SAT 93
[2024-08-03 13:50] VITALS: BP 130/66; PULSE 129; RESP 20; TEMP 36.7; O2SAT 91
--- NOTE | 2024-08-03 15:47 | P.DS_ITS ---
DS: Admitting Diagnosis Discharge Date 08/03/24 Admitting Diagnosis hypercalcemia DS: Discharge Diagnosis Discharge Diagnosis (1) Hypercalcemia: Code(s): E83.52 - Hypercalcemia Status: Acute (2) Pneumonia: Code(s): J18.9 - Pneumonia, unspecified organism Status: Acute (3) Hyponatremia syndrome: Code(s): E87.1 - Hypo-osmolality and hyponatremia Status: Acute (4) Esophageal cancer, stage IV: Code(s): C15.9 - Malignant neoplasm of esophagus, unspecified Status: Chronic (5) Severe protein-calorie malnutrition: Code(s): E43 - Unspecified severe protein-calorie malnutrition Status: Acute (6) UTI (urinary tract infection): Code(s): N39.0 - Urinary tract infection, site not specified Status: Acute (7) Hypophosphatemia: Code(s): E83.39 - Other disorders of phosphorus metabolism Status: Acute (8) Lactic acidosis: Code(s): E87.20 - Acidosis, unspecified Status: Acute DS: Summary Hospital Course Hospital Course: # Hypercalcemia: Calcium elevated as outpatient and was 17 here. [place] related to his malignancy. No obvious bony lesions noted by imaging. Has hx of hypercalcemia with Ca >14 last month. EKG showing sinus tachycardia with occasional PVCs, delayed transition and age- indeterminate inferior infarct. intermittent NSVT Patient was given IV fluids and pamidronate Nephrology consult given for evaluation and further treatment recommendations Nephrology started patient calcitonin 4 units/kg subQ bid Monitor calcium levels. Decreased scheduled Compazine Calcium level continues to increase on IV fluid and pamidronate and calcitonin PTH is low PTH RP pending vitamin-D normal at 33.9 bone scan with no specific evidence of metastatic disease. Increased activity in the skull without radiographic comparison # Pneumonia: Chest x-ray showed prominent markings in the lower lobes. CT of the abdomen showed right pleural effusion with adjacent atelectasis and multiple lung nodules. White count was elevated to 14 K. Blood cultures collected and patient was given azithromycin and Rocephin. Prior imaging studies noted. [place] imaging findings related to his cancer rather than acute pneumonia. Antibiotics held as patient had no fevers and WBC was normal 07/29/2024: Patient restarted on IV antibiotics in the form of IV Rocephin and Zithromax. WBC count is elevated at 16.7 which continues to trend down CTA: Right pleural effusion with adjacent pneumonia left basilar atelectasis versus pneumonia. Multiple metastatic lesions the both lungs multiple hypodensities in the liver suggestive of masses minimal ascites. Fracture in right 12th rib with highly suggestive fracture in 11th rib # Hyponatremia syndrome: Sodium low on admission 126. Probably related to dehydration given his poor oral intake. Continue IV fluids Follow-up nephrology for further treatment recommendations # Esophageal cancer, stage IV: Patient with metastatic esophageal cancer with extensive liver involvement. LFTs are elevated related to this. also has lung nodules periesophageal, angel hepatis, para-aortic lymphadenopathy periesophageal Plan is for palliative chemotherapy he is status post port placement Status post G-tube placement Follow-up with Heme-Onc as an outpatient basis # Severe protein-calorie malnutrition: Patient with severe protein calorie malnutrition related to chronic esophageal cancer as evidenced by weight loss of 13% in the past month and poor p.o. intake of less than 75% needs greater than a month. Dietitian following. Continue supplements Initiate PEG tube feedings and advance to goal as per dietary recommendations However residual is high Add Reglan x-ray abdomen with nonspecific bowel side does Now transitioning to hospice care inpatient # UTI (urinary tract infection): UA is abnormal but did not probably urine culture. Not felt to have UTI. No UCx collected UTI ruled out # Hypophosphatemia: replace and monitor # Lactic acidosis: Likely due to pneumonia, metastatic cancer, sickness and hypercalcemia Lactic acid level is still elevated mild likely related underlying metastatic cancer # Disposition: PT recommending home health care. Patient feeling very weak and tired. Now Transitioning to hospice care inpatient # NSVT: Add beta-amber # DVT prophylaxis - Lovenox # Code status - do not resuscitate Time Spent with Patient Time attestation: Total time spent providing and/or coordinating discharge services: 45 mins Exam Narrative: Gen - somnolent Chest - decreased BS in the right base o/w clear. CV - RRR S1/S2 Abd - Soft, G-tube in place, +BS Ext - trace pedal edema Psych - flat affect Skin - Warm and dry DS: Data Data Completed and Pending Labs on day of discharge: Preliminary micro results at discharge 07/29/24 23:56 Blood Culture - Preliminary Blood 07/29/24 23:41 Blood Culture - Preliminary Blood Procedures/Treatments: [facility] [address] [place] [id number] Operative Note Signed Patient: Vincenzo Bonilla MR#: [id number] : 1960 Acct:[id number] Age: 64 ADM Date: 07/25/24 Loc: [id number]: Zuly Og M.D. cc: Joseluis Perez PA-C; Zuly Og MD; Panchito, Tyrell Falcon MD~ Procedure Note - Detailed Date of Procedure 07/29/24 Pre-op Diagnosis Esophageal cancer, inadequate venous access, unable to eat Post-op Diagnosis Same Procedure Performed Placement left subclavian vortex Port-A-Cath under fluoroscopy, placement gastrostomy tube Surgeon James Lynn MD D[employer] Conveyor Karthik ALVARADO Anesthesia General and Local Indications Patient has been evaluated and found to have metastatic esophageal cancer with hepatomegaly due to extensive liver metastases. He had attempts at placing a PEG tube but, due to the large size the liver, this was not able to be placed. He is taken to surgery now for placement of a Port-A-Cath for chemotherapy as well as placement of an open gastrostomy feeding tube. Findings Port-A-Cath positioned at the cavoatrial junction via the left subclavian vein. Hepatomegaly made the gastrostomy tube placement more difficult as the enlarged lateral segment of the left lobe of the liver required the tube to be placed lateral to the liver and just below the left costal margin. A larger incision was required as well. Description of Procedure Patient was taken to surgery and induced into general anesthesia. The left chest and the entire abdomen were prepped and draped. We started 1st with the Port-A-Cath. The proposed incision was marked on the skin in the left subclavian position. Local was infiltrated into the skin and the subcutaneous. Incision was made and dissection was carried down through the subcutaneous and through the pectoralis major fascia. The fascia was divided and a subfascial pocket was created. Cautery was used for hemostasis. I then cannulated the lef t subclavian vein with a single puncture. A guidewire passed readily into the superior vena cava. Its position was documented by C-arm fluoroscopy. I then used fluoroscopy to measure the length of the Port-A-Cath that would be needed. It was cut to the appropriate length. An introducer and sheath were then passed over the guidewire and, under fluoroscopy, passed well into the innominate vein. The guidewire and introducer were then removed. The Port-A-Cath was passed through the sheath. Its position was checked with fluoroscopy. It appeared to be the appropriate length. We then removed the sheath. Port-A-Cath was placed in the pocket. I used a Phillips needle and heparin and checked the Port-A-Cath several times. It aspirated blood easily and flushed well with heparin. I then sutured the Port-A-Cath in place with 2-0 silk suture. I checked it again and again it easily aspirated blood and flushed. I flushed it finally with heparin. The pocket was then closed with bidirectional running 2-0 Vicryl. The skin was closed with running 4-0 Monocryl skin suture. The wound was dressed with Exofin surgical adhesive. We then turned our attention to the placement of the gastrostomy tube. A left-sided transverse upper abdominal incision was planned. This was marked on the skin. Local was infiltrated into the skin and the deeper subcutaneous tissues. Incision was made and dissection was carried down through the subcutaneous tissue. Cautery was used for hemostasis. We then divided the anterior rectus fascia along the length of the wound. The rectus muscle itself was elevated on a clamp. The muscle fibers were divided transversely along the length of the wound. There was no bleeding. We then divided the posterior rectus fascia and gained access to the abdominal cavity. With the hand in the abdomen I was able to feel the lateral segment of the left lobe of the liver. It was very enlarged. I was also able to palpate and grasped the stomach. There was an area in the antrum of the stomach where we could bring the stomach down to the wound and still have space just below the costal margin to bring out the gastrostomy tube. I used the LigaSure and divide d some of the short gastrics along the greater curvature of the stomach leading into the lesser sac. Then with some gentle traction on the stomach, I was able to expose the anterior surface of the distal half of the stomach. I used 2-0 silk and placed concentric pursestring sutures on the stomach. I then used a 16 [employer] gastrostomy tube with a 5 cc balloon. I made a small incision in the skin just above the incision made previously. I then passed a fine-tipped clamp through the abdominal wall and out the skin incision. The gastrostomy tube was then brought through this incision and through the abdominal wall. I checked the balloon with saline and it distended easily and fully with 5 cc of saline. With the balloon distended, I tied the initial pursestring suture. I then dunked the G-tube into the stomach and tied the outer pursestring suture. This had the desired effect of dunking the gastrotomy site. I then used this same pursestring suture of 2-0 silk and sutured the back of the stomach to the anterior abdominal wall cephalad to the gastrostomy tube. I then used for more 2-0 silks and sutured the stomach to the anterior abdominal wall circumferentially. We pulled the gastrostomy tube up snug to the anterior abdominal wall. All looked good. I then closed the posterior rectus fascia with bidirectional running 3-0 Vicryl suture. I closed the anterior rectus fascia with bidirectional running 0 PDS suture. I then pulled the gastrostomy tube and used 0 silk ties to secure it to the appliance surrounding the tube. Two of these 0 silk ties were placed. Placing gentle traction on the gastrostomy tube, it did not move and appeared to be at the appropriate tension on the abdominal wall. All the ports were capped on the did gastrostomy tube. We finished closing the abdominal incision with interrupted 3-0 Vicryl sutures to close Justice's fascia. 4-0 Vicryl subcuticular skin sutures were then used to loosely approximate the skin. Finally a running 4-0 Monocryl skin suture was used to close the skin. The wound was dressed with Exofin surgical adhesive. A gauze bandage and Medipore tape were placed around the G-tube. Patient was then awakened and taken to recovery in good condition. Sponge and needle counts were correct x2. Implants Sixteen [employer] gastrostomy tube with 5 cc balloon Estimated Blood Loss -5 Urine Output 400 Drains Yes (Gastrostomy tube) Packing No Pathology None sent Complications None Condition Stable Disposition PACU [facility] Billing Surgery - Charge Forward: Surgery Billing (Placement left subclavian vortex Port-A-Cath under fluoroscopy, placement gastrostomy tube) Imaging Radiologist's impression: ITS Impressions Chest X-Ray 07/23/24 19:39 IMPRESSION: Prominent markings in the lower lobes. Opacification the right and left posterior CP angle which may indicate atelectasis versus focal pneumonia. Clinical evaluation advised. Abdomen/Pelvis CT 07/23/24 20:45 IMPRESSION: 1. Multiple masses in the liver which increased in size compared to previous study. 2. Thickening of the wall of the distal esophagus. 3. Right pleural effusion with adjacent atelectasis. 4. Multiple nodules in the lower lobes of the lungs. 5. Periesophageal, angel hepatis, and para-aortic lymphadenopathy. 6. Calcification in the left renal pelvis most likely a stone. Chest X-Ray 07/29/24 16:10 IMPRESSION: 1. Port tip at superior cavoatrial junction. 2. Airspace opacities in the lower lung zones, likely atelectasis. 3. Pulmonary nodules, consistent with metastatic disease. 4. Small right pleural effusion. Chest CTA 07/29/24 22:57 IMPRESSION: 1. No pulmonary embolism. 2. Right pleural effusion with adjacent pneumonia. Atelectasis is not excluded. Left basilar atelectasis versus pneumonia. 3. Multiple metastatic lesions in both lungs clinical correlation advised. 4. Multiple hypodensities in the liver suggestive of masses. Further evaluation advised. 5. Hepatomegaly. 6. Minimal ascites. 7. Fracture in the right 12th rib with highly suggestive fracture in the 11th rib. Bone Scan Nuclear Medicine 07/30/24 14:05 IMPRESSION: 1. No specific evidence of metastatic disease. 2. 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 Abdomen X-Ray 08/01/24 13:30 IMPRESSION: 1. Normal bowel gas pattern. Discharge Plan Discharge Attending physician on discharge: Jose David Carias Consulting providers: Jose Carlos Lopez; Bernardo Pelaez; Miguel Diaz; Rufina Boateng; James Lynn Discharging Clinician: Jose David Carias Anticipated Discharge Date/Time: 08/03/24 08:29 Patient Disposition: Hospice - Medical Facility Activity: as tolerated Diet: regular Patient Instructions: Pneumonia (GEN) Stand Alone Forms: General Discharge Information, General Discharge Instructions Follow-up/Referrals: Panchito,Tyrell Falcon MD [Primary Care Provider] - 1 Week Discharge Medications: New polyethylene glycol 3350 [Miralax] 17 gram Powder In Packet 17 g PO QAM Qty: 30 0RF metoprolol tartrate 25 mg Tablet 25 mg PO Q12HR Qty: 60 0RF No Action No Home Medications Date of admission: 07/25/24 17:04 Primary Care Provider: Panchito,Tyrell Falcon Admitting Provider: Zuly Og V. Attending physician on admission: Zuly Og V. Condition: Guarded Prognosis
--- NOTE | 2024-08-05 08:56 | WPDHPUPDATE1 ---
History and Physical Update Update Date/Time: 08/05/24 08:56 History and Physical has been reviewed, including an updated exam of the patient. There are NO changes in the patient's condition. Risks, benefits, and alternatives have been discussed and questions answered. Patient agrees to proceed with procedure.
[2024-08-08 18:43] LABS: Parathyroid Hormone Related Pr 113 pg/mL (11-20)
== END 2024-08-03 13:50 | disposition hospice, inpatient (51) | DRG 640 ==
LOC: ANHED 18:49 → ANHIMU 23:07 → ANH3MED 07-25 17:42
PROVIDERS: Emergency Medicine; Family Medicine; Internal Medicine; Internal Medicine Gastroenterology; Internal Medicine Nephrology; Physician Assistant; Surgery; Admitting Provider Internal Medicine; Emergency Provider Physician Assistant; PCP Internal Medicine; Visit Provider Internal Medicine
PROC: 0DJ08ZZ Inspection of Upper Intestinal Tract, Via Natural or Artificial Opening Endoscopic (ICD-10-PCS; 2024-07-27 16:00)
PROC: 0JHF3WZ Insertion of Totally Implantable Vascular Access Device into Left Upper Arm Subcutaneous Tissue and Fascia, Percutaneous Approach (ICD-10-PCS; principal; 2024-07-29 13:00)
PROC: 0JHF3WZ Insertion of Totally Implantable Vascular Access Device into Left Upper Arm Subcutaneous Tissue and Fascia, Percutaneous Approach (ICD-10-PCS; CPT 49440; 2024-07-29 13:00)
DX: E83.52 Hypercalcemia (principal); E43 Unspecified severe protein-calorie malnutrition; J18.9 Pneumonia, unspecified organism; C78.00 Secondary malignant neoplasm of unspecified lung; C15.5 Malignant neoplasm of lower third of esophagus; E87.1 Hypo-osmolality and hyponatremia; C78.7 Secondary malignant neoplasm of liver and intrahepatic bile duct; E11.9 Type 2 diabetes mellitus without complications; I95.9 Hypotension, unspecified; I10 Essential (primary) hypertension; R13.10 Dysphagia, unspecified; R16.0 Hepatomegaly, not elsewhere classified; Z51.5 Encounter for palliative care; Z66 Do not resuscitate; Z68.27 Body mass index [BMI] 27.0-27.9, adult; Z87.891 Personal history of nicotine dependence
CPT/HCPCS: 36415; 71046; 71275; 74018; 74177; 77001; 78306; 80053; 80069; 81001; 82164; 82306; 82330; 82533; 82607; 82652; 82728; 82746; 82948; 83519; 83540; 83550; 83605; 83690; 83735; 83880; 83970; 84100; 84443; 84484; 85025; 85610; 85730; 87040; 87637; 87641; 93005; 96361; 96365; 96366; 96372; 96375; 97110; 97161; 97165; 97530; 97535; 99285; A9270; A9503; C1788; G0378; J0456; J0630; J0690; J0696; J1170; J1644; J1650; J1741; J1940; J2405; J2430; J2704; J3010; J3411; J3475; J7030; J7050; J7060; J7120; Q9967

== ENCOUNTER 2024-08-03 15:11 | HOS | payer OTHER, MEDICARE, SELFPAY ==
[2024-08-03 15:14] VITALS: BMI 29.5
[2024-08-03 16:02] VITALS: PULSE 129; RESP 20
[2024-08-03] MEDS: MORPHINE SULFATE INJ (*CRX) 50 MG in SODIUM CHLORIDE 0.9% IV 95 ML IV CONT (16:02)
--- NOTE | 2024-08-03 16:10 | PM.IMHP ---
H&P: HPI History of Present Illness Date/Time: 08/03/24 16:10 Chief Complaint: Uncontrolled dyspnea and discomfort Narrative: 64-year-old gentleman was admitted July 27 with dysphagia and abnormal labs with calcium level 17.0. He was treated with pamidronate calcitonin IV fluids. Calcium initially improved. 11/19/2017 chest CTA revealed right pleural effusion with adjacent pneumonia. He was treated with appropriate antibiotics but failed to improve. He continued to require supplemental oxygen. Because of dysphagia and EGD showing to obstructing esophageal mass is mid and lower he had a Port-A-Cath placed room with a gastrostomy tube. However he continued to decline. Because of severe protein calorie malnutrition increasing weakness and inability to tolerate more aggressive therapy his family opted for hospice. He was discharged home on hospice August 02, however he declined rapidly overnight is more groggy were dyspneic having more pain in the abdomen to chest area. He received 1 mg IV hydromorphone in the development director hours that helped with comfort but not with dyspnea. He remained tachypneic. He was bed-bound but arousable and oriented to person. He was refusing his usual medications. He told staff and family he wished to only be comfortable. Review of Systems Review of Systems: ROS unobtainable: Yes unobtainable due to medical condition PMFSH Past Medical History Medical History Diabetes Dysphagia Elevated liver enzymes Esophageal cancer, stage IV GERD (gastroesophageal reflux disease) History of smoking Hypercalcemia Hyperlipidemia Hypertension Malnutrition Marijuana use Metastasis to liver Overweight (BMI 25.0-29.9) Weight loss Family History Family History Sibling Family history of diabetes mellitus in first degree relative Patient's brother is Family history of obesity Family history of alcoholism Hypertension Mother Depression Father Family history of diabetes mellitus in first degree relative Hypertension Cardiovascular disease Social History Social History (Updated 08/03/24 @ 16:11 by Tye Eric MD) Social History: Code Status: DNR Smoking packs per day: 2 Smoking cigarettes per day: 40.0 Years smoked: 20 Smoking pack-years: 40.00 Smoking status: Former smoker Tobacco type: cigarettes Second hand tobacco smoke exposure: No Smoking end date: 11/11/03 Alcohol intake: never Substance use: former Substance use type: marijuana Do You Feel Safe in your Home?: Yes Lack of Transportation: No Lack of Food: Never True Current Housing: I Have Housing Concerned About Future Housing: No Difficulty Paying Gas/Electric Bills: No Difficulty Paying for Meds: No Currently Unemployed: No Education: Decline to Answer Difficulty w/ Childcare or Family Care: No Living arrangements: with family Spiritual care concerns: No Meds Home Medications and Allergies Home Medications Medication Instructions Recorded Confirmed Type No Home Medications 08/03/24 08/03/24 History Allergies Allergy/AdvReac Type Severity Reaction Status Date / Time No Known Allergies Allergy Verified 07/29/24 12:48 Vital Signs Vital Signs - 24 hr 08/03/24 16:02 Pulse Rate 129 H Respiratory Rate 20 Exam Narrative: HEENT: normocephalic. NECK: No JVD. CHEST: Mildly tachypneic. Coarse breath sounds with decreased breath sounds in the right lower lobe. HEART: NL S1/S2, regular, no murmur ABDOMEN: BS Hypoactive, soft, nontender, no mass, no bruits EXTREMITIES: No pitting edema. NEUROLOGIC: CN intact and symmetric to inspection. MUSCULOSKELETAL: No gross deformity to visual inspection PSYCH: minimally responsive to verbal or tactile stimuli.. Assessment and Plan Assessment and plan (1) Hospice c
[2024-08-03 20:00] VITALS: O2SAT 94
[2024-08-04 08:00] VITALS: O2SAT 93
[2024-08-04 13:59] VITALS: BP 115/61; PULSE 133; RESP 18; TEMP 36.8; O2SAT 91
[2024-08-04 15:55] VITALS: PULSE 131; RESP 20
[2024-08-04 15:56] VITALS: PULSE 131; RESP 20
[2024-08-04] MEDS: MORPHINE SULFATE INJ (*CRX) 50 MG in SODIUM CHLORIDE 0.9% IV 95 ML IV CONT (15:56)
--- NOTE | 2024-08-04 17:13 | PM.IMPN ---
Progress Note: A&P Assessment and Plan (1) Hospice care: Code(s): Z51.5 - Encounter for palliative care Status: Acute Assessment and Plan: Meets inpatient hospice criteria due to requiring continues IV morphine for control of dyspnea discomfort. P.r.n. palliative regimen ordered. (2) Esophageal cancer, stage IV: Code(s): C15.9 - Malignant neoplasm of esophagus, unspecified Status: Chronic (3) Hypercalcemia: Code(s): E83.52 - Hypercalcemia Status: Acute (4) Pneumonia: Code(s): J18.9 - Pneumonia, unspecified organism Status: Acute (5) Hyponatremia syndrome: Code(s): E87.1 - Hypo-osmolality and hyponatremia Status: Acute (6) Metastasis to liver: Code(s): C78.7 - Secondary malignant neoplasm of liver and intrahepatic bile duct Status: Acute (7) Severe protein-calorie malnutrition: Code(s): E43 - Unspecified severe protein-calorie malnutrition Status: Acute Subjective Date/time seen: 08/04/24 17:13 Interval history: Comfortable to morhpine drip. Review of Systems Review of Systems: ROS unobtainable: Yes unobtainable due to medical condition Exam Narrative: HEENT: normocephalic. NECK: No JVD. CHEST: Mildly tachypneic. Coarse breath sounds with decreased breath sounds in the right lower lobe. HEART: NL S1/S2, regular, no murmur ABDOMEN: BS Hypoactive, soft, nontender, no mass, no bruits EXTREMITIES: No pitting edema. NEUROLOGIC: CN intact and symmetric to inspection. MUSCULOSKELETAL: No gross deformity to visual inspection PSYCH: minimally responsive to verbal or tactile stimuli.. Objective Data Vital Signs Vital Signs: Vital Signs - 24 hr 08/03/24 20:00 08/04/24 08:00 08/04/24 13:59 Temperature 98.2 F Pulse Rate 133 H Respiratory Rate 18 Blood Pressure 115/61 Pulse Oximetry 94 93 91 Oxygen Delivery Nasal Cannula Nasal Cannula Oxygen Flow Rate 3 3 08/04/24 15:55 08/04/24 15:56 Temperature Pulse Rate 131 H 131 H Respiratory Rate 20 20 Blood Pressure Pulse Oximetry Oxygen Delivery Oxygen Flow Rate Intake/Output Intake/Output: Intake & Output 08/01/24 08/02/24 08/03/24 08/04/24 23:59 23:59 23:59 23:59 Intake Total 0 45 Output Total 500 1600 Balance -262 -9901 Meds/Results Medications: Active Medications Generic Name Dose Route Start Last Admin Trade Name Freq PRN Reason Stop Dose Admin Acetaminophen 650 mg 08/03/24 15:10 Acetaminophen 650 Mg Suppository RECTAL Q4H PRN Fever Artificial Tears 1 drop 08/03/24 15:09 Artificial Tears Ophth Soln 15 Ml Bottle EACH EYE Q8H PRN Dry Eye(s) Bisacodyl 10 mg 08/03/24 15:10 Bisacodyl 10 Mg Suppository RECTAL DAILY PRN Constipation Glycopyrrolate 0.1 mg 08/03/24 15:10 Glycopyrrolate Inj (*Sp) 0.2 Mg/Ml Vial IV PUSH Q4H PRN secretions Morphine Sulfate 50 mg/ Sodium 100 mls @ 2 mls/hr 08/03/24 15:10 08/04/24 15:56 Chloride IV CONT 1 mg/hr .Q24H CATINA 2 mls/hr Administration 1 MG/HR Lorazepam 1 mg 08/03/24 15:10 Lorazepam Inj (*Crx) 2 Mg/Ml Vial IV PUSH Q4H PRN ANXIETY/RESTLESSNESS Morphine Sulfate 2 mg 08/03/24 15:10 Morphine Sulfate (*Crx) 2 Mg/Ml Inj IV PUSH Q2H PRN Pain Prochlorperazine Edisylate 10 mg 08/03/24 15:10 Prochlorperazine Edisylate 10 Mg/2 Ml Vial IV PUSH Q4H PRN Nausea And Vomiting
[2024-08-04 19:49] VITALS: O2SAT 91
[2024-08-04] MEDS: GLYCOPYRROLATE INJ (*SP) 0.2 MG/ML VIAL 0.1 MG IV PUSH (21:26)
[2024-08-04] MEDS: MORPHINE SULFATE (*CRX) 2 MG/ML INJ IV PUSH (21:26)
[2024-08-04 21:27] VITALS: PULSE 131; RESP 30; O2SAT 90
[2024-08-05] MEDS: LORazepam INJ (*CRX) 2 MG/ML VIAL 1 MG IV PUSH (00:52)
--- NOTE | 2024-08-05 01:10 | PC.NURSE ---
Entered patient's room to find him with no respirations or heart rate. Charge nurse called to bedside to verify expiration.
--- NOTE | 2024-08-05 10:53 | P.DN_ITS ---
Discharge Summary Date and Time Date of : 08/05/24 Time of : 01:15 Provider Pronounced By: 2 RNs Name of First RN That Pronounced: Ellie Thacker RN Name of Second RN That Pronounced: Martina Parekh RN Probable Cause of Probable Cause of : stage 4 esophageal cancer Summary Hospital Course: Admitted to inpatient hospice service for symptom control. Medications were titrated to comfort. Mr. Bonilla peacefully. Additional Data Confirmation of as documented by pronouncing clinician: Pupillary Reflex, Palpable Pulses, Response to Stimuli, Heart Tones and Breath Sounds Name of Provider Notified: [place] Time Provider Notified: 01:27 Family Requests Autopsy: No Sign Letterer Notified: Yes Date [facility] Notified of : 08/05/24 Time [facility] Notified of : 01:35
== END 2024-08-05 01:15 | disposition expired | DRG 951 ==
PROVIDERS: Admitting Provider Internal Medicine; PCP Internal Medicine; Visit Provider Internal Medicine
DX: Z51.5 Encounter for palliative care (principal); J18.9 Pneumonia, unspecified organism; E43 Unspecified severe protein-calorie malnutrition; C15.9 Malignant neoplasm of esophagus, unspecified; E87.1 Hypo-osmolality and hyponatremia; C78.7 Secondary malignant neoplasm of liver and intrahepatic bile duct; E83.52 Hypercalcemia; E11.9 Type 2 diabetes mellitus without complications; Z66 Do not resuscitate; Z87.891 Personal history of nicotine dependence
CPT/HCPCS: A9270; J1596; J2060; J2270